=== PATIENT | female | born 1940 | race Caucasian/White ===

== ENCOUNTER 2017-07-15 09:33 | Inpatient (IN) | payer OTHER ==
[2017-07-15] MEDS ORDERED: CATAPRES TAB 0.2 MG PO ONE (09:49)
--- NOTE | 2017-07-15 09:53 | DR.SOBA ---
HPI - Time Seen Time seen: 09:40 - Primary Care Physician Primary Care Physician: NFD - Complaints Chief Complaint Doctors Comments: Patient states that she had shortness of breath this morning. She denies lung disease and is being treated for AFib. Patients states that she sleeps with a CPAP machine. Chief Complaint:: PT C/O SOB THAT STARTED THIS AM. EMS STATES PT WAS NOTED TO BE 83% SPO2 ON ARRIVAL. NOTED NC 2LPM. - Source History Provided: Patient - Mode of Arrival Mode of Arrival: EMS - Timing Onset of Chief Complaint: 07/15/17 PMH - PMH Past Medical History: Yes Past Medical History: Diabetes, Hypertension Past Medical History Comment: A-FIB Past Surgical History: Yes Surgical History: Cholecystectomy, Hysterectomy Past Surgical History Comment: PNEUMONIA - Family History History of Family Medical Conditions: No - Social History Does any household member use tobacco: No Alcohol Use: None Do you use any recreational Drugs:: No Lives With: Alone Lives Where: Home - infectious screening In the last 2 months have you had wt loss of >10#?: NO Have you had fever, night sweats or hemotysis?: No Have you traveled outside the country in the last 6 months?: No Isolation: Standard ROS - Review of Systems Eyes: No Symptoms Reported ENTM: No Symptoms Reported Respiratoy: No Symptoms Reported Cardiovascular: No Symptoms Reported Gastrointestinal/Abdominal: No Symptoms Reported, Abdominal Pain Genitourinary: Discharge Neurological: No Symptoms Reported Musculoskeletal: No Symptoms Reported Integumentary: No Symptoms Reported Hematologic/Lymphatic: No Symptoms Reported PE - Vital Signs Vitals: Temperature 97.7 F Pulse Rate 82 Respiratory Rate 20 Blood Pressure 199/81 O2 Sat by Pulse Oximetry 97 - General Limitations: No Limitations General Appearance: Alert, In No Apparent Distress - Head Head Exam: Normal Inspection, Atraumatic - Eyes Eye exam: Normal Appearance, PERRL, EOMI - ENT ENT Exam: Normal Exam - Neck Neck Exam: Normal Inspection, Full ROM - Chest Chest Inspection: Normal Inspection - Respiratory Respiratory Exam: Normal Lung Sounds Bilat. negative: Chest Wall Tenderness, Respiratory Distress Respiratory Exam: Bilateral Clear to Auscultation - Cardiovascular Cardiovascular Exam: Regular Rate, Normal Rhythm - Abdominal Exam Abdominal Exam: Normal Inspection Abdominal Tenderness: negative: RUQ, RLQ, LUQ, LLQ, Epigastrium, Suprapubic, Diffuse, Mild, Moderate, Severe, Other - Extremities Extremities Exam: Edema, Joint Swelling - Back Back Exam: Normal Inspection - Neurologic Neurological Exam: Alert, Oriented X3, CN II-XII Intact - Psychiatric Psychiatric Exam: Normal Affect - Skin Skin Exam: Warm, Dry, Intact Course - Consultation Called: 13:00 (Dr Garcia agreed to admit for further treatment and evaluation) ROR - Labs Reviewed Laboratory Results Reviewed?: Yes (D Dimer [id number]) Result Diagrams: 07/15/17 10:08 07/15/17 10:08 Laboratory: WBC 5.0 X10^3/uL (3.6-10.0) 07/15/17 10:08 RBC 4.08 X10^6/uL (3.5-5.4) 07/15/17 10:08 Hgb 11.2 g/dL (12.0-16.0) L 07/15/17 10:08 Hct 34.5 % (36.0-47.0) L 07/15/17 10:08 MCV 84.7 fL (80.0-100.0) 07/15/17 10:08 MCH 27.5 pg (27.0-34.0) 07/15/17 10:08 MCHC 32.5 g/dL (33.0-35.0) L 07/15/17 10:08 RDW 17.4 % (11.6-16.5) H 07/15/17 10:08 Plt Count 165 X10^3/uL (150.0-450.0) 07/15/17 10:08 MPV 9.2 fL (7.4-11.0) 07/15/17 10:08 Neut % 73.1 % (42.0-75.0) 07/15/17 10:08 Lymph % 17.1 % (21.0-51.0) L 07/15/17 10:08 [place] % 5.1 % (0.0-13.0) 07/15/17 10:08 Eos % 3.8 % (0.9-2.9) H 07/15/17 10:08 Baso % 0.9 % (0.2-1.0) 07/15/17 10:08 Neut # 3.7 x10^3/uL (2.2-4.8) 07/15/17 10:08 Lymph # 0.9 X10^3/uL (1.3-2.9) L 07/15/17 10:08 [place] # 0.3 x10^3/uL (0.3-0.8) 07/15/17 10:08 Eos # 0.2 x10^3/uL (0.0-0.2) 07/15/17 10:08 Baso # 0.0 X10^3/uL (0.0-0.1) 07/15/17 10:08 Absolute Nucleated RBC 0.0 /100WBC 07/15/17 10:08 D-Dimer 846 ng/mL (0-400) H* 07/15/17 10:08 Sodium 142 mmol/L (136-145) 07/15/17 10:08 Corrected Sodium 145 mmol/L (136-145) 07/15/17 10:08 Potassium 4.1 mmol/L (3.5-5.1) 07/15/17 10:08 Chloride 105 mmol/L (98-107) 07/15/17 10:08 Carbon Dioxide 28.8 mmol/L (21-32) 07/15/17 10:08 BUN 21 mg/dL (7-18) H 07/15/17 10:08 Creatinine 1.12 mg/dL (0.55-1.02) H 07/15/17 10:08 Est GFR (MDRD) Af Amer > 60 (>60) 07/15/17 10:08 Est GFR (MDRD) Non-Af 50 (>60) L 07/15/17 10:08 Glucose 230 mg/dL (65-99) H 07/15/17 10:08 Calcium 9.5 mg/dL (8.5-10.1) 07/15/17 10:08 Corrected Calcium 10.4 mg/dL (8.5-10.1) H 07/15/17 10:08 Total Bilirubin 0.60 mg/dL (0.2-1.0) 07/15/17 10:08 AST 23 Units/L (15-37) 07/15/17 10:08 ALT 17 Units/L (12-78) 07/15/17 10:08 Alkaline Phosphatase 84 Units/L (46-116) 07/15/17 10:08 Creatine Kinase 62 Units/L (26-192) 07/15/17 10:10 CK-MB (CK-2) < 1.0 ng/mL (0-4.0) 07/15/17 10:10 CK/CKMB % Calc 1.6 % (<4) 07/15/17 10:10 Troponin I 0.09 ng/mL (0-1.5) 07/15/17 10:10 C-Reactive Protein 1.70 mg/L (0-3.0) 07/15/17 10:08 B-Natriuretic Peptide 310 pg/mL (0-79) H 07/15/17 10:08 Total Protein 7.7 g/dL (6.4-8.2) 07/15/17 10:08 Albumin 2.9 g/dL (3.4-5.0) L 07/15/17 10:08 Globulin 4.8 g/dL (2.5-4.5) H 07/15/17 10:08 Albumin/Globulin Ratio 0.6 Ratio (1.1-2.1) L 07/15/17 10:08 - XRAY XRAY Interpreted by: Radiologist (Chest: Cardiomegaly with pulmonary venous congestion consistent with borderline /mild CHF CTA: No PE) - Diagnosis Discharge Problem: CHF (congestive heart failure) Qualifiers: Congestive heart failure type: unspecified congestive heart failure type Congestive heart failure chronicity: chronic Qualified Code(s): I50.9 - Heart failure, unspecified Dyspnea Qualifiers: Dyspnea type: shortness of breath Qualified Code(s): R06.02 - Shortness of breath - Discharge Plan Disposition: ADMITTED INPATIENT Condition: Stable - Follow ups/Referrals - Instructions
--- NOTE | 2017-07-15 10:11 | RAD ---
Examination: AP chest History: SOB Comparison reference: None Findings: The heart is moderately enlarged. The pulmonary vessels are congested and indistinct. There is no evidence for pneumothorax, localized consolidation or large pleural effusion. Impression: Cardiomegaly with pulmonary venous congestion consistent with borderline/mild CHF. The Reported By:
[2017-07-15 10:18] LABS: BASOPHILS % (AUTO) 0.9 % (0.2-1.0); EOSINOPHILS # (AUTO) 0.2 x10^3/uL (0.0-0.2); EOSINOPHILS % (AUTO) 3.8 % (0.9-2.9); HEMATOCRIT 34.5 % (36.0-47.0); HEMOGLOBIN 11.2 g/dL (12.0-16.0); LYMPHOCYTES # (AUTO) 0.9 X10^3/uL (1.3-2.9); LYMPHOCYTES % (AUTO) 17.1 % (21.0-51.0); MEAN CORPUSCULAR HEMOGLOBIN 27.5 pg (27.0-34.0); MEAN CORPUSCULAR HGB CONC 32.5 g/dL (33.0-35.0); MEAN CORPUSCULAR VOLUME 84.7 fL (80.0-100.0); MEAN PLATELET VOLUME 9.2 fL (7.4-11.0); MONOCYTES # (AUTO) 0.3 x10^3/uL (0.3-0.8); MONOCYTES % (AUTO) 5.1 % (0.0-13.0); NEUTROPHILS # (AUTO) 3.7 x10^3/uL (2.2-4.8); NEUTROPHILS % (AUTO) 73.1 % (42.0-75.0); PLATELET COUNT 165 X10^3/uL (150.0-450.0); RED BLOOD COUNT 4.08 X10^6/uL (3.5-5.4); RED CELL DISTRIBUTION WIDTH 17.4 % (11.6-16.5)
[2017-07-15 10:33] LABS: B-TYPE NATRIURETIC PEPTIDE 310 pg/mL (0-79)
[2017-07-15 10:34] LABS: ALANINE AMINOTRANSFERASE 17 Units/L (12-78); ALBUMIN 2.9 g/dL (3.4-5.0); ALKALINE PHOSPHATASE 84 Units/L (46-116); ASPARTATE AMINO TRANSFERASE 23 Units/L (15-37); BLOOD UREA NITROGEN 21 mg/dL (7-18); CALCIUM 9.5 mg/dL (8.5-10.1); CARBON DIOXIDE 28.8 mmol/L (21-32); CHLORIDE 105 mmol/L (98-107); COR CA(FOR HYPOALB) 10.4 mg/dL (8.5-10.1); COR NA(FOR HYPERGLY) 145 mmol/L (136-145); CREATININE 1.12 mg/dL (0.55-1.02); SODIUM 142 mmol/L (136-145); TOTAL PROTEIN 7.7 g/dL (6.4-8.2); eGFR BLACK RACES > 60 (>60); eGFR NON BLACK RACES 50 (>60)
[2017-07-15 10:37] LABS: CKMB % 1.6 % (<4); CREATINE KINASE 62 Units/L (26-192); CREATINE KINASE MB < 1.0 ng/mL (0-4.0); TROPONIN I 0.09 ng/mL (0-1.5)
[2017-07-15] MEDS ORDERED: NS 100 ML IV 100 ML IV ONE (11:25)
--- NOTE | 2017-07-15 12:27 | CT ---
HISTORY: Shortness of breath, elevated D-dimer Study: CTA chest with contrast for pulmonary embolus Comparison: Plain films same date Technique: Axial post-contrast images with coronal and sagittal reformats. Three-dimensional maximum intensity projection images were obtained and evaluated. Dose reduction procedures were used with mA/ kv adjusted for body size. Findings: There is no evidence for acute pulmonary thromboembolic disease. Examination of the mediastinum demon strated no evidence for mediastinal masses, enlarged mediastinal or enlarged hilar adenopathy. 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 Coronary artery calcifications are present. The hear t is enlarged. Mild pulmonary venous congestion is present. There is a minimal pericardial effusion m aximum width 13 mm along the right heart border. Bilateral small pleural effusions are present right greater than left. No chest wall or axillary abnormality is identified. Those portions of the upper a bdominal organs visualized were within normal limits with the exception of hepatomegaly. Examination of the lung [place] demonstrated no alveolar infiltrates, areas of consolidation, nodules, masses, per ibronchial thickening, or bronchiectasis. IMPRESSION: No evidence for acute pulmonary thromboembolic disease Cardiomegaly with mild pulmonary venous congestion and small bilateral pleural effusions likely indic ating mild congestive heart failure Lungs clear Minimal pericardial effusion Congenital right-sided aortic arch Reported By:
[2017-07-15] MEDS ORDERED: ZOFRAN INJ 4 MG VIAL IVP PRN (13:39)
[2017-07-15] MEDS ORDERED: NS 1000 ML 1,000 ML with POTASSIUM CHLORIDE INJ 20 MEQ VIAL 20 MEQ IV SCH ×2 (14:00)
[2017-07-15] MEDS ORDERED: CATAPRES TAB 0.1 MG PO ONE ×2 (14:37→19:36)
[2017-07-15] MEDS ORDERED: CATAPRES TAB 0.1 MG ONE (14:43)
[2017-07-15] MEDS ORDERED: FLUVIRIN IM ONE (16:02)
[2017-07-15] MEDS ORDERED: NS + KCL 20 MEQ/L 1,000 ML IV ONE (16:14)
[2017-07-15 16:32] LABS: CKMB % 1.9 % (<4); CREATINE KINASE 54 Units/L (26-192); CREATINE KINASE MB < 1.0 ng/mL (0-4.0); TROPONIN I 0.08 ng/mL (0-1.5)
[2017-07-15] MEDS: TYLENOL 325 MG TAB PO PRN (17:03)
[2017-07-15] MEDS: LASIX IVP SCH (20:36)
[2017-07-15] MEDS: ELIQUIS PO SCH ×2 (20:37→20:46)
[2017-07-15] MEDS: ZYLOPRIM PO SCH (20:37)
[2017-07-15] MEDS: HumuLIN R SUBCUT PRN (20:38)
[2017-07-15] MEDS: SNACK - Diabetic Appropriate PO SCH (20:39)
[2017-07-15 22:29] LABS: CKMB % 1.9 % (<4); CREATINE KINASE 53 Units/L (26-192); CREATINE KINASE MB < 1.0 ng/mL (0-4.0)
[2017-07-16] MEDS: HumuLIN R SUBCUT PRN ×4 (05:42→21:30)
[2017-07-16] MEDS: NS + KCL 20 MEQ/L 1,000 ML IV SCH (05:43)
[2017-07-16 06:39] LABS: ALANINE AMINOTRANSFERASE 15 Units/L (12-78); ALBUMIN 2.8 g/dL (3.4-5.0); ALKALINE PHOSPHATASE 77 Units/L (46-116); ASPARTATE AMINO TRANSFERASE 22 Units/L (15-37); BLOOD UREA NITROGEN 19 mg/dL (7-18); CALCIUM 8.9 mg/dL (8.5-10.1); CARBON DIOXIDE 25.5 mmol/L (21-32); CHLORIDE 107 mmol/L (98-107); COR CA(FOR HYPOALB) 9.9 mg/dL (8.5-10.1); COR NA(FOR HYPERGLY) 144 mmol/L (136-145); CREATININE 1.04 mg/dL (0.55-1.02); SODIUM 141 mmol/L (136-145); TOTAL PROTEIN 6.7 g/dL (6.4-8.2); eGFR BLACK RACES > 60 (>60); eGFR NON BLACK RACES 55 (>60)
[2017-07-16 07:15] LABS: BASOPHILS % (AUTO) 0.6 % (0.2-1.0); EOSINOPHILS # (AUTO) 0.2 x10^3/uL (0.0-0.2); EOSINOPHILS % (AUTO) 3.6 % (0.9-2.9); HEMATOCRIT 32.7 % (36.0-47.0); HEMOGLOBIN 10.4 g/dL (12.0-16.0); LYMPHOCYTES # (AUTO) 0.6 X10^3/uL (1.3-2.9); LYMPHOCYTES % (AUTO) 13.9 % (21.0-51.0); MEAN CORPUSCULAR HEMOGLOBIN 27.4 pg (27.0-34.0); MEAN CORPUSCULAR HGB CONC 31.8 g/dL (33.0-35.0); MEAN PLATELET VOLUME 9.4 fL (7.4-11.0); MONOCYTES # (AUTO) 0.2 x10^3/uL (0.3-0.8); MONOCYTES % (AUTO) 5.1 % (0.0-13.0); NEUTROPHILS # (AUTO) 3.6 x10^3/uL (2.2-4.8); NEUTROPHILS % (AUTO) 76.8 % (42.0-75.0); PLATELET COUNT 137 X10^3/uL (150.0-450.0); RED CELL DISTRIBUTION WIDTH 17.2 % (11.6-16.5); WHITE BLOOD COUNT 4.6 X10^3/uL (3.6-10.0)
[2017-07-16] MEDS: ELIQUIS PO SCH ×2 (08:45→20:35)
[2017-07-16] MEDS: LASIX IVP SCH ×2 (08:45→20:35)
[2017-07-16] MEDS: ZYLOPRIM PO SCH (08:45)
--- NOTE | 2017-07-16 09:17 | RAD ---
HISTORY: Follow-up CHF Study: Single-view chest Comparison: July 15, 2017 Findings: The heart is enlarged with central vascular congestion but no lobar mass or consolidation to suggest florid pulmonary edema or pneumonia. There are no effusions. There is no pneumothorax. IMPRESSION: Cardiomegaly and central vascular congestion without florid pulmonary edema or pneumonia. Reported By:
[2017-07-16] MEDS: ALBUMIN HUMAN 25%- 100ML 100 ML IV SCH (14:52)
--- NOTE | 2017-07-16 18:15 | VAS ---
VENOUS ULTRASOUND DOPPLER EXAMINATION OF THE BILATERAL LOWER EXTREMITIES HISTORY: Shortness of breath, elevated D-dimer, bilateral leg edema. Comparison: None TECHNIQUE: Multiple hudson scale and color flow Doppler images of the deep venous system were obtained of the right and left lower extremity. FINDINGS: The deep venous system of the right and left lower extremities were evaluated from the level of the c ommon femoral vein through the popliteal vein. Normal color flow and augmentation can be observed. In addition, normal compression is seen throughout the deep venous system. IMPRESSION: 1. Negative for DVT. Reported By:
[2017-07-16] MEDS: SNACK - Diabetic Appropriate PO SCH (20:35)
[2017-07-16] MEDS: TYLENOL 325 MG TAB PO PRN (21:30)
[2017-07-17 05:12] LABS: BASOPHILS % (AUTO) 0.5 % (0.2-1.0); EOSINOPHILS # (AUTO) 0.2 x10^3/uL (0.0-0.2); EOSINOPHILS % (AUTO) 3.9 % (0.9-2.9); HEMATOCRIT 31.6 % (36.0-47.0); HEMOGLOBIN 10.2 g/dL (12.0-16.0); LYMPHOCYTES # (AUTO) 0.8 X10^3/uL (1.3-2.9); LYMPHOCYTES % (AUTO) 17.4 % (21.0-51.0); MEAN CORPUSCULAR HEMOGLOBIN 27.8 pg (27.0-34.0); MEAN CORPUSCULAR HGB CONC 32.2 g/dL (33.0-35.0); MEAN CORPUSCULAR VOLUME 86.2 fL (80.0-100.0); MEAN PLATELET VOLUME 9.2 fL (7.4-11.0); MONOCYTES # (AUTO) 0.3 x10^3/uL (0.3-0.8); MONOCYTES % (AUTO) 7.1 % (0.0-13.0); NEUTROPHILS # (AUTO) 3.4 x10^3/uL (2.2-4.8); NEUTROPHILS % (AUTO) 71.1 % (42.0-75.0); PLATELET COUNT 130 X10^3/uL (150.0-450.0); RED BLOOD COUNT 3.66 X10^6/uL (3.5-5.4); RED CELL DISTRIBUTION WIDTH 17.2 % (11.6-16.5); WHITE BLOOD COUNT 4.7 X10^3/uL (3.6-10.0)
[2017-07-17 05:20] LABS: CALCIUM 8.9 mg/dL (8.5-10.1); COR CA(FOR HYPOALB) 9.7 mg/dL (8.5-10.1); CREATININE 1.21 mg/dL (0.55-1.02)
[2017-07-17] MEDS: NS + KCL 20 MEQ/L 1,000 ML IV SCH ×3 (05:41→21:32)
[2017-07-17] MEDS: HumuLIN R SUBCUT PRN ×3 (06:26→17:31)
[2017-07-17] MEDS: LASIX IVP SCH ×2 (08:38→21:26)
[2017-07-17] MEDS: ELIQUIS PO SCH ×2 (08:38→21:26)
[2017-07-17] MEDS: ALBUMIN HUMAN 25%- 100ML 100 ML IV SCH (08:38)
[2017-07-17] MEDS: ZYLOPRIM PO SCH (08:41)
[2017-07-17] MEDS ORDERED: GLIPIZIDE 10 MG PO SCH (10:30)
[2017-07-17 11:16] VITALS: BMI 31.1
--- NOTE | 2017-07-17 13:46 | DR.H&P ---
H&P - History & Physical for Day of: H&P Date: 07/15/17 - Chief Complaint Chief Complaint: short of breath - Allergies Allergies/Adverse Reactions: Allergies Allergy/AdvReac Type Severity Reaction Status Date / Time lisinopril [From Zestril] Allergy Verified 07/15/17 09:57 zinc AdvReac Verified 07/15/17 09:57 - History of Present Illness History of Present Illness: is a 76 year old white female who presented to the emergency room with complaints of shortness of breath that began suddenly this morning. Patient reports that shortness of breath had progressively gotten worse throughout the morning, so she called EMS to bring her to the ER. Patient states that she just moved back to [place] on Tuesday and does not have a local doctor yet. She reports that her medications were packed up in a box and now she can't find them, that she has not taken any medications in a couple of days and this includes her diuretic. On examination, lung sound are diminished bilaterally to auscultation. Abdomen is round, soft, and non- tender with normal bowel sounds noted in all quadrants. Bilateral lower extremities are noted with 2+ pitting edema. Patient reports that edema has increased since she has not take her diuretics. On arrival to the ER, her vital signs were 97.7-82-20-97%-199/81. Labs, chest xray, and ekg were obtained. Abnormal lab values include the following: hgb 11.2, hct 34.5, d-dimer 846, bun 21, creatinine 1.12, bnp 310, albumin 2.9. We obtained a chest xray, a chest CTA , and an EKG. Chest xray reported cardiomegaly with pulmonary venous congestion consistent with borderline/mild CHF. Chest CTA reported no evidence for acute pulmonary thromboembolic disease, cardiomegaly with mild pulmonary venous congestion and small bilateral pleural effusions likely indicating mild congestive heart failure, lungs clear, minimal pericardial effusion, congenital right sided aortic arch. EKG reported sinus rhythm with HR 73. She was given Lasix 20mg iv in the ER and started on normal saline with 20meq KCL at 80ml/hr. We admitted patient for further evaluation and treatment of CHF. We plan to administer Lasix 20mg IV BID. We will follow up with AM labs and chest xray and continue to monitor. - Past Medical History Past Medical History: Diabetes, Hypertension - Past Surgical History Surgical History: Cholecystectomy, Hysterectomy - Family History Family Medical History: Cancer, Hypertension - Social History Does any household member use tobacco: No Alcohol Use: None Drug Use: None - Medications Home Medications: Allopurinol [ZYLOPRIM tab 300 mg *] 300 mg PO DAILY 07/15/17 [History Confirmed 07/15/17] Apixaban [Eliquis] 2.5 mg PO BID 07/15/17 [History Confirmed 07/15/17] Glipizide [Glipizide Xl] 10 mg PO BID 07/15/17 [History Confirmed 07/15/17] Insulin Glargine (Lantus) [LANTUS INSULIN 10 ML VIAL *] 10 units SC HS 07/15/17 [History Confirmed 07/15/17] Potassium Chloride [Klor-Con 10] 10 meq PO DAILY 07/15/17 [History Confirmed 06/21] Saxagliptin HCl/Metformin HCl [Kombiglyze Xr 2.5-1000 mg] 1 tab PO BID 07/15/17 [History Confirmed 07/15/17] - Physical Exam Vital Signs: Temperature 98.1 F Pulse Rate [Right Radial] 96 Pulse Rate 55 Respiratory Rate 20 Blood Pressure [Right Arm] 142/63 Blood Pressure [Left Arm] 178/68 Blood Pressure 199/81 O2 Sat by Pulse Oximetry 96
[2017-07-17] MEDS ORDERED: MAG-OX TAB PO PRN (14:40)
[2017-07-17] MEDS: MAGNESIUM SULFATE 1 GM/100 mL PREMIX 1 GM/100 ML BAG IV PRN ×4 (14:55→18:15)
[2017-07-17] MEDS: LANTUS SC SCH (21:27)
[2017-07-17] MEDS: SNACK - Diabetic Appropriate PO SCH (21:31)
--- NOTE | 2017-07-17 23:47 | PCM.PROG ---
Progress Note - Progress Note for Day of Date: 07/16/17 - Subjective Subjective: WAS ADMITTED FOR CHF AND SHORTNESS OF BREATH. TODAY, SHE IS ALERT AND ORIENTED, SITTING UP IN RECLINER ON MORNING ROUNDS. SHE CONTINUES WITH COMPAINTS OF SHORTNESS OF BREATH THIS MORNING, HOWEVER, REPORTS SLIGHT IMPROVEMENT SINCE ADMISSION. ON EXAMINATION, LUNGS ARE NOTED WITH EXPIRATORY WHEEZING. ABDOMEN IS ROUND, SOFT, AND NON-TENDER WITH NORMAL BOWEL SOUNDS NOTED IN ALL QUADRANTS. BILATERAL LOWER EXTREMITIES ARE NOTED WITH 1+ PITTING EDEMA AND ERYTHEMA. SHE IS UTILIZING OXYGEN VIA NASAL CANNULA AT 2L/MIN. HER VITAL SIGNS THIS MORNING ARE 98.0-47-18-99%-115/80. ABNORMAL LAB VALUES INCLUDE THE FOLLOWING: HGB 10.4, HCT 32.7, BUN 19, CREATININE 1.04, GLUCOSE 215, ALBUMIN 2.8 , A/G RATIO 0.7. CARDIAC ENZYMES HAVE BEEN WITHIN NORMAL LIMITS. TODAYS CHEST XRAY REPORTS CARDIOMEGALY AND CENTRAL VASCULAR CONGESTION WITHOUT FLORID PULMONARY EDEMA OR PNEUMONIA. LATEST EKG REPORTS SINUS RHYTHM WITH HR 68. TODAY , WE PLAN TO CHECK A VENOUS DOPPLER TO RULE OUT DVT. WE WILL RESTRICT FLUIDS TO 1 LITER/DAY AND DECREASE IVF TO KVO. WE WILL START ALBUMIN 25% IV DAILY AND LASIX 40MG IV BID. WE PLAN TO FOLLOW UP WITH AM LABS AND CONTINUE TO MONITOR PATIENT. - Past Medical Family Social History Past Med/Fam/Surg Hx: No changes since H&P Allergies: Allergies lisinopril [From Zestril] Allergy (Verified 07/15/17 09:57) zinc Adverse Reaction (Verified 07/15/17 09:57) - Review of Systems ROS: No change since H&P - Vital Signs and I&O's Vital Signs: Temperature 98.3 F Pulse Rate [Right Radial] 72 Pulse Rate 72 Respiratory Rate 20 Blood Pressure [Right Arm] 145/80 Blood Pressure [Left Arm] 178/68 Blood Pressure 199/81 O2 Sat by Pulse Oximetry 98 Intake and Output: Intake & Output 07/15/17 07/16/17 07/17/17 07/18/17 11:59 11:59 11:59 11:59 Intake Total 1480 1000 760 Output Total 2100 Balance 1480 1000 -1340 - Physical Exam Oriented: Normal Eyes: Normal Ear: Normal Nose: Normal Throat: Normal Respiratory: Right, Left, Generalized, Wheezes Cardiovascular: Edema : Normal Auscultation: Bowel Sounds: Normal Palpation: Normal Tenderness: Normal Skin: Normal Musculoskeletal: Normal Psychiatric: Normal Mood Description: Calm Affect: Normal Speech Pattern: Clear, Appropriate - Laboratory and Diagnostics Result Diagrams: 07/17/17 04:40 07/17/17 04:40 Labs: Laboratory WBC 4.7 X10^3/uL (3.6-10.0) 07/17/17 04:40 RBC 3.66 X10^6/uL (3.5-5.4) 07/17/17 04:40 Hgb 10.2 g/dL (12.0-16.0) L 07/17/17 04:40 Hct 31.6 % (36.0-47.0) L 07/17/17 04:40 MCV 86.2 fL (80.0-100.0) 07/17/17 04:40 MCH 27.8 pg (27.0-34.0) 07/17/17 04:40 MCHC 32.2 g/dL (33.0-35.0) L 07/17/17 04:40 RDW 17.2 % (11.6-16.5) H 07/17/17 04:40 Plt Count 130 X10^3/uL (150.0-450.0) L 07/17/17 04:40 MPV 9.2 fL (7.4-11.0) 07/17/17 04:40 Neut % 71.1 % (42.0-75.0) 07/17/17 04:40 Lymph % 17.4 % (21.0-51.0) L 07/17/17 04:40 [place] % 7.1 % (0.0-13.0) 07/17/17 04:40 Eos % 3.9 % (0.9-2.9) H 07/17/17 04:40 Baso % 0.5 % (0.2-1.0) 07/17/17 04:40 Neut # 3.4 x10^3/uL (2.2-4.8) 07/17/17 04:40 Lymph # 0.8 X10^3/uL (1.3-2.9) L 07/17/17 04:40 [place] # 0.3 x10^3/uL (0.3-0.8) 07/17/17 04:40 Eos # 0.2 x10^3/uL (0.0-0.2) 07/17/17 04:40 Baso # 0.0 X10^3/uL (0.0-0.1) 07/17/17 04:40 Absolute Nucleated RBC 0.1 /100WBC 07/17/17 04:40 D-Dimer 846 ng/mL (0-400) H* 07/15/17 10:08 Sodium 141 mmol/L (136-145) 07/17/17 04:40 Corrected Sodium 144 mmol/L (136-145) 07/17/17 04:40 Potassium 4.0 mmol/L (3.5-5.1) 07/17/17 04:40 Chloride 105 mmol/L (98-107) 07/17/17 04:40 Carbon Dioxide 30.0 mmol/L (21-32) 07/17/17 04:40 BUN 19 mg/dL (7-18) H 07/17/17 04:40 Creatinine 1.21 mg/dL (0.55-1.02) H 07/17/17 04:40 Est GFR (MDRD) Af Amer 56 (>60) L 07/17/17 04:40 Est GFR (MDRD) Non-Af 46 (>60) L 07/17/17 04:40 Glucose 213 mg/dL (65-99) H 07/17/17 04:40 POC Glucose (mg/dL) 255 mg/dL (65-99) H 07/17/17 20:45 Calcium 8.9 mg/dL (8.5-10.1) 07/17/17 04:40 Corrected Calcium 9.7 mg/dL (8.5-10.1) 07/17/17 04:40 Magnesium 1.3 mg/dL (1.7-2.9) L 07/17/17 04:40 Total Bilirubin 0.90 mg/dL (0.2-1.0) 07/17/17 04:40 AST 18 Units/L (15-37) 07/17/17 04:40 ALT 17 Units/L (12-78) 07/17/17 04:40 Alkaline Phosphatase 96 Units/L (46-116) 07/17/17 04:40 Creatine Kinase 53 Units/L (26-192) 07/15/17 21:46 CK-MB (CK-2) < 1.0 ng/mL (0-4.0) 07/15/17 21:46 CK/CKMB % Calc 1.9 % (<4) 07/15/17 21:46 Troponin I 0.10 ng/mL (0-1.5) 07/15/17 21:46 C-Reactive Protein 1.70 mg/L (0-3.0) 07/15/17 10:08 B-Natriuretic Peptide 310 pg/mL (0-79) H 07/15/17 10:08 Total Protein 7.0 g/dL (6.4-8.2) 07/17/17 04:40 Albumin 3.0 g/dL (3.4-5.0) L 07/17/17 04:40 Globulin 4.0 g/dL (2.5-4.5) 07/17/17 04:40 Albumin/Globulin Ratio 0.8 Ratio (1.1-2.1) L 07/17/17 04:40 - Plan (1) CHF (congestive heart failure) Status: Acute Qualifiers: Congestive heart failure type: unspecified congestive heart failure type Congestive heart failure chronicity: chronic Qualified Code(s): I50.9 - Heart failure, unspecified Plan: LASIX 40MG IV BID, FLUID RESTRICTION, CONTINUE TO MONITOR LABS AND CHEST XRAY (2) Dyspnea Status: Acute Qualifiers: Dyspnea type: shortness of breath Qualified Code(s): R06.02 - Shortness of breath; R06.00 - Dyspnea, unspecified; R06.01 - Orthopnea Plan: SUPPLEMENTAL OXYGEN, FLUID RESTRICTION, CONTINUE TO MONITOR LABS AND CHEST XRAY
[2017-07-18 05:06] LABS: BASOPHILS % (AUTO) 0.6 % (0.2-1.0); EOSINOPHILS # (AUTO) 0.3 x10^3/uL (0.0-0.2); EOSINOPHILS % (AUTO) 5.5 % (0.9-2.9); HEMATOCRIT 32.2 % (36.0-47.0); HEMOGLOBIN 10.4 g/dL (12.0-16.0); LYMPHOCYTES # (AUTO) 0.7 X10^3/uL (1.3-2.9); LYMPHOCYTES % (AUTO) 13.8 % (21.0-51.0); MEAN CORPUSCULAR HEMOGLOBIN 27.4 pg (27.0-34.0); MEAN CORPUSCULAR HGB CONC 32.4 g/dL (33.0-35.0); MEAN CORPUSCULAR VOLUME 84.7 fL (80.0-100.0); MEAN PLATELET VOLUME 9.7 fL (7.4-11.0); MONOCYTES # (AUTO) 0.3 x10^3/uL (0.3-0.8); MONOCYTES % (AUTO) 4.9 % (0.0-13.0); NEUTROPHILS # (AUTO) 3.9 x10^3/uL (2.2-4.8); NEUTROPHILS % (AUTO) 75.2 % (42.0-75.0); PLATELET COUNT 155 X10^3/uL (150.0-450.0); RED CELL DISTRIBUTION WIDTH 16.8 % (11.6-16.5); WHITE BLOOD COUNT 5.2 X10^3/uL (3.6-10.0)
[2017-07-18 05:38] LABS: ALANINE AMINOTRANSFERASE 19 Units/L (12-78); ALKALINE PHOSPHATASE 77 Units/L (46-116); ASPARTATE AMINO TRANSFERASE 21 Units/L (15-37); BLOOD UREA NITROGEN 18 mg/dL (7-18); CALCIUM 8.7 mg/dL (8.5-10.1); CARBON DIOXIDE 31.8 mmol/L (21-32); CHLORIDE 102 mmol/L (98-107); COR CA(FOR HYPOALB) 9.5 mg/dL (8.5-10.1); COR NA(FOR HYPERGLY) 144 mmol/L (136-145); CREATININE 0.97 mg/dL (0.55-1.02); MAGNESIUM 1.6 mg/dL (1.7-2.9); SODIUM 141 mmol/L (136-145); TOTAL PROTEIN 7.1 g/dL (6.4-8.2); eGFR BLACK RACES > 60 (>60); eGFR NON BLACK RACES 60 (>60)
[2017-07-18] MEDS: GLUCOTROL XL PO SCH (05:59)
[2017-07-18] MEDS: HumuLIN R SUBCUT PRN (06:27)
--- NOTE | 2017-07-18 06:38 | RAD ---
HISTORY: Shortness of breath Study: Chest AP portable Comparison: 07/16/2017, CTA chest 07/15/2017 Findings: The heart remains enlarged. Mild pulmonary venous congestion is present. No interstitial edema, alveo lar edema, alveolar infiltrates, or pleural effusions are identified. The bony thorax is unremarkable . IMPRESSION: Cardiomegaly with mild pulmonary venous congestion, stable Lungs clear Reported By:
[2017-07-18] MEDS: ELIQUIS PO SCH ×2 (09:08→20:53)
[2017-07-18] MEDS: ALBUMIN HUMAN 25%- 100ML 100 ML IV SCH (09:08)
[2017-07-18] MEDS: ZYLOPRIM PO SCH (09:09)
[2017-07-18] MEDS: LASIX IVP SCH ×2 (09:09→20:54)
[2017-07-18] MEDS: GLUCOPHAGE XR PO SCH (20:53)
[2017-07-18] MEDS: LANTUS SC SCH (20:54)
[2017-07-18] MEDS: SNACK - Diabetic Appropriate PO SCH (21:54)
[2017-07-18] MEDS: NS + KCL 20 MEQ/L 1,000 ML IV SCH (21:54)
[2017-07-19] MEDS: NS + KCL 20 MEQ/L 1,000 ML IV SCH (00:32)
[2017-07-19 05:16] LABS: ALANINE AMINOTRANSFERASE 18 Units/L (12-78); ALKALINE PHOSPHATASE 76 Units/L (46-116); ASPARTATE AMINO TRANSFERASE 20 Units/L (15-37); BLOOD UREA NITROGEN 24 mg/dL (7-18); CALCIUM 9.1 mg/dL (8.5-10.1); CHLORIDE 101 mmol/L (98-107); COR CA(FOR HYPOALB) 9.9 mg/dL (8.5-10.1); COR NA(FOR HYPERGLY) 146 mmol/L (136-145); CREATININE 1.11 mg/dL (0.55-1.02); SODIUM 144 mmol/L (136-145); eGFR BLACK RACES > 60 (>60); eGFR NON BLACK RACES 51 (>60)
[2017-07-19 05:28] LABS: BASOPHILS % (AUTO) 0.7 % (0.2-1.0); EOSINOPHILS # (AUTO) 0.4 x10^3/uL (0.0-0.2); EOSINOPHILS % (AUTO) 6.7 % (0.9-2.9); HEMATOCRIT 33.9 % (36.0-47.0); LYMPHOCYTES # (AUTO) 1.1 X10^3/uL (1.3-2.9); LYMPHOCYTES % (AUTO) 19.9 % (21.0-51.0); MEAN CORPUSCULAR HEMOGLOBIN 27.5 pg (27.0-34.0); MEAN CORPUSCULAR HGB CONC 32.6 g/dL (33.0-35.0); MEAN CORPUSCULAR VOLUME 84.4 fL (80.0-100.0); MEAN PLATELET VOLUME 9.1 fL (7.4-11.0); MONOCYTES # (AUTO) 0.3 x10^3/uL (0.3-0.8); MONOCYTES % (AUTO) 5.7 % (0.0-13.0); NEUTROPHILS # (AUTO) 3.6 x10^3/uL (2.2-4.8); PLATELET COUNT 165 X10^3/uL (150.0-450.0); RED BLOOD COUNT 4.01 X10^6/uL (3.5-5.4); RED CELL DISTRIBUTION WIDTH 17.4 % (11.6-16.5); WHITE BLOOD COUNT 5.3 X10^3/uL (3.6-10.0)
[2017-07-19] MEDS ORDERED: K-LYTE EFFERVESCENT PO PRN (05:31)
[2017-07-19] MEDS ORDERED: POTASSIUM CHLORIDE LIQ 20 MEQ UDC PO PRN (05:31)
[2017-07-19] MEDS ORDERED: MAGNESIUM SULFATE 1 GM/100 mL PREMIX 1 GM/100 ML BAG IV PRN (05:31)
[2017-07-19] MEDS ORDERED: MAG-OX TAB PO PRN (05:31)
[2017-07-19] MEDS ORDERED: K-RIDER 10 MEQ/NS 100 ML 10 MEQ/100 ML BAG IV PRN (05:31)
[2017-07-19] MEDS: GLUCOTROL XL PO SCH (06:02)
--- NOTE | 2017-07-19 08:43 | RAD ---
Examination: Portable AP chest History: SOB Comparison reference: 07/18/2017 Findings: Continued cardiac enlargement. The lungs remain grossly clear although base these are partl y obscured by overlying soft tissues. There is no evidence for pneumothorax, large pleural effusion o r localized pulmonary consolidation. Impression: Persistent cardiomegaly and central vascular prominence. See above. Reported By:
[2017-07-19] MEDS: ALBUMIN HUMAN 25%- 100ML 100 ML IV SCH (09:34)
[2017-07-19] MEDS: GLUCOPHAGE XR PO SCH ×2 (09:35→21:44)
[2017-07-19] MEDS: ZYLOPRIM PO SCH (09:35)
[2017-07-19] MEDS: ELIQUIS PO SCH ×2 (09:35→21:44)
[2017-07-19] MEDS: LASIX IVP SCH ×2 (09:36→21:47)
[2017-07-19] MEDS: HumuLIN R SUBCUT PRN ×3 (11:46→21:49)
--- NOTE | 2017-07-19 12:22 | PCM.PROG ---
Progress Note - Progress Note for Day of Date: 07/17/17 - Subjective Subjective: WAS ADMITTED FOR CHF AND SHORTNESS OF BREATH. TODAY, SHE IS ALERT AND ORIENTED, SITTING UP IN RECLINER ON MORNING ROUNDS. SHE CONTINUES WITH COMPAINTS OF SHORTNESS OF BREATH THIS MORNING. ON EXAMINATION, LUNGS CONTINUE WITH EXPIRATORY WHEEZING. ABDOMEN IS ROUND, SOFT, AND NON-TENDER WITH NORMAL BOWEL SOUNDS NOTED IN ALL QUADRANTS. BILATERAL LOWER EXTREMITIES CONTINUE WITH 1+ PITTING EDEMA AND ERYTHEMA. SHE IS UTILIZING OXYGEN VIA NASAL CANNULA AT 2L/MIN. HER VITAL SIGNS THIS MORNING ARE 98.0-65-18-99%-178/68. ABNORMAL LAB VALUES INCLUDE THE FOLLOWING: HGB 10.2, HCT 31.6, BUN 19, CREATININE 1.21, GLUCOSE 213, ALBUMIN 3.0, A/G RATIO 0.8. BILATERAL VENOUS DOPPLER THAT WAS OBTAINED YESTERDAY REPORTED NEGATIVE FOR DVT. HER BLOOD GLUCOSE REMAINS ELEVATED DESPITE SLIDING SCALE COVERAGE. TODAY, WE WILL RESUME HOME MEDICATIONS AND INCREASE LANTUS TO 15 UNITS AT BEDTIME. OTHERWISE, WE WILL CONTINUE WITH CURRENT PLAN OF CARE AND CONTINUE WITH LASIX 40MG IV BID. WE PLAN TO FOLLOW UP WITH AM LABS AND CHEST XRAY AND CONTINUE TO MONITOR PATIENT. - Past Medical Family Social History Past Med/Fam/Surg Hx: No changes since H&P Allergies: Allergies lisinopril [From Zestril] Allergy (Verified 07/15/17 09:57) zinc Adverse Reaction (Verified 07/15/17 09:57) - Review of Systems ROS: No change since H&P - Vital Signs and I&O's Vital Signs: Temperature 98.2 F Pulse Rate [Right Radial] 82 Pulse Rate 76 Respiratory Rate 20 Blood Pressure [Right Arm] 168/74 Blood Pressure [Left Arm] 138/67 Blood Pressure 199/81 O2 Sat by Pulse Oximetry 96 Intake and Output: Intake & Output 07/17/17 07/18/17 07/19/17 07/20/17 11:59 11:59 11:59 11:59 Intake Total 1000 1340 1790 Output Total 3700 2200 Balance 1000 -2030 -410 - Physical Exam Oriented: Normal Eyes: Normal Ear: Normal Nose: Normal Throat: Normal Respiratory: Right, Left, Generalized, Wheezes Cardiovascular: Edema : Normal Auscultation: Bowel Sounds: Normal Palpation: Normal Tenderness: Normal Skin: Normal Musculoskeletal: Normal Psychiatric: Normal Mood Description: Calm Affect: Normal Speech Pattern: Clear, Appropriate - Laboratory and Diagnostics Result Diagrams: 07/19/17 03:45 07/19/17 03:45 Labs: Laboratory WBC 5.3 X10^3/uL (3.6-10.0) 07/19/17 03:45 RBC 4.01 X10^6/uL (3.5-5.4) 07/19/17 03:45 Hgb 11.0 g/dL (12.0-16.0) L 07/19/17 03:45 Hct 33.9 % (36.0-47.0) L 07/19/17 03:45 MCV 84.4 fL (80.0-100.0) 07/19/17 03:45 MCH 27.5 pg (27.0-34.0) 07/19/17 03:45 MCHC 32.6 g/dL (33.0-35.0) L 07/19/17 03:45 RDW 17.4 % (11.6-16.5) H 07/19/17 03:45 Plt Count 165 X10^3/uL (150.0-450.0) 07/19/17 03:45 MPV 9.1 fL (7.4-11.0) 07/19/17 03:45 Neut % 67.0 % (42.0-75.0) 07/19/17 03:45 Lymph % 19.9 % (21.0-51.0) L 07/19/17 03:45 [place] % 5.7 % (0.0-13.0) 07/19/17 03:45 Eos % 6.7 % (0.9-2.9) H 07/19/17 03:45 Baso % 0.7 % (0.2-1.0) 07/19/17 03:45 Neut # 3.6 x10^3/uL (2.2-4.8) 07/19/17 03:45 Lymph # 1.1 X10^3/uL (1.3-2.9) L 07/19/17 03:45 [place] # 0.3 x10^3/uL (0.3-0.8) 07/19/17 03:45 Eos # 0.4 x10^3/uL (0.0-0.2) H 07/19/17 03:45 Baso # 0.0 X10^3/uL (0.0-0.1) 07/19/17 03:45 Absolute Nucleated RBC 0.1 /100WBC 07/19/17 03:45 D-Dimer 846 ng/mL (0-400) H* 07/15/17 10:08 Sodium 144 mmol/L (136-145) 07/19/17 03:45 Corrected Sodium 146 mmol/L (136-145) H 07/19/17 03:45 Potassium 3.2 mmol/L (3.5-5.1) L 07/19/17 03:45 Chloride 101 mmol/L (98-107) 07/19/17 03:45 Carbon Dioxide 33.0 mmol/L (21-32) H 07/19/17 03:45 BUN 24 mg/dL (7-18) H 07/19/17 03:45 Creatinine 1.11 mg/dL (0.55-1.02) H 07/19/17 03:45 Est GFR (MDRD) Af Amer > 60 (>60) 07/19/17 03:45 Est GFR (MDRD) Non-Af 51 (>60) L 07/19/17 03:45 Glucose 178 mg/dL (65-99) H 07/19/17 03:45 POC Glucose (mg/dL) 223 mg/dL (65-99) H 07/19/17 11:37 Calcium 9.1 mg/dL (8.5-10.1) 07/19/17 03:45 Corrected Calcium 9.9 mg/dL (8.5-10.1) 07/19/17 03:45 Magnesium 1.2 mg/dL (1.7-2.9) L 07/19/17 03:45 Total Bilirubin 0.90 mg/dL (0.2-1.0) 07/19/17 03:45 AST 20 Units/L (15-37) 07/19/17 03:45 ALT 18 Units/L (12-78) 07/19/17 03:45 Alkaline Phosphatase 76 Units/L (46-116) 07/19/17 03:45 Creatine Kinase 53 Units/L (26-192) 07/15/17 21:46 CK-MB (CK-2) < 1.0 ng/mL (0-4.0) 07/15/17 21:46 CK/CKMB % Calc 1.9 % (<4) 07/15/17 21:46 Troponin I 0.10 ng/mL (0-1.5) 07/15/17 21:46 C-Reactive Protein 1.70 mg/L (0-3.0) 07/15/17 10:08 B-Natriuretic Peptide 310 pg/mL (0-79) H 07/15/17 10:08 Total Protein 7.0 g/dL (6.4-8.2) 07/19/17 03:45 Albumin 3.0 g/dL (3.4-5.0) L 07/19/17 03:45 Globulin 4.0 g/dL (2.5-4.5) 07/19/17 03:45 Albumin/Globulin Ratio 0.8 Ratio (1.1-2.1) L 07/19/17 03:45 - Plan (1) CHF (congestive heart failure) Status: Acute Qualifiers: Congestive heart failure type: unspecified congestive heart failure type Congestive heart failure chronicity: chronic Qualified Code(s): I50.9 - Heart failure, unspecified Plan: LASIX 40MG IV BID, FLUID RESTRICTION, CONTINUE TO MONITOR LABS AND CHEST XRAY (2) Dyspnea Status: Acute Qualifiers: Dyspnea type: shortness of breath Qualified Code(s): R06.02 - Shortness of breath; R06.00 - Dyspnea, unspecified; R06.01 - Orthopnea Plan: SUPPLEMENTAL OXYGEN, FLUID RESTRICTION, CONTINUE TO MONITOR LABS AND CHEST XRAY (3) Diabetes mellitus Status: Chronic Qualifiers: Diabetes mellitus type: type 2 Diabetes mellitus complication status: with unspecified complications Diabetes mellitus jail insulin use: with jail use Qualified Code(s): E11.8 - Type 2 diabetes mellitus with unspecified complications; Z79.4 - terminologist (current) use of insulin; Z79.4 - terminologist ( current) use of insulin; Z79.4 - terminologist (current) use of insulin; Z79.4 - terminologist (current) use of insulin Plan: HUMULIN R SLIDING SCALE, LANTUS 15 UNITS HS, GLUCOTROL XL 10MG PO DAILY, METFORMIN 1,000MG PO BID, CONTINUE TO MONITOR (4) Atrial fibrillation Status: Chronic Qualifiers: Atrial fibrillation type: chronic Qualified Code(s): I48.2 - Chronic atrial fibrillation Plan: CONTINUE ELIQUIS 2.5MG PO BID, CONTINUE TO MONITOR (5) Gout Status: Chronic Qualifiers: Gout site: unspecified site Encounter type: sequela Chronicity: chronic Presence of tophus: without tophus Plan: CONTINUE ALLOPURINOL, CONTINUE TO MONITOR (6) Hypomagnesemia Status: Acute Plan: MAGNESIUM REPLACEMENT PER PROTOCOL, CONTINUE TO MONITOR
[2017-07-19] MEDS: LANTUS SC SCH (21:45)
[2017-07-19] MEDS: SNACK - Diabetic Appropriate PO SCH (21:47)
[2017-07-20 05:26] LABS: BASOPHILS % (AUTO) 0.6 % (0.2-1.0); EOSINOPHILS # (AUTO) 0.3 x10^3/uL (0.0-0.2); EOSINOPHILS % (AUTO) 6.2 % (0.9-2.9); HEMATOCRIT 33.5 % (36.0-47.0); LYMPHOCYTES # (AUTO) 1.2 X10^3/uL (1.3-2.9); LYMPHOCYTES % (AUTO) 20.9 % (21.0-51.0); MEAN CORPUSCULAR HEMOGLOBIN 27.5 pg (27.0-34.0); MEAN CORPUSCULAR HGB CONC 32.9 g/dL (33.0-35.0); MEAN CORPUSCULAR VOLUME 83.6 fL (80.0-100.0); MEAN PLATELET VOLUME 8.9 fL (7.4-11.0); MONOCYTES # (AUTO) 0.3 x10^3/uL (0.3-0.8); MONOCYTES % (AUTO) 5.7 % (0.0-13.0); NEUTROPHILS # (AUTO) 3.7 x10^3/uL (2.2-4.8); NEUTROPHILS % (AUTO) 66.6 % (42.0-75.0); PLATELET COUNT 179 X10^3/uL (150.0-450.0); RED CELL DISTRIBUTION WIDTH 16.8 % (11.6-16.5); WHITE BLOOD COUNT 5.5 X10^3/uL (3.6-10.0)
[2017-07-20 05:33] LABS: ALANINE AMINOTRANSFERASE 18 Units/L (12-78); ALBUMIN 3.4 g/dL (3.4-5.0); ALKALINE PHOSPHATASE 76 Units/L (46-116); ASPARTATE AMINO TRANSFERASE 20 Units/L (15-37); BLOOD UREA NITROGEN 25 mg/dL (7-18); CALCIUM 9.1 mg/dL (8.5-10.1); CHLORIDE 101 mmol/L (98-107); COR NA(FOR HYPERGLY) 146 mmol/L (136-145); CREATININE 1.06 mg/dL (0.55-1.02); MAGNESIUM 1.1 mg/dL (1.7-2.9); SODIUM 144 mmol/L (136-145); TOTAL PROTEIN 7.4 g/dL (6.4-8.2); eGFR BLACK RACES > 60 (>60); eGFR NON BLACK RACES 54 (>60)
[2017-07-20] MEDS ORDERED: K-LYTE EFFERVESCENT PO ONE (06:07)
[2017-07-20] MEDS: MAGNESIUM SULFATE 1 GM/100 mL PREMIX 1 GM/100 ML BAG IV PRN ×6 (06:26→12:26)
[2017-07-20] MEDS: GLUCOTROL XL PO SCH (07:09)
[2017-07-20] MEDS: ELIQUIS PO SCH (08:37)
[2017-07-20] MEDS: GLUCOPHAGE XR PO SCH (08:37)
[2017-07-20] MEDS: ZYLOPRIM PO SCH (08:37)
[2017-07-20] MEDS: HumuLIN R SUBCUT PRN (08:39)
[2017-07-20] MEDS: ALBUMIN HUMAN 25%- 100ML 100 ML IV SCH (08:39)
[2017-07-20] MEDS: LASIX IVP SCH (08:41)
[2017-07-20 12:56] VITALS: BP 138/66
== END 2017-07-20 16:05 | disposition home or self-care (01) | DRG 292 ==
LOC: ER 09:52 → MED/SURG 13:58
PROVIDERS: ADMIT Internal Medicine; ATTEND Internal Medicine
PROC: 3E0234Z Introduction of Serum, Toxoid and Vaccine into Muscle, Percutaneous Approach (ICD-10-PCS; principal; 2017-07-15)
DX: I50.9 Heart failure, unspecified (principal); R06.02 Shortness of breath; R06.09 Other forms of dyspnea; I48.2 Chronic atrial fibrillation; E11.65 Type 2 diabetes mellitus with hyperglycemia; I10 Essential (primary) hypertension; R60.0 Localized edema; J90 Pleural effusion, not elsewhere classified; I51.7 Cardiomegaly; Z79.4 Long term (current) use of insulin; E83.42 Hypomagnesemia; M1A.9XX0 Chronic gout, unspecified, without tophus (tophi); Z23 Encounter for immunization
CPT/HCPCS: 36415; 71010; 71275; 80053; 82550; 82553; 83735; 83880; 84132; 84484; 85025; 85378; 86140; 90686; 93005; 93010; 93970; 94640; 94660; 94760; 96365; 99283; 99284; A4216; A4222; A4618; A7030; P9047; J1815; J1940; J3480

== ENCOUNTER 2017-07-26 11:56 | Emergency (ER) | payer OTHER ==
[2017-07-26 12:03] VITALS: BMI 47.5
--- NOTE | 2017-07-26 12:08 | DR.GENAD ---
HPI - PCP Primary Care Physician: HARI REY - Complaint/Symptoms Chief Complaint Doctors Comments: Patient was discharged from the hospital on 17January s/p treatment for CHF and preRenal failure. She presents today via EMS with comlaint of having chills at home Chief Complaint:: EMS TONED OUT TO FEVER, UPON ARRIVAL PT C/O WAKING UP THIS AM AND FREEZING AND BEING WEEK AND PT TOLD EMS THAT HER HEATER DOES NOT WORK.. Self Treatment fo Chief Complaint: PT HAD AN APPT WITH HARI REY AND SHE COULD NOT MAKE IT,. - Source History Provided: Patient, EMS - Mode of Arrival Mode of Arrival: EMS - Timing Onset of Chief Complaint: 07/26/17 PMH - PMH Past Medical History: Yes Past Medical History: CHF, Diabetes, Hypertension Past Medical History Comment: AFIB , Past Surgical History: Yes Surgical History: Cholecystectomy, Hysterectomy - Family History History of Family Medical Conditions: Yes Family Medical History: Cancer, Hypertension - Social History Does patient currently use any type of tobacco product: No Have you used tobacco products in the last 12 months: No Type of Tobacco Use: None Does any household member use tobacco: No Alcohol Use: None Do you use any recreational Drugs:: No Lives With: Alone Lives Where: Home - infectious screening In the last 2 months have you had wt loss of >10#?: NO Have you had fever, night sweats or hemotysis?: No Have you traveled outside the country in the last 6 months?: No Isolation: Standard ROS - Review of Systems Eyes: No Symptoms Reported ENTM: No Symptoms Reported Respiratoy: No Symptoms Reported Cardiovascular: No Symptoms Reported Gastrointestinal/Abdominal: No Symptoms Reported Genitourinary: No Symptoms Reported Neurological: No Symptoms Reported Musculoskeletal: No Symptoms Reported Integumentary: No Symptoms Reported Hematologic/Lymphatic: No Symptoms Reported Endocrine: No Symptoms Reported Psychiatric: No Symptoms Reported All Other Systems: Reviewed and Negative PE - Vital Signs Vitals: Temperature 99.5 F Pulse Rate [Right Brachial] 69 Pulse Rate 71 Respiratory Rate 20 Blood Pressure [Right Arm] 131/59 Blood Pressure [Left Arm] 138/67 Blood Pressure 184/76 O2 Sat by Pulse Oximetry 100 - General Limitations: No Limitations General Appearance: Alert, In No Apparent Distress - Head Head Exam: Normal Inspection, Atraumatic - Eyes Eye exam: Normal Appearance, PERRL, EOMI - ENT ENT Exam: Normal Exam External Ear Exam: Normal External Inspection TM/Canal Exam: Bilateral Normal Nose Exam: Normal Nose Exam, Sinus Tenderness Mouth Exam: Normal Inspection Throat Exam: Normal Inspection - Neck Neck Exam: Normal Inspection, Full ROM - Chest Chest Inspection: Normal Inspection, Symmetric Chest Wall Rise - Respiratory Respiratory Exam: Normal Lung Sounds Bilat Respiratory Exam: Bilateral Clear to Auscultation - Cardiovascular Cardiovascular Exam: Regular Rate, Normal Rhythm - Abdominal Exam Abdominal Exam: Normal Inspection, Normal Bowel Sounds Abdominal Tenderness: negative: RUQ, RLQ, LUQ, LLQ, Epigastrium, Suprapubic, Diffuse, Mild, Moderate, Severe, Other - Extremities Extremities Exam: Normal Inspection, Full ROM - Back Back Exam: Normal Inspection, Full ROM - Neurologic Neurological Exam: Alert, Oriented X3, CN II-XII Intact - Psychiatric Psychiatric Exam: Normal Affect, Normal Mood - Skin Skin Exam: Warm, Dry, Intact Course - Reevaluation 1st: Unchanged ROR - Labs Reviewed Laboratory Results Reviewed?: Yes (potassium elevated,bun/cr elevated,) Result Diagrams: 07/26/17 12:23 07/26/17 12:23 Laboratory: WBC 6.6 X10^3/uL (3.6-10.0) 07/26/17 12:23 RBC 4.00 X10^6/uL (3.5-5.4) 07/26/17 12:23 Hgb 10.9 g/dL (12.0-16.0) L 07/26/17 12:23 Hct 34.3 % (36.0-47.0) L 07/26/17 12:23 MCV 85.7 fL (80.0-100.0) 07/26/17 12:23 MCH 27.2 pg (27.0-34.0) 07/26/17 12:23 MCHC 31.8 g/dL (33.0-35.0) L 07/26/17 12:23 RDW 17.5 % (11.6-16.5) H 07/26/17 12:23 Plt Count 153 X10^3/uL (150.0-450.0) 07/26/17 12:23 MPV 9.1 fL (7.4-11.0) 07/26/17 12:23 Neut % 89.0 % (42.0-75.0) H 07/26/17 12: Lymph % 5.4 % (21.0-51.0) L 07/26/17 12:23 [place] % 3.3 % (0.0-13.0) 07/26/17 12:23 Eos % 1.8 % (0.9-2.9) 07/26/17 12:23 Baso % 0.5 % (0.2-1.0) 07/26/17 12:23 Neut # 5.9 x10^3/uL (2.2-4.8) H 07/26/17 12:23 Lymph # 0.4 X10^3/uL (1.3-2.9) L 07/26/17 12:23 [place] # 0.2 x10^3/uL (0.3-0.8) L 07/26/17 12:23 Eos # 0.1 x10^3/uL (0.0-0.2) 07/26/17 12:23 Baso # 0.0 X10^3/uL (0.0-0.1) 07/26/17 12:23 Absolute Nucleated RBC 0.0 /100WBC 07/26/17 12:23 Sodium 137 mmol/L (136-145) 07/26/17 12:23 Corrected Sodium 144 mmol/L (136-145) 07/26/17 12:23 Potassium 5.4 mmol/L (3.5-5.1) H 07/26/17 12:23 Chloride 98 mmol/L (98-107) 07/26/17 12:23 Carbon Dioxide 31.5 mmol/L (21-32) 07/26/17 12:23 BUN 26 mg/dL (7-18) H 07/26/17 12:23 Creatinine 1.33 mg/dL (0.55-1.02) H 07/26/17 12:23 Est GFR (MDRD) Af Amer 50 (>60) L 07/26/17 12:23 Est GFR (MDRD) Non-Af 41 (>60) L 07/26/17 12:23 Glucose 405 mg/dL (65-99) H 07/26/17 12:23 POC Glucose (mg/dL) 355 mg/dL (65-99) H 07/26/17 13:47 Calcium 9.6 mg/dL (8.5-10.1) 07/26/17 12:23 - Diagnosis Discharge Problem: Mild dehydration, Hyperkalemia Type I diabetes mellitus Qualifiers: Diabetes mellitus complication status: without complication Qualified Code(s): E10.9 - Type 1 diabetes mellitus without complications - Follow ups/Referrals Follow ups/Referrals: NFD,None [Primary Care Provider] - 3 days - Instructions
[2017-07-26] MEDS ORDERED: HumuLIN R SUBCUT STA (12:25)
[2017-07-26] MEDS ORDERED: HumuLIN R ONE ×2 (12:28→15:19)
[2017-07-26 12:35] LABS: BASOPHILS % (AUTO) 0.5 % (0.2-1.0); EOSINOPHILS # (AUTO) 0.1 x10^3/uL (0.0-0.2); EOSINOPHILS % (AUTO) 1.8 % (0.9-2.9); HEMATOCRIT 34.3 % (36.0-47.0); HEMOGLOBIN 10.9 g/dL (12.0-16.0); LYMPHOCYTES # (AUTO) 0.4 X10^3/uL (1.3-2.9); LYMPHOCYTES % (AUTO) 5.4 % (21.0-51.0); MEAN CORPUSCULAR HEMOGLOBIN 27.2 pg (27.0-34.0); MEAN CORPUSCULAR HGB CONC 31.8 g/dL (33.0-35.0); MEAN CORPUSCULAR VOLUME 85.7 fL (80.0-100.0); MEAN PLATELET VOLUME 9.1 fL (7.4-11.0); MONOCYTES # (AUTO) 0.2 x10^3/uL (0.3-0.8); MONOCYTES % (AUTO) 3.3 % (0.0-13.0); NEUTROPHILS # (AUTO) 5.9 x10^3/uL (2.2-4.8); PLATELET COUNT 153 X10^3/uL (150.0-450.0); RED CELL DISTRIBUTION WIDTH 17.5 % (11.6-16.5); WHITE BLOOD COUNT 6.6 X10^3/uL (3.6-10.0)
[2017-07-26 12:37] LABS: BLOOD UREA NITROGEN 26 mg/dL (7-18); CALCIUM 9.6 mg/dL (8.5-10.1); CARBON DIOXIDE 31.5 mmol/L (21-32); CHLORIDE 98 mmol/L (98-107); COR NA(FOR HYPERGLY) 144 mmol/L (136-145); CREATININE 1.33 mg/dL (0.55-1.02); SODIUM 137 mmol/L (136-145); eGFR BLACK RACES 50 (>60); eGFR NON BLACK RACES 41 (>60)
[2017-07-26] MEDS ORDERED: NS 1000 ML 1,000 ML IV SCH ×2 (13:00→16:00)
[2017-07-26] MEDS ORDERED: PROVENTIL NEB TX 0.083% 2.5MG/ 3ML ONE ×2 (13:43→15:32)
[2017-07-26 14:36] LABS: ALANINE AMINOTRANSFERASE 24 Units/L (12-78); ALBUMIN 3.7 g/dL (3.4-5.0); ALKALINE PHOSPHATASE 97 Units/L (46-116); ASPARTATE AMINO TRANSFERASE 31 Units/L (15-37); TOTAL PROTEIN 7.5 g/dL (6.4-8.2)
[2017-07-26 15:01] LABS: CALCIUM 9.8 mg/dL (8.5-10.1); CARBON DIOXIDE 33.3 mmol/L (21-32); CREATININE 1.31 mg/dL (0.55-1.02)
[2017-07-26] MEDS ORDERED: PROVENTIL NEB TX 0.083% 2.5MG/ 3ML NEB ONE (15:13)
[2017-07-26] MEDS ORDERED: HumuLIN R SUBCUT ONE (15:16)
[2017-07-26] MEDS ORDERED: NS 1000 ML 1,000 ML ONE (15:18)
[2017-07-26 16:46] LABS: CALCIUM 9.6 mg/dL (8.5-10.1); CARBON DIOXIDE 33.3 mmol/L (21-32); CREATININE 1.36 mg/dL (0.55-1.02)
[2017-07-26 17:43] VITALS: BP 163/69
== END 2017-07-26 17:23 | disposition home or self-care (01) ==
LOC: ER 12:03
DX: E86.0 Dehydration (principal); E87.5 Hyperkalemia; E10.9 Type 1 diabetes mellitus without complications
CPT/HCPCS: 36415; 80048; 80053; 85025; 94640; 96365; 96367; 96372; 99282; 99283; J1815; J7613

== ENCOUNTER 2017-07-29 12:12 | Inpatient (IN) | payer OTHER ==
[2017-07-29 12:39] LABS: BASOPHILS % (AUTO) 0.7 % (0.2-1.0); EOSINOPHILS # (AUTO) 0.3 x10^3/uL (0.0-0.2); HEMATOCRIT 35.9 % (36.0-47.0); HEMOGLOBIN 11.6 g/dL (12.0-16.0); LYMPHOCYTES # (AUTO) 1.1 X10^3/uL (1.3-2.9); MEAN CORPUSCULAR HEMOGLOBIN 27.1 pg (27.0-34.0); MEAN CORPUSCULAR HGB CONC 32.4 g/dL (33.0-35.0); MEAN CORPUSCULAR VOLUME 83.9 fL (80.0-100.0); MEAN PLATELET VOLUME 9.4 fL (7.4-11.0); MONOCYTES # (AUTO) 0.4 x10^3/uL (0.3-0.8); MONOCYTES % (AUTO) 6.6 % (0.0-13.0); NEUTROPHILS # (AUTO) 4.8 x10^3/uL (2.2-4.8); NEUTROPHILS % (AUTO) 71.7 % (42.0-75.0); PLATELET COUNT 177 X10^3/uL (150.0-450.0); RED BLOOD COUNT 4.27 X10^6/uL (3.5-5.4); WHITE BLOOD COUNT 6.7 X10^3/uL (3.6-10.0)
[2017-07-29 12:57] LABS: BLOOD UREA NITROGEN 17 mg/dL (7-18); CARBON DIOXIDE 28.5 mmol/L (21-32); CHLORIDE 99 mmol/L (98-107); COR NA(FOR HYPERGLY) 143 mmol/L (136-145); CREATININE 1.03 mg/dL (0.55-1.02); SODIUM 137 mmol/L (136-145); TROPONIN I 0.03 ng/mL (0-1.5); eGFR BLACK RACES > 60 (>60); eGFR NON BLACK RACES 56 (>60)
[2017-07-29 13:01] LABS: ALANINE AMINOTRANSFERASE 17 Units/L (12-78); ALBUMIN 2.9 g/dL (3.4-5.0); ALKALINE PHOSPHATASE 95 Units/L (46-116); ASPARTATE AMINO TRANSFERASE 23 Units/L (15-37); CKMB % 7.1 % (<4); COR CA(FOR HYPOALB) 9.9 mg/dL (8.5-10.1); CREATINE KINASE 14 Units/L (26-192); CREATINE KINASE MB < 1.0 ng/mL (0-4.0); MAGNESIUM 1.3 mg/dL (1.7-2.9); TOTAL PROTEIN 7.3 g/dL (6.4-8.2)
--- NOTE | 2017-07-29 13:21 | RAD ---
Examination: Portable AP chest History: Chest pain, diabetes and hypertension Comparison reference: 07/19/2017 Findings: Persistent cardiac enlargement and central vascular prominence. There is no evidence for co nsolidation, pneumothorax or large pleural effusion. The retrocardiac left base is significantly obsc ured by the heart. Impression: Stable cardiac enlargement and vascular congestion. Follow-up suggested when condition al lows to exclude developing abnormality in the left lower lung. Reported By:
--- NOTE | 2017-07-29 13:25 | DR.GENAD ---
HPI - PCP Primary Care Physician: to - HPI Comment HPI Comment: INCRESING SOB AND CHEST PAIN TIMES2 DAYS. WORSE TODAY. HISTORY A FIB ON [employer]. LOST MED AND HAVE NOT TAKEN MED FOR SEVERAL DAYS, NO FEVER. - Complaint/Symptoms Chief Complaint Doctors Comments: CHEST PAIN, SOB Chief Complaint:: patient stated she has been having chest wall pain and short of breath since yesterday morning. - Nurses notes reviewed Nurses Notes Review: Yes - Source History Provided: Patient - Mode of Arrival Mode of Arrival: EMS - Timing Onset of Chief Complaint: 07/28/17 Came on: Suddenly - Duration Duration: Constant Duration: Days - Severity Severity: Moderate PMH - PMH Past Medical History: Yes Past Medical History: CHF, Diabetes, Hypertension Past Surgical History: Yes Surgical History: Cholecystectomy, Hysterectomy - Family History History of Family Medical Conditions: Yes Family Medical History: Cancer, Hypertension - Social History Does patient currently use any type of tobacco product: No Have you used tobacco products in the last 12 months: No Type of Tobacco Use: None Does any household member use tobacco: No Alcohol Use: None Do you use any recreational Drugs:: No Lives With: Family Lives Where: Home - infectious screening In the last 2 months have you had wt loss of >10#?: NO Have you had fever, night sweats or hemotysis?: No Have you traveled outside the country in the last 6 months?: No Isolation: Standard ROS - Review of Systems Constitutional: Weakness, Fatigue. negative: Fever Eyes: negative: Eye Pain, Discharge ENTM: Nose Congestion. negative: Ear Pain Respiratoy: Non-Productive Cough, Short of Breath, Wheezing. negative: Hemoptysis Cardiovascular: Chest Pain, Skin Mottling. negative: Syncope Gastrointestinal/Abdominal: No Symptoms Reported Genitourinary: No Symptoms Reported Neurological: No Symptoms Reported, Headache, Weakness, Dizziness Musculoskeletal: Back Pain, Muscle Pain Integumentary: No Symptoms Reported Hematologic/Lymphatic: No Symptoms Reported Endocrine: No Symptoms Reported All Other Systems: Reviewed and Negative PE - Vital Signs Vitals: Temperature 98.7 F Pulse Rate 102 Respiratory Rate 18 Blood Pressure [Right Arm] 163/69 Blood Pressure [Left Arm] 138/67 Blood Pressure 139/93 O2 Sat by Pulse Oximetry 99 - General Limitations: No Limitations General Appearance: In No Apparent Distress - Head Head Exam: Atraumatic - Eyes Eye exam: Normal Appearance - ENT ENT Exam: Normal External Ear Exam External Ear Exam: Normal External Inspection TM/Canal Exam: Bilateral Normal Nose Exam: Normal Nose Exam Throat Exam: Normal Inspection - Neck Neck Exam: Trachea Midline - Chest Chest Inspection: Symmetric Chest Wall Rise - Respiratory Respiratory Exam: Normal Lung Sounds Bilat Respiratory Exam: Bilateral Wheezing, Bilateral Rhonchi, Lower Wheezing, Lower Rhonchi - Cardiovascular Cardiovascular Exam: Regular Rate, Normal Rhythm - Abdominal Exam Abdominal Exam: Normal Bowel Sounds, Soft. negative: Tenderness - Extremities Extremities Exam: Edema - Back Back Exam: Normal Inspection - Neurologic Neurological Exam: Alert, Oriented X3 - Psychiatric Psychiatric Exam: Anxious - Skin Skin Exam: Normal Color MDM - Differential Diagnosis Differential Diagnosis: CHEST PAIN, SOB, PNEUMONIA, CHF, PNEUMOTHORAX, PULMONARY EMBOLISM. Course - Treatment Treatment: SEE ORDERS. IV HEPARIN IN ED. - Reevaluation 1st: Improved - Consultation Consultation Comments: DISCUSS PATIENT WITH DR. DAS, HE WILL ADMIT PATIENT. - Education/Counseling Education/Counseling: Patient, Education Educated On: Treatment, Diagnosis, Needs for Follow Up ROR - Labs Reviewed Laboratory Results Reviewed?: Yes Result Diagrams: 07/30/17 04:15 07/30/17 04:15 Laboratory: WBC 6.7 X10^3/uL (3.6-10.0) 07/29/17 12:35 RBC 4.27 X10^6/uL (3.5-5.4) 07/29/17 12:35 Hgb 11.6 g/dL (12.0-16.0) L 07/29/17 12:35 Hct 35.9 % (36.0-47.0) L 07/29/17 12:35 MCV 83.9 fL (80.0-100.0) 07/29/17 12:35 MCH 27.1 pg (27.0-34.0) 07/29/17 12:35 MCHC 32.4 g/dL (33.0-35.0) L 07/29/17 12:35 RDW 17.0 % (11.6-16.5) H 07/29/17 12:35 Plt Count 177 X10^3/uL (150.0-450.0) 07/29/17 12:35 MPV 9.4 fL (7.4-11.0) 07/29/17 12:35 Neut % 71.7 % (42.0-75.0) 07/29/17 12:35 Lymph % 16.0 % (21.0-51.0) L 07/29/17 12:35 [place] % 6.6 % (0.0-13.0) 07/29/17 12:35 Eos % 5.0 % (0.9-2.9) H 07/29/17 12:35 Baso % 0.7 % (0.2-1.0) 07/29/17 12:35 Neut # 4.8 x10^3/uL (2.2-4.8) 07/29/17 12:35 Lymph # 1.1 X10^3/uL (1.3-2.9) L 07/29/17 12:35 [place] # 0.4 x10^3/uL (0.3-0.8) 07/29/17 12:35 Eos # 0.3 x10^3/uL (0.0-0.2) H 07/29/17 12:35 Baso # 0.0 X10^3/uL (0.0-0.1) 07/29/17 12:35 Absolute Nucleated RBC 0.0 /100WBC 07/29/17 12:35 INR Target Range - 07/29/17 12:35 INR 1.11 (0.8-1.3) 07/29/17 12:35 PTT 25.9 SECONDS (22.9-36.5) 07/29/17 12:35 PTT Comment - 07/29/17 12:35 D-Dimer 4150 ng/mL (0-400) H* 07/29/17 12:35 Sodium 137 mmol/L (136-145) 07/29/17 12:35 Corrected Sodium 143 mmol/L (136-145) 07/29/17 12:35 Potassium 4.5 mmol/L (3.5-5.1) 07/29/17 12:35 Chloride 99 mmol/L (98-107) 07/29/17 12:35 Carbon Dioxide 28.5 mmol/L (21-32) 07/29/17 12:35 BUN 17 mg/dL (7-18) 07/29/17 12:35 Creatinine 1.03 mg/dL (0.55-1.02) H 07/29/17 12:35 Est GFR (MDRD) Af Amer > 60 (>60) 07/29/17 12:35 Est GFR (MDRD) Non-Af 56 (>60) L 07/29/17 12:35 Glucose 356 mg/dL (65-99) H 07/29/17 12:35 Calcium 9.0 mg/dL (8.5-10.1) 07/29/17 12:35 Corrected Calcium 9.9 mg/dL (8.5-10.1) 07/29/17 12:35 Magnesium 1.3 mg/dL (1.7-2.9) L 07/29/17 12:35 Total Bilirubin 0.50 mg/dL (0.2-1.0) 07/29/17 12:35 AST 23 Units/L (15-37) 07/29/17 12:35 ALT 17 Units/L (12-78) 07/29/17 12:35 Alkaline Phosphatase 95 Units/L (46-116) 07/29/17 12:35 Creatine Kinase 14 Units/L (26-192) L 07/29/17 12:35 CK-MB (CK-2) < 1.0 ng/mL (0-4.0) 07/29/17 12:35 CK/CKMB % Calc 7.1 % (<4) 07/29/17 12:35 Troponin I 0.03 ng/mL (0-1.5) 07/29/17 12:35 B-Natriuretic Peptide 295 pg/mL (0-79) H 07/29/17 12:35 Total Protein 7.3 g/dL (6.4-8.2) 07/29/17 12:35 Albumin 2.9 g/dL (3.4-5.0) L 07/29/17 12:35 Globulin 4.4 g/dL (2.5-4.5) 07/29/17 12:35 Albumin/Globulin Ratio 0.7 Ratio (1.1-2.1) L 07/29/17 12:35 - XRAY XRAY Interpreted by: Radiologist - EKG Rhythm: Afib (EKG NOTED) - Diagnosis Discharge Problem: Atrial fibrillation Qualifiers: Atrial fibrillation type: unspecified Qualified Code(s): I48.91 - Unspecified atrial fibrillation Dyspnea Qualifiers: Dyspnea type: other forms of dyspnea Qualified Code(s): R06.09 - Other forms of dyspnea CHF (congestive heart failure) Qualifiers: Congestive heart failure type: combined Congestive heart failure chronicity: acute on chronic Qualified Code(s): I50.43 - Acute on chronic combined systolic (congestive) and diastolic (congestive) heart failure Pulmonary edema Qualifiers: Chronicity: acute Qualified Code(s): J81.0 - Acute pulmonary edema - Discharge Plan Disposition: ADMITTED INPATIENT Condition: Stable - Follow ups/Referrals - Instructions
--- NOTE | 2017-07-29 15:30 | CT ---
STUDY: CTA CHEST WITH CONTRAST History: Shortness breath and pain in left arm and left side of chest this morning. Diabetes, hypert ension, hysterectomy, gallbladder. Comparison: July 15, 2017. Technique: Multiple axial images of the chest were obtained from the thoracic inlet to the upper abdo men after the administration of IV contrast. Image acquisition was optimized for evaluation of pulmon angel arterial system. 3D, coronal and sagittal reformatted images were performed and reviewed. Automa marc exposure control (AEC) was utilized to adjust the MA and/or kV. Findings: Several abnormal filling defects are identified in the roof pulmonary arteries to the right with uppe r lobe, right lower lobe, left upper lobe, and left lower lobe. These findings are concerning for pul monary thromboembolic disease. There is no evidence of aortic aneurysm or dissection. There is a right-sided aortic arch. There is n o significant pericardial effusion. Shot[place] lymph nodes, likely reactive, are noted in the mediastinum . No pathologically enlarged lymph nodes are identified. There is atelectasis versus airspace opacity in the left lower lobe. There is no evidence of consolid ation or pneumothorax. There is a small pleural effusion at the right lung base. The visualized solid visceral organs in the upper abdomen are otherwise unremarkable. IMPRESSION: 1. Findings consistent with pulmonary thromboembolic disease to both upper lobes and both lower lobes . 2. Atelectasis versus airspace opacity in the left lower lobe. 3. Small right-sided pleural effusion. Critical values were discussed with Dr. Trent at 9:29 p.m., on June 28, 2017. Reported By:
[2017-07-29] MEDS ORDERED: HEPARIN SODIUM INJ 5000 UNITS ONE ×2 (15:48→16:00)
[2017-07-29] MEDS ORDERED: HEPARIN SODIUM INJ 5000 UNITS IVP ONE (15:59)
[2017-07-29] MEDS: HEPARIN SODIUM IN D5W 25,000 UNITS/500 ML BAG IV PRN (16:09)
[2017-07-29] MEDS: CATAPRES TAB 0.1 MG PO SCH ×2 (18:44→20:03)
[2017-07-29] MEDS: MAG-OX TAB PO SCH (18:45)
[2017-07-29 19:57] LABS: CREATINE KINASE 16 Units/L (26-192); TROPONIN I 0.01 ng/mL (0-1.5)
[2017-07-29 19:58] LABS: CKMB % 6.3 % (<4); CREATINE KINASE MB < 1.0 ng/mL (0-4.0)
[2017-07-29] MEDS: HumuLIN R SUBCUT PRN (20:43)
[2017-07-29] MEDS: SNACK - Diabetic Appropriate PO SCH (20:57)
[2017-07-29] MEDS: TYLENOL 325 MG TAB PO PRN (21:37)
[2017-07-30] MEDS: NORCO 5/325 MG TAB PO PRN ×2 (00:18→23:56)
[2017-07-30 01:39] LABS: CREATINE KINASE 10 Units/L (26-192); CREATINE KINASE MB < 1.0 ng/mL (0-4.0); TROPONIN I 0.03 ng/mL (0-1.5)
[2017-07-30 06:10] LABS: BASOPHILS % (AUTO) 0.8 % (0.2-1.0); EOSINOPHILS # (AUTO) 0.4 x10^3/uL (0.0-0.2); EOSINOPHILS % (AUTO) 6.5 % (0.9-2.9); HEMATOCRIT 33.5 % (36.0-47.0); HEMOGLOBIN 10.8 g/dL (12.0-16.0); LYMPHOCYTES # (AUTO) 1.7 X10^3/uL (1.3-2.9); LYMPHOCYTES % (AUTO) 26.9 % (21.0-51.0); MEAN CORPUSCULAR HEMOGLOBIN 27.1 pg (27.0-34.0); MEAN CORPUSCULAR HGB CONC 32.3 g/dL (33.0-35.0); MEAN CORPUSCULAR VOLUME 83.9 fL (80.0-100.0); MEAN PLATELET VOLUME 10.2 fL (7.4-11.0); MONOCYTES # (AUTO) 0.4 x10^3/uL (0.3-0.8); MONOCYTES % (AUTO) 6.1 % (0.0-13.0); NEUTROPHILS # (AUTO) 3.7 x10^3/uL (2.2-4.8); NEUTROPHILS % (AUTO) 59.7 % (42.0-75.0); PLATELET COUNT 170 X10^3/uL (150.0-450.0); RED CELL DISTRIBUTION WIDTH 17.3 % (11.6-16.5); WHITE BLOOD COUNT 6.3 X10^3/uL (3.6-10.0)
[2017-07-30] MEDS: HumuLIN R SUBCUT PRN ×4 (06:11→20:39)
[2017-07-30] MEDS: MAG-OX TAB PO SCH (06:11)
[2017-07-30 06:18] LABS: BLOOD UREA NITROGEN 17 mg/dL (7-18); CALCIUM 8.9 mg/dL (8.5-10.1); CARBON DIOXIDE 32.6 mmol/L (21-32); CHLORIDE 100 mmol/L (98-107); COR NA(FOR HYPERGLY) 145 mmol/L (136-145); CREATININE 1.08 mg/dL (0.55-1.02); SODIUM 140 mmol/L (136-145); eGFR BLACK RACES > 60 (>60); eGFR NON BLACK RACES 53 (>60)
[2017-07-30 06:38] LABS: ALANINE AMINOTRANSFERASE 14 Units/L (12-78); ALBUMIN 2.7 g/dL (3.4-5.0); ALKALINE PHOSPHATASE 88 Units/L (46-116); ASPARTATE AMINO TRANSFERASE 20 Units/L (15-37); MAGNESIUM 1.5 mg/dL (1.7-2.9); TOTAL PROTEIN 6.5 g/dL (6.4-8.2)
[2017-07-30] MEDS: ZYLOPRIM PO SCH (08:26)
[2017-07-30] MEDS: CATAPRES TAB 0.1 MG PO SCH ×2 (08:27→20:38)
[2017-07-30] MEDS: MICRO K EXTEN CAP 10 MEQ PO SCH (08:27)
[2017-07-30] MEDS: HEPARIN SODIUM IN D5W 25,000 UNITS/500 ML BAG IV PRN (09:34)
[2017-07-30 11:54] VITALS: BMI 42.0
[2017-07-30] MEDS: SNACK - Diabetic Appropriate PO SCH (20:04)
[2017-07-30] MEDS: LASIX PO SCH (20:38)
[2017-07-31] MEDS: HEPARIN SODIUM IN D5W 25,000 UNITS/500 ML BAG IV PRN (04:06)
[2017-07-31] MEDS: MAG-OX TAB PO SCH (06:02)
[2017-07-31 06:10] LABS: BASOPHILS % (AUTO) 0.6 % (0.2-1.0); EOSINOPHILS # (AUTO) 0.4 x10^3/uL (0.0-0.2); EOSINOPHILS % (AUTO) 5.9 % (0.9-2.9); HEMATOCRIT 32.4 % (36.0-47.0); HEMOGLOBIN 10.5 g/dL (12.0-16.0); LYMPHOCYTES # (AUTO) 1.7 X10^3/uL (1.3-2.9); LYMPHOCYTES % (AUTO) 26.7 % (21.0-51.0); MEAN CORPUSCULAR HEMOGLOBIN 27.1 pg (27.0-34.0); MEAN CORPUSCULAR HGB CONC 32.5 g/dL (33.0-35.0); MEAN CORPUSCULAR VOLUME 83.3 fL (80.0-100.0); MEAN PLATELET VOLUME 9.8 fL (7.4-11.0); MONOCYTES # (AUTO) 0.4 x10^3/uL (0.3-0.8); MONOCYTES % (AUTO) 5.4 % (0.0-13.0); NEUTROPHILS % (AUTO) 61.4 % (42.0-75.0); PLATELET COUNT 183 X10^3/uL (150.0-450.0); RED BLOOD COUNT 3.88 X10^6/uL (3.5-5.4); RED CELL DISTRIBUTION WIDTH 17.6 % (11.6-16.5); WHITE BLOOD COUNT 6.5 X10^3/uL (3.6-10.0)
[2017-07-31 06:27] LABS: ALANINE AMINOTRANSFERASE 13 Units/L (12-78); ALBUMIN 2.5 g/dL (3.4-5.0); ALKALINE PHOSPHATASE 90 Units/L (46-116); ASPARTATE AMINO TRANSFERASE 20 Units/L (15-37); BLOOD UREA NITROGEN 15 mg/dL (7-18); CALCIUM 8.3 mg/dL (8.5-10.1); CARBON DIOXIDE 31.1 mmol/L (21-32); CHLORIDE 100 mmol/L (98-107); COR CA(FOR HYPOALB) 9.5 mg/dL (8.5-10.1); COR NA(FOR HYPERGLY) 142 mmol/L (136-145); CREATININE 1.05 mg/dL (0.55-1.02); MAGNESIUM 1.4 mg/dL (1.7-2.9); SODIUM 139 mmol/L (136-145); TOTAL PROTEIN 6.5 g/dL (6.4-8.2); eGFR BLACK RACES > 60 (>60); eGFR NON BLACK RACES 54 (>60)
[2017-07-31] MEDS: MICRO K EXTEN CAP 10 MEQ PO SCH (08:18)
[2017-07-31] MEDS: LASIX PO SCH ×2 (08:18→20:17)
[2017-07-31] MEDS: ZYLOPRIM PO SCH (08:18)
[2017-07-31] MEDS: CATAPRES TAB 0.1 MG PO SCH ×2 (08:18→20:17)
[2017-07-31] MEDS ORDERED: PATIENT'S HOME MEDICATION (Potassium Chloride [Klor-Con 10] 10 MEQ) PO SCH (09:00)
[2017-07-31] MEDS ORDERED: MAG-OX TAB PO SCH (09:00)
[2017-07-31] MEDS ORDERED: ZYLOPRIM PO SCH (09:00)
[2017-07-31] MEDS ORDERED: MAXZIDE 37.5/25 MG PO SCH (09:00)
[2017-07-31] MEDS: HumuLIN R SUBCUT PRN ×3 (12:10→20:17)
[2017-07-31] MEDS ORDERED: LEVAQUIN PREMIX IV 500 MG 500 MG/100 ML BAG IV SCH (15:00)
[2017-07-31] MEDS ORDERED: LEVAQUIN PREMIX IV 500 MG 500 MG/100 ML BAG IV ONE (19:00)
[2017-07-31] MEDS: SNACK - Diabetic Appropriate PO SCH (20:16)
[2017-07-31] MEDS: ELIQUIS PO SCH (20:17)
[2017-07-31] MEDS: NORCO 5/325 MG TAB PO PRN (23:30)
[2017-08-01 05:41] LABS: BLOOD UREA NITROGEN 18 mg/dL (7-18); CALCIUM 8.9 mg/dL (8.5-10.1); CARBON DIOXIDE 33.3 mmol/L (21-32); CHLORIDE 100 mmol/L (98-107); COR NA(FOR HYPERGLY) 142 mmol/L (136-145); CREATININE 1.09 mg/dL (0.55-1.02); SODIUM 139 mmol/L (136-145); eGFR BLACK RACES > 60 (>60); eGFR NON BLACK RACES 52 (>60)
[2017-08-01 05:59] LABS: ALANINE AMINOTRANSFERASE 14 Units/L (12-78); ALBUMIN 2.4 g/dL (3.4-5.0); ALKALINE PHOSPHATASE 94 Units/L (46-116); ASPARTATE AMINO TRANSFERASE 18 Units/L (15-37); COR CA(FOR HYPOALB) 10.2 mg/dL (8.5-10.1); TOTAL PROTEIN 6.6 g/dL (6.4-8.2)
[2017-08-01] MEDS: MAG-OX TAB PO SCH (06:02)
[2017-08-01] MEDS: HumuLIN R SUBCUT PRN ×3 (06:02→20:49)
[2017-08-01] MEDS: TYLENOL 325 MG TAB PO PRN (06:03)
[2017-08-01 06:15] LABS: BASOPHILS % (AUTO) 0.8 % (0.2-1.0); EOSINOPHILS # (AUTO) 0.3 x10^3/uL (0.0-0.2); EOSINOPHILS % (AUTO) 5.1 % (0.9-2.9); HEMATOCRIT 31.6 % (36.0-47.0); HEMOGLOBIN 10.4 g/dL (12.0-16.0); LYMPHOCYTES # (AUTO) 1.3 X10^3/uL (1.3-2.9); LYMPHOCYTES % (AUTO) 21.5 % (21.0-51.0); MEAN CORPUSCULAR HEMOGLOBIN 27.4 pg (27.0-34.0); MEAN CORPUSCULAR HGB CONC 32.8 g/dL (33.0-35.0); MEAN CORPUSCULAR VOLUME 83.5 fL (80.0-100.0); MEAN PLATELET VOLUME 9.7 fL (7.4-11.0); MONOCYTES # (AUTO) 0.4 x10^3/uL (0.3-0.8); MONOCYTES % (AUTO) 6.1 % (0.0-13.0); NEUTROPHILS # (AUTO) 4.1 x10^3/uL (2.2-4.8); NEUTROPHILS % (AUTO) 66.5 % (42.0-75.0); PLATELET COUNT 187 X10^3/uL (150.0-450.0); RED BLOOD COUNT 3.79 X10^6/uL (3.5-5.4); RED CELL DISTRIBUTION WIDTH 16.9 % (11.6-16.5); WHITE BLOOD COUNT 6.2 X10^3/uL (3.6-10.0)
[2017-08-01] MEDS: LASIX PO SCH ×2 (08:32→20:47)
[2017-08-01] MEDS: CATAPRES TAB 0.1 MG PO SCH ×2 (08:32→20:47)
[2017-08-01] MEDS: ELIQUIS PO SCH ×2 (08:32→20:47)
[2017-08-01] MEDS: ZYLOPRIM PO SCH (08:33)
[2017-08-01] MEDS: MICRO K EXTEN CAP 10 MEQ PO SCH (08:33)
[2017-08-01] MEDS: LEVAQUIN PREMIX IV 500 MG 500 MG/100 ML BAG IV SCH (08:33)
[2017-08-01 10:03] LABS: ABG BASE EXCESS 8.2 mmol/L (-2.0-2.0)
[2017-08-01 10:04] LABS: ABG ALLEN TEST POS; ABG HCO3 33.9 mmol/L (22-26); FRACTIONATED INSPIRED OXYGEN 28
[2017-08-01] MEDS: SNACK - Diabetic Appropriate PO SCH (21:19)
[2017-08-02 06:05] LABS: ALBUMIN 2.9 g/dL (3.4-5.0); CALCIUM 9.1 mg/dL (8.5-10.1); CARBON DIOXIDE 31.5 mmol/L (21-32); CREATININE 1.17 mg/dL (0.55-1.02); TOTAL PROTEIN 7.7 g/dL (6.4-8.2)
[2017-08-02] MEDS: HumuLIN R SUBCUT PRN ×2 (06:11→11:47)
[2017-08-02] MEDS: MAG-OX TAB PO SCH (06:11)
[2017-08-02 06:25] LABS: BASOPHILS % (AUTO) 0.5 % (0.2-1.0); EOSINOPHILS # (AUTO) 0.3 x10^3/uL (0.0-0.2); EOSINOPHILS % (AUTO) 4.5 % (0.9-2.9); HEMOGLOBIN 11.7 g/dL (12.0-16.0); LYMPHOCYTES # (AUTO) 1.3 X10^3/uL (1.3-2.9); LYMPHOCYTES % (AUTO) 16.8 % (21.0-51.0); MEAN CORPUSCULAR HEMOGLOBIN 27.1 pg (27.0-34.0); MEAN CORPUSCULAR HGB CONC 32.6 g/dL (33.0-35.0); MEAN CORPUSCULAR VOLUME 83.1 fL (80.0-100.0); MEAN PLATELET VOLUME 9.5 fL (7.4-11.0); MONOCYTES # (AUTO) 0.4 x10^3/uL (0.3-0.8); MONOCYTES % (AUTO) 4.9 % (0.0-13.0); NEUTROPHILS # (AUTO) 5.6 x10^3/uL (2.2-4.8); NEUTROPHILS % (AUTO) 73.3 % (42.0-75.0); PLATELET COUNT 259 X10^3/uL (150.0-450.0); RED BLOOD COUNT 4.33 X10^6/uL (3.5-5.4); RED CELL DISTRIBUTION WIDTH 16.9 % (11.6-16.5); WHITE BLOOD COUNT 7.6 X10^3/uL (3.6-10.0)
--- NOTE | 2017-08-02 06:50 | RAD ---
HISTORY: Chest pain, shortness of breath Study: Chest AP portable Comparison: CTA chest 07/29/2017, chest x-ray 07/29/2017 Findings: The heart is enlarged. No congestive heart failure is noted. No acute alveolar infiltrates or pleural effusions are identified. The bony thorax is unremarkable. IMPRESSION: Cardiomegaly without congestive heart failure No infiltrates Reported By:
[2017-08-02] MEDS: NORCO 5/325 MG TAB PO PRN ×2 (07:48→13:31)
[2017-08-02] MEDS: CATAPRES TAB 0.1 MG PO SCH (09:02)
[2017-08-02] MEDS: ZYLOPRIM PO SCH (09:03)
[2017-08-02] MEDS: ELIQUIS PO SCH (09:03)
[2017-08-02] MEDS: MICRO K EXTEN CAP 10 MEQ PO SCH (09:03)
[2017-08-02] MEDS: LEVAQUIN PREMIX IV 500 MG 500 MG/100 ML BAG IV SCH (09:03)
[2017-08-02] MEDS: LASIX PO SCH (09:03)
[2017-08-02 13:52] VITALS: BP 137/87
== END 2017-08-02 14:05 | disposition home health service (06) | DRG 204 ==
LOC: ER 12:16 → ICU 16:29
PROVIDERS: ADMIT Internal Medicine; ATTEND Internal Medicine
DX: R06.03 Acute respiratory distress (principal); I26.99 Other pulmonary embolism without acute cor pulmonale; R07.89 Other chest pain; R06.02 Shortness of breath; R79.1 Abnormal coagulation profile; E11.65 Type 2 diabetes mellitus with hyperglycemia; I48.91 Unspecified atrial fibrillation; I50.43 Acute on chronic combined systolic (congestive) and diastolic (congestive) heart failure; J81.0 Acute pulmonary edema; K57.92 Diverticulitis of intestine, part unspecified, without perforation or abscess without bleeding; R10.32 Left lower quadrant pain; Z79.01 Long term (current) use of anticoagulants; Z86.73 Personal history of transient ischemic attack (TIA), and cerebral infarction without residual deficits; Z91.14 Patient's other noncompliance with medication regimen; E66.8 Other obesity
CPT/HCPCS: 36415; 36600; 71010; 71275; 80053; 82550; 82553; 82803; 83735; 83880; 84484; 85025; 85378; 85610; 85730; 93005; 93010; 94640; 96365; 96367; 96374; 96375; 99221; 99231; 99284; 99285; A4216; A4222; J1644; J1815; J1956

== ENCOUNTER 2017-08-31 10:56 | Emergency (ER) | payer OTHER ==
[2017-08-31 11:10] VITALS: BP 179/72; BMI 43.6
--- NOTE | 2017-08-31 11:17 | DR.GENAD ---
HPI - PCP Primary Care Physician: Jose - Complaint/Symptoms Chief Complaint Doctors Comments: Patient presents with complaint of pain in the right axilla and right scapula area. She states that she has had a cough for a few days. She states that she was hospitalized for treatment of blood clot prior to [facility]. She was diagnosed with a blood clot in August and treated with Eliquis and ASA and she continues medicine as prescribed. She denies fever, vomiting or diarrhea. PMH - PMH Past Medical History: CHF, Diabetes, Hypertension Past Surgical History: Yes Surgical History: Cholecystectomy, Hysterectomy - Family History Family Medical History: Cancer, Hypertension - Social History Do you use any recreational Drugs:: No ROS - Review of Systems Constitutional: No Symptoms Reported Eyes: No Symptoms Reported ENTM: No Symptoms Reported Respiratoy: Non-Productive Cough Cardiovascular: No Symptoms Reported Gastrointestinal/Abdominal: No Symptoms Reported Genitourinary: No Symptoms Reported Neurological: No Symptoms Reported Musculoskeletal: No Symptoms Reported Integumentary: No Symptoms Reported Hematologic/Lymphatic: No Symptoms Reported Endocrine: No Symptoms Reported Psychiatric: No Symptoms Reported All Other Systems: Reviewed and Negative PE - Vital Signs Vitals: Temperature 97.6 F Pulse Rate 56 Respiratory Rate 20 Blood Pressure [Left Radial 145/63 Artery] Blood Pressure [Right Radial 137/87 Artery] Blood Pressure [Right Arm] 189/93 Blood Pressure [Left Arm] 156/67 Blood Pressure 179/72 O2 Sat by Pulse Oximetry 98 - General Limitations: No Limitations General Appearance: Alert, In No Apparent Distress - Head Head Exam: Normal Inspection, Atraumatic - Eyes Eye exam: Normal Appearance, PERRL, EOMI - ENT ENT Exam: Normal Exam External Ear Exam: Normal External Inspection TM/Canal Exam: Bilateral Normal Nose Exam: Normal Nose Exam Mouth Exam: Normal Inspection Throat Exam: Normal Inspection - Neck Neck Exam: Normal Inspection, Full ROM - Chest Chest Inspection: Normal Inspection - Respiratory Respiratory Exam: Normal Lung Sounds Bilat Respiratory Exam: Bilateral Clear to Auscultation - Cardiovascular Cardiovascular Exam: Regular Rate, Normal Rhythm - Abdominal Exam Abdominal Exam: Normal Inspection Abdominal Tenderness: negative: RUQ, RLQ, LUQ, LLQ, Epigastrium, Suprapubic, Diffuse, Mild, Moderate, Severe, Other - Extremities Extremities Exam: Normal Inspection, Full ROM - Back Back Exam: Normal Inspection, Full ROM - Neurologic Neurological Exam: Alert, Oriented X3, CN II-XII Intact - Psychiatric Psychiatric Exam: Normal Affect, Normal Mood - Skin Skin Exam: Warm, Dry, Intact Course - Reevaluation 1st: Improved ROR - Labs Reviewed Laboratory Results Reviewed?: Yes (D Dimer elevated) Result Diagrams: 08/31/17 11:38 08/31/17 11:38 Laboratory: WBC 6.7 X10^3/uL (3.6-10.0) 08/31/17 11:38 RBC 4.17 X10^6/uL (3.5-5.4) 08/31/17 11:38 Hgb 11.5 g/dL (12.0-16.0) L 08/31/17 11:38 Hct 35.1 % (36.0-47.0) L 08/31/17 11:38 MCV 84.3 fL (80.0-100.0) 08/31/17 11:38 MCH 27.6 pg (27.0-34.0) 08/31/17 11:38 MCHC 32.7 g/dL (33.0-35.0) L 08/31/17 11:38 RDW 18.8 % (11.6-16.5) H 08/31/17 11:38 Plt Count 159 X10^3/uL (150.0-450.0) 08/31/17 11:38 MPV 8.8 fL (7.4-11.0) 08/31/17 11:38 Neut % 77.4 % (42.0-75.0) H 08/31/17 11:38 Lymph % 14.7 % (21.0-51.0) L 08/31/17 11:38 [place] % 3.4 % (0.0-13.0) 08/31/17 11:38 Eos % 3.8 % (0.9-2.9) H 08/31/17 11:38 Baso % 0.7 % (0.2-1.0) 08/31/17 11:38 Neut # 5.2 x10^3/uL (2.2-4.8) H 08/31/17 11:38 Lymph # 1.0 X10^3/uL (1.3-2.9) L 08/31/17 11:38 [place] # 0.2 x10^3/uL (0.3-0.8) L 08/31/17 11:38 Eos # 0.3 x10^3/uL (0.0-0.2) H 08/31/17 11:38 Baso # 0.0 X10^3/uL (0.0-0.1) 08/31/17 11:38 Absolute Nucleated RBC 0.1 /100WBC 08/31/17 11:38 D-Dimer 1050 ng/mL (0-400) H* 08/31/17 11:38 Sodium 141 mmol/L (136-145) 08/31/17 11:38 Corrected Sodium 143 mmol/L (136-145) 08/31/17 11:38 Potassium 4.8 mmol/L (3.5-5.1) 08/31/17 11:38 Chloride 103 mmol/L (98-107) 08/31/17 11:38 Carbon Dioxide 30.9 mmol/L (21-32) 08/31/17 11:38 BUN 17 mg/dL (7-18) 08/31/17 11:38 Creatinine 1.02 mg/dL (0.55-1.02) 08/31/17 11:38 Est GFR (MDRD) Af Amer > 60 (>60) 08/31/17 11:38 Est GFR (MDRD) Non-Af 56 (>60) L 08/31/17 11:38 Glucose 175 mg/dL (65-99) H 08/31/17 11:38 Calcium 9.0 mg/dL (8.5-10.1) 08/31/17 11:38 Corrected Calcium 9.8 mg/dL (8.5-10.1) 08/31/17 11:38 Total Bilirubin 0.50 mg/dL (0.2-1.0) 08/31/17 11:38 AST 20 Units/L (15-37) 08/31/17 11:38 ALT 17 Units/L (12-78) 08/31/17 11:38 Alkaline Phosphatase 85 Units/L (46-116) 08/31/17 11:38 C-Reactive Protein 0.90 mg/L (0-3.0) 08/31/17 11:38 Total Protein 7.3 g/dL (6.4-8.2) 08/31/17 11:38 Albumin 3.0 g/dL (3.4-5.0) L 08/31/17 11:38 Globulin 4.3 g/dL (2.5-4.5) 08/31/17 11:38 Albumin/Globulin Ratio 0.7 Ratio (1.1-2.1) L 08/31/17 11:38 Amylase 47 Units/L (25-115) 08/31/17 11:38 Lipase 180 Units/L (73-393) 08/31/17 11:38 - XRAY XRAY Interpreted by: Radiologist (CTA: There is no evidence for acute pulmonary thromboembolic disease. Examination of the mediastinum demonstrated no evidence for mediastinal masses, lymphadenopathy, or hilar lymphadenopathy. The thoracic aorta is of normal caliber. 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 Coronary artery calcifications are present. No pleural effusions are identified. No chest wall or axillary abnormality is identified. Those portions of the upper abdominal organs visualized were within normal limits. Examination of the lung [place] demonstrated no evidence for significant nodules , masses, alveolar infiltrates, areas of consolidation,peribronchial thickening or bronchietasis. Impresson: No evidence for acute pulmonary thromboembolic disease. Lungs clear. Conginital right sided aortic arch.) - Diagnosis Discharge Problem: Pain in right axilla - Discharge Plan Condition: Stable - Follow ups/Referrals Follow ups/Referrals: Joaquin Garcia [Primary Care Provider] - 3 days - Instructions
[2017-08-31 11:48] LABS: BASOPHILS % (AUTO) 0.7 % (0.2-1.0); EOSINOPHILS # (AUTO) 0.3 x10^3/uL (0.0-0.2); EOSINOPHILS % (AUTO) 3.8 % (0.9-2.9); HEMATOCRIT 35.1 % (36.0-47.0); HEMOGLOBIN 11.5 g/dL (12.0-16.0); LYMPHOCYTES % (AUTO) 14.7 % (21.0-51.0); MEAN CORPUSCULAR HEMOGLOBIN 27.6 pg (27.0-34.0); MEAN CORPUSCULAR HGB CONC 32.7 g/dL (33.0-35.0); MEAN CORPUSCULAR VOLUME 84.3 fL (80.0-100.0); MEAN PLATELET VOLUME 8.8 fL (7.4-11.0); MONOCYTES # (AUTO) 0.2 x10^3/uL (0.3-0.8); MONOCYTES % (AUTO) 3.4 % (0.0-13.0); NEUTROPHILS # (AUTO) 5.2 x10^3/uL (2.2-4.8); NEUTROPHILS % (AUTO) 77.4 % (42.0-75.0); PLATELET COUNT 159 X10^3/uL (150.0-450.0); RED BLOOD COUNT 4.17 X10^6/uL (3.5-5.4); RED CELL DISTRIBUTION WIDTH 18.8 % (11.6-16.5); WHITE BLOOD COUNT 6.7 X10^3/uL (3.6-10.0)
[2017-08-31 12:00] LABS: C-REACTIVE PROTEIN 0.9 mg/L (0-3.0)
[2017-08-31 12:01] LABS: ALANINE AMINOTRANSFERASE 17 Units/L (12-78); ALKALINE PHOSPHATASE 85 Units/L (46-116); ASPARTATE AMINO TRANSFERASE 20 Units/L (15-37); BLOOD UREA NITROGEN 17 mg/dL (7-18); CARBON DIOXIDE 30.9 mmol/L (21-32); CHLORIDE 103 mmol/L (98-107); COR CA(FOR HYPOALB) 9.8 mg/dL (8.5-10.1); COR NA(FOR HYPERGLY) 143 mmol/L (136-145); CREATININE 1.02 mg/dL (0.55-1.02); SODIUM 141 mmol/L (136-145); TOTAL PROTEIN 7.3 g/dL (6.4-8.2); eGFR BLACK RACES > 60 (>60); eGFR NON BLACK RACES 56 (>60)
--- NOTE | 2017-08-31 12:02 | RAD ---
Examination: Portable AP chest History: Cough, pain Comparison reference: 08/02/2017 Findings: Continued upper normal heart size with clear lungs and pleural spaces. Impression: No significant change or acute abnormality demonstrated on portable AP chest examination. Reported By:
[2017-08-31] MEDS ORDERED: NS 100 ML IV 100 ML IV ONE (13:05)
--- NOTE | 2017-08-31 13:46 | CT ---
HISTORY: Chest pain, shortness of breath Study: CTA chest with contrast for pulmonary embolus Comparison: 07/29/2017 Technique: Axial post-contrast images with coronal, sagittal, and three-dimensional maximum intensity projection images obtained and evaluated . Dose reduction procedures were used with mA/kv adjusted f or body size. Findings: There is no evidence for acute pulmonary thromboembolic disease. Examination of the mediastinum demon strated no evidence for mediastinal masses, lymphadenopathy, or hilar lymphadenopathy. The thoracic a mariyl is of normal caliber. There is a congenital right-sided aortic arch. Coronary artery calcificati ons are present. No pleural effusions are identified. No chest wall or axillary abnormality is identi fied. Those portions of the upper abdominal organs visualized were within normal limits. Examination of the lung [place] demonstrated no evidence for significant nodules, masses, alveolar infiltrates, ar eas of consolidation, peribronchial thickening, or bronchiectasis. IMPRESSION: No evidence for acute pulmonary thromboembolic disease Lungs clear Congenital right-sided aortic arch Reported By:
== END 2017-08-31 14:16 | disposition home or self-care (01) ==
LOC: ER 11:24
DX: M79.621 Pain in right upper arm (principal)
CPT/HCPCS: 36415; 71010; 71275; 80053; 82150; 83690; 85025; 85378; 86140; 96365; 99283; A4222

== ENCOUNTER 2017-11-11 15:14 | Observation (INO) | payer OTHER ==
[2017-11-11 15:23] VITALS: BMI 45.1
--- NOTE | 2017-11-11 15:44 | DR.GENAD ---
HPI - PCP Primary Care Physician: to - Complaint/Symptoms Chief Complaint Doctors Comments: Patient presented to the ED for evaluation of shortness of breath. This occured on last night, used her Bipap thought it would get better but did not. She has a history of heart attack in 1999.. Denies any chest pain or diaphorisis. Chief Complaint:: pt brought to the er cardiac room via ems with the c/o shortness of breath. her hr is also 48 at the time of arrival. - Source History Provided: Patient - Mode of Arrival Mode of Arrival: EMS - Timing Onset of Chief Complaint: 11/11/17 PMH - PMH Past Medical History: Yes Past Medical History: CHF, Diabetes, Hypertension, [place] Past Surgical History: Yes Surgical History: Cholecystectomy, Hysterectomy - Family History History of Family Medical Conditions: Yes Family Medical History: Cancer, Hypertension - Social History Does patient currently use any type of tobacco product: No Have you used tobacco products in the last 12 months: No Type of Tobacco Use: None Does any household member use tobacco: No Alcohol Use: None Do you use any recreational Drugs:: No Lives With: Alone Lives Where: Home - infectious screening In the last 2 months have you had wt loss of >10#?: NO Have you had fever, night sweats or hemotysis?: No Have you traveled outside the country in the last 6 months?: No Isolation: Standard ROS - Review of Systems Constitutional: No Symptoms Reported Eyes: No Symptoms Reported ENTM: No Symptoms Reported Respiratoy: No Symptoms Reported Cardiovascular: No Symptoms Reported Gastrointestinal/Abdominal: No Symptoms Reported Genitourinary: No Symptoms Reported Neurological: No Symptoms Reported Musculoskeletal: No Symptoms Reported Integumentary: No Symptoms Reported Hematologic/Lymphatic: No Symptoms Reported Endocrine: No Symptoms Reported Psychiatric: No Symptoms Reported All Other Systems: Reviewed and Negative PE - Vital Signs Vitals: Temperature 98.9 F Pulse Rate [Apical] 110 Pulse Rate 48 Respiratory Rate 22 Blood Pressure [Left Radial 145/63 Artery] Blood Pressure [Right Radial 204/80 Artery] Blood Pressure [Right Arm] 189/93 Blood Pressure [Left Arm] 173/100 Blood Pressure 173/100 O2 Sat by Pulse Oximetry 100 - General General Appearance: Alert, In No Apparent Distress - Head Head Exam: Normal Inspection, Atraumatic - Eyes Eye exam: Normal Appearance, PERRL, EOMI - ENT ENT Exam: Normal Exam External Ear Exam: Normal External Inspection TM/Canal Exam: Bilateral Normal Nose Exam: Normal Nose Exam Mouth Exam: Normal Inspection Throat Exam: Normal Inspection - Neck Neck Exam: Normal Inspection, Full ROM - Chest Chest Inspection: Normal Inspection - Respiratory Respiratory Exam: Normal Lung Sounds Bilat Respiratory Exam: Bilateral Clear to Auscultation - Cardiovascular Cardiovascular Exam: Regular Rate, Normal Rhythm - Abdominal Exam Abdominal Exam: Normal Inspection, Normal Bowel Sounds Abdominal Tenderness: negative: RUQ, RLQ, LUQ, LLQ, Epigastrium, Suprapubic, Diffuse, Mild, Moderate, Severe, Other - Extremities Extremities Exam: Normal Inspection, Full ROM - Back Back Exam: Normal Inspection, Full ROM - Neurologic Neurological Exam: Alert, Oriented X3, CN II-XII Intact - Psychiatric Psychiatric Exam: Normal Affect - Skin Skin Exam: Warm, Dry, Intact Course - Consultation Called: 19:28 (Dr Zuniga agreed to admit for further evaluation and treatment) ROR - Labs Reviewed Result Diagrams: 11/11/17 15:39 11/11/17 15:39 Laboratory: WBC 6.6 X10^3/uL (3.6-10.0) 11/11/17 15:39 RBC 3.99 X10^6/uL (3.5-5.4) 11/11/17 15:39 Hgb 11.2 g/dL (12.0-16.0) L 11/11/17 15:39 Hct 34.2 % (36.0-47.0) L 11/11/17 15:39 MCV 85.7 fL (80.0-100.0) 11/11/17 15:39 MCH 28.0 pg (27.0-34.0) 11/11/17 15:39 MCHC 32.7 g/dL (33.0-35.0) L 11/11/17 15:39 RDW 17.7 % (11.6-16.5) H 11/11/17 15:39 Plt Count 192 X10^3/uL (150.0-450.0) 11/11/17 15:39 MPV 9.5 fL (7.4-11.0) 11/11/17 15:39 Neut % 68.6 % (42.0-75.0) 11/11/17 15:39 Lymph % 19.5 % (21.0-51.0) L 11/11/17 15:39 [place] % 5.8 % (0.0-13.0) 11/11/17 15:39 Eos % 4.8 % (0.9-2.9) H 11/11/17 15:39 Baso % 1.3 % (0.2-1.0) H 11/11/17 15:39 Neut # 4.5 x10^3/uL (2.2-4.8) 11/11/17 15:39 Lymph # 1.3 X10^3/uL (1.3-2.9) 11/11/17 15:39 [place] # 0.4 x10^3/uL (0.3-0.8) 11/11/17 15:39 Eos # 0.3 x10^3/uL (0.0-0.2) H 11/11/17 15:39 Baso # 0.1 X10^3/uL (0.0-0.1) 11/11/17 15:39 Absolute Nucleated RBC 0.0 /100WBC 11/11/17 15:39 INR Target Range - 11/11/17 15:39 INR 1.11 (0.8-1.3) 11/11/17 15:39 PTT 32.6 SECONDS (22.9-36.5) 11/11/17 15:39 PTT Comment - 11/11/17 15:39 D-Dimer 687 ng/mL (0-400) H* 11/11/17 15:39 Sodium 140 mmol/L (136-145) 11/11/17 15:39 Corrected Sodium 142 mmol/L (136-145) 11/11/17 15:39 Potassium 4.9 mmol/L (3.5-5.1) 11/11/17 15:39 Chloride 104 mmol/L (98-107) 11/11/17 15:39 Carbon Dioxide 29.2 mmol/L (21-32) 11/11/17 15:39 BUN 13 mg/dL (7-18) 11/11/17 15:39 Creatinine 1.16 mg/dL (0.55-1.02) H 11/11/17 15:39 Est GFR (MDRD) Af Amer 58 (>60) L 11/11/17 15:39 Est GFR (MDRD) Non-Af 48 (>60) L 11/11/17 15:39 Glucose 183 mg/dL (65-99) H 11/11/17 15:39 Calcium 8.4 mg/dL (8.5-10.1) L 11/11/17 15:39 Corrected Calcium 9.0 mg/dL (8.5-10.1) 11/11/17 15:39 Magnesium 1.5 mg/dL (1.7-2.9) L 11/11/17 15:39 Total Bilirubin 0.40 mg/dL (0.2-1.0) 11/11/17 15:39 AST 16 Units/L (15-37) 11/11/17 15:39 ALT 18 Units/L (12-78) 11/11/17 15:39 Alkaline Phosphatase 125 Units/L (46-116) H 11/11/17 15:39 Creatine Kinase 36 Units/L (26-192) 11/11/17 15:39 CK-MB (CK-2) < 1.0 ng/mL (0-4.0) 11/11/17 15:39 CK/CKMB % Calc 2.8 % (<4) 11/11/17 15:39 Troponin I 0.02 ng/mL (0-1.5) 11/11/17 15:39 B-Natriuretic Peptide 417 pg/mL (0-79) H 11/11/17 15:39 Total Protein 7.8 g/dL (6.4-8.2) 11/11/17 15:39 Albumin 3.2 g/dL (3.4-5.0) L 11/11/17 15:39 Globulin 4.6 g/dL (2.5-4.5) H 11/11/17 15:39 Albumin/Globulin Ratio 0.7 Ratio (1.1-2.1) L 11/11/17 15:39 - XRAY XRAY Interpreted by: Radiologist (CTA: No evidence of a ulmonary embolus, mildly atherosclerotic aorta with a right sided aortic arch. There is no aneurysm or dissection seen. Mild dilated central pulmonary vessels and associated hazy ground glass opacities throughout along the upper lobes extending into the periohilar regions witch may represent mild pulmonary edema. Small bibasilar pelural effusions which is more prominent on the right and associated mild bibasilar atelectasis and possible infiltrates posteriorly extending into the right middle lobe laterally. Chronic liver disease.) - Diagnosis Discharge Problem: RML pneumonia Qualifiers: Pneumonia type: due to unspecified organism Qualified Code(s): J18.1 - Lobar pneumonia, unspecified organism - Discharge Plan Condition: Stable - Follow ups/Referrals Follow ups/Referrals: Joaquin Garcia [Primary Care Provider] - 3 days - Instructions
[2017-11-11 15:57] LABS: BASOPHILS # (AUTO) 0.1 X10^3/uL (0.0-0.1); BASOPHILS % (AUTO) 1.3 % (0.2-1.0); EOSINOPHILS # (AUTO) 0.3 x10^3/uL (0.0-0.2); EOSINOPHILS % (AUTO) 4.8 % (0.9-2.9); HEMATOCRIT 34.2 % (36.0-47.0); HEMOGLOBIN 11.2 g/dL (12.0-16.0); LYMPHOCYTES # (AUTO) 1.3 X10^3/uL (1.3-2.9); LYMPHOCYTES % (AUTO) 19.5 % (21.0-51.0); MEAN CORPUSCULAR HGB CONC 32.7 g/dL (33.0-35.0); MEAN CORPUSCULAR VOLUME 85.7 fL (80.0-100.0); MEAN PLATELET VOLUME 9.5 fL (7.4-11.0); MONOCYTES # (AUTO) 0.4 x10^3/uL (0.3-0.8); MONOCYTES % (AUTO) 5.8 % (0.0-13.0); NEUTROPHILS # (AUTO) 4.5 x10^3/uL (2.2-4.8); NEUTROPHILS % (AUTO) 68.6 % (42.0-75.0); PLATELET COUNT 192 X10^3/uL (150.0-450.0); RED BLOOD COUNT 3.99 X10^6/uL (3.5-5.4); RED CELL DISTRIBUTION WIDTH 17.7 % (11.6-16.5); WHITE BLOOD COUNT 6.6 X10^3/uL (3.6-10.0)
--- NOTE | 2017-11-11 15:58 | RAD ---
Examination: Portable AP chest History: SOB Comparison 08/31/2017 Findings: Borderline cardiomegaly. Interval development of central vascular congestion with suspect s mall right pleural effusion. No consolidation or pneumothorax. Impression: Stable cardiac prominence with increasing pulmonary congestion and suspect right pleural effusion. The findings are suggestive of CHF. Correlate clinically. Reported By:
[2017-11-11 16:10] LABS: BLOOD UREA NITROGEN 13 mg/dL (7-18); CALCIUM 8.4 mg/dL (8.5-10.1); CARBON DIOXIDE 29.2 mmol/L (21-32); CHLORIDE 104 mmol/L (98-107); COR NA(FOR HYPERGLY) 142 mmol/L (136-145); CREATININE 1.16 mg/dL (0.55-1.02); SODIUM 140 mmol/L (136-145); TROPONIN I 0.02 ng/mL (0-1.5); eGFR BLACK RACES 58 (>60); eGFR NON BLACK RACES 48 (>60)
[2017-11-11 16:14] LABS: ALANINE AMINOTRANSFERASE 18 Units/L (12-78); ALBUMIN 3.2 g/dL (3.4-5.0); ALKALINE PHOSPHATASE 125 Units/L (46-116); ASPARTATE AMINO TRANSFERASE 16 Units/L (15-37); CKMB % 2.8 % (<4); CREATINE KINASE 36 Units/L (26-192); CREATINE KINASE MB < 1.0 ng/mL (0-4.0); MAGNESIUM 1.5 mg/dL (1.7-2.9); TOTAL PROTEIN 7.8 g/dL (6.4-8.2)
[2017-11-11] MEDS ORDERED: NS 100 ML IV 100 ML IV ONE (17:11)
--- NOTE | 2017-11-11 17:59 | CT ---
Indication: Dyspnea Exam: CTA chest. Technique: Axial spiral images were obtained from the clavicles through the adrenals after bolus admi nistration 75 cc Omnipaque 300. Comparison: 08/31/2017. Findings: The thyroid gland is unremarkable. There is a right-sided aortic arch which is well opacifi ed with mild plaque throughout. There is no aneurysm or dissection. The pulmonary arteries are well o pacified and prominent centrally with no filling defect or vessel cut off seen. There are small pleur al effusions along the lung bases which is slightly larger on the right with associated mild atelecta sis and consolidations posteriorly. No mediastinal mass or adenopathy is seen. There is hypertrophy o f the caudate and left lobes of the liver which is unchanged. The gallbladder has been removed. The a drenals are normal. There is hazy right middle lobe opacity laterally. No endobronchial lesion is see n. There is no pulmonary nodule or mass. There are hazy ground-glass opacities along the upper lobes extending inferiorly into the perihilar regions. No pulmonary nodule or mass is seen. Moderate degene rative changes are seen in the spine with no aggressive osseous lesion. Impression: No evidence of a pulmonary embolus. Mildly atherosclerotic aorta with a right-sided aortic arch . There is no aneurysm or dissection seen . Mildly dilated central pulmonary vessels and associated hazy ground-glass opacities throughout along the upper lobes extending into the perihilar regions which may represent mild pulmonary Small bibasilar pleural effusions which is more prominent on the right and associated mild bibasilar atelectasis and possible infiltrates posteriorly extending into the right middle lobe laterally. Chronic liver disease. Reported By:
[2017-11-11] MEDS ORDERED: CATAPRES TAB 0.1 MG PO ONE (19:05)
[2017-11-11] MEDS ORDERED: CATAPRES TAB 0.1 MG ONE (19:06)
[2017-11-11] MEDS ORDERED: LASIX IVP ONE ×2 (19:19→19:35)
[2017-11-11] MEDS ORDERED: SALINE 3% 15 ML NEB TX ONE (19:22)
[2017-11-11] MEDS ORDERED: SALINE 3% 15 ML NEB TX NEB ONE (19:25)
[2017-11-11] MEDS ORDERED: TUSSIONEX PENNKINETIC SUSP PO PRN (19:35)
[2017-11-11] MEDS ORDERED: NS 100 ML IV + SPIKE MINIBAG* 100 ML IV ONE (19:57)
[2017-11-11] MEDS ORDERED: ROCEPHIN VIAL 1 GM ONE (19:57)
[2017-11-11] MEDS ORDERED: NS 1/2 1000 ML IV 1,000 ML IV ONE (19:59)
[2017-11-11] MEDS: ROCEPHIN 1 GM IV PREMIX 1 GM/50 ML IV.SOLN. IV SCH (20:10)
[2017-11-11] MEDS: NS 1/2 1000 ML IV 1,000 ML IV SCH (20:10)
[2017-11-11] MEDS: DUONEB 0.5 MG/3 MG NEB SCH (20:34)
[2017-11-11] MEDS ORDERED: VIBRAMYCIN 100 MG in NS 100 ML IV + SPIKE MINIBAG* 100 ML IV SCH (21:00)
[2017-11-11] MEDS: LANTUS SC SCH (21:23)
[2017-11-11] MEDS: GLUCOTROL XL PO SCH (21:31)
[2017-11-11] MEDS: ROBITUSSIN DM PO SCH (21:31)
[2017-11-11] MEDS: ELIQUIS PO SCH (21:31)
[2017-11-12] MEDS: DUONEB 0.5 MG/3 MG NEB SCH ×4 (00:53→12:06)
[2017-11-12] MEDS: TYLENOL 325 MG TAB PO PRN ×3 (03:23→23:30)
[2017-11-12 06:10] LABS: BASOPHILS % (AUTO) 0.7 % (0.2-1.0); EOSINOPHILS # (AUTO) 0.3 x10^3/uL (0.0-0.2); EOSINOPHILS % (AUTO) 4.1 % (0.9-2.9); HEMATOCRIT 32.6 % (36.0-47.0); HEMOGLOBIN 10.8 g/dL (12.0-16.0); LYMPHOCYTES # (AUTO) 1.1 X10^3/uL (1.3-2.9); LYMPHOCYTES % (AUTO) 17.4 % (21.0-51.0); MONOCYTES # (AUTO) 0.4 x10^3/uL (0.3-0.8); MONOCYTES % (AUTO) 5.9 % (0.0-13.0); NEUTROPHILS # (AUTO) 4.6 x10^3/uL (2.2-4.8); NEUTROPHILS % (AUTO) 71.9 % (42.0-75.0); PLATELET COUNT 181 X10^3/uL (150.0-450.0); RED BLOOD COUNT 3.84 X10^6/uL (3.5-5.4); RED CELL DISTRIBUTION WIDTH 17.7 % (11.6-16.5); WHITE BLOOD COUNT 6.4 X10^3/uL (3.6-10.0)
[2017-11-12 06:14] LABS: ALBUMIN 2.9 g/dL (3.4-5.0); CALCIUM 8.6 mg/dL (8.5-10.1); CARBON DIOXIDE 32.2 mmol/L (21-32); COR CA(FOR HYPOALB) 9.5 mg/dL (8.5-10.1); CREATININE 1.15 mg/dL (0.55-1.02)
--- NOTE | 2017-11-12 06:26 | RAD ---
Chest, PA and lateral Indication: Pneumonia Comparison: 11/11/2017 Findings: Cardiac silhouette enlargement is unchanged. There are basilar predominant interstitial opa cities and small bilateral pleural effusions, right greater than left, unchanged. The upper lungs are grossly clear. Impression: No significant change from prior. Reported By:
[2017-11-12] MEDS: ROCEPHIN 1 GM IV PREMIX 1 GM/50 ML IV.SOLN. IV SCH (08:40)
[2017-11-12] MEDS: MAG-OX TAB PO SCH (08:41)
[2017-11-12] MEDS: COLACE CAP 100 MG PO SCH (08:41)
[2017-11-12] MEDS: COZAAR PO SCH (08:42)
[2017-11-12] MEDS: GLUCOTROL XL PO SCH ×2 (08:42→20:24)
[2017-11-12] MEDS: ROBITUSSIN DM PO SCH ×4 (08:45→20:25)
[2017-11-12] MEDS: ELIQUIS PO SCH ×2 (08:45→20:25)
[2017-11-12] MEDS: LASIX IVP SCH ×2 (08:51→20:25)
[2017-11-12] MEDS: VITAMIN D3 PO SCH (08:52)
[2017-11-12] MEDS: LIPITOR TAB 40 MG PO SCH (08:52)
[2017-11-12] MEDS: ZYLOPRIM PO SCH (08:52)
[2017-11-12] MEDS: LOVAZA PO SCH (08:52)
[2017-11-12] MEDS: MICRO K EXTEN CAP 10 MEQ PO SCH (08:52)
--- NOTE | 2017-11-12 10:54 | DR.H&P ---
H&P - History & Physical for Day of: H&P Date: 11/11/17 - Chief Complaint Chief Complaint: SOB - Allergies Allergies/Adverse Reactions: Allergies Allergy/AdvReac Type Severity Reaction Status Date / Time lisinopril [From Zestril] Allergy Verified 11/11/17 15:15 meperidine [From Demerol] AdvReac Verified 11/11/17 15:15 zinc AdvReac Verified 11/11/17 15:15 - History of Present Illness History of Present Illness: 77 [facility] ER ADMISSION AFTER PRESENTING WITH CO SOB. PT HAS PMH OF AFIB AND COPD. PT HAD EKG, CE ON ADMISSION. PT HAD CXR FINDINGS FOR CHF. PT DEINES CP. PT ADMITTED FOR TREATMENT OF COPD EXACERBATION AND CHF. - Past Medical History Past Medical History: CHF, Diabetes, Hypertension, [place] - Past Surgical History Surgical History: Appendectomy, Cholecystectomy, Hysterectomy, Other - Family History Family Medical History: Cancer, Hypertension - Social History Does patient currently use any type of tobacco product: No Have you used tobacco products in the last 12 months: No Type of Tobacco Use: None Does any household member use tobacco: No Alcohol Use: None Drug Use: None - Medications Home Medications: Atorvastatin Calcium 80 mg PO DAILY 11/11/17 [History Confirmed 11/12/17] Cholecalciferol [Vitamin D3] 4,000 unit PO DAILY 11/11/17 [History Confirmed 06/22] Docusate Sodium [Stool Softener] 200 mg PO DAILY 11/11/17 [History Confirmed 06/22] Insulin Glargine (Lantus) [LANTUS INSULIN 10 ML VIAL *] 10 units SC HS 11/11/17 [History Confirmed 11/12/17] Losartan Potassium [LOSARTAN POTASSIUM 50 MG *] 50 mg PO DAILY 11/11/17 [ History Confirmed 11/12/17] [place]-3 Fatty Acids/Fish Oil [Fish Oil] 4,000 mg PO DAILY 11/11/17 [History Confirmed 11/12/17] - Review of Systems Constitutional: Weakness Eyes: No Symptoms Reported ENT: No Symptoms Reported Respiratory: Shortness of Breath, SOB with Excertion Cardiovascular: No Symptoms Reported, Edema Genitourinary: No Symptoms Reported Musculoskeletal: Back Pain, Leg Pain Skin: Other (MILD REDNESS TO BILATERAL LE) Neurological: No Symptoms Reported - Physical Exam Vital Signs: Temperature 98.1 F Pulse Rate [Left Brachial] 73 Pulse Rate [Right Brachial] 103 Pulse Rate [Apical] 102 Pulse Rate 91 Respiratory Rate 18 Blood Pressure [Left Radial 145/63 Artery] Blood Pressure [Right Radial 178/102 Artery] Blood Pressure [Right Arm] 144/69 Blood Pressure [Left Arm] 109/56 Blood Pressure 173/100 O2 Sat by Pulse Oximetry 99 Oriented: Normal Eyes: Normal Ear: Normal Nose: Normal Throat: Normal Respiratory: RLL Diminished, LLL Diminished, RLL Rales, LLL Rales Cardiovascular: Irregular, Murmur, Edema : Normal Auscultation: Bowel Sounds: Normal Palpation: Normal Tenderness: Normal Skin: Red (MILD BILATERAL LOWER EXTREMITY REDNESS) Musculoskeletal: Leg, Back:Thoracic Psychiatric: Anxiety Mood Description: Calm Speech Pattern: Clear, Appropriate - Assessment/Plan (1) CHF (congestive heart failure) Status: Acute Plan: RESUME HOME MEDS. SUPPLEMENTAL O2,. IV LASIX. ELIQUIS, STRICT I & OS. RESP THERAPY, IV ATBX, PULMONARY TOILETING. REPEAT AM LABS (2) Pulmonary edema Status: Acute (3) Atrial fibrillation Qualifiers: Status: Chronic (4) Type I diabetes mellitus Status: Chronic (5) COPD exacerbation Status: Acute
[2017-11-12] MEDS: HumuLIN R SC PRN ×2 (12:48→21:09)
[2017-11-12] MEDS: LOPRESSOR TAB 25 MG PO SCH ×2 (14:48→20:25)
[2017-11-12] MEDS: XOPENEX 1.25 MG/3 ML NEBULE NEB SCH ×2 (16:51→20:14)
[2017-11-12] MEDS: LANTUS SC SCH (21:10)
[2017-11-12] MEDS: ZITHROMAX INJ 500 MG VIAL 500 MG in NS 250 ML IV 250 ML IV SCH (22:36)
[2017-11-13] MEDS: NS 1/2 1000 ML IV 1,000 ML IV SCH ×2 (00:59→17:43)
[2017-11-13 06:08] LABS: BASOPHILS # (AUTO) 0.1 X10^3/uL (0.0-0.1); BASOPHILS % (AUTO) 0.8 % (0.2-1.0); EOSINOPHILS # (AUTO) 0.2 x10^3/uL (0.0-0.2); EOSINOPHILS % (AUTO) 3.8 % (0.9-2.9); HEMATOCRIT 31.9 % (36.0-47.0); HEMOGLOBIN 10.5 g/dL (12.0-16.0); LYMPHOCYTES # (AUTO) 1.2 X10^3/uL (1.3-2.9); LYMPHOCYTES % (AUTO) 18.5 % (21.0-51.0); MEAN CORPUSCULAR HGB CONC 32.8 g/dL (33.0-35.0); MEAN CORPUSCULAR VOLUME 85.2 fL (80.0-100.0); MEAN PLATELET VOLUME 9.3 fL (7.4-11.0); MONOCYTES # (AUTO) 0.3 x10^3/uL (0.3-0.8); MONOCYTES % (AUTO) 5.2 % (0.0-13.0); NEUTROPHILS # (AUTO) 4.6 x10^3/uL (2.2-4.8); NEUTROPHILS % (AUTO) 71.7 % (42.0-75.0); PLATELET COUNT 207 X10^3/uL (150.0-450.0); RED BLOOD COUNT 3.75 X10^6/uL (3.5-5.4); RED CELL DISTRIBUTION WIDTH 17.8 % (11.6-16.5); WHITE BLOOD COUNT 6.4 X10^3/uL (3.6-10.0)
[2017-11-13 06:23] LABS: ALBUMIN 2.9 g/dL (3.4-5.0); CALCIUM 8.7 mg/dL (8.5-10.1); CARBON DIOXIDE 32.4 mmol/L (21-32); COR CA(FOR HYPOALB) 9.6 mg/dL (8.5-10.1); CREATININE 1.26 mg/dL (0.55-1.02); TOTAL PROTEIN 7.2 g/dL (6.4-8.2)
--- NOTE | 2017-11-13 07:22 | RAD ---
Examination: Portable AP chest History: SOB, pneumonia Comparison 11/12/2017 Findings: Continued mild cardiomegaly. Left basal density is again suggested, partially obscuring the left diaphragm. The upper lungs are relatively clear. No pneumothorax seen. Impression: Persistent retrocardiac density consistent with infiltrate/atelectasis. Associated pleura l fluid not excluded. Reported By:
[2017-11-13] MEDS: TYLENOL 325 MG TAB PO PRN (07:24)
[2017-11-13] MEDS: XOPENEX 1.25 MG/3 ML NEBULE NEB SCH ×4 (08:10→20:18)
[2017-11-13] MEDS: ROBITUSSIN DM PO SCH ×4 (08:41→20:14)
[2017-11-13] MEDS: VITAMIN D3 PO SCH (08:41)
[2017-11-13] MEDS: LIPITOR TAB 40 MG PO SCH (08:41)
[2017-11-13] MEDS: COLACE CAP 100 MG PO SCH (08:41)
[2017-11-13] MEDS: LASIX IVP SCH ×2 (08:41→20:13)
[2017-11-13] MEDS: LOVAZA PO SCH (08:42)
[2017-11-13] MEDS: COZAAR PO SCH (08:42)
[2017-11-13] MEDS: MAG-OX TAB PO SCH (08:42)
[2017-11-13] MEDS: GLUCOTROL XL PO SCH ×2 (08:42→20:13)
[2017-11-13] MEDS: ELIQUIS PO SCH ×2 (08:42→20:13)
[2017-11-13] MEDS: MICRO K EXTEN CAP 10 MEQ PO SCH (08:45)
[2017-11-13] MEDS: ZYLOPRIM PO SCH (08:45)
[2017-11-13] MEDS: LOPRESSOR TAB 25 MG PO SCH ×2 (08:45→20:13)
[2017-11-13] MEDS: ROCEPHIN 1 GM IV PREMIX 1 GM/50 ML IV.SOLN. IV SCH (08:49)
[2017-11-13] MEDS: ZITHROMAX INJ 500 MG VIAL 500 MG in NS 250 ML IV 250 ML IV SCH (08:50)
[2017-11-13] MEDS: HumuLIN R SC PRN (11:37)
[2017-11-13] MEDS ORDERED: NS 1/2 1000 ML IV 1,000 ML IV ONE (13:23)
[2017-11-13] MEDS: LANTUS SC SCH (21:10)
[2017-11-14 04:55] LABS: BASOPHILS # (AUTO) 0.1 X10^3/uL (0.0-0.1); BASOPHILS % (AUTO) 0.8 % (0.2-1.0); EOSINOPHILS # (AUTO) 0.4 x10^3/uL (0.0-0.2); EOSINOPHILS % (AUTO) 5.6 % (0.9-2.9); HEMATOCRIT 35.4 % (36.0-47.0); HEMOGLOBIN 11.4 g/dL (12.0-16.0); LYMPHOCYTES # (AUTO) 1.5 X10^3/uL (1.3-2.9); LYMPHOCYTES % (AUTO) 21.7 % (21.0-51.0); MEAN CORPUSCULAR HEMOGLOBIN 27.9 pg (27.0-34.0); MEAN CORPUSCULAR HGB CONC 32.3 g/dL (33.0-35.0); MEAN CORPUSCULAR VOLUME 86.3 fL (80.0-100.0); MONOCYTES # (AUTO) 0.4 x10^3/uL (0.3-0.8); MONOCYTES % (AUTO) 6.3 % (0.0-13.0); NEUTROPHILS # (AUTO) 4.6 x10^3/uL (2.2-4.8); NEUTROPHILS % (AUTO) 65.6 % (42.0-75.0); PLATELET COUNT 191 X10^3/uL (150.0-450.0); RED CELL DISTRIBUTION WIDTH 17.3 % (11.6-16.5); WHITE BLOOD COUNT 7.1 X10^3/uL (3.6-10.0)
[2017-11-14 05:01] LABS: CARBON DIOXIDE 34.8 mmol/L (21-32); COR CA(FOR HYPOALB) 9.8 mg/dL (8.5-10.1); CREATININE 1.18 mg/dL (0.55-1.02); TOTAL PROTEIN 7.4 g/dL (6.4-8.2)
[2017-11-14] MEDS: NS 1/2 1000 ML IV 1,000 ML IV SCH ×2 (05:14→18:28)
[2017-11-14] MEDS: HumuLIN R SC PRN ×2 (05:46→12:02)
--- NOTE | 2017-11-14 06:36 | RAD ---
HISTORY: Shortness of breath Study: Chest AP portable Comparison: 11/12/2017, 11/13/2017 Findings: The heart is enlarged. No congestive heart failure is noted. The right lung and left upper lung field s are clear. There is improving aeration in the left lower lobe although a retrocardiac infiltrate ca nnot yet be excluded. No definite pleural effusions are identified. The bony thorax is unremarkable. IMPRESSION: Improving aeration in the left lower lobe although some infiltrate/volume loss may still be present. Reported By:
[2017-11-14] MEDS: ZITHROMAX INJ 500 MG VIAL 500 MG in NS 250 ML IV 250 ML IV SCH (08:21)
[2017-11-14] MEDS: GLUCOTROL XL PO SCH ×2 (08:22→20:03)
[2017-11-14] MEDS: VITAMIN D3 PO SCH (08:22)
[2017-11-14] MEDS: ROCEPHIN 1 GM IV PREMIX 1 GM/50 ML IV.SOLN. IV SCH (08:22)
[2017-11-14] MEDS: LIPITOR TAB 40 MG PO SCH (08:23)
[2017-11-14] MEDS: ROBITUSSIN DM PO SCH ×4 (08:23→20:01)
[2017-11-14] MEDS: ELIQUIS PO SCH ×2 (08:23→20:02)
[2017-11-14] MEDS: MAG-OX TAB PO SCH (08:23)
[2017-11-14] MEDS: MICRO K EXTEN CAP 10 MEQ PO SCH (08:23)
[2017-11-14] MEDS: COLACE CAP 100 MG PO SCH (08:23)
[2017-11-14] MEDS: LOVAZA PO SCH (08:24)
[2017-11-14] MEDS: COZAAR PO SCH (08:24)
[2017-11-14] MEDS: ZYLOPRIM PO SCH (08:24)
[2017-11-14] MEDS: LASIX IVP SCH ×2 (08:24→20:01)
[2017-11-14] MEDS: LOPRESSOR TAB 25 MG PO SCH ×2 (08:25→20:02)
[2017-11-14] MEDS: XOPENEX 1.25 MG/3 ML NEBULE NEB SCH ×4 (08:29→20:15)
[2017-11-14] MEDS ORDERED: FORTAZ or TAZICEF INJ 1 GM in NS 100 ML IV + SPIKE MINIBAG* 100 ML IV SCH (10:00)
[2017-11-14] MEDS: LEVAQUIN PREMIX IV 750 MG 750 MG/150 ML BAG IV SCH (10:19)
[2017-11-14] MEDS ORDERED: MORPHINE SULFATE INJ 2 MG INJ IVP PRN (14:14)
[2017-11-14 14:55] LABS: CKMB % 3.3 % (<4); CREATINE KINASE 30 Units/L (26-192); CREATINE KINASE MB < 1.0 ng/mL (0-4.0); TROPONIN I 0.03 ng/mL (0-1.5)
[2017-11-14] MEDS: MILK OF MAGNESIA PO SCH (20:01)
[2017-11-14] MEDS: LANTUS SC SCH (20:06)
--- NOTE | 2017-11-14 21:32 | PCM.PROG ---
Progress Note - Progress Note for Day of Date: 11/14/17 - Subjective Subjective: IS BEING TREATED FOR RIGHT MIDDLE LOBE PNEUMONIA AND CONGESTIVE HEART FAILURE. TODAY, SHE IS ALERT AND ORIENTED, LYING IN BED ON MORNING ROUNDS. SHE CONTINUES WITH COUGH AND SHORTNESS OF BREATH, BUT REPORTS IMPROVEMENT SINCE ADMISSION. ON EXAMINATION, SHE IS NOTED TO BE IN ATRIAL FIBRILLATION, HEART RATE CONTROLLED. BILATERAL LUNGS ARE NOTED WITH SCATTERED WHEEZING AND RHONCHI THROUGHOUT. ABDOMEN IS ROUND, SOFT, AND NON-TENDER WITH NORMAL BOWEL SOUNDS NOTED IN ALL QUADRANTS. THERE IS NORMAL RANGE OF MOTION NOTED TO ALL EXTREMITIES. HER VITALS THIS MORNING ARE 99.6-97-18-94%-131/66. LABS WERE OBTAINED. ABNORMAL LAB VALUES INCLUDE THE FOLLOWING: HGB 11.4, HCT 35.4, CARBON DIOXIDE 34.8, CREATININE 1.18, GLUCOSE 153, BNP 316, ALBUMIN 3.0. BLOOD CULTURES ARE PENDING RESULTS. WE OBTAINED A CHEST XRAY THIS MORNING. IT REPORTED IMPROVING AERATION IN THE LEFT LOWER LOBE ALTHOUGH SOME INFILTRATE/ VOLUME LOSS MAY STILL BE PRESENT. EKG REVEALED ATRIAL FIBRILLATION WITH HEART RATE 103. WE OBTAINED AN ECHOCARDIOGRAM. IT REPORTED AN EJECTION FRACTION OF 47% , PULOMARY ARTERIAL PRESSURE OF 41 MM/GH. TODAY, WE WILL CHANGE IV ANTIBIOTICS TO FORTAZ AND LEVAQUIN. OTHERWISE, WE WILL CONTINUE HER CURRENT TREATMENT OF ELIQUIS FOR ATRIAL FIBRILLATION AND LASIX FOR CONGESTIVE HEART FAILURE. WE PLAN TO FOLLOW UP WITH AM LABS AND CONTINUE TO MONITOR PATIENT. - Past Medical Family Social History Past Med/Fam/Surg Hx: No changes since H&P Allergies: Allergies lisinopril [From Zestril] Allergy (Verified 11/11/17 15:15) meperidine [From Demerol] Adverse Reaction (Verified 11/11/17 15:15) zinc Adverse Reaction (Verified 11/11/17 15:15) - Review of Systems ROS: No change since H&P - Vital Signs and I&O's Vital Signs: Temperature 98.3 F Pulse Rate [Left Brachial] 81 Pulse Rate [Right Brachial] 103 Pulse Rate [Apical] 102 Pulse Rate 94 Respiratory Rate 20 Blood Pressure [Left Radial 145/63 Artery] Blood Pressure [Right Radial 178/102 Artery] Blood Pressure [Right Arm] 144/69 Blood Pressure [Left Arm] 134/72 Blood Pressure 173/100 O2 Sat by Pulse Oximetry 100 Intake and Output: Intake & Output 11/12/17 11/13/17 11/14/17 11/15/17 10:59 11:59 11:59 11:59 Intake Total 1382 780 Output Total 4850 1000 Balance -9482 -220 - Physical Exam Oriented: Normal Eyes: Normal Ear: Normal Nose: Normal Throat: Normal Respiratory: Right, Left, Generalized, Wheezes, Rhonchi Cardiovascular: Irregular, Murmur, Edema : Normal Auscultation: Bowel Sounds: Normal Palpation: Normal Tenderness: Normal Skin: Red (MILD BILATERAL LOWER EXTREMITY REDNESS) Musculoskeletal: Leg Psychiatric: Anxiety Mood Description: Calm Speech Pattern: Clear, Appropriate - Laboratory and Diagnostics Result Diagrams: 11/14/17 04:16 11/14/17 04:16 Labs: 11/11/17 19:30 Blood Blood Culture - Preliminary 11/11/17 23:26 Urine,Clean Catch Urine Culture - Final 11/11/17 19:37 Blood Blood Culture - Preliminary Laboratory WBC 7.1 X10^3/uL (3.6-10.0) 11/14/17 04:16 RBC 4.10 X10^6/uL (3.5-5.4) 11/14/17 04:16 Hgb 11.4 g/dL (12.0-16.0) L 11/14/17 04:16 Hct 35.4 % (36.0-47.0) L 11/14/17 04:16 MCV 86.3 fL (80.0-100.0) 11/14/17 04:16 MCH 27.9 pg (27.0-34.0) 11/14/17 04:16 MCHC 32.3 g/dL (33.0-35.0) L 11/14/17 04:16 RDW 17.3 % (11.6-16.5) H 11/14/17 04:16 Plt Count 191 X10^3/uL (150.0-450.0) 11/14/17 04:16 MPV 9.0 fL (7.4-11.0) 11/14/17 04:16 Neut % 65.6 % (42.0-75.0) 11/14/17 04:16 Lymph % 21.7 % (21.0-51.0) 11/14/17 04:16 Gentry % 6.3 % (0.0-13.0) 11/14/17 04:16 Eos % 5.6 % (0.9-2.9) H 11/14/17 04:16 Baso % 0.8 % (0.2-1.0) 11/14/17 04:16 Neut # 4.6 x10^3/uL (2.2-4.8) 11/14/17 04:16 Lymph # 1.5 X10^3/uL (1.3-2.9) 11/14/17 04:16 Gentry # 0.4 x10^3/uL (0.3-0.8) 11/14/17 04:16 Eos # 0.4 x10^3/uL (0.0-0.2) H 11/14/17 04:16 Baso # 0.1 X10^3/uL (0.0-0.1) 11/14/17 04:16 Absolute Nucleated RBC 0.1 /100WBC 11/14/17 04:16 INR Target Range - 11/11/17 15:39 INR 1.11 (0.8-1.3) 11/11/17 15:39 PTT 32.6 SECONDS (22.9-36.5) 11/11/17 15:39 PTT Comment - 11/11/17 15:39 D-Dimer 687 ng/mL (0-400) H* 11/11/17 15:39 Sodium 140 mmol/L (136-145) 11/14/17 04:16 Corrected Sodium 141 mmol/L (136-145) 11/14/17 04:16 Potassium 3.9 mmol/L (3.5-5.1) 11/14/17 04:16 Chloride 99 mmol/L (98-107) 11/14/17 04:16 Carbon Dioxide 34.8 mmol/L (21-32) H 11/14/17 04:16 BUN 17 mg/dL (7-18) 11/14/17 04:16 Creatinine 1.18 mg/dL (0.55-1.02) H 11/14/17 04:16 Est GFR (MDRD) Af Amer 57 (>60) L 11/14/17 04:16 Est GFR (MDRD) Non-Af 47 (>60) L 11/14/17 04:16 Glucose 153 mg/dL (65-99) H 11/14/17 04:16 POC Glucose (mg/dL) 163 mg/dL (65-99) H 11/14/17 19:58 Calcium 9.0 mg/dL (8.5-10.1) 11/14/17 04:16 Corrected Calcium 9.8 mg/dL (8.5-10.1) 11/14/17 04:16 Magnesium 1.5 mg/dL (1.7-2.9) L 11/11/17 15:39 Total Bilirubin 0.50 mg/dL (0.2-1.0) 11/14/17 04:16 AST 15 Units/L (15-37) 11/14/17 04:16 ALT 13 Units/L (12-78) 11/14/17 04:16 Alkaline Phosphatase 101 Units/L (46-116) 11/14/17 04:16 Creatine Kinase 30 Units/L (26-192) 11/14/17 14:23 CK-MB (CK-2) < 1.0 ng/mL (0-4.0) 11/14/17 14:23 CK/CKMB % Calc 3.3 % (<4) 11/14/17 14:23 Troponin I 0.03 ng/mL (0-1.5) 11/14/17 14:23 B-Natriuretic Peptide 316 pg/mL (0-79) H 11/14/17 04:16 Total Protein 7.4 g/dL (6.4-8.2) 11/14/17 04:16 Albumin 3.0 g/dL (3.4-5.0) L 11/14/17 04:16 Globulin 4.4 g/dL (2.5-4.5) 11/14/17 04:16 Albumin/Globulin Ratio 0.7 Ratio (1.1-2.1) L 11/14/17 04:16 Influenza Type A (PCR) Negative (NEGATIVE) 11/12/17 23:49 Influenza Type B (PCR) Negative (NEGATIVE) 11/12/17 23:49 - Plan (1) RML pneumonia Status: Acute Qualifiers: Pneumonia type: due to unspecified organism Qualified Code(s): J18.1 - Lobar pneumonia, unspecified organism Plan: FORTAZ IV, LEVAQUIN IV, CONTINUE SUPPLEMENTAL OXYGEN, CONTINUE TO MONITOR (2) CHF (congestive heart failure) Status: Acute Qualifiers: Heart failure type: unspecified Heart failure chronicity: acute on chronic Qualified Code(s): I50.9 - Heart failure, unspecified Plan: RESUME HOME MEDS. SUPPLEMENTAL O2,. IV LASIX. ELIQUIS, STRICT I & OS. RESP THERAPY, IV ATBX, PULMONARY TOILETING. REPEAT AM LABS (3) Atrial fibrillation Status: Chronic Qualifiers: Atrial fibrillation type: chronic Plan: CONTINUE ELIQUIS, CONTINUE TO MONITOR
[2017-11-15] MEDS ORDERED: NS 1/2 1000 ML IV 1,000 ML IV ONE (05:04)
[2017-11-15 05:38] LABS: BASOPHILS % (AUTO) 0.6 % (0.2-1.0); EOSINOPHILS # (AUTO) 0.4 x10^3/uL (0.0-0.2); EOSINOPHILS % (AUTO) 6.3 % (0.9-2.9); HEMATOCRIT 33.7 % (36.0-47.0); LYMPHOCYTES # (AUTO) 1.3 X10^3/uL (1.3-2.9); LYMPHOCYTES % (AUTO) 19.9 % (21.0-51.0); MEAN CORPUSCULAR HEMOGLOBIN 27.8 pg (27.0-34.0); MEAN CORPUSCULAR HGB CONC 32.7 g/dL (33.0-35.0); MEAN PLATELET VOLUME 8.7 fL (7.4-11.0); MONOCYTES # (AUTO) 0.4 x10^3/uL (0.3-0.8); MONOCYTES % (AUTO) 6.9 % (0.0-13.0); NEUTROPHILS # (AUTO) 4.2 x10^3/uL (2.2-4.8); NEUTROPHILS % (AUTO) 66.3 % (42.0-75.0); PLATELET COUNT 186 X10^3/uL (150.0-450.0); RED BLOOD COUNT 3.97 X10^6/uL (3.5-5.4); RED CELL DISTRIBUTION WIDTH 17.3 % (11.6-16.5); WHITE BLOOD COUNT 6.4 X10^3/uL (3.6-10.0)
[2017-11-15 05:53] LABS: ALBUMIN 2.8 g/dL (3.4-5.0); CALCIUM 8.8 mg/dL (8.5-10.1); CARBON DIOXIDE 37.4 mmol/L (21-32); COR CA(FOR HYPOALB) 9.8 mg/dL (8.5-10.1); CREATININE 1.35 mg/dL (0.55-1.02)
--- NOTE | 2017-11-15 07:47 | RAD ---
HISTORY: Shortness of breath. Prior history of CHF, [place], atrial fibrillation. Study: Single-view chest Comparison: 11/14/2017. Findings: Cardiac monitoring electrodes are noted on the chest. Trachea is midline. There is cardiomegaly. Lung s and pleural spaces are clear. Osseous structures are intact. IMPRESSION: Cardiomegaly. Clear lungs and pleural spaces. Reported By:
[2017-11-15] MEDS: LASIX IVP SCH ×2 (08:38→21:14)
[2017-11-15] MEDS: GLUCOTROL XL PO SCH ×2 (08:38→21:16)
[2017-11-15] MEDS: NS 1/2 1000 ML IV 1,000 ML IV SCH (08:38)
[2017-11-15] MEDS: COZAAR PO SCH (08:38)
[2017-11-15] MEDS: COLACE CAP 100 MG PO SCH (08:38)
[2017-11-15] MEDS: ELIQUIS PO SCH ×2 (08:38→21:15)
[2017-11-15] MEDS: LOPRESSOR TAB 25 MG PO SCH ×2 (08:39→21:15)
[2017-11-15] MEDS: LIPITOR TAB 40 MG PO SCH (08:39)
[2017-11-15] MEDS: LOVAZA PO SCH (08:39)
[2017-11-15] MEDS: LEVAQUIN PREMIX IV 750 MG 750 MG/150 ML BAG IV SCH (08:39)
[2017-11-15] MEDS: ROBITUSSIN DM PO SCH ×4 (08:40→21:16)
[2017-11-15] MEDS: MILK OF MAGNESIA PO SCH ×2 (08:40→21:18)
[2017-11-15] MEDS: MICRO K EXTEN CAP 10 MEQ PO SCH (08:40)
[2017-11-15] MEDS: MAG-OX TAB PO SCH (08:40)
[2017-11-15] MEDS: ZYLOPRIM PO SCH (08:40)
[2017-11-15] MEDS: VITAMIN D3 PO SCH (08:40)
[2017-11-15] MEDS: XOPENEX 1.25 MG/3 ML NEBULE NEB SCH ×4 (09:12→20:52)
[2017-11-15] MEDS ORDERED: AQUAPHOR TOP PRN (09:24)
[2017-11-15 09:58] LABS: CKMB % 1.7 % (<4); CREATINE KINASE 58 Units/L (26-192); CREATINE KINASE MB < 1.0 ng/mL (0-4.0); TROPONIN I 0.03 ng/mL (0-1.5)
[2017-11-15] MEDS: FORTAZ or TAZICEF INJ 1 GM in NS 100 ML IV + SPIKE MINIBAG* 100 ML IV SCH ×3 (10:43→21:14)
[2017-11-15 11:05] LABS: BILIRUBIN,URINE NEGATIVE (NEGATIVE); BLOOD/HEMOGLOBIN,URINE 5+ (NEGATIVE); GLUCOSE, URINE NEGATIVE (NEGATIVE); KETONES,URINE NEGATIVE (NEGATIVE); LEUKOCYTE ESTERASE ,URINE 2+ (NEGATIVE); NITRITES,URINE NEGATIVE (NEGATIVE); PROTEIN,URINE 3+ (NEGATIVE); UROBILINOGEN,URINE NORMAL (NORMAL)
--- NOTE | 2017-11-15 11:09 | PCM.PROG ---
Progress Note - Progress Note for Day of Date: 11/15/17 - Subjective Subjective: IS BEING TREATED FOR RIGHT MIDDLE LOBE PNEUMONIA AND CONGESTIVE HEART FAILURE. TODAY, SHE IS ALERT AND ORIENTED, LYING IN BED ON MORNING ROUNDS. SHE CONTINUES WITH COUGH AND SHORTNESS OF BREATH TODAY. SHE IS ALSO NOTED WITH NEW COMPLAINTS OF BURNING ON URINATION AND CHEST PAIN. ON EXAMINATION, SHE CONTINUES TO BE IN ATRIAL FIBRILLATION, HEART RATE CONTROLLED. BILATERAL LUNGS CONTINUE WITH SCATTERED WHEEZING AND RHONCHI THROUGHOUT. ABDOMEN IS ROUND, SOFT, AND NON-TENDER WITH NORMAL BOWEL SOUNDS NOTED IN ALL QUADRANTS. LOWER EXTREMITIES CONTINUE WITH 1+ PITTING EDEMA. REDNESS AND FLAKING OF THE SKIN IS ALSO NOTED. THERE IS NORMAL RANGE OF MOTION NOTED TO ALL EXTREMITIES. HER VITALS THIS MORNING ARE 98.1-100-20-95%-137/87. LABS WERE OBTAINED. ABNORMAL LAB VALUES INCLUDE THE FOLLOWING: HGB 11.0, HCT 33.7, CARBON DIOXIDE 37.4, BUN 21, CREATININE 1.35, GLUCOSE 178, ALBUMIN 2.8. BLOOD CULTURES ARE PENDING RESULTS. WE OBTAINED A CHEST XRAY THIS MORNING. IT REPORTED CARDIOMEGALY. LUNGS AND PLEURAL SPACES ARE CLEAR. AN EKG WAS OBTAINED AT 09:39 AND REVEALED ATRIAL FIBRILLATION WITH HEART RATE 75. TODAY, WE WILL OBTAIN SERIAL CARDIAC ENZYMES, EKGS, AND OBTAIN A URINALYSIS. WE WILL ORDER FOR AQUAPHOR TO BE APPLIED TO LEGS THREE TIMES A DAY. OTHERWISE, WE PLAN TO FOLLOW UP WITH AM LABS AND CONTINUE TO MONITOR PATIENT. - Past Medical Family Social History Past Med/Fam/Surg Hx: No changes since H&P Allergies: Allergies lisinopril [From Zestril] Allergy (Verified 11/11/17 15:15) meperidine [From Demerol] Adverse Reaction (Verified 11/11/17 15:15) zinc Adverse Reaction (Verified 11/11/17 15:15) - Review of Systems ROS: No change since H&P - Vital Signs and I&O's Vital Signs: Temperature 98.1 F Pulse Rate [Left Brachial] 100 Pulse Rate [Right Brachial] 103 Pulse Rate [Apical] 102 Pulse Rate 71 Respiratory Rate 20 Blood Pressure [Left Radial 145/63 Artery] Blood Pressure [Right Radial 178/102 Artery] Blood Pressure [Right Arm] 137/87 Blood Pressure [Left Arm] 134/72 Blood Pressure 173/100 O2 Sat by Pulse Oximetry 95 Intake and Output: Intake & Output 11/12/17 11/13/17 11/14/17 11/15/17 10:59 11:59 11:59 11:59 Intake Total 1382 1150 Output Total 4853 8095 Balance -1853 -4351 - Physical Exam Oriented: Normal Eyes: Normal Ear: Normal Nose: Normal Throat: Normal Respiratory: Right, Left, Generalized, Wheezes, Rhonchi Cardiovascular: Irregular, Murmur, Edema : Normal Auscultation: Bowel Sounds: Normal Palpation: Normal Tenderness: Normal Skin: Red (MILD BILATERAL LOWER EXTREMITY REDNESS) Musculoskeletal: Leg, Swelling, Tender Psychiatric: Anxiety Mood Description: Calm Affect: Normal Speech Pattern: Clear, Appropriate - Laboratory and Diagnostics Result Diagrams: 11/15/17 05:00 11/15/17 05:00 Labs: 11/11/17 19:30 Blood Blood Culture - Final 11/11/17 23:26 Urine,Clean Catch Urine Culture - Final 11/11/17 19:37 Blood Blood Culture - Preliminary Laboratory WBC 6.4 X10^3/uL (3.6-10.0) 11/15/17 05:00 RBC 3.97 X10^6/uL (3.5-5.4) 11/15/17 05:00 Hgb 11.0 g/dL (12.0-16.0) L 11/15/17 05:00 Hct 33.7 % (36.0-47.0) L 11/15/17 05:00 MCV 85.0 fL (80.0-100.0) 11/15/17 05:00 MCH 27.8 pg (27.0-34.0) 11/15/17 05:00 MCHC 32.7 g/dL (33.0-35.0) L 11/15/17 05:00 RDW 17.3 % (11.6-16.5) H 11/15/17 05:00 Plt Count 186 X10^3/uL (150.0-450.0) 11/15/17 05:00 MPV 8.7 fL (7.4-11.0) 11/15/17 05:00 Neut % (Auto) 66.3 % (42.0-75.0) 11/15/17 05:00 Lymph % (Auto) 19.9 % (21.0-51.0) L 11/15/17 05:00 Garrett % (Auto) 6.9 % (0.0-13.0) 11/15/17 05:00 Eos % (Auto) 6.3 % (0.9-2.9) H 11/15/17 05:00 Baso % (Auto) 0.6 % (0.2-1.0) 11/15/17 05:00 Neut # (Auto) 4.2 x10^3/uL (2.2-4.8) 11/15/17 05:00 Lymph # (Auto) 1.3 X10^3/uL (1.3-2.9) 11/15/17 05:00 Garrett # (Auto) 0.4 x10^3/uL (0.3-0.8) 11/15/17 05:00 Eos # (Auto) 0.4 x10^3/uL (0.0-0.2) H 11/15/17 05:00 Baso # (Auto) 0.0 X10^3/uL (0.0-0.1) 11/15/17 05:00 Absolute Nucleated RBC 0.1 /100WBC 11/15/17 05:00 INR Target Range - 11/11/17 15:39 INR 1.11 (0.8-1.3) 11/11/17 15:39 PTT 32.6 SECONDS (22.9-36.5) 11/11/17 15:39 PTT Comment - 11/11/17 15:39 D-Dimer 687 ng/mL (0-400) H* 11/11/17 15:39 Sodium 141 mmol/L (136-145) 11/15/17 05:00 Corrected Sodium 143 mmol/L (136-145) 11/15/17 05:00 Potassium 4.0 mmol/L (3.5-5.1) 11/15/17 05:00 Chloride 99 mmol/L (98-107) 11/15/17 05:00 Carbon Dioxide 37.4 mmol/L (21-32) H 11/15/17 05:00 BUN 21 mg/dL (7-18) H 11/15/17 05:00 Creatinine 1.35 mg/dL (0.55-1.02) H 11/15/17 05:00 Est GFR (MDRD) Af Amer 49 (>60) L 11/15/17 05:00 Est GFR (MDRD) Non-Af 41 (>60) L 11/15/17 05:00 Glucose 178 mg/dL (65-99) H 11/15/17 05:00 POC Glucose (mg/dL) 175 mg/dL (65-99) H 11/15/17 05:22 Magnesium 1.5 mg/dL (1.7-2.9) L 11/11/17 15:39 Calcium 8.8 mg/dL (8.5-10.1) 11/15/17 05:00 Corrected Calcium 9.8 mg/dL (8.5-10.1) 11/15/17 05:00 Total Bilirubin 0.40 mg/dL (0.2-1.0) 11/15/17 05:00 AST 19 Units/L (15-37) 11/15/17 05:00 ALT 14 Units/L (12-78) 11/15/17 05:00 Alkaline Phosphatase 90 Units/L (46-116) 11/15/17 05:00 B-Natriuretic Peptide 316 pg/mL (0-79) H 11/14/17 04:16 Creatine Kinase 58 Units/L (26-192) 11/15/17 05:00 CK-MB (CK-2) < 1.0 ng/mL (0-4.0) 11/15/17 05:00 CK/CKMB % Calc 1.7 % (<4) 11/15/17 05:00 Troponin I 0.03 ng/mL (0-1.5) 11/15/17 05:00 Total Protein 7.0 g/dL (6.4-8.2) 11/15/17 05:00 Albumin 2.8 g/dL (3.4-5.0) L 11/15/17 05:00 Globulin 4.2 g/dL (2.5-4.5) 11/15/17 05:00 Albumin/Globulin Ratio 0.7 Ratio (1.1-2.1) L 11/15/17 05:00 Influenza Type A (PCR) Negative (NEGATIVE) 11/12/17 23:49 Influenza Type B (PCR) Negative (NEGATIVE) 11/12/17 23:49 - Plan (1) RML pneumonia Status: Acute Qualifiers: Pneumonia type: due to unspecified organism Qualified Code(s): J18.1 - Lobar pneumonia, unspecified organism Plan: FORTAZ IV, LEVAQUIN IV, CONTINUE SUPPLEMENTAL OXYGEN, CONTINUE TO MONITOR (2) CHF (congestive heart failure) Status: Acute Qualifiers: Heart failure type: unspecified Heart failure chronicity: acute on chronic Qualified Code(s): I50.9 - Heart failure, unspecified Plan: RESUME HOME MEDS. SUPPLEMENTAL O2,. IV LASIX. ELIQUIS, STRICT I & OS. RESP THERAPY, IV ATBX, PULMONARY TOILETING. REPEAT AM LABS (3) Atrial fibrillation Status: Chronic Qualifiers: Atrial fibrillation type: chronic Plan: CONTINUE ELIQUIS, CONTINUE TO MONITOR (4) Chest pain Status: Acute Qualifiers: Chest pain type: unspecified Qualified Code(s): R07.9 - Chest pain, unspecified Plan: SERIAL CARDIAC ENZYMES AND EKG, CONTINUE TO MONITOR
[2017-11-15 11:22] LABS: APPEARANCE,URINE SLIGHTLY HAZY (CLEAR); BACTERIA,URINE TRACE /HPF (NEGATIVE); COLOR,URINE YELLOW (YELLOW); SQUAMOUS EPITHELIAL CELL,UR FEW /HPF (NEGATIVE)
[2017-11-15] MEDS: HumuLIN R SC PRN ×2 (11:43→17:57)
[2017-11-15 13:45] LABS: CKMB % 2.1 % (<4); CREATINE KINASE 48 Units/L (26-192); CREATINE KINASE MB < 1.0 ng/mL (0-4.0); TROPONIN I 0.03 ng/mL (0-1.5)
[2017-11-15] MEDS: AQUAPHOR TOP SCH ×2 (15:09→21:18)
[2017-11-15 18:07] LABS: CKMB % 2.6 % (<4); CREATINE KINASE 39 Units/L (26-192); CREATINE KINASE MB < 1.0 ng/mL (0-4.0); TROPONIN I 0.03 ng/mL (0-1.5)
[2017-11-15] MEDS: LANTUS SC SCH (21:17)
--- NOTE | 2017-11-16 05:26 | RAD ---
Chest, AP portable Indication: Shortness of breath Comparison: 11/15/2017 Findings: Cardiac silhouette enlargement is unchanged. The lungs are essentially clear without overt edema, dense infiltrate, or pleural effusion. Impression: No significant interval change. Reported By:
[2017-11-16] MEDS: FORTAZ or TAZICEF INJ 1 GM in NS 100 ML IV + SPIKE MINIBAG* 100 ML IV SCH ×3 (05:58→21:07)
[2017-11-16] MEDS: NS 1/2 1000 ML IV 1,000 ML IV SCH ×2 (05:58→11:53)
[2017-11-16] MEDS: AQUAPHOR TOP SCH ×3 (05:58→21:09)
[2017-11-16 06:10] LABS: BASOPHILS % (AUTO) 0.6 % (0.2-1.0); EOSINOPHILS # (AUTO) 0.4 x10^3/uL (0.0-0.2); EOSINOPHILS % (AUTO) 6.7 % (0.9-2.9); HEMATOCRIT 31.9 % (36.0-47.0); HEMOGLOBIN 10.4 g/dL (12.0-16.0); LYMPHOCYTES # (AUTO) 1.2 X10^3/uL (1.3-2.9); MEAN CORPUSCULAR HEMOGLOBIN 27.8 pg (27.0-34.0); MEAN CORPUSCULAR HGB CONC 32.7 g/dL (33.0-35.0); MEAN CORPUSCULAR VOLUME 85.2 fL (80.0-100.0); MEAN PLATELET VOLUME 8.9 fL (7.4-11.0); MONOCYTES # (AUTO) 0.4 x10^3/uL (0.3-0.8); MONOCYTES % (AUTO) 7.1 % (0.0-13.0); NEUTROPHILS # (AUTO) 4.2 x10^3/uL (2.2-4.8); NEUTROPHILS % (AUTO) 66.6 % (42.0-75.0); PLATELET COUNT 201 X10^3/uL (150.0-450.0); RED BLOOD COUNT 3.75 X10^6/uL (3.5-5.4); RED CELL DISTRIBUTION WIDTH 17.3 % (11.6-16.5); WHITE BLOOD COUNT 6.3 X10^3/uL (3.6-10.0)
[2017-11-16 06:41] LABS: CALCIUM 8.4 mg/dL (8.5-10.1); CARBON DIOXIDE 37.8 mmol/L (21-32); CREATININE 1.32 mg/dL (0.55-1.02)
[2017-11-16 07:05] LABS: ALBUMIN 2.8 g/dL (3.4-5.0); COR CA(FOR HYPOALB) 9.4 mg/dL (8.5-10.1); TOTAL PROTEIN 6.9 g/dL (6.4-8.2)
[2017-11-16] MEDS: COLACE CAP 100 MG PO SCH (09:13)
[2017-11-16] MEDS: COZAAR PO SCH (09:13)
[2017-11-16] MEDS: ELIQUIS PO SCH ×2 (09:13→21:07)
[2017-11-16] MEDS: LASIX IVP SCH ×2 (09:14→21:07)
[2017-11-16] MEDS: LIPITOR TAB 40 MG PO SCH (09:14)
[2017-11-16] MEDS: LOPRESSOR TAB 25 MG PO SCH ×2 (09:14→21:07)
[2017-11-16] MEDS: GLUCOTROL XL PO SCH ×2 (09:14→21:07)
[2017-11-16] MEDS: LEVAQUIN PREMIX IV 750 MG 750 MG/150 ML BAG IV SCH (09:14)
[2017-11-16] MEDS: LOVAZA PO SCH (09:14)
[2017-11-16] MEDS: MICRO K EXTEN CAP 10 MEQ PO SCH (09:15)
[2017-11-16] MEDS: MAG-OX TAB PO SCH (09:15)
[2017-11-16] MEDS: MILK OF MAGNESIA PO SCH ×2 (09:15→21:09)
[2017-11-16] MEDS: VITAMIN D3 PO SCH (09:16)
[2017-11-16] MEDS: ZYLOPRIM PO SCH (09:16)
[2017-11-16] MEDS: ROBITUSSIN DM PO SCH ×4 (09:16→21:09)
[2017-11-16] MEDS: XOPENEX 1.25 MG/3 ML NEBULE NEB SCH ×3 (09:29→20:17)
[2017-11-16] MEDS ORDERED: NS 1/2 1000 ML IV 1,000 ML IV ONE (11:43)
[2017-11-16] MEDS: HumuLIN R SC PRN (11:54)
--- NOTE | 2017-11-16 19:55 | PCM.PROG ---
Progress Note - Progress Note for Day of Date: 11/16/17 - Subjective Subjective: IS BEING TREATED FOR RIGHT MIDDLE LOBE PNEUMONIA AND CONGESTIVE HEART FAILURE. TODAY, SHE IS ALERT AND ORIENTED, LYING IN BED ON MORNING ROUNDS. SHE CONTINUES WITH SHORNTESS OF BREATH AND SUPRAPUBIC PAIN. ON EXAMINATION, HEART IS REGULAR IN RATE AND RHYTHM. BILATERAL LUNGS CONTINUE WITH EXPIRATORY WHEEZING. SHE IS CURRENTLY UTILIZING OXYGEN VIA NASAL CANNULA AT 2L/ MIN. ABDOMEN IS ROUND, SOFT, AND NON-TENDER WITH NORMAL BOWEL SOUNDS NOTED IN ALL QUADRANTS. LOWER EXTREMITIES CONTINUE WITH 1+ PITTING EDEMA. REDNESS AND FLAKING OF THE SKIN IS ALSO NOTED. THERE IS NORMAL RANGE OF MOTION NOTED TO ALL EXTREMITIES. HER VITALS THIS MORNING ARE 97.9-73-24-98%-132/63. LABS WERE OBTAINED THIS MORNING. HGB 10.4, HCT 31.9, CARBON DIOXIDE 37.8, BUN 23, CREATININE 1.32, GLUCOSE 157, CALCIUM 8.4, ALBUMIN 2.8. CARDIAC ENZYMES HAVE BEEN WITHIN NORMAL LIMITS. A URINALYSIS WAS OBTAINED YESTERDAY AND REVEALS WBC 10-15, RBC 10-15, LEUKOCYTES 2+, BACTERIA TRACE, PROTEIN 3+. BLOOD CULTURES REPORT NO GROWTH. WE OBTAINED A CHEST XRAY THIS MORNING. IT IS STABLE AT THIS TIME. TODAY, WE WILL CONTINUE IV ANTIBIOTICS FOR PNEUMONIA AND URINARY TRACT INFECTION. OTHERWISE, WE PLAN TO FOLLOW UP WITH AM LABS AND CONTINUE TO MONITOR PATIENT - Past Medical Family Social History Past Med/Fam/Surg Hx: No changes since H&P Allergies: Allergies lisinopril [From Zestril] Allergy (Verified 11/11/17 15:15) meperidine [From Demerol] Adverse Reaction (Verified 11/11/17 15:15) zinc Adverse Reaction (Verified 11/11/17 15:15) - Review of Systems ROS: No change since H&P - Vital Signs and I&O's Vital Signs: Temperature 98.0 F Pulse Rate [Left Brachial] 57 Pulse Rate [Right Brachial] 103 Pulse Rate [Apical] 102 Pulse Rate 73 Respiratory Rate 20 Blood Pressure [Left Radial 145/63 Artery] Blood Pressure [Right Radial 178/102 Artery] Blood Pressure [Right Arm] 107/51 Blood Pressure [Left Arm] 132/63 Blood Pressure 173/100 O2 Sat by Pulse Oximetry 99 Intake and Output: Intake & Output 03/08/2211/15/17 11/16/17 11/17/17 11:59 11:59 11:59 11:59 Intake Total 1382 1150 1880 1000 Output Total 0489 4118 9961 [facility] -[phone] -[phone] - Physical Exam Oriented: Normal Eyes: Normal Ear: Normal Nose: Normal Throat: Normal Respiratory: Right, Left, Generalized, Wheezes Cardiovascular: Irregular, Murmur, Edema : Normal Auscultation: Bowel Sounds: Normal Palpation: Normal Tenderness: Normal Skin: Red (MILD BILATERAL LOWER EXTREMITY REDNESS) Musculoskeletal: Leg, Swelling, Tender Psychiatric: Anxiety Mood Description: Calm Affect: Normal Speech Pattern: Clear, Appropriate - Laboratory and Diagnostics Result Diagrams: 11/16/17 05:00 11/16/17 05:00 Labs: 11/15/17 10:49 Urine,Catheterized Urine Culture - Preliminary 11/11/17 19:30 Blood Blood Culture - Final 11/11/17 23:26 Urine,Clean Catch Urine Culture - Final 11/11/17 19:37 Blood Blood Culture - Preliminary Laboratory WBC 6.3 X10^3/uL (3.6-10.0) 11/16/17 05:00 RBC 3.75 X10^6/uL (3.5-5.4) 11/16/17 05:00 Hgb 10.4 g/dL (12.0-16.0) L 11/16/17 05:00 Hct 31.9 % (36.0-47.0) L 11/16/17 05:00 MCV 85.2 fL (80.0-100.0) 11/16/17 05:00 MCH 27.8 pg (27.0-34.0) 11/16/17 05:00 MCHC 32.7 g/dL (33.0-35.0) L 11/16/17 05:00 RDW 17.3 % (11.6-16.5) H 11/16/17 05:00 Plt Count 201 X10^3/uL (150.0-450.0) 11/16/17 05:00 MPV 8.9 fL (7.4-11.0) 11/16/17 05:00 Neut % (Auto) 66.6 % (42.0-75.0) 11/16/17 05:00 Lymph % (Auto) 19.0 % (21.0-51.0) L 11/16/17 05:00 Braxton % (Auto) 7.1 % (0.0-13.0) 11/16/17 05:00 Eos % (Auto) 6.7 % (0.9-2.9) H 11/16/17 05:00 Baso % (Auto) 0.6 % (0.2-1.0) 11/16/17 05:00 Neut # (Auto) 4.2 x10^3/uL (2.2-4.8) 11/16/17 05:00 Lymph # (Auto) 1.2 X10^3/uL (1.3-2.9) L 11/16/17 05:00 Braxton # (Auto) 0.4 x10^3/uL (0.3-0.8) 11/16/17 05:00 Eos # (Auto) 0.4 x10^3/uL (0.0-0.2) H 11/16/17 05:00 Baso # (Auto) 0.0 X10^3/uL (0.0-0.1) 11/16/17 05:00 Absolute Nucleated RBC 0.0 /100WBC 11/16/17 05:00 INR Target Range - 11/11/17 15:39 INR 1.11 (0.8-1.3) 11/11/17 15:39 PTT 32.6 SECONDS (22.9-36.5) 11/11/17 15:39 PTT Comment - 11/11/17 15:39 D-Dimer 687 ng/mL (0-400) H* 11/11/17 15:39 Sodium 140 mmol/L (136-145) 11/16/17 05:00 Corrected Sodium 141 mmol/L (136-145) 11/16/17 05:00 Potassium 4.0 mmol/L (3.5-5.1) 11/16/17 05:00 Chloride 99 mmol/L (98-107) 11/16/17 05:00 Carbon Dioxide 37.8 mmol/L (21-32) H 11/16/17 05:00 BUN 23 mg/dL (7-18) H 11/16/17 05:00 Creatinine 1.32 mg/dL (0.55-1.02) H 11/16/17 05:00 Est GFR (MDRD) Af Amer 50 (>60) L 11/16/17 05:00 Est GFR (MDRD) Non-Af 42 (>60) L 11/16/17 05:00 Glucose 157 mg/dL (65-99) H 11/16/17 05:00 POC Glucose (mg/dL) 179 mg/dL (65-99) H 11/16/17 15:52 Magnesium 1.5 mg/dL (1.7-2.9) L 11/11/17 15:39 Calcium 8.4 mg/dL (8.5-10.1) L 11/16/17 05:00 Corrected Calcium 9.4 mg/dL (8.5-10.1) 11/16/17 05:00 Total Bilirubin 0.40 mg/dL (0.2-1.0) 11/16/17 05:00 AST 18 Units/L (15-37) 11/16/17 05:00 ALT 14 Units/L (12-78) 11/16/17 05:00 Alkaline Phosphatase 85 Units/L (46-116) 11/16/17 05:00 B-Natriuretic Peptide 316 pg/mL (0-79) H 11/14/17 04:16 Creatine Kinase 39 Units/L (26-192) 11/15/17 17:31 CK-MB (CK-2) < 1.0 ng/mL (0-4.0) 11/15/17 17:31 CK/CKMB % Calc 2.6 % (<4) 11/15/17 17:31 Troponin I 0.03 ng/mL (0-1.5) 11/15/17 17:31 Total Protein 6.9 g/dL (6.4-8.2) 11/16/17 05:00 Albumin 2.8 g/dL (3.4-5.0) L 11/16/17 05:00 Globulin 4.1 g/dL (2.5-4.5) 11/16/17 05:00 Albumin/Globulin Ratio 0.7 Ratio (1.1-2.1) L 11/16/17 05:00 Specimen Type Catherized urine 11/15/17 10:49 Urine Color Yellow (YELLOW) 11/15/17 10:49 Urine Appearance Slightly hazy (CLEAR) 11/15/17 10:49 Urine pH 7.0 (5.0 - 8.0) 11/15/17 10:49 Ur Specific Dresher 1.005 (1.000-1.030) 11/15/17 10:49 Urine Protein 3+ (NEGATIVE) 11/15/17 10:49 Urine Glucose (UA) Negative (NEGATIVE) 11/15/17 10:49 Urine Ketones Negative (NEGATIVE) 11/15/17 10:49 Urine Occult Blood 5+ (NEGATIVE) 11/15/17 10:49 Urine Nitrite Negative (NEGATIVE) 11/15/17 10:49 Urine Bilirubin Negative (NEGATIVE) 11/15/17 10:49 Urine Urobilinogen Normal (NORMAL) 11/15/17 10:49 Ur Leukocyte Esterase 2+ (NEGATIVE) 11/15/17 10:49 Urine RBC 10-15 /HPF (NONE SEEN) 11/15/17 10:49 Urine WBC 10-15 /HPF (NONE SEEN) 11/15/17 10:49 Ur Squamous Epith Cells Few /HPF (NEGATIVE) 11/15/17 10:49 Urine Bacteria Trace /HPF (NEGATIVE) 11/15/17 10:49 Ur Culture Indicated? Yes/culture set up 11/15/17 10:49 Influenza Type A (PCR) Negative (NEGATIVE) 11/12/17 23:49 Influenza Type B (PCR) Negative (NEGATIVE) 11/12/17 23:49 - Plan (1) RML pneumonia Status: Acute Qualifiers: Pneumonia type: due to unspecified organism Qualified Code(s): J18.1 - Lobar pneumonia, unspecified organism Plan: FORTAZ IV, LEVAQUIN IV, CONTINUE SUPPLEMENTAL OXYGEN, CONTINUE TO MONITOR (2) CHF (congestive heart failure) Status: Acute Qualifiers: Heart failure type: unspecified Heart failure chronicity: acute on chronic Qualified Code(s): I50.9 - Heart failure, unspecified Plan: RESUME HOME MEDS. SUPPLEMENTAL O2,. IV LASIX. ELIQUIS, STRICT I & OS. RESP THERAPY, IV ATBX, PULMONARY TOILETING. REPEAT AM LABS (3) Atrial fibrillation Status: Chronic Qualifiers: Atrial fibrillation type: chronic Plan: CONTINUE ELIQUIS, CONTINUE TO MONITOR (4) Chest pain Status: Acute Qualifiers: Chest pain type: unspecified Qualified Code(s): R07.9 - Chest pain, unspecified Plan: SERIAL CARDIAC ENZYMES AND EKG, CONTINUE TO MONITOR (5) Urinary tract infection Status: Acute Qualifiers: Urinary tract infection type: acute cystitis Hematuria presence: with hematuria Qualified Code(s): N30.01 - Acute cystitis with hematuria Plan: CONTINUE FORTAZ IV, CONTINUE LEVAQUIN IV, CONTINUE TO MONITOR
[2017-11-16] MEDS: LANTUS SC SCH (21:08)
[2017-11-17] MEDS: AQUAPHOR TOP SCH ×2 (05:28→13:19)
[2017-11-17] MEDS: NS 1/2 1000 ML IV 1,000 ML IV SCH (05:29)
[2017-11-17] MEDS: FORTAZ or TAZICEF INJ 1 GM in NS 100 ML IV + SPIKE MINIBAG* 100 ML IV SCH ×2 (05:29→13:20)
[2017-11-17 06:17] LABS: BASOPHILS % (AUTO) 0.8 % (0.2-1.0); EOSINOPHILS # (AUTO) 0.4 x10^3/uL (0.0-0.2); EOSINOPHILS % (AUTO) 7.8 % (0.9-2.9); HEMATOCRIT 32.1 % (36.0-47.0); HEMOGLOBIN 10.7 g/dL (12.0-16.0); LYMPHOCYTES # (AUTO) 1.2 X10^3/uL (1.3-2.9); LYMPHOCYTES % (AUTO) 21.9 % (21.0-51.0); MEAN CORPUSCULAR HEMOGLOBIN 28.3 pg (27.0-34.0); MEAN CORPUSCULAR HGB CONC 33.3 g/dL (33.0-35.0); MEAN CORPUSCULAR VOLUME 84.8 fL (80.0-100.0); MEAN PLATELET VOLUME 8.8 fL (7.4-11.0); MONOCYTES # (AUTO) 0.3 x10^3/uL (0.3-0.8); MONOCYTES % (AUTO) 5.6 % (0.0-13.0); NEUTROPHILS # (AUTO) 3.6 x10^3/uL (2.2-4.8); NEUTROPHILS % (AUTO) 63.9 % (42.0-75.0); PLATELET COUNT 188 X10^3/uL (150.0-450.0); RED BLOOD COUNT 3.78 X10^6/uL (3.5-5.4); RED CELL DISTRIBUTION WIDTH 17.1 % (11.6-16.5); WHITE BLOOD COUNT 5.7 X10^3/uL (3.6-10.0)
[2017-11-17 06:34] LABS: ALBUMIN 2.8 g/dL (3.4-5.0); CALCIUM 8.6 mg/dL (8.5-10.1); CARBON DIOXIDE 36.2 mmol/L (21-32); COR CA(FOR HYPOALB) 9.6 mg/dL (8.5-10.1); CREATININE 1.36 mg/dL (0.55-1.02); TOTAL PROTEIN 7.3 g/dL (6.4-8.2)
--- NOTE | 2017-11-17 07:01 | RAD ---
Findings: Examination: AP chest History: SOB Comparison reference 11/16/2017 Findings: Continued normal heart size with essentially clear lungs and pleural spaces. Impression: No significant interval change or developing abnormality demonstrated. Reported By:
[2017-11-17] MEDS: COZAAR PO SCH (08:45)
[2017-11-17] MEDS: ELIQUIS PO SCH (08:45)
[2017-11-17] MEDS: COLACE CAP 100 MG PO SCH (08:45)
[2017-11-17] MEDS: LOPRESSOR TAB 25 MG PO SCH (08:46)
[2017-11-17] MEDS: LIPITOR TAB 40 MG PO SCH (08:46)
[2017-11-17] MEDS: GLUCOTROL XL PO SCH (08:46)
[2017-11-17] MEDS: LASIX IVP SCH (08:46)
[2017-11-17] MEDS: LOVAZA PO SCH (08:46)
[2017-11-17] MEDS: LEVAQUIN PREMIX IV 750 MG 750 MG/150 ML BAG IV SCH (08:46)
[2017-11-17] MEDS: ROBITUSSIN DM PO SCH ×2 (08:47→12:34)
[2017-11-17] MEDS: VITAMIN D3 PO SCH (08:47)
[2017-11-17] MEDS: MICRO K EXTEN CAP 10 MEQ PO SCH (08:47)
[2017-11-17] MEDS: MILK OF MAGNESIA PO SCH (08:47)
[2017-11-17] MEDS: MAG-OX TAB PO SCH (08:47)
[2017-11-17] MEDS: ZYLOPRIM PO SCH (08:48)
[2017-11-17] MEDS: XOPENEX 1.25 MG/3 ML NEBULE NEB SCH ×2 (09:22→12:17)
[2017-11-17 12:35] VITALS: BP 124/55
== END 2017-11-17 13:28 | disposition home or self-care (01) ==
LOC: ER 15:15 → MED/SURG 19:33 → INTOOBSV 11-14 09:00 → OBSVTOIN 11-14 09:00
PROVIDERS: ADMIT Internal Medicine; ATTEND Internal Medicine
DX: J18.1 Lobar pneumonia, unspecified organism (principal); I50.9 Heart failure, unspecified; R06.02 Shortness of breath; N30.01 Acute cystitis with hematuria; R94.31 Abnormal electrocardiogram [ECG] [EKG]; I10 Essential (primary) hypertension; I48.91 Unspecified atrial fibrillation; J81.0 Acute pulmonary edema; J44.1 Chronic obstructive pulmonary disease with (acute) exacerbation
CPT/HCPCS: 36415; 71045; 71046; 71275; 80053; 81001; 82550; 82553; 83735; 83880; 84484; 85025; 85378; 85610; 85730; 87040; 87086; 87502; 93005; 93306; 94640; 94760; 96365; 96374; 96375; 97535; 99284; A4222; G0378; J0456; J0696; J0713; J1815; J1940; J1956; J7620

== ENCOUNTER 2017-11-22 12:11 | Emergency (ER) | payer OTHER ==
--- NOTE | 2017-11-22 12:28 | DR.SOBA ---
HPI - Time Seen Time seen: 12:21 - Complaints Chief Complaint Doctors Comments: Patient presents to the ED for evaluation of chest heaviness. She was admitted on last week for chest pain protocol and discharged with a negative w orkup. She states that she has not gained her strenth back and admits to SOB, weakness since going home. PMH - PMH Past Medical History: CHF, Diabetes, Hypertension, [place] Past Surgical History: Yes Surgical History: Appendectomy, Cholecystectomy, Hysterectomy, Other - Family History Family Medical History: Cancer, Hypertension - Social History Do you use any recreational Drugs:: No PE - Vital Signs Vitals: Temperature 98.2 F Pulse Rate [Apical] 53 Pulse Rate 52 Respiratory Rate 22 Blood Pressure [Left Radial 145/63 Artery] Blood Pressure [Right Radial 178/102 Artery] Blood Pressure [Right Arm] 157/70 Blood Pressure [Left Arm] 151/67 Blood Pressure 129/61 O2 Sat by Pulse Oximetry 96 ROR - Labs Reviewed Result Diagrams: 11/22/17 12:45 11/22/17 12:45 Laboratory: WBC 6.2 X10^3/uL (3.6-10.0) 11/22/17 12:45 RBC 3.87 X10^6/uL (3.5-5.4) 11/22/17 12:45 Hgb 10.8 g/dL (12.0-16.0) L 11/22/17 12:45 Hct 32.8 % (36.0-47.0) L 11/22/17 12:45 MCV 84.7 fL (80.0-100.0) 11/22/17 12:45 MCH 27.8 pg (27.0-34.0) 11/22/17 12:45 MCHC 32.8 g/dL (33.0-35.0) L 11/22/17 12:45 RDW 17.4 % (11.6-16.5) H 11/22/17 12:45 Plt Count 180 X10^3/uL (150.0-450.0) 11/22/17 12:45 MPV 8.9 fL (7.4-11.0) 11/22/17 12:45 Neut % (Auto) 75.9 % (42.0-75.0) H 11/22/17 12:45 Lymph % (Auto) 14.9 % (21.0-51.0) L 11/22/17 12:45 [place] % (Auto) 4.9 % (0.0-13.0) 11/22/17 12:45 Eos % (Auto) 3.3 % (0.9-2.9) H 11/22/17 12:45 Baso % (Auto) 1.0 % (0.2-1.0) 11/22/17 12:45 Neut # (Auto) 4.7 x10^3/uL (2.2-4.8) 11/22/17 12:45 Lymph # (Auto) 0.9 X10^3/uL (1.3-2.9) L 11/22/17 12:45 [place] # (Auto) 0.3 x10^3/uL (0.3-0.8) 11/22/17 12:45 Eos # (Auto) 0.2 x10^3/uL (0.0-0.2) 11/22/17 12:45 Baso # (Auto) 0.1 X10^3/uL (0.0-0.1) 11/22/17 12:45 Absolute Nucleated RBC 0.0 /100WBC 11/22/17 12:45 INR Target Range - 11/22/17 12:45 INR 1.39 (0.8-1.3) H 11/22/17 12:45 APTT 33.6 SECONDS (22.9-36.5) 11/22/17 12:45 PTT Comment - 11/22/17 12:45 D-Dimer 111 ng/mL (0-400) 11/22/17 12:45 Sodium 139 mmol/L (136-145) 11/22/17 12:45 Corrected Sodium 140 mmol/L (136-145) 11/22/17 12:45 Potassium 4.5 mmol/L (3.5-5.1) 11/22/17 12:45 Chloride 102 mmol/L (98-107) 11/22/17 12:45 Carbon Dioxide 28.3 mmol/L (21-32) 11/22/17 12:45 BUN 26 mg/dL (7-18) H 11/22/17 12:45 Creatinine 1.39 mg/dL (0.55-1.02) H 11/22/17 12:45 Est GFR (MDRD) Af Amer 47 (>60) L 11/22/17 12:45 Est GFR (MDRD) Non-Af 39 (>60) L 11/22/17 12:45 Glucose 148 mg/dL (65-99) H 11/22/17 12:45 Calcium 9.2 mg/dL (8.5-10.1) 11/22/17 12:45 Corrected Calcium 10.0 mg/dL (8.5-10.1) 11/22/17 12:45 Total Bilirubin 0.50 mg/dL (0.2-1.0) 11/22/17 12:45 AST 24 Units/L (15-37) 11/22/17 12:45 ALT 17 Units/L (12-78) 11/22/17 12:45 Alkaline Phosphatase 70 Units/L (46-116) 11/22/17 12:45 Creatine Kinase 55 Units/L (26-192) 11/22/17 12:45 CK-MB (CK-2) < 1.0 ng/mL (0-4.0) 11/22/17 12:45 CK/CKMB % Calc 1.8 % (<4) 11/22/17 12:45 Troponin I 0.02 ng/mL (0-1.5) 11/22/17 12:45 Total Protein 7.3 g/dL (6.4-8.2) 11/22/17 12:45 Albumin 3.0 g/dL (3.4-5.0) L 11/22/17 12:45 Globulin 4.3 g/dL (2.5-4.5) 11/22/17 12:45 Albumin/Globulin Ratio 0.7 Ratio (1.1-2.1) L 11/22/17 12:45 - Diagnosis Discharge Problem: Dehydration, mild - Discharge Plan Condition: Stable - Follow ups/Referrals Follow ups/Referrals: NFD,None [Primary Care Provider] - 3 days - Instructions Instructions: Dehydration, Adult, [id number]
[2017-11-22 12:32] VITALS: BMI 44.6
[2017-11-22 13:06] LABS: BASOPHILS # (AUTO) 0.1 X10^3/uL (0.0-0.1); EOSINOPHILS # (AUTO) 0.2 x10^3/uL (0.0-0.2); EOSINOPHILS % (AUTO) 3.3 % (0.9-2.9); HEMATOCRIT 32.8 % (36.0-47.0); HEMOGLOBIN 10.8 g/dL (12.0-16.0); LYMPHOCYTES # (AUTO) 0.9 X10^3/uL (1.3-2.9); LYMPHOCYTES % (AUTO) 14.9 % (21.0-51.0); MEAN CORPUSCULAR HEMOGLOBIN 27.8 pg (27.0-34.0); MEAN CORPUSCULAR HGB CONC 32.8 g/dL (33.0-35.0); MEAN CORPUSCULAR VOLUME 84.7 fL (80.0-100.0); MEAN PLATELET VOLUME 8.9 fL (7.4-11.0); MONOCYTES # (AUTO) 0.3 x10^3/uL (0.3-0.8); MONOCYTES % (AUTO) 4.9 % (0.0-13.0); NEUTROPHILS # (AUTO) 4.7 x10^3/uL (2.2-4.8); NEUTROPHILS % (AUTO) 75.9 % (42.0-75.0); PLATELET COUNT 180 X10^3/uL (150.0-450.0); RED BLOOD COUNT 3.87 X10^6/uL (3.5-5.4); RED CELL DISTRIBUTION WIDTH 17.4 % (11.6-16.5); WHITE BLOOD COUNT 6.2 X10^3/uL (3.6-10.0)
[2017-11-22 13:23] LABS: ALANINE AMINOTRANSFERASE 17 Units/L (12-78); ALKALINE PHOSPHATASE 70 Units/L (46-116); ASPARTATE AMINO TRANSFERASE 24 Units/L (15-37); BLOOD UREA NITROGEN 26 mg/dL (7-18); CALCIUM 9.2 mg/dL (8.5-10.1); CARBON DIOXIDE 28.3 mmol/L (21-32); CHLORIDE 102 mmol/L (98-107); CKMB % 1.8 % (<4); COR NA(FOR HYPERGLY) 140 mmol/L (136-145); CREATINE KINASE 55 Units/L (26-192); CREATINE KINASE MB < 1.0 ng/mL (0-4.0); CREATININE 1.39 mg/dL (0.55-1.02); SODIUM 139 mmol/L (136-145); TOTAL PROTEIN 7.3 g/dL (6.4-8.2); TROPONIN I 0.02 ng/mL (0-1.5); eGFR BLACK RACES 47 (>60); eGFR NON BLACK RACES 39 (>60)
--- NOTE | 2017-11-22 13:45 | RAD ---
HISTORY: Chest pain, shortness of breath Study: Chest AP portable Comparison: 11/17/2017 Findings: The heart is mildly enlarged. No definite congestive heart failure is noted. No acute alveolar infilt rates or pleural effusions are identified. The bony thorax is unremarkable. IMPRESSION: Mild cardiomegaly without congestive heart failure No infiltrates Reported By:
[2017-11-22 14:51] VITALS: BP 157/70
[2017-11-22] MEDS ORDERED: NS 1000 ML 1,000 ML IV ONE (14:54)
[2017-11-22] MEDS ORDERED: NS 1000 ML 1,000 ML ONE (14:56)
== END 2017-11-22 18:06 | disposition home or self-care (01) ==
LOC: ER 12:19
DX: E86.0 Dehydration (principal); I51.7 Cardiomegaly; R94.31 Abnormal electrocardiogram [ECG] [EKG]; R07.89 Other chest pain; Z86.79 Personal history of other diseases of the circulatory system
CPT/HCPCS: 36415; 71045; 80053; 82550; 82553; 84484; 85025; 85378; 85610; 85730; 93005; 93010; 96365; 99283; A4222

== ENCOUNTER → 2018-01-09 | Outpatient (CLI) | payer OTHER | LOC: RAD 10:57 | PROVIDERS: ATTEND Internal Medicine | DX: Z12.31 Encounter for screening mammogram for malignant neoplasm of breast (principal) | CPT/HCPCS: 77067 ==

== ENCOUNTER 2018-03-06 17:00 | Inpatient (IN) ==
[2018-03-06 17:10] VITALS: BMI 47.6
--- NOTE | 2018-03-06 17:21 | DR.SOBA ---
HPI - Time Seen Time seen: 17:15 - Primary Care Physician Primary Care Physician: HARI REY - Complaints Chief Complaint Doctors Comments: Patient presented with complaint of dyspnes of acute onset. Walking short distances caused shortness of breath. She has a history of COPD and uses home oxygen. Chief Complaint:: PT C/O > SOB, AND FEELING LIKE SHE WAS GOING TO PASS OUT AND PT STATES " I WENT AND GOT MY TAG, AND RAN SOME ERRANDS" PT STATES SHE WEARS O2 AT NIGHT AND THAT SHE WEARS A CPAP,,BR Self Treatment fo Chief Complaint: NONE , - Source History Provided: Patient - Mode of Arrival Mode of Arrival: Wheelchair - Timing Onset of Chief Complaint: 02/22/18 PMH - PMH Past Medical History: Yes Past Medical History: COPD, Diabetes Past Medical History Comment: [place], Past Surgical History: Yes Surgical History: Cholecystectomy, Hysterectomy Past Surgical History Comment: ARTERY IN NECK CLEANED OUT , ,BR - Family History History of Family Medical Conditions: No Family Medical History: Cancer, Hypertension - Social History Does patient currently use any type of tobacco product: No Have you used tobacco products in the last 12 months: No Type of Tobacco Use: None Does any household member use tobacco: No Alcohol Use: None Do you use any recreational Drugs:: No Lives With: Family Lives Where: Home - infectious screening In the last 2 months have you had wt loss of >10#?: NO Have you had fever, night sweats or hemotysis?: No Have you traveled outside the country in the last 6 months?: No Isolation: Standard ROS - Review of Systems Eyes: No Symptoms Reported Respiratoy: No Symptoms Reported Cardiovascular: No Symptoms Reported Gastrointestinal/Abdominal: No Symptoms Reported Genitourinary: No Symptoms Reported Neurological: No Symptoms Reported Musculoskeletal: No Symptoms Reported Integumentary: No Symptoms Reported Hematologic/Lymphatic: No Symptoms Reported Endocrine: No Symptoms Reported Psychiatric: No Symptoms Reported All Other Systems: Reviewed and Negative PE - General Limitations: No Limitations General Appearance: Alert, In No Apparent Distress - Head Head Exam: Normal Inspection, Atraumatic - Eyes Eye exam: Normal Appearance, PERRL, EOMI - ENT ENT Exam: Normal Exam - Neck Neck Exam: Normal Inspection, Full ROM - Chest Chest Inspection: Normal Inspection - Respiratory Respiratory Exam: Normal Lung Sounds Bilat Respiratory Exam: Bilateral Clear to Auscultation - Cardiovascular Cardiovascular Exam: Regular Rate, Normal Rhythm - Abdominal Exam Abdominal Exam: Normal Inspection Abdominal Tenderness: negative: RUQ, RLQ, LUQ, LLQ, Epigastrium, Suprapubic, Diffuse, Mild, Moderate, Severe, Other - Extremities Extremities Exam: Normal Inspection, Full ROM - Back Back Exam: Normal Inspection, Full ROM - Neurologic Neurological Exam: Alert, Oriented X3, CN II-XII Intact - Psychiatric Psychiatric Exam: Normal Affect - Skin Skin Exam: Warm, Dry, Intact - Vital Signs Vitals: Temperature 98 F Pulse Rate [Left Brachial] 88 Pulse Rate 100 Respiratory Rate 20 Blood Pressure [Left Radial 145/63 Artery] Blood Pressure [Right Radial 178/102 Artery] Blood Pressure [Right Arm] 157/70 Blood Pressure [Left Arm] 169/92 Blood Pressure 137/95 O2 Sat by Pulse Oximetry 99 Course - Reevaluation 1st: Unchanged - Consultation Called: 21:55 (Dr Zuniga agreed to admit) ROR - Labs Reviewed Laboratory Results Reviewed?: Yes (D Dimer [id number]) Result Diagrams: 03/06/18 17:28 03/06/18 17:28 - XRAY XRAY Interpreted by: Radiologist (CTA: The thyroid gland is unremarkable. There is minimal plaque in the aorta which is well opacified and mildly dilated throughout with no aneursym or dissection. The aorta is on the right side of the mediastinum which is unchanged. The pulmonary arteries are well opacified with no filling defect or vessel cut off. There is a small to mediaum sized right pleural effusion extending from the lung base into the apex which is more prominent. There is tiny left pleural effusion posteriorly which is less prominent. There is moderate volume loss and consolidation allong the right lung base which has increased. The heart is mildly enlarged and there is no mediastinal mass or adenopathy. The adrenals are normal. There is minimal left basilar opacity posteriorly which is unchanged. There is 3 mm nodule along the left upper lobe laterally which may be partially calcified and is unchange. There are degenerative changes seen in the spine with no aggressive osseous lesion. Impression: No evidence of a pulmonary embolus. Right sided aortic arch and atherosclerotic palque throughout with no aneursym or dissection which is unchanged. Mild to moderate right pleural effusion which has slightly increased in size with increasing right basilar atelectasis and / or infiltrate extending into the right middle lobe and is more prominent. Tiny left pleural effusion which is less prominent with minimal left basilar atelectasis which is unchanged. 3 mm nodule left upper lobe which is unchanged and may be partially calcified, suggest follow-up.) - Labs Reviewed Laboratory: WBC 6.5 X10^3/uL (3.6-10.0) 03/06/18 17:28 RBC 4.19 X10^6/uL (3.5-5.4) 03/06/18 17:28 Hgb 11.0 g/dL (12.0-16.0) L 03/06/18 17:28 Hct 34.9 % (36.0-47.0) L 03/06/18 17:28 MCV 83.3 fL (80.0-100.0) 03/06/18 17: MCH 26.3 pg (27.0-34.0) L 03/06/18 17: MCHC 31.6 g/dL (33.0-35.0) L 03/06/18 17: RDW 17.5 % (11.6-16.5) H 03/06/18 17:28 Plt Count 218 X10^3/uL (150.0-450.0) 03/06/18 17:28 MPV 8.7 fL (7.4-11.0) 03/06/18 17:28 Neut % (Auto) 76.6 % (42.0-75.0) H 03/06/18 17:28 Lymph % (Auto) 16.1 % (21.0-51.0) L 03/06/18 17:28 [place] % (Auto) 5.4 % (0.0-13.0) 03/06/18 17:28 Eos % (Auto) 1.2 % (0.9-2.9) 03/06/18 17:28 Baso % (Auto) 0.7 % (0.2-1.0) 03/06/18 17:28 Neut # (Auto) 5.0 x10^3/uL (2.2-4.8) H 03/06/18 17:28 Lymph # (Auto) 1.0 X10^3/uL (1.3-2.9) L 03/06/18 17:28 [place] # (Auto) 0.4 x10^3/uL (0.3-0.8) 03/06/18 17:28 Eos # (Auto) 0.1 x10^3/uL (0.0-0.2) 03/06/18 17:28 Baso # (Auto) 0.0 X10^3/uL (0.0-0.1) 03/06/18 17:28 Absolute Nucleated RBC 0.0 /100WBC 03/06/18 17:28 D-Dimer 1190 ng/mL (0-400) H* 03/06/18 17:28 Sample Site Right radial 03/06/18 19:40 ABG pH 7.440 (7.35-7.45) 03/06/18 19:40 ABG pCO2 54.0 mmHg (35.0-45.0) H* 03/06/18 19:40 ABG pO2 81.0 mmHg (80.0-100.0) 03/06/18 19:40 ABG HCO3 36.7 mmol/L (22-26) H* 03/06/18 19:40 ABG O2 Saturation 96.0 % (90-100) 03/06/18 19:40 ABG Base Excess 10.7 mmol/L (-2.0-2.0) H 03/06/18 19:40 Twan Test Pos 03/06/18 19:40 A-a Gradient 23.0 mmHg 03/06/18 19:40 FiO2 24.000 03/06/18 19:40 Blood Gas Comments Praneeth well jts 03/06/18 19:40 Sodium 142 mmol/L (136-145) 03/06/18 17:28 Corrected Sodium TNP 03/06/18 17:28 Potassium 4.4 mmol/L (3.5-5.1) 03/06/18 17:28 Chloride 103 mmol/L (98-107) 03/06/18 17:28 Carbon Dioxide 33.5 mmol/L (21-32) H 03/06/18 17:28 BUN 17 mg/dL (7-18) 03/06/18 17:28 Creatinine 1.23 mg/dL (0.55-1.02) H 03/06/18 17:28 Est GFR (MDRD) Af Amer 55 (>60) L 03/06/18 17:28 Est GFR (MDRD) Non-Af 45 (>60) L 03/06/18 17:28 Glucose 102 mg/dL (65-99) H 03/06/18 17:28 Calcium 9.3 mg/dL (8.5-10.1) 03/06/18 17:28 Corrected Calcium 10.2 mg/dL (8.5-10.1) H 03/06/18 17:28 Total Bilirubin 0.60 mg/dL (0.2-1.0) 03/06/18 17:28 AST 17 Units/L (15-37) 03/06/18 17:28 ALT 15 Units/L (12-78) 03/06/18 17:28 Alkaline Phosphatase 79 Units/L (46-116) 03/06/18 17:28 Total Protein 7.1 g/dL (6.4-8.2) 03/06/18 17:28 Albumin 2.9 g/dL (3.4-5.0) L 03/06/18 17:28 Globulin 4.2 g/dL (2.5-4.5) 03/06/18 17:28 Albumin/Globulin Ratio 0.7 Ratio (1.1-2.1) L 03/06/18 17:28 - Diagnosis Discharge Problem: Right middle lobe pneumonia Qualifiers: Pneumonia type: due to unspecified organism Qualified Code(s): J18.1 - Lobar pneumonia, unspecified organism - Discharge Plan Disposition: ADMITTED INPATIENT Condition: Stable - Follow ups/Referrals Follow ups/Referrals: Joaquin Garcia [Primary Care Provider] - 3 days - Instructions
[2018-03-06 17:35] LABS: BASOPHILS % (AUTO) 0.7 % (0.2-1.0); EOSINOPHILS # (AUTO) 0.1 x10^3/uL (0.0-0.2); EOSINOPHILS % (AUTO) 1.2 % (0.9-2.9); HEMATOCRIT 34.9 % (36.0-47.0); LYMPHOCYTES % (AUTO) 16.1 % (21.0-51.0); MEAN CORPUSCULAR HEMOGLOBIN 26.3 pg (27.0-34.0); MEAN CORPUSCULAR HGB CONC 31.6 g/dL (33.0-35.0); MEAN CORPUSCULAR VOLUME 83.3 fL (80.0-100.0); MEAN PLATELET VOLUME 8.7 fL (7.4-11.0); MONOCYTES # (AUTO) 0.4 x10^3/uL (0.3-0.8); MONOCYTES % (AUTO) 5.4 % (0.0-13.0); NEUTROPHILS % (AUTO) 76.6 % (42.0-75.0); PLATELET COUNT 218 X10^3/uL (150.0-450.0); RED BLOOD COUNT 4.19 X10^6/uL (3.5-5.4); RED CELL DISTRIBUTION WIDTH 17.5 % (11.6-16.5); WHITE BLOOD COUNT 6.5 X10^3/uL (3.6-10.0)
[2018-03-06 17:51] LABS: ALANINE AMINOTRANSFERASE 15 Units/L (12-78); ALBUMIN 2.9 g/dL (3.4-5.0); ALKALINE PHOSPHATASE 79 Units/L (46-116); ASPARTATE AMINO TRANSFERASE 17 Units/L (15-37); BLOOD UREA NITROGEN 17 mg/dL (7-18); CALCIUM 9.3 mg/dL (8.5-10.1); CARBON DIOXIDE 33.5 mmol/L (21-32); CHLORIDE 103 mmol/L (98-107); COR CA(FOR HYPOALB) 10.2 mg/dL (8.5-10.1); CREATININE 1.23 mg/dL (0.55-1.02); SODIUM 142 mmol/L (136-145); TOTAL PROTEIN 7.1 g/dL (6.4-8.2); eGFR NON BLACK RACES 45 (>60)
[2018-03-06] MEDS ORDERED: LASIX IVP ONE ×2 (18:04→18:13)
[2018-03-06] MEDS ORDERED: NS 100 ML IV 100 ML IV ONE (18:12)
--- NOTE | 2018-03-06 18:49 | RAD ---
AP chest Indication: Dyspnea Comparison: 11/22/2017 Findings: The trachea is midline. Heart size is enlarged. There is pulmonary vascular congestion with mild interstitial edema and right greater than left pleural effusions. No pneumothorax. No acute oss eous abnormality. Impression: Cardiomegaly with mild pulmonary interstitial edema and right greater than left pleural e ffusions. Findings are compatible with CHF/volume overload. Reported By:
--- NOTE | 2018-03-06 18:55 | CT ---
Indication: Dyspnea Exam: CTA chest. Technique: Axial spiral images were obtained from the level above the clavicle through the adrenals a fter bolus administration of IV contrast. Coronal and sagittal 3D MIP reconstructions were performed. Automated does control was utilized. Findings: The thyroid gland is unremarkable. There is minimal plaque in the aorta which is well opaci fied and mildly dilated throughout with no aneurysm or dissection. The aorta is on the right side of the mediastinum which is unchanged. The pulmonary arteries are well opacified with no filling defect or vessel cut off. There is a small to medium-sized right pleural effusion extending from the lung ba se into the apex which is more prominent . There is a tiny left pleural effusion posteriorly which is less prominent . There is moderate volume loss and consolidation along the right lung base which has increased. The heart is mildly enlarged and there is no mediastinal mass or adenopathy. The adrenals are normal. There is minimal left basilar opacity posteriorly which is unchanged. There is a 3 mm no dule along the left upper lobe laterally which may be partially calcified and is unchanged. There are degenerative changes seen in the spine with no aggressive osseous lesion. Impression: No evidence of a pulmonary embolus. Right sided aortic arch and atherosclerotic plaque throughout with no aneurysm or dissection which is unchanged. Mild to moderate right pleural effusion which has slightly increased in size with increasing right ba silar atelectasis and/or infiltrate extending into the right middle lobe and is more prominent . Tiny left pleural effusion which is less prominent with minimal left basilar atelectasis which is unc hanged . 3 mm nodule left upper lobe which is unchanged and may be partially calcified, suggest follow-up Reported By:
[2018-03-06 19:49] LABS: ABG BASE EXCESS 10.7 mmol/L (-2.0-2.0)
[2018-03-06 19:50] LABS: ABG ALLEN TEST POS; ABG HCO3 36.7 mmol/L (22-26)
[2018-03-06] MEDS ORDERED: ROCEPHIN 1 GRAM IV PREMIX 1 G/50 ML IV.SOLN. IV ONE ×2 (19:59→20:00)
[2018-03-06] MEDS ORDERED: NS 1/2 1000 ML IV 1,000 ML IV ONE (20:02)
[2018-03-06] MEDS ORDERED: NS 1/2 1000 ML IV 1,000 ML IV SCH ×2 (21:00→23:00)
[2018-03-06] MEDS ORDERED: TESSALON PERLES PO PRN (22:15)
[2018-03-06] MEDS ORDERED: ZOFRAN TAB 4 MG PO PRN (22:15)
[2018-03-06] MEDS ORDERED: SALINE 3% 15 ML NEB TX NEB ONE (22:50)
[2018-03-06] MEDS ORDERED: SALINE 3% 15 ML NEB TX ONE (22:51)
[2018-03-06] MEDS: ROCEPHIN 1 GRAM IV PREMIX 1 G/50 ML IV.SOLN. IV SCH (23:37)
[2018-03-07] MEDS ORDERED: DUONEB 0.5 MG/3 MG ONE (05:17)
[2018-03-07] MEDS: DUONEB 0.5 MG/3 MG NEB SCH ×5 (05:29→20:18)
[2018-03-07 05:53] LABS: BASOPHILS % (AUTO) 0.6 % (0.2-1.0); EOSINOPHILS # (AUTO) 0.2 x10^3/uL (0.0-0.2); EOSINOPHILS % (AUTO) 2.3 % (0.9-2.9); HEMATOCRIT 33.1 % (36.0-47.0); HEMOGLOBIN 10.8 g/dL (12.0-16.0); LYMPHOCYTES # (AUTO) 1.4 X10^3/uL (1.3-2.9); LYMPHOCYTES % (AUTO) 21.3 % (21.0-51.0); MEAN CORPUSCULAR HEMOGLOBIN 26.9 pg (27.0-34.0); MEAN CORPUSCULAR HGB CONC 32.5 g/dL (33.0-35.0); MEAN CORPUSCULAR VOLUME 82.7 fL (80.0-100.0); MEAN PLATELET VOLUME 8.6 fL (7.4-11.0); MONOCYTES # (AUTO) 0.4 x10^3/uL (0.3-0.8); MONOCYTES % (AUTO) 5.6 % (0.0-13.0); NEUTROPHILS # (AUTO) 4.7 x10^3/uL (2.2-4.8); NEUTROPHILS % (AUTO) 70.2 % (42.0-75.0); PLATELET COUNT 206 X10^3/uL (150.0-450.0); RED CELL DISTRIBUTION WIDTH 16.6 % (11.6-16.5); WHITE BLOOD COUNT 6.7 X10^3/uL (3.6-10.0)
[2018-03-07 06:03] LABS: ALBUMIN 2.9 g/dL (3.4-5.0); CALCIUM 8.8 mg/dL (8.5-10.1); CARBON DIOXIDE 34.4 mmol/L (21-32); COR CA(FOR HYPOALB) 9.7 mg/dL (8.5-10.1); CREATININE 1.26 mg/dL (0.55-1.02); TOTAL PROTEIN 6.9 g/dL (6.4-8.2)
--- NOTE | 2018-03-07 06:52 | RAD ---
HISTORY: Dyspnea Study: Chest AP portable Comparison: 03/06/2018 chest x-ray and CTA chest Findings: The heart remains enlarged. Pulmonary venous congestion is present. No definite acute alveolar infilt rates are identified. There is a right pleural effusion partially obscuring the right lower lobe. Und erlying infiltrate or atelectasis cannot be excluded. The remainder of the lung [place] are clear. IMPRESSION: Persistent cardiomegaly with pulmonary venous congestion Right pleural effusion unchanged but partially obscuring the right lower lobe Reported By:
[2018-03-07] MEDS: ROBITUSSIN DM PO SCH ×4 (08:25→21:22)
[2018-03-07] MEDS: LASIX IVP SCH ×2 (08:25→21:23)
[2018-03-07] MEDS: OXYBUTYNIN CHLORIDE ER PO SCH (08:26)
[2018-03-07] MEDS: COZAAR PO SCH (08:26)
[2018-03-07] MEDS: MICRO K EXTEN CAP 10 MEQ PO SCH (08:26)
[2018-03-07] MEDS: ASPIRIN EC 81 MG PO SCH (08:26)
[2018-03-07] MEDS: MAG-OX TAB PO SCH (08:27)
[2018-03-07] MEDS: ELIQUIS PO SCH ×2 (08:27→21:21)
[2018-03-07] MEDS: VIBRAMYCIN 100 MG in NS 100 ML IV + SPIKE MINIBAG* 100 ML IV SCH ×2 (08:28→21:22)
[2018-03-07] MEDS: ROCEPHIN 1 GRAM IV PREMIX 1 G/50 ML IV.SOLN. IV SCH (08:28)
[2018-03-07] MEDS: ZYLOPRIM PO SCH (08:30)
[2018-03-07] MEDS ORDERED: PATIENT'S HOME MEDICATION (Potassium Chloride [Potassium Chloride] 10 MEQ) PO SCH (09:00)
[2018-03-07] MEDS ORDERED: GLIPIZIDE 10 MG PO SCH (09:00)
[2018-03-07] MEDS ORDERED: PATIENT'S HOME MEDICATION (Oxybutynin Chloride [Oxybutynin Chloride] 10 MG) PO SCH (09:00)
[2018-03-07] MEDS ORDERED: PATIENT'S HOME MEDICATION (Apixaban [Eliquis] 2.5 MG) PO SCH (09:00)
--- NOTE | 2018-03-07 10:09 | DR.H&P ---
H&P - History & Physical for Day of: H&P Date: 03/06/18 - Chief Complaint Chief Complaint: short of breath - History of Present Illness History of Present Illness: is a 77 year old patient of ours who presented to the emergency room with complaints of increased shortness of breath and being light headed. She reports that symptoms began about a week ago , but have progressively gotten worse. She reports that symptoms are worse on exertion. Patient has a history significant for: Cataracts, CAD, CHF, [place], Hyperlipidemia, Hypertension, Pneumonia, COPD, Sleep Apnea, Gerd, Gastric Ulcer , Partial Hysterectomy, Muscle Weakness, Arthritis, DM type II, Anemia, Skin CA. On arrival, vitals were 98.0, 100, 18, 93% RA, 137/95. Labs were obtained. Abnormal lab values include the following: Hgb 11.0, Hct 34.9, MCH 26.3, MCHC 31.6, RDW 17.5, D-Dimer 1190, Carbon Dioxide 33.5, Creatinine 1.23, GFR af 55, GFR non 45, Glucose 102, Corrected Calcium 10.2, Albumin 2.9, A/G Ratio 0.7. Blood Cultures x2 Pending. ABG: pCO2 54.0, HCO3 36.7, Base Excess 10.7. Chest X- Ray revealed: Cardiomegaly with mild pulmonary interstitial edema and right greater than left pleural effusions. Findings are compatible with CHF/volume overload. Chest CTA obtained and revealed: No evidence of a pulmonary embolus. Right sided aortic arch and atherosclerotic plaque throughout with no aneurysm or dissection which is unchanged. Mild to moderate right pleural effusion which has slightly increased in size with increasing right basilar atelectasis and/or infiltrate extending into the right middle lobe and is more prominent. Tiny left pleural effusion which is less prominent with minimal left basilar atelectasis which is unchanged. 3 mm nodule left upper lobe which is unchanged and may be partially calcified, suggest follow-up. She was given Lasix 40mg IV x 1, Rocephin 1gm IV x 1, and started on IV fluids. She was admitted for further evaluation and treatment. We plan to follow up with AM labs and chest x- ray and continue to monitor patient. - Past Medical History Past Medical History: COPD, Diabetes - Past Surgical History Surgical History: Carotid Endarterectomy, Cholecystectomy, Hysterectomy - Family History Family Medical History: Cancer, Hypertension - Social History Does patient currently use any type of tobacco product: No Have you used tobacco products in the last 12 months: No Type of Tobacco Use: None Does any household member use tobacco: No Alcohol Use: None Drug Use: None - Medications Home Medications: lisinopril [From Zestril] Allergy (Verified 03/06/18 17:05) meperidine [From Demerol] Adverse Reaction (Verified 03/06/18 17:05) zinc Adverse Reaction (Verified 03/06/18 17:05) CONTINUE taking the following medications allopurinol 300 mg PO DAILY 03/06/18 [History] apixaban [Eliquis] 2.5 mg PO BID 03/06/18 [History] aspirin [Aspir-Low] 81 mg PO DAILY 03/06/18 [History] atorvastatin [Lipitor] 80 mg PO HS 03/06/18 [History] benzonatate 200 mg PO TID PRN 03/06/18 [History] cholecalciferol (vitamin D3) [Vitamin D3] 1,000 unit PO DAILY 03/06/18 [History] docusate sodium [Colace] 1 cap PO HS 03/06/18 [History] furosemide [Lasix] 20 mg PO BID 03/06/18 [History] glipizide 10 mg PO BID 03/06/18 [History] insulin glargine [Lantus U-100 Insulin] 20 unit SUB-Q HS 03/06/18 [History] losartan 50 mg PO DAILY 03/06/18 [History] magnesium oxide [MagOx] 400 mg PO DAILY 03/06/18 [History] ondansetron HCl [Zofran] 8 mg PO TID PRN 03/06/18 [History] oxybutynin chloride 10 mg PO DAILY 03/06/18 [History] potassium chloride 10 meq PO DAILY 03/06/18 [History] saxagliptin-metformin [Kombiglyze XR] 1 tab PO BID 03/06/18 [History] tramadol 50 mg PO QID PRN 03/06/18 [History] - Review of Systems Constitutional: No Symptoms Reported Eyes: No Symptoms Reported ENT: No Symptoms Reported Respiratory: Shortness of Breath, SOB with Excertion Cardiovascular: Light Headedness Gastrointestinal: No Symptoms Reported Genitourinary: No Symptoms Reported Musculoskeletal: No Symptoms Reported Skin: No Symptoms Reported Neurological: Weakness - Physical Exam Vital Signs: Temperature 97.8 F Pulse Rate [Left Brachial] 95 Pulse Rate 100 Respiratory Rate 21 Blood Pressure [Left Radial 145/63 Artery] Blood Pressure [Right Radial 178/102 Artery] Blood Pressure [Right Arm] 166/86 Blood Pressure [Left Arm] 169/92 Blood Pressure 137/95 O2 Sat by Pulse Oximetry 95 Oriented: Normal Eyes: Normal Ear: Normal Nose: Normal Throat: Normal Respiratory: Diminished Throughout Cardiovascular: Normal. negative: S3, S4, Murmur : Normal Auscultation: Bowel Sounds: Normal Palpation: Normal Tenderness: Normal Skin: Normal Musculoskeletal: Normal Psychiatric: Normal Mood Description: Calm Affect: Normal Speech Pattern: Clear - Assessment/Plan (1) RML pneumonia Qualifiers: Pneumonia type: due to unspecified organism Qualified Code(s): J18.1 - Lobar pneumonia, unspecified organism Status: Acute Plan: admit, iv antibiotics, respiratory treatments, supplemental oxygen, lasix 20mg iv bid, continue to monitor - Allergies Allergies/Adverse Reactions: Allergies Allergy/AdvReac Type Severity Reaction Status Date / Time lisinopril [From Zestril] Allergy Verified 03/06/18 17:05 meperidine [From Demerol] AdvReac Verified 03/06/18 17:05 zinc AdvReac Verified 03/06/18 17:05
[2018-03-07] MEDS: NS 1/2 1000 ML IV 1,000 ML IV SCH ×2 (10:51→21:26)
[2018-03-07] MEDS: ALBUMIN HUMAN 25%- 100 ML 100 ML IV SCH (10:53)
[2018-03-07] MEDS ORDERED: ATORVASTATIN 80 MG PO SCH (21:00)
[2018-03-07] MEDS: SNACK - Diabetic Appropriate PO SCH (21:20)
[2018-03-07] MEDS: COLACE CAP 100 MG PO SCH (21:21)
[2018-03-07] MEDS: LIPITOR TAB 40 MG PO SCH (21:22)
[2018-03-07] MEDS: LANTUS SC SCH (21:24)
[2018-03-07] MEDS ORDERED: NS 1/2 1000 ML IV 1,000 ML IV ONE (21:30)
[2018-03-08] MEDS: DUONEB 0.5 MG/3 MG NEB SCH ×6 (01:02→20:59)
[2018-03-08] MEDS: TUSSIONEX PENNKINETIC SUSP PO PRN (01:46)
[2018-03-08 05:59] LABS: BASOPHILS % (AUTO) 0.8 % (0.2-1.0); EOSINOPHILS # (AUTO) 0.1 x10^3/uL (0.0-0.2); EOSINOPHILS % (AUTO) 2.5 % (0.9-2.9); HEMATOCRIT 31.8 % (36.0-47.0); LYMPHOCYTES # (AUTO) 0.9 X10^3/uL (1.3-2.9); LYMPHOCYTES % (AUTO) 19.2 % (21.0-51.0); MEAN CORPUSCULAR HEMOGLOBIN 26.5 pg (27.0-34.0); MEAN CORPUSCULAR HGB CONC 31.6 g/dL (33.0-35.0); MEAN CORPUSCULAR VOLUME 83.9 fL (80.0-100.0); MEAN PLATELET VOLUME 9.1 fL (7.4-11.0); MONOCYTES # (AUTO) 0.3 x10^3/uL (0.3-0.8); MONOCYTES % (AUTO) 6.6 % (0.0-13.0); NEUTROPHILS # (AUTO) 3.5 x10^3/uL (2.2-4.8); NEUTROPHILS % (AUTO) 70.9 % (42.0-75.0); PLATELET COUNT 177 X10^3/uL (150.0-450.0); RED BLOOD COUNT 3.79 X10^6/uL (3.5-5.4); RED CELL DISTRIBUTION WIDTH 16.7 % (11.6-16.5); WHITE BLOOD COUNT 4.9 X10^3/uL (3.6-10.0)
[2018-03-08 06:05] LABS: ALBUMIN 3.2 g/dL (3.4-5.0); CALCIUM 8.8 mg/dL (8.5-10.1); CARBON DIOXIDE 36.3 mmol/L (21-32); COR CA(FOR HYPOALB) 9.4 mg/dL (8.5-10.1); CREATININE 1.25 mg/dL (0.55-1.02); TOTAL PROTEIN 7.2 g/dL (6.4-8.2)
[2018-03-08] MEDS: LASIX IVP SCH ×2 (08:35→21:39)
[2018-03-08] MEDS: OXYBUTYNIN CHLORIDE ER PO SCH (08:35)
[2018-03-08] MEDS: VIBRAMYCIN 100 MG in NS 100 ML IV + SPIKE MINIBAG* 100 ML IV SCH ×2 (08:36→21:40)
[2018-03-08] MEDS: ROCEPHIN 1 GRAM IV PREMIX 1 G/50 ML IV.SOLN. IV SCH (08:36)
[2018-03-08] MEDS: ROBITUSSIN DM PO SCH ×4 (08:36→21:37)
--- NOTE | 2018-03-08 08:36 | RAD ---
HISTORY: Shortness of breath Study: Chest AP portable Comparison: None Findings: The heart remains enlarged. Mild pulmonary venous congestion is present. Right pleural effusion is un changed. Increased density is present in the right lower lobe which may indicate developing infiltrat e. The remainder of the lung [place] are clear. The bony thorax is unremarkable. IMPRESSION: New increased density in the right lower lobe which may indicate developing infiltrate No change right pleural effusion No change cardiomegaly with pulmonary venous congestion Reported By:
[2018-03-08] MEDS: COZAAR PO SCH (08:37)
[2018-03-08] MEDS: MICRO K EXTEN CAP 10 MEQ PO SCH (08:37)
[2018-03-08] MEDS: ASPIRIN EC 81 MG PO SCH (08:37)
[2018-03-08] MEDS: MAG-OX TAB PO SCH (08:37)
[2018-03-08] MEDS: ALBUMIN HUMAN 25%- 100 ML 100 ML IV SCH (08:37)
[2018-03-08] MEDS: ELIQUIS PO SCH ×2 (08:39→21:37)
[2018-03-08] MEDS: ZYLOPRIM PO SCH (08:40)
[2018-03-08] MEDS: NS 1/2 1000 ML IV 1,000 ML IV SCH (10:32)
[2018-03-08] MEDS ORDERED: SAXAGLIPTIN METFORMIN PO SCH (21:00)
[2018-03-08] MEDS: SNACK - Diabetic Appropriate PO SCH (21:36)
[2018-03-08] MEDS: LIPITOR TAB 40 MG PO SCH (21:38)
[2018-03-08] MEDS: GLUCOTROL PO SCH (21:38)
[2018-03-08] MEDS: COLACE CAP 100 MG PO SCH (21:39)
[2018-03-08] MEDS: LANTUS SC SCH (22:00)
[2018-03-09] MEDS: DUONEB 0.5 MG/3 MG NEB SCH ×2 (01:01→05:43)
[2018-03-09 05:15] LABS: BASOPHILS % (AUTO) 0.6 % (0.2-1.0); EOSINOPHILS # (AUTO) 0.2 x10^3/uL (0.0-0.2); HEMATOCRIT 29.5 % (36.0-47.0); HEMOGLOBIN 9.4 g/dL (12.0-16.0); LYMPHOCYTES # (AUTO) 0.8 X10^3/uL (1.3-2.9); LYMPHOCYTES % (AUTO) 15.4 % (21.0-51.0); MEAN CORPUSCULAR HEMOGLOBIN 26.7 pg (27.0-34.0); MEAN CORPUSCULAR HGB CONC 31.7 g/dL (33.0-35.0); MEAN CORPUSCULAR VOLUME 84.2 fL (80.0-100.0); MEAN PLATELET VOLUME 8.9 fL (7.4-11.0); MONOCYTES # (AUTO) 0.4 x10^3/uL (0.3-0.8); MONOCYTES % (AUTO) 7.2 % (0.0-13.0); NEUTROPHILS # (AUTO) 3.9 x10^3/uL (2.2-4.8); NEUTROPHILS % (AUTO) 73.8 % (42.0-75.0); PLATELET COUNT 168 X10^3/uL (150.0-450.0); RED BLOOD COUNT 3.51 X10^6/uL (3.5-5.4); WHITE BLOOD COUNT 5.3 X10^3/uL (3.6-10.0)
[2018-03-09 05:29] LABS: ALANINE AMINOTRANSFERASE 13 Units/L (12-78); ALBUMIN 3.4 g/dL (3.4-5.0); ALKALINE PHOSPHATASE 66 Units/L (46-116); ASPARTATE AMINO TRANSFERASE 14 Units/L (15-37); BLOOD UREA NITROGEN 17 mg/dL (7-18); CALCIUM 8.8 mg/dL (8.5-10.1); CARBON DIOXIDE 38.2 mmol/L (21-32); CHLORIDE 103 mmol/L (98-107); COR NA(FOR HYPERGLY) 144 mmol/L (136-145); CREATININE 1.19 mg/dL (0.55-1.02); SODIUM 143 mmol/L (136-145); TOTAL PROTEIN 7.1 g/dL (6.4-8.2); eGFR NON BLACK RACES 47 (>60)
[2018-03-09] MEDS: GLUCOTROL PO SCH ×2 (06:01→17:47)
[2018-03-09] MEDS: XOPENEX 1.25 MG/3 ML NEBULE NEB SCH ×4 (09:06→20:44)
[2018-03-09] MEDS: ASPIRIN EC 81 MG PO SCH (09:13)
[2018-03-09] MEDS: ROBITUSSIN DM PO SCH ×4 (09:14→21:03)
[2018-03-09] MEDS: ELIQUIS PO SCH ×2 (09:14→21:02)
[2018-03-09] MEDS: ZYLOPRIM PO SCH (09:14)
[2018-03-09] MEDS: OXYBUTYNIN CHLORIDE ER PO SCH (09:14)
[2018-03-09] MEDS: MAG-OX TAB PO SCH (09:15)
[2018-03-09] MEDS: ALBUMIN HUMAN 25%- 100 ML 100 ML IV SCH (09:15)
[2018-03-09] MEDS: MICRO K EXTEN CAP 10 MEQ PO SCH (09:15)
[2018-03-09] MEDS: COZAAR PO SCH (09:15)
[2018-03-09] MEDS: VIBRAMYCIN 100 MG in NS 100 ML IV + SPIKE MINIBAG* 100 ML IV SCH (09:16)
[2018-03-09] MEDS: ROCEPHIN 1 GRAM IV PREMIX 1 G/50 ML IV.SOLN. IV SCH (09:16)
[2018-03-09] MEDS: LASIX IVP SCH ×3 (09:16→21:03)
[2018-03-09] MEDS: NS 1/2 1000 ML IV 1,000 ML IV SCH (10:01)
--- NOTE | 2018-03-09 11:14 | PCM.PROG ---
Progress Note - Progress Note for Day of Date of Exam: 03/07/18 - Subjective Subjective: WAS ADMITTED FOR RIGHT MIDDLE LOBE PNEUMONIA AND CHF EXACERBATION. TODAY, SHE IS ALERT AND ORIENTED, LYING IN BED ON MORNING ROUNDS. SHE IS NOTED WITH COMPLAINTS OF A NON-PRODUCTIVE COUGH AND SHORTNESS OF BREATH. ON EXAMINATION, HEART IS REGULAR IN RATE AND RHYTHM. BILATERAL LUNGS ARE NOTED WITH SCATTERED WHEEZING AND RHONCHI THROUGHOUT. ABDOMEN IS ROUND, SOFT, AND NON- TENDER WITH NORMAL BOWEL SOUNDS NOTED IN ALL QUADRANTS. HER VITALS TODAY ARE 97.8-102-21-95%-166/86. LABS WERE OBTAINED. ABNORMAL LAB VALUES INCLUDE THE FOLLOWING: HGB 10.8, HCT 33.1, CARBON DIOXIDE 34.4, CREATININE 1.26, GLUCOSE 134 , ALBUMIN 2.9. BLOOD CULTURES ARE PENDING. TODAYS CHEST XRAY REVEALS: Persistent cardiomegaly with pulmonary venous congestion. Right pleural effusion unchanged but partially obscuring the right lower lobe. TODAY, WE WILL START LASIX 20MG IV BID AND ALBUMIN 25% IV DAILY. OTHERWISE, WE WILL CONTINUE WITH IV ANTIBIOTICS AND RESPIRATORY TREATMENTS. WE PLAN TO FOLLOW UP WITH AM LABS AND CHEST XRAY AND WILL CONTINUE TO MONITOR PATIENT. - Past Medical Family Social History Past Med/Fam/Surg Hx: No changes since H&P Allergies: Allergies lisinopril [From Zestril] Allergy (Verified 03/06/18 17:05) meperidine [From Demerol] Adverse Reaction (Verified 03/06/18 17:05) zinc Adverse Reaction (Verified 03/06/18 17:05) - Review of Systems ROS: No change since H&P - Vital Signs and I&O's Vital Signs: Temperature 97.6 F Pulse Rate [Right Brachial] 96 Pulse Rate [Left Brachial] 100 Pulse Rate 86 Respiratory Rate 20 Blood Pressure [Left Radial 145/63 Artery] Blood Pressure [Right Radial 178/102 Artery] Blood Pressure [Right Arm] 127/67 Blood Pressure [Left Arm] 169/92 Blood Pressure 137/95 O2 Sat by Pulse Oximetry 96 Intake and Output: Intake & Output 03/06/18 03/07/18 03/08/18 03/09/18 11:59 11:59 11:59 11:59 Intake Total 250 / 250 2510 / 2510 2180 / 2180 Output Total 500 / 500 1300 / 1300 Balance -250 / -250 1210 / 1210 2180 / 2180 - Physical Exam Oriented: Normal Eyes: Normal Ear: Normal Nose: Normal Throat: Normal Respiratory: Generalized, Wheezes, Rhonchi Cardiovascular: Normal. negative: S3, S4, Murmur : Normal Auscultation: Bowel Sounds: Normal Palpation: Normal Tenderness: Normal Skin: Normal Musculoskeletal: Normal Psychiatric: Normal Mood Description: Calm Affect: Normal Speech Pattern: Clear, Appropriate - Laboratory and Diagnostics Result Diagrams: 03/09/18 04:32 03/09/18 04:32 Labs: 03/06/18 19:48 Blood Blood Culture - Preliminary 03/06/18 19:44 Blood Blood Culture - Preliminary Laboratory WBC 5.3 X10^3/uL (3.6-10.0) 03/09/18 04:32 RBC 3.51 X10^6/uL (3.5-5.4) 03/09/18 04:32 Hgb 9.4 g/dL (12.0-16.0) L 03/09/18 04:32 Hct 29.5 % (36.0-47.0) L 03/09/18 04:32 MCV 84.2 fL (80.0-100.0) 03/09/18 04:32 MCH 26.7 pg (27.0-34.0) L 03/09/18 04:32 MCHC 31.7 g/dL (33.0-35.0) L 03/09/18 04:32 RDW 17.0 % (11.6-16.5) H 03/09/18 04:32 Plt Count 168 X10^3/uL (150.0-450.0) 03/09/18 04:32 MPV 8.9 fL (7.4-11.0) 03/09/18 04:32 Neut % (Auto) 73.8 % (42.0-75.0) 03/09/18 04:32 Lymph % (Auto) 15.4 % (21.0-51.0) L 03/09/18 04:32 Weber % (Auto) 7.2 % (0.0-13.0) 03/09/18 04:32 Eos % (Auto) 3.0 % (0.9-2.9) H 03/09/18 04:32 Baso % (Auto) 0.6 % (0.2-1.0) 03/09/18 04:32 Neut # (Auto) 3.9 x10^3/uL (2.2-4.8) 03/09/18 04:32 Lymph # (Auto) 0.8 X10^3/uL (1.3-2.9) L 03/09/18 04:32 Weber # (Auto) 0.4 x10^3/uL (0.3-0.8) 03/09/18 04:32 Eos # (Auto) 0.2 x10^3/uL (0.0-0.2) 03/09/18 04:32 Baso # (Auto) 0.0 X10^3/uL (0.0-0.1) 03/09/18 04:32 Absolute Nucleated RBC 0.1 /100WBC 03/09/18 04:32 D-Dimer 1190 ng/mL (0-400) H* 03/06/18 17:28 Sample Site Right radial 03/06/18 19:40 ABG pH 7.440 (7.35-7.45) 03/06/18 19:40 ABG pCO2 54.0 mmHg (35.0-45.0) H* 03/06/18 19:40 ABG pO2 81.0 mmHg (80.0-100.0) 03/06/18 19:40 ABG HCO3 36.7 mmol/L (22-26) H* 03/06/18 19:40 ABG O2 Saturation 96.0 % (90-100) 03/06/18 19:40 ABG Base Excess 10.7 mmol/L (-2.0-2.0) H 03/06/18 19:40 Twan Test Pos 03/06/18 19:40 A-a Gradient 23.0 mmHg 03/06/18 19:40 FiO2 24.000 03/06/18 19:40 Blood Gas Comments Praneeth well jts 03/06/18 19:40 Sodium 143 mmol/L (136-145) 03/09/18 04:32 Corrected Sodium 144 mmol/L (136-145) 03/09/18 04:32 Potassium 4.2 mmol/L (3.5-5.1) 03/09/18 04:32 Chloride 103 mmol/L (98-107) 03/09/18 04:32 Carbon Dioxide 38.2 mmol/L (21-32) H 03/09/18 04:32 BUN 17 mg/dL (7-18) 03/09/18 04:32 Creatinine 1.19 mg/dL (0.55-1.02) H 03/09/18 04:32 Est GFR (MDRD) Af Amer 57 (>60) L 03/09/18 04:32 Est GFR (MDRD) Non-Af 47 (>60) L 03/09/18 04:32 Glucose 132 mg/dL (65-99) H 03/09/18 04:32 Calcium 8.8 mg/dL (8.5-10.1) 03/09/18 04:32 Corrected Calcium TNP 03/09/18 04:32 Total Bilirubin 0.50 mg/dL (0.2-1.0) 03/09/18 04:32 AST 14 Units/L (15-37) L 03/09/18 04:32 ALT 13 Units/L (12-78) 03/09/18 04:32 Alkaline Phosphatase 66 Units/L (46-116) 03/09/18 04:32 Total Protein 7.1 g/dL (6.4-8.2) 03/09/18 04:32 Albumin 3.4 g/dL (3.4-5.0) 03/09/18 04:32 Globulin 3.7 g/dL (2.5-4.5) 03/09/18 04:32 Albumin/Globulin Ratio 0.9 Ratio (1.1-2.1) L 03/09/18 04:32 - Plan (1) RML pneumonia Status: Acute Qualifiers: Pneumonia type: due to unspecified organism Qualified Code(s): J18.1 - Lobar pneumonia, unspecified organism Plan: admit, iv antibiotics, respiratory treatments, supplemental oxygen, lasix 20mg iv bid, continue to monitor (2) CHF (congestive heart failure) Status: Acute Qualifiers: Heart failure type: unspecified Heart failure chronicity: acute on chronic Qualified Code(s): I50.9 - Heart failure, unspecified Plan: LASIX 20MG IV BID, ALBUMIN 25% IV DAILY, CONTINUE HOME MEDICATIONS
--- NOTE | 2018-03-09 11:19 | PCM.PROG ---
Progress Note - Progress Note for Day of Date of Exam: 03/08/18 - Subjective Subjective: WAS ADMITTED FOR RIGHT MIDDLE LOBE PNEUMONIA AND CHF EXACERBATION. TODAY, SHE IS ALERT AND ORIENTED, LYING IN BED ON MORNING ROUNDS. SHE IS NOTED WITH COMPLAINTS OF A NON-PRODUCTIVE COUGH AND SHORTNESS OF BREATH. ON EXAMINATION, HEART IS REGULAR IN RATE AND RHYTHM. BILATERAL LUNGS ARE NOTED WITH SCATTERED WHEEZING AND RHONCHI THROUGHOUT. ABDOMEN IS ROUND, SOFT, AND NON- TENDER WITH NORMAL BOWEL SOUNDS NOTED IN ALL QUADRANTS. HER VITALS TODAY ARE 97.8-110-22-97%-118/51. LABS WERE OBTAINED. ABNORMAL LAB VALUES INCLUDE THE FOLLOWING: HGB 10.0, HCT 31.8, CARBON DIOXIDE 38.2, CREATININE 1.19, GLUCOSE 132 , AST 14. BLOOD CULTURES ARE PENDING. TODAYS CHEST XRAY REVEALS: New increased density in the right lower lobe which may indicate developing infiltrate. No change right pleural effusion. No change cardiomegaly with pulmonary venous congestion. TODAY, WE WILL CONTINUE WITH IV ANTIBIOTICS, RESPIRATORY TREATMENTS , IV LASIX, AND CURRENT PLAN OF CARE. OTHERWISE, WE PLAN TO FOLLOW UP WITH AM LABS AND CHEST XRAY AND WILL CONTINUE TO MONITOR PATIENT. - Past Medical Family Social History Past Med/Fam/Surg Hx: No changes since H&P Allergies: Allergies lisinopril [From Zestril] Allergy (Verified 03/06/18 17:05) meperidine [From Demerol] Adverse Reaction (Verified 03/06/18 17:05) zinc Adverse Reaction (Verified 03/06/18 17:05) - Review of Systems ROS: No change since H&P - Vital Signs and I&O's Vital Signs: Temperature 97.6 F Pulse Rate [Right Brachial] 96 Pulse Rate [Left Brachial] 100 Pulse Rate 86 Respiratory Rate 20 Blood Pressure [Left Radial 145/63 Artery] Blood Pressure [Right Radial 178/102 Artery] Blood Pressure [Right Arm] 127/67 Blood Pressure [Left Arm] 169/92 Blood Pressure 137/95 O2 Sat by Pulse Oximetry 96 Intake and Output: Intake & Output 03/06/18 03/07/18 03/08/18 03/09/18 11:59 11:59 11:59 11:59 Intake Total 250 / 250 2510 / 2510 2180 / 2180 Output Total 500 / 500 1300 / 1300 Balance -250 / -250 1210 / 1210 2180 / 2180 - Physical Exam Oriented: Normal Eyes: Normal Ear: Normal Nose: Normal Throat: Normal Respiratory: Generalized, Wheezes, Rhonchi Cardiovascular: Normal. negative: S3, S4, Murmur : Normal Auscultation: Bowel Sounds: Normal Palpation: Normal Tenderness: Normal Skin: Normal Musculoskeletal: Normal Psychiatric: Normal Mood Description: Calm Affect: Normal Speech Pattern: Clear, Appropriate - Laboratory and Diagnostics Result Diagrams: 03/09/18 04:32 03/09/18 04:32 Labs: 03/06/18 19:48 Blood Blood Culture - Preliminary 03/06/18 19:44 Blood Blood Culture - Preliminary Laboratory WBC 5.3 X10^3/uL (3.6-10.0) 03/09/18 04:32 RBC 3.51 X10^6/uL (3.5-5.4) 03/09/18 04:32 Hgb 9.4 g/dL (12.0-16.0) L 03/09/18 04:32 Hct 29.5 % (36.0-47.0) L 03/09/18 04:32 MCV 84.2 fL (80.0-100.0) 03/09/18 04:32 MCH 26.7 pg (27.0-34.0) L 03/09/18 04:32 MCHC 31.7 g/dL (33.0-35.0) L 03/09/18 04:32 RDW 17.0 % (11.6-16.5) H 03/09/18 04:32 Plt Count 168 X10^3/uL (150.0-450.0) 03/09/18 04:32 MPV 8.9 fL (7.4-11.0) 03/09/18 04:32 Neut % (Auto) 73.8 % (42.0-75.0) 03/09/18 04:32 Lymph % (Auto) 15.4 % (21.0-51.0) L 03/09/18 04:32 Lander % (Auto) 7.2 % (0.0-13.0) 03/09/18 04:32 Eos % (Auto) 3.0 % (0.9-2.9) H 03/09/18 04:32 Baso % (Auto) 0.6 % (0.2-1.0) 03/09/18 04:32 Neut # (Auto) 3.9 x10^3/uL (2.2-4.8) 03/09/18 04:32 Lymph # (Auto) 0.8 X10^3/uL (1.3-2.9) L 03/09/18 04:32 Lander # (Auto) 0.4 x10^3/uL (0.3-0.8) 03/09/18 04:32 Eos # (Auto) 0.2 x10^3/uL (0.0-0.2) 03/09/18 04:32 Baso # (Auto) 0.0 X10^3/uL (0.0-0.1) 03/09/18 04:32 Absolute Nucleated RBC 0.1 /100WBC 03/09/18 04:32 D-Dimer 1190 ng/mL (0-400) H* 03/06/18 17:28 Sample Site Right radial 03/06/18 19:40 ABG pH 7.440 (7.35-7.45) 03/06/18 19:40 ABG pCO2 54.0 mmHg (35.0-45.0) H* 03/06/18 19:40 ABG pO2 81.0 mmHg (80.0-100.0) 03/06/18 19:40 ABG HCO3 36.7 mmol/L (22-26) H* 03/06/18 19:40 ABG O2 Saturation 96.0 % (90-100) 03/06/18 19:40 ABG Base Excess 10.7 mmol/L (-2.0-2.0) H 03/06/18 19:40 Twan Test Pos 03/06/18 19:40 A-a Gradient 23.0 mmHg 03/06/18 19:40 FiO2 24.000 03/06/18 19:40 Blood Gas Comments Praneeth well jts 03/06/18 19:40 Sodium 143 mmol/L (136-145) 03/09/18 04:32 Corrected Sodium 144 mmol/L (136-145) 03/09/18 04:32 Potassium 4.2 mmol/L (3.5-5.1) 03/09/18 04:32 Chloride 103 mmol/L (98-107) 03/09/18 04:32 Carbon Dioxide 38.2 mmol/L (21-32) H 03/09/18 04:32 BUN 17 mg/dL (7-18) 03/09/18 04:32 Creatinine 1.19 mg/dL (0.55-1.02) H 03/09/18 04:32 Est GFR (MDRD) Af Amer 57 (>60) L 03/09/18 04:32 Est GFR (MDRD) Non-Af 47 (>60) L 03/09/18 04:32 Glucose 132 mg/dL (65-99) H 03/09/18 04:32 Calcium 8.8 mg/dL (8.5-10.1) 03/09/18 04:32 Corrected Calcium TNP 03/09/18 04:32 Total Bilirubin 0.50 mg/dL (0.2-1.0) 03/09/18 04:32 AST 14 Units/L (15-37) L 03/09/18 04:32 ALT 13 Units/L (12-78) 03/09/18 04:32 Alkaline Phosphatase 66 Units/L (46-116) 03/09/18 04:32 Total Protein 7.1 g/dL (6.4-8.2) 03/09/18 04:32 Albumin 3.4 g/dL (3.4-5.0) 03/09/18 04:32 Globulin 3.7 g/dL (2.5-4.5) 03/09/18 04:32 Albumin/Globulin Ratio 0.9 Ratio (1.1-2.1) L 03/09/18 04:32 - Plan (1) RML pneumonia Status: Acute Qualifiers: Pneumonia type: due to unspecified organism Qualified Code(s): J18.1 - Lobar pneumonia, unspecified organism Plan: admit, iv antibiotics, respiratory treatments, supplemental oxygen, lasix 20mg iv bid, continue to monitor (2) CHF (congestive heart failure) Status: Acute Qualifiers: Heart failure type: unspecified Heart failure chronicity: acute on chronic Qualified Code(s): I50.9 - Heart failure, unspecified Plan: LASIX 20MG IV BID, ALBUMIN 25% IV DAILY, CONTINUE HOME MEDICATIONS
[2018-03-09] MEDS: HumuLIN R SUBCUT PRN (11:36)
[2018-03-09] MEDS: ZOSYN VIAL 4.5 GRAMS 4.5 G in NS 100 ML IV + SPIKE MINIBAG* 100 ML IV SCH ×2 (15:19→21:01)
[2018-03-09] MEDS: SNACK - Diabetic Appropriate PO SCH (21:00)
[2018-03-09] MEDS: COLACE CAP 100 MG PO SCH (21:04)
[2018-03-09] MEDS: LIPITOR TAB 40 MG PO SCH (21:04)
[2018-03-09] MEDS: LANTUS SC SCH (21:05)
[2018-03-10] MEDS: NS 1/2 1000 ML IV 1,000 ML IV SCH ×2 (02:36→08:39)
[2018-03-10] MEDS ORDERED: NS 1/2 1000 ML IV 1,000 ML IV ONE (02:57)
[2018-03-10] MEDS: ULTRAM PO PRN (03:10)
[2018-03-10] MEDS: TUSSIONEX PENNKINETIC SUSP PO PRN (03:10)
[2018-03-10] MEDS: ZOSYN VIAL 4.5 GRAMS 4.5 G in NS 100 ML IV + SPIKE MINIBAG* 100 ML IV SCH ×3 (05:20→21:35)
[2018-03-10 06:15] LABS: BASOPHILS % (AUTO) 0.5 % (0.2-1.0); EOSINOPHILS # (AUTO) 0.2 x10^3/uL (0.0-0.2); EOSINOPHILS % (AUTO) 2.4 % (0.9-2.9); HEMATOCRIT 30.9 % (36.0-47.0); HEMOGLOBIN 9.9 g/dL (12.0-16.0); LYMPHOCYTES # (AUTO) 0.6 X10^3/uL (1.3-2.9); LYMPHOCYTES % (AUTO) 9.1 % (21.0-51.0); MEAN CORPUSCULAR HGB CONC 31.8 g/dL (33.0-35.0); MEAN CORPUSCULAR VOLUME 84.7 fL (80.0-100.0); MEAN PLATELET VOLUME 9.1 fL (7.4-11.0); MONOCYTES # (AUTO) 0.4 x10^3/uL (0.3-0.8); MONOCYTES % (AUTO) 6.1 % (0.0-13.0); NEUTROPHILS # (AUTO) 5.6 x10^3/uL (2.2-4.8); NEUTROPHILS % (AUTO) 81.9 % (42.0-75.0); PLATELET COUNT 187 X10^3/uL (150.0-450.0); RED BLOOD COUNT 3.65 X10^6/uL (3.5-5.4); RED CELL DISTRIBUTION WIDTH 17.1 % (11.6-16.5); WHITE BLOOD COUNT 6.9 X10^3/uL (3.6-10.0)
[2018-03-10] MEDS: GLUCOTROL PO SCH ×2 (06:19→17:12)
[2018-03-10] MEDS: LASIX IVP SCH ×2 (06:20→17:13)
--- NOTE | 2018-03-10 06:22 | RAD ---
HISTORY: Shortness of breath Study: Chest AP portable Comparison: 03/08/2018 Findings: The heart remains enlarged. No congestive heart failure is noted. Increased density is again identifi ed in the right lower lobe likely infiltrate. Blunting of the right costophrenic angle suggests right pleural effusion. No left pleural effusion is identified. The left lung is clear. The bony thorax is unremarkable. IMPRESSION: Marked cardiomegaly without congestive heart failure Abnormal parenchymal density right lower lobe suggestive of infiltrate, unchanged Small right pleural effusion, unchanged Reported By:
[2018-03-10 06:28] LABS: ALANINE AMINOTRANSFERASE 15 Units/L (12-78); ALBUMIN 3.7 g/dL (3.4-5.0); ALKALINE PHOSPHATASE 72 Units/L (46-116); ASPARTATE AMINO TRANSFERASE 16 Units/L (15-37); BLOOD UREA NITROGEN 21 mg/dL (7-18); CALCIUM 8.9 mg/dL (8.5-10.1); CARBON DIOXIDE 37.5 mmol/L (21-32); CHLORIDE 103 mmol/L (98-107); COR NA(FOR HYPERGLY) 144 mmol/L (136-145); CREATININE 1.32 mg/dL (0.55-1.02); SODIUM 141 mmol/L (136-145); TOTAL PROTEIN 7.7 g/dL (6.4-8.2); eGFR NON BLACK RACES 42 (>60)
[2018-03-10] MEDS: ELIQUIS PO SCH ×2 (08:36→21:34)
[2018-03-10] MEDS: COZAAR PO SCH (08:36)
[2018-03-10] MEDS: MAG-OX TAB PO SCH (08:36)
[2018-03-10] MEDS: ROBITUSSIN DM PO SCH ×4 (08:37→21:35)
[2018-03-10] MEDS: ASPIRIN EC 81 MG PO SCH (08:37)
[2018-03-10] MEDS: MICRO K EXTEN CAP 10 MEQ PO SCH (08:37)
[2018-03-10] MEDS: OXYBUTYNIN CHLORIDE ER PO SCH (08:37)
[2018-03-10] MEDS: ALBUMIN HUMAN 25%- 100 ML 100 ML IV SCH (08:38)
[2018-03-10] MEDS: ZYLOPRIM PO SCH (08:39)
[2018-03-10] MEDS: XOPENEX 1.25 MG/3 ML NEBULE NEB SCH ×4 (09:32→21:31)
[2018-03-10] MEDS: COLACE CAP 100 MG PO SCH (21:33)
[2018-03-10] MEDS: LANTUS SC SCH (21:34)
[2018-03-10] MEDS: LIPITOR TAB 40 MG PO SCH (21:34)
[2018-03-10] MEDS: MILK OF MAGNESIA PO SCH (21:35)
[2018-03-10] MEDS: SNACK - Diabetic Appropriate PO SCH (21:35)
[2018-03-11] MEDS: TUSSIONEX PENNKINETIC SUSP PO PRN (04:58)
[2018-03-11] MEDS: ZOSYN VIAL 4.5 GRAMS 4.5 G in NS 100 ML IV + SPIKE MINIBAG* 100 ML IV SCH ×3 (05:00→22:18)
[2018-03-11 06:01] LABS: BASOPHILS % (AUTO) 0.5 % (0.2-1.0); EOSINOPHILS # (AUTO) 0.1 x10^3/uL (0.0-0.2); EOSINOPHILS % (AUTO) 1.4 % (0.9-2.9); HEMATOCRIT 29.5 % (36.0-47.0); HEMOGLOBIN 9.2 g/dL (12.0-16.0); LYMPHOCYTES # (AUTO) 0.6 X10^3/uL (1.3-2.9); LYMPHOCYTES % (AUTO) 7.7 % (21.0-51.0); MEAN CORPUSCULAR HEMOGLOBIN 26.8 pg (27.0-34.0); MEAN CORPUSCULAR HGB CONC 31.4 g/dL (33.0-35.0); MEAN CORPUSCULAR VOLUME 85.6 fL (80.0-100.0); MEAN PLATELET VOLUME 9.1 fL (7.4-11.0); MONOCYTES # (AUTO) 0.4 x10^3/uL (0.3-0.8); MONOCYTES % (AUTO) 5.2 % (0.0-13.0); NEUTROPHILS # (AUTO) 6.1 x10^3/uL (2.2-4.8); NEUTROPHILS % (AUTO) 85.2 % (42.0-75.0); PLATELET COUNT 158 X10^3/uL (150.0-450.0); RED BLOOD COUNT 3.44 X10^6/uL (3.5-5.4); RED CELL DISTRIBUTION WIDTH 17.2 % (11.6-16.5); WHITE BLOOD COUNT 7.2 X10^3/uL (3.6-10.0)
[2018-03-11] MEDS: LASIX IVP SCH ×2 (06:06→17:28)
[2018-03-11] MEDS: GLUCOTROL PO SCH ×2 (06:06→17:27)
[2018-03-11 06:36] LABS: ALANINE AMINOTRANSFERASE 16 Units/L (12-78); ALBUMIN 3.6 g/dL (3.4-5.0); ALKALINE PHOSPHATASE 59 Units/L (46-116); ASPARTATE AMINO TRANSFERASE 19 Units/L (15-37); BLOOD UREA NITROGEN 26 mg/dL (7-18); CALCIUM 8.8 mg/dL (8.5-10.1); CHLORIDE 101 mmol/L (98-107); COR NA(FOR HYPERGLY) 142 mmol/L (136-145); CREATININE 1.72 mg/dL (0.55-1.02); SODIUM 141 mmol/L (136-145); TOTAL PROTEIN 7.5 g/dL (6.4-8.2); eGFR NON BLACK RACES 31 (>60)
--- NOTE | 2018-03-11 06:44 | RAD ---
Examination: Portable AP chest History: SOB Comparison reference 03/10/2018 Findings: Continued moderate cardiac enlargement. Diffuse opacity right lung base again noted consist ent with airspace disease. No large pleural effusion or complicating pneumothorax. Impression: Stable cardiac enlargement and right lower lung infiltrate. Reported By:
[2018-03-11] MEDS: ELIQUIS PO SCH ×2 (08:45→22:12)
[2018-03-11] MEDS: ZYLOPRIM PO SCH (08:45)
[2018-03-11] MEDS: MAG-OX TAB PO SCH (08:45)
[2018-03-11] MEDS: MICRO K EXTEN CAP 10 MEQ PO SCH (08:45)
[2018-03-11] MEDS: ROBITUSSIN DM PO SCH ×4 (08:45→22:17)
[2018-03-11] MEDS: OXYBUTYNIN CHLORIDE ER PO SCH (08:45)
[2018-03-11] MEDS: COZAAR PO SCH (08:45)
[2018-03-11] MEDS: MILK OF MAGNESIA PO SCH ×2 (08:45→22:17)
[2018-03-11] MEDS: ALBUMIN HUMAN 25%- 100 ML 100 ML IV SCH (08:45)
[2018-03-11] MEDS: ASPIRIN EC 81 MG PO SCH (08:45)
[2018-03-11] MEDS: XOPENEX 1.25 MG/3 ML NEBULE NEB SCH ×4 (09:31→20:45)
[2018-03-11] MEDS: NS 1/2 1000 ML IV 1,000 ML IV SCH (09:39)
[2018-03-11] MEDS ORDERED: DULCOLAX SUPPOSITORY 10 MG RECTAL SCH (10:00)
[2018-03-11] MEDS: SNACK - Diabetic Appropriate PO SCH (20:30)
[2018-03-11] MEDS: COLACE CAP 100 MG PO SCH (22:14)
[2018-03-11] MEDS: LANTUS SC SCH (22:15)
[2018-03-11] MEDS: LIPITOR TAB 40 MG PO SCH (22:16)
--- NOTE | 2018-03-11 22:41 | PCM.PROG ---
Progress Note - Progress Note for Day of Date of Exam: 03/11/18 - Subjective Subjective: WAS ADMITTED FOR RIGHT LOWER LOBE PNEUMONIA AND CHF EXACERBATION. TODAY, SHE IS ALERT AND ORIENTED, LYING IN BED ON MORNING ROUNDS. STATES SHE IS STILL HAVING A NON-PRODUCTIVE COUGH AND SHORTNESS OF BREATH. ON EXAMINATION, IS NOTED TO HAVE DYSPNEA WITH TALKING. DENIES ANY OTHER COMPLAINTS. - Past Medical Family Social History Past Med/Fam/Surg Hx: No changes since H&P Allergies: Allergies lisinopril [From Zestril] Allergy (Verified 03/06/18 17:05) meperidine [From Demerol] Adverse Reaction (Verified 03/06/18 17:05) zinc Adverse Reaction (Verified 03/06/18 17:05) - Review of Systems ROS: No change since H&P - Vital Signs and I&O's Vital Signs: Temperature 98.9 F Pulse Rate [Right Brachial] 73 Pulse Rate [Left Brachial] 100 Pulse Rate 76 Respiratory Rate 22 Blood Pressure [Left Radial 145/63 Artery] Blood Pressure [Right Radial 178/102 Artery] Blood Pressure [Right Arm] 128/58 Blood Pressure [Left Arm] 169/92 Blood Pressure 137/95 O2 Sat by Pulse Oximetry 97 Intake and Output: Intake & Output 03/09/18 03/10/18 03/11/18 03/12/18 11:59 11:59 11:59 11:59 Intake Total 2180 / 2180 1700 / 1700 1265 / 1265 1744 / 1744 Balance 2180 / 2180 1700 / 1700 1265 / 1265 1744 / 1744 - Physical Exam Oriented: Normal Eyes: Normal Ear: Normal Nose: Normal Throat: Normal Respiratory: Generalized, Wheezes, Rhonchi Cardiovascular: Normal. negative: S3, S4, Murmur : Normal Auscultation: Bowel Sounds: Normal Palpation: Normal Tenderness: Normal Skin: Normal Musculoskeletal: Normal Psychiatric: Normal Mood Description: Calm Affect: Normal Speech Pattern: Clear, Appropriate - Laboratory and Diagnostics Result Diagrams: 03/11/18 05:17 03/11/18 05:17 Labs: 03/06/18 19:48 Blood Blood Culture - Preliminary 03/06/18 19:44 Blood Blood Culture - Preliminary Laboratory WBC 7.2 X10^3/uL (3.6-10.0) 03/11/18 05:17 RBC 3.44 X10^6/uL (3.5-5.4) L 03/11/18 05:17 Hgb 9.2 g/dL (12.0-16.0) L 03/11/18 05:17 Hct 29.5 % (36.0-47.0) L 03/11/18 05:17 MCV 85.6 fL (80.0-100.0) 03/11/18 05:17 MCH 26.8 pg (27.0-34.0) L 03/11/18 05:17 MCHC 31.4 g/dL (33.0-35.0) L 03/11/18 05:17 RDW 17.2 % (11.6-16.5) H 03/11/18 05:17 Plt Count 158 X10^3/uL (150.0-450.0) 03/11/18 05:17 MPV 9.1 fL (7.4-11.0) 03/11/18 05:17 Neut % (Auto) 85.2 % (42.0-75.0) H 03/11/18 05:17 Lymph % (Auto) 7.7 % (21.0-51.0) L 03/11/18 05:17 Runnels % (Auto) 5.2 % (0.0-13.0) 03/11/18 05:17 Eos % (Auto) 1.4 % (0.9-2.9) 03/11/18 05:17 Baso % (Auto) 0.5 % (0.2-1.0) 03/11/18 05:17 Neut # (Auto) 6.1 x10^3/uL (2.2-4.8) H 03/11/18 05:17 Lymph # (Auto) 0.6 X10^3/uL (1.3-2.9) L 03/11/18 05:17 Runnels # (Auto) 0.4 x10^3/uL (0.3-0.8) 03/11/18 05:17 Eos # (Auto) 0.1 x10^3/uL (0.0-0.2) 03/11/18 05:17 Baso # (Auto) 0.0 X10^3/uL (0.0-0.1) 03/11/18 05:17 Absolute Nucleated RBC 0.0 /100WBC 03/11/18 05:17 D-Dimer 1190 ng/mL (0-400) H* 03/06/18 17:28 Sample Site Right radial 03/06/18 19:40 ABG pH 7.440 (7.35-7.45) 03/06/18 19:40 ABG pCO2 54.0 mmHg (35.0-45.0) H* 03/06/18 19:40 ABG pO2 81.0 mmHg (80.0-100.0) 03/06/18 19:40 ABG HCO3 36.7 mmol/L (22-26) H* 03/06/18 19:40 ABG O2 Saturation 96.0 % (90-100) 03/06/18 19:40 ABG Base Excess 10.7 mmol/L (-2.0-2.0) H 03/06/18 19:40 Twan Test Pos 03/06/18 19:40 A-a Gradient 23.0 mmHg 03/06/18 19:40 FiO2 24.000 03/06/18 19:40 Blood Gas Comments Praneeth well jts 03/06/18 19:40 Sodium 141 mmol/L (136-145) 03/11/18 05:17 Corrected Sodium 142 mmol/L (136-145) 03/11/18 05:17 Potassium 4.5 mmol/L (3.5-5.1) 03/11/18 05:17 Chloride 101 mmol/L (98-107) 03/11/18 05:17 Carbon Dioxide 36.0 mmol/L (21-32) H 03/11/18 05:17 BUN 26 mg/dL (7-18) H 03/11/18 05:17 Creatinine 1.72 mg/dL (0.55-1.02) H 03/11/18 05:17 Est GFR (MDRD) Af Amer 37 (>60) L 03/11/18 05:17 Est GFR (MDRD) Non-Af 31 (>60) L 03/11/18 05:17 Glucose 158 mg/dL (65-99) H 03/11/18 05:17 POC Glucose (mg/dL) 164 mg/dL (65-99) H 03/11/18 20:56 Calcium 8.8 mg/dL (8.5-10.1) 03/11/18 05:17 Corrected Calcium TNP 03/11/18 05:17 Total Bilirubin 0.70 mg/dL (0.2-1.0) 03/11/18 05:17 AST 19 Units/L (15-37) 03/11/18 05:17 ALT 16 Units/L (12-78) 03/11/18 05:17 Alkaline Phosphatase 59 Units/L (46-116) 03/11/18 05:17 Total Protein 7.5 g/dL (6.4-8.2) 03/11/18 05:17 Albumin 3.6 g/dL (3.4-5.0) 03/11/18 05:17 Globulin 3.9 g/dL (2.5-4.5) 03/11/18 05:17 Albumin/Globulin Ratio 0.9 Ratio (1.1-2.1) L 03/11/18 05:17 - Plan (1) Right lower lobe pneumonia Status: Acute Plan: CONTINUE NEBS, IV ANTIBIOTICS. (2) Anemia Status: Acute Plan: MONITOR CBC (3) CHF (congestive heart failure) Status: Chronic Qualifiers: Heart failure type: unspecified Heart failure chronicity: acute on chronic Qualified Code(s): I50.9 - Heart failure, unspecified Plan: CONTINUE HOME MEDICATIONS (4) Dyspnea Status: Acute Qualifiers: Dyspnea type: other forms of dyspnea Qualified Code(s): R06.09 - Other forms of dyspnea (5) Type I diabetes mellitus Status: Chronic Plan: MONITOR BS. (6) Dehydration, mild Status: Acute Plan: DC IV LASIX.
[2018-03-12 06:08] LABS: BASOPHILS # (AUTO) 0.1 X10^3/uL (0.0-0.1); BASOPHILS % (AUTO) 0.9 % (0.2-1.0); EOSINOPHILS # (AUTO) 0.2 x10^3/uL (0.0-0.2); EOSINOPHILS % (AUTO) 3.1 % (0.9-2.9); HEMATOCRIT 31.4 % (36.0-47.0); HEMOGLOBIN 9.9 g/dL (12.0-16.0); LYMPHOCYTES # (AUTO) 0.7 X10^3/uL (1.3-2.9); LYMPHOCYTES % (AUTO) 9.8 % (21.0-51.0); MEAN CORPUSCULAR HEMOGLOBIN 26.9 pg (27.0-34.0); MEAN CORPUSCULAR HGB CONC 31.6 g/dL (33.0-35.0); MEAN CORPUSCULAR VOLUME 85.2 fL (80.0-100.0); MEAN PLATELET VOLUME 9.6 fL (7.4-11.0); MONOCYTES # (AUTO) 0.4 x10^3/uL (0.3-0.8); MONOCYTES % (AUTO) 5.4 % (0.0-13.0); NEUTROPHILS # (AUTO) 5.9 x10^3/uL (2.2-4.8); NEUTROPHILS % (AUTO) 80.8 % (42.0-75.0); PLATELET COUNT 157 X10^3/uL (150.0-450.0); RED BLOOD COUNT 3.69 X10^6/uL (3.5-5.4); WHITE BLOOD COUNT 7.2 X10^3/uL (3.6-10.0)
[2018-03-12] MEDS: ZOSYN VIAL 4.5 GRAMS 4.5 G in NS 100 ML IV + SPIKE MINIBAG* 100 ML IV SCH ×3 (06:14→21:56)
[2018-03-12] MEDS: GLUCOTROL PO SCH ×2 (06:14→17:19)
[2018-03-12] MEDS: LASIX IVP SCH ×2 (06:15→17:19)
[2018-03-12 06:37] LABS: BLOOD UREA NITROGEN 30 mg/dL (7-18); CALCIUM 9.3 mg/dL (8.5-10.1); CHLORIDE 98 mmol/L (98-107); COR NA(FOR HYPERGLY) 140 mmol/L (136-145); CREATININE 1.97 mg/dL (0.55-1.02); SODIUM 139 mmol/L (136-145); eGFR NON BLACK RACES 26 (>60)
--- NOTE | 2018-03-12 06:51 | RAD ---
Chest portable Indication: Cough Comparison 03/11/2018 Findings: The heart remains enlarged. Mild pulmonary venous congestion persists with basilar atelecta sis and/or infiltrate. The skeleton is unchanged. Impression: 1. Stable exam of the chest Reported By:
[2018-03-12] MEDS: COZAAR PO SCH (09:00)
[2018-03-12] MEDS ORDERED: NS 1/2 1000 ML IV 1,000 ML IV ONE (09:20)
[2018-03-12] MEDS: ZYLOPRIM PO SCH (09:50)
[2018-03-12] MEDS: MICRO K EXTEN CAP 10 MEQ PO SCH (09:50)
[2018-03-12] MEDS: OXYBUTYNIN CHLORIDE ER PO SCH (09:50)
[2018-03-12] MEDS: ELIQUIS PO SCH ×2 (09:50→21:57)
[2018-03-12] MEDS: ASPIRIN EC 81 MG PO SCH (09:50)
[2018-03-12] MEDS: MAG-OX TAB PO SCH (09:50)
[2018-03-12] MEDS: MILK OF MAGNESIA PO SCH ×2 (11:00→21:56)
[2018-03-12] MEDS: ROBITUSSIN DM PO SCH ×4 (11:02→21:56)
[2018-03-12] MEDS: XOPENEX 1.25 MG/3 ML NEBULE NEB SCH ×4 (12:00→20:18)
[2018-03-12] MEDS: ALBUMIN HUMAN 25%- 100 ML 100 ML IV SCH (12:01)
[2018-03-12 12:06] LABS: ALANINE AMINOTRANSFERASE 14 Units/L (12-78); ALBUMIN 3.7 g/dL (3.4-5.0); ALKALINE PHOSPHATASE 59 Units/L (46-116); ASPARTATE AMINO TRANSFERASE 19 Units/L (15-37); TOTAL PROTEIN 7.7 g/dL (6.4-8.2)
[2018-03-12 12:14] LABS: CREATINE KINASE 25 Units/L (26-192); CREATINE KINASE MB < 1.0 ng/mL (0-4.0); TROPONIN I 0.04 ng/mL (0-1.5)
[2018-03-12 12:41] LABS: BILIRUBIN,URINE NEGATIVE (NEGATIVE); BLOOD/HEMOGLOBIN,URINE NEGATIVE (NEGATIVE); GLUCOSE, URINE NEGATIVE (NEGATIVE); KETONES,URINE NEGATIVE (NEGATIVE); LEUKOCYTE ESTERASE ,URINE NEGATIVE (NEGATIVE); NITRITES,URINE NEGATIVE (NEGATIVE); PROTEIN,URINE 2+ (NEGATIVE); UROBILINOGEN,URINE NORMAL (NORMAL)
[2018-03-12 12:42] LABS: APPEARANCE,URINE HAZY (CLEAR); COLOR,URINE YELLOW (YELLOW)
[2018-03-12 12:47] LABS: AMORPHOUS SEDIMENT,UR 2+ /HPF (NEGATIVE); BACTERIA,URINE TRACE /HPF (NEGATIVE); MUCUS,URINE FEW /HPF (NEGATIVE); RBC,URINE 0-2 /HPF (NONE SEEN); SQUAMOUS EPITHELIAL CELL,UR MODERATE /HPF (NEGATIVE)
[2018-03-12] MEDS: NS 1/2 1000 ML IV 1,000 ML IV SCH (14:46)
[2018-03-12 15:43] LABS: ABG BASE EXCESS 11.5 mmol/L (-2.0-2.0)
[2018-03-12 15:44] LABS: ABG HCO3 41.8 mmol/L (22-26)
--- NOTE | 2018-03-12 16:22 | PCM.PROG ---
Progress Note - Progress Note for Day of Date of Exam: 03/09/18 - Subjective Subjective: WAS ADMITTED FOR RIGHT MIDDLE LOBE PNEUMONIA AND CHF EXACERBATION. TODAY, SHE IS ALERT AND ORIENTED, LYING IN BED ON MORNING ROUNDS. SHE CONTINUES WITH COMPLAINTS OF A NON-PRODUCTIVE COUGH AND SHORTNESS OF BREATH. SHE REPORTS THAT SHORTNESS OF BREATH HAS INCREASED SINCE YESTERDAY. ON EXAMINATION, HEART IS REGULAR IN RATE AND RHYTHM. BILATERAL LUNGS CONTINUE WITH SCATTERED WHEEZING AND RHONCHI THROUGHOUT. ABDOMEN IS ROUND, SOFT, AND NON- TENDER WITH NORMAL BOWEL SOUNDS NOTED IN ALL QUADRANTS. HER VITALS TODAY ARE 97.8-110-22-97%-118/51. LABS WERE OBTAINED. SHE IS HEMODYNAMICALLY STABLE TODAY. BLOOD CULTURES ARE PENDING. TODAY, WE WILL INCREASE LASIX TO 40MG IV BID , CONTINUE WITH IV ANTIBIOTICS, RESPIRATORY TREATMENTS, AND CURRENT PLAN OF CARE. WE WILL RESTRICT FLUIDS TO 1000 ML/DAY. OTHERWISE, WE PLAN TO FOLLOW UP WITH AM LABS AND CHEST XRAY AND WILL CONTINUE TO MONITOR PATIENT. - Past Medical Family Social History Past Med/Fam/Surg Hx: No changes since H&P Allergies: Allergies lisinopril [From Zestril] Allergy (Verified 03/06/18 17:05) meperidine [From Demerol] Adverse Reaction (Verified 03/06/18 17:05) zinc Adverse Reaction (Verified 03/06/18 17:05) - Review of Systems ROS: No change since H&P - Vital Signs and I&O's Vital Signs: Temperature 98.4 F Pulse Rate [Right Brachial] 100 Pulse Rate [Left Brachial] 96 Pulse Rate 76 Respiratory Rate 24 Blood Pressure [Left Radial 145/63 Artery] Blood Pressure [Right Radial 178/102 Artery] Blood Pressure [Right Arm] 135/72 Blood Pressure [Left Arm] 144/63 Blood Pressure 137/95 O2 Sat by Pulse Oximetry 95 Intake and Output: Intake & Output 03/10/18 03/11/18 03/12/18 03/13/18 11:59 11:59 11:59 11:59 Intake Total 1700 / 1700 1265 / 1265 2164 / 2164 Balance 1700 / 1700 1265 / 1265 2164 / 2164 - Physical Exam Oriented: Normal Eyes: Normal Ear: Normal Nose: Normal Throat: Normal Respiratory: Generalized, Wheezes, Rhonchi Cardiovascular: Normal. negative: S3, S4, Murmur : Normal Auscultation: Bowel Sounds: Normal Palpation: Normal Tenderness: Normal Skin: Normal Musculoskeletal: Normal Psychiatric: Normal Mood Description: Calm Affect: Normal Speech Pattern: Clear, Appropriate - Laboratory and Diagnostics Result Diagrams: 03/12/18 05:24 03/12/18 05:24 Labs: 03/06/18 19:48 Blood Blood Culture - Final 03/06/18 19:44 Blood Blood Culture - Final Laboratory WBC 7.2 X10^3/uL (3.6-10.0) 03/12/18 05:24 RBC 3.69 X10^6/uL (3.5-5.4) 03/12/18 05:24 Hgb 9.9 g/dL (12.0-16.0) L 03/12/18 05:24 Hct 31.4 % (36.0-47.0) L 03/12/18 05:24 MCV 85.2 fL (80.0-100.0) 03/12/18 05:24 MCH 26.9 pg (27.0-34.0) L 03/12/18 05:24 MCHC 31.6 g/dL (33.0-35.0) L 03/12/18 05:24 RDW 17.0 % (11.6-16.5) H 03/12/18 05:24 Plt Count 157 X10^3/uL (150.0-450.0) 03/12/18 05:24 MPV 9.6 fL (7.4-11.0) 03/12/18 05:24 Neut % (Auto) 80.8 % (42.0-75.0) H 03/12/18 05:24 Lymph % (Auto) 9.8 % (21.0-51.0) L 03/12/18 05:24 [place] % (Auto) 5.4 % (0.0-13.0) 03/12/18 05:24 Eos % (Auto) 3.1 % (0.9-2.9) H 03/12/18 05:24 Baso % (Auto) 0.9 % (0.2-1.0) 03/12/18 05:24 Neut # (Auto) 5.9 x10^3/uL (2.2-4.8) H 03/12/18 05:24 Lymph # (Auto) 0.7 X10^3/uL (1.3-2.9) L 03/12/18 05:24 [place] # (Auto) 0.4 x10^3/uL (0.3-0.8) 03/12/18 05:24 Eos # (Auto) 0.2 x10^3/uL (0.0-0.2) 03/12/18 05:24 Baso # (Auto) 0.1 X10^3/uL (0.0-0.1) 03/12/18 05:24 Absolute Nucleated RBC 0.0 /100WBC 03/12/18 05:24 D-Dimer 1190 ng/mL (0-400) H* 03/06/18 17:28 Sample Site Lba 03/12/18 15:38 ABG pH 7.280 (7.35-7.45) L 03/12/18 15:38 ABG pCO2 89.0 mmHg (35.0-45.0) H* 03/12/18 15:38 ABG pO2 56.0 mmHg (80.0-100.0) L 03/12/18 15:38 ABG HCO3 41.8 mmol/L (22-26) H* 03/12/18 15:38 ABG O2 Saturation 85.0 % (90-100) L 03/12/18 15:38 ABG Base Excess 11.5 mmol/L (-2.0-2.0) H 03/12/18 15:38 Twan Test Na 03/12/18 15:38 A-a Gradient 32.0 mmHg 03/12/18 15:38 FiO2 28.000 03/12/18 15:38 Blood Gas Comments Praneeth well cs 03/12/18 15:38 Sodium 139 mmol/L (136-145) 03/12/18 05:24 Corrected Sodium 140 mmol/L (136-145) 03/12/18 05:24 Potassium 4.4 mmol/L (3.5-5.1) 03/12/18 05:24 Chloride 98 mmol/L (98-107) 03/12/18 05:24 Carbon Dioxide 33.0 mmol/L (21-32) H 03/12/18 05:24 BUN 30 mg/dL (7-18) H 03/12/18 05:24 Creatinine 1.97 mg/dL (0.55-1.02) H 03/12/18 05:24 Est GFR (MDRD) Af Amer 32 (>60) L 03/12/18 05:24 Est GFR (MDRD) Non-Af 26 (>60) L 03/12/18 05:24 Glucose 149 mg/dL (65-99) H 03/12/18 05:24 POC Glucose (mg/dL) 148 mg/dL (65-99) H 03/12/18 12:10 Calcium 9.3 mg/dL (8.5-10.1) 03/12/18 05:24 Corrected Calcium TNP 03/12/18 05:24 Total Bilirubin 0.80 mg/dL (0.2-1.0) 03/12/18 05:24 AST 19 Units/L (15-37) 03/12/18 05:24 ALT 14 Units/L (12-78) 03/12/18 05:24 Alkaline Phosphatase 59 Units/L (46-116) 03/12/18 05:24 Creatine Kinase 25 Units/L (26-192) L 03/12/18 11:34 CK-MB (CK-2) < 1.0 ng/mL (0-4.0) 03/12/18 11:34 CK/CKMB % Calc 4.0 % (<4) 03/12/18 11:34 Troponin I 0.04 ng/mL (0-1.5) 03/12/18 11:34 Total Protein 7.7 g/dL (6.4-8.2) 03/12/18 05:24 Albumin 3.7 g/dL (3.4-5.0) 03/12/18 05:24 Globulin 4.0 g/dL (2.5-4.5) 03/12/18 05:24 Albumin/Globulin Ratio 0.9 Ratio (1.1-2.1) L 03/12/18 05:24 Specimen Type Catherized urine 03/12/18 11:55 Urine Color Yellow (YELLOW) 03/12/18 11:55 Urine Appearance Hazy (CLEAR) 03/12/18 11:55 Urine pH 5.0 (5.0 - 8.0) 03/12/18 11:55 Ur Specific [place] 1.020 (1.000-1.030) 03/12/18 11:55 Urine Protein 2+ (NEGATIVE) 03/12/18 11:55 Urine Glucose (UA) Negative (NEGATIVE) 03/12/18 11:55 Urine Ketones Negative (NEGATIVE) 03/12/18 11:55 Urine Occult Blood Negative (NEGATIVE) 03/12/18 11:55 Urine Nitrite Negative (NEGATIVE) 03/12/18 11:55 Urine Bilirubin Negative (NEGATIVE) 03/12/18 11:55 Urine Urobilinogen Normal (NORMAL) 03/12/18 11:55 Ur Leukocyte Esterase Negative (NEGATIVE) 03/12/18 11:55 Urine RBC 0-2 /HPF (NONE SEEN) 03/12/18 11:55 Urine WBC 0-2 /HPF (NONE SEEN) 03/12/18 11:55 Ur Squamous Epith Cells Moderate /HPF (NEGATIVE) 03/12/18 11:55 Amorphous Sediment 2+ /HPF (NEGATIVE) 03/12/18 11:55 Urine Bacteria Trace /HPF (NEGATIVE) 03/12/18 11:55 Urine Mucus Few /HPF (NEGATIVE) 03/12/18 11:55 Ur Culture Indicated? No/not indicated 03/12/18 11:55 - Plan (1) RML pneumonia Status: Acute Qualifiers: Pneumonia type: due to unspecified organism Qualified Code(s): J18.1 - Lobar pneumonia, unspecified organism Plan: admit, iv antibiotics, respiratory treatments, supplemental oxygen, lasix 20mg iv bid, continue to monitor (2) CHF (congestive heart failure) Status: Chronic Qualifiers: Heart failure type: unspecified Heart failure chronicity: acute on chronic Qualified Code(s): I50.9 - Heart failure, unspecified Plan: FLUID RESTRICTION, LASIX 40MG IV BID, CONTINUE HOME MEDICATIONS
[2018-03-12 18:05] LABS: CREATINE KINASE 19 Units/L (26-192); CREATINE KINASE MB < 1.0 ng/mL (0-4.0); TROPONIN I 0.05 ng/mL (0-1.5)
[2018-03-12 18:10] LABS: CKMB % 5.3 % (<4)
--- NOTE | 2018-03-12 21:07 | PCM.PROG ---
Progress Note - Progress Note for Day of Date of Exam: 03/10/18 - Subjective Subjective: WAS ADMITTED FOR RIGHT MIDDLE LOBE PNEUMONIA AND CHF EXACERBATION. TODAY, SHE IS LYING IN BED WITH EYES CLOSED. SHE AWAKENS TO VERBAL STIMULI, BUT CONTINUES WITH DROWSINESS. STAFF REPORTS THAT SHE WAS RECENTLY GIVEN PAIN MEDICATION. SHE CONTINUES WITH COMPLAINTS OF A NON- PRODUCTIVE COUGH AND SHORTNESS OF BREATH. ON EXAMINATION, HEART IS REGULAR IN RATE AND RHYTHM. BILATERAL LUNGS CONTINUE WITH SCATTERED WHEEZING AND RHONCHI THROUGHOUT. ABDOMEN IS ROUND, SOFT, AND NON-TENDER WITH NORMAL BOWEL SOUNDS NOTED IN ALL QUADRANTS. HER VITALS TODAY ARE 97.0-97-20-90%-134/63. LABS WERE OBTAINED. ABNORMAL LAB VALUES INCLUDE THE FOLLOWING: RBC 3.44, HGB 9.2, HCT 29.5 , BUN 37.5, CREATININE 1.32, GLUCOSE 205. BLOOD CULTURES ARE PENDING. TODAYS CHEST XRAY REVEALS: Marked cardiomegaly without congestive heart failure. Abnormal parenchymal density right lower lobe suggestive of infiltrate, unchanged. Small right pleural effusion, unchanged. TODAY, WE WILL CONTINUE WITH IV ANTIBIOTICS, IV LASIX, AND CURRENT PLAN OF CARE. OTHERWISE, WE PLAN TO FOLLOW UP WITH AM LABS AND CHEST XRAY AND WILL CONTINUE TO MONITOR PATIENT. - Past Medical Family Social History Past Med/Fam/Surg Hx: No changes since H&P Allergies: Allergies lisinopril [From Zestril] Allergy (Verified 03/06/18 17:05) meperidine [From Demerol] Adverse Reaction (Verified 03/06/18 17:05) zinc Adverse Reaction (Verified 03/06/18 17:05) - Review of Systems ROS: No change since H&P - Vital Signs and I&O's Vital Signs: Temperature 98.5 F Pulse Rate [Apical] 90 Pulse Rate [Right Brachial] 68 Pulse Rate [Left Brachial] 87 Pulse Rate 94 Respiratory Rate 23 Blood Pressure [Left Radial 145/63 Artery] Blood Pressure [Right Radial 178/102 Artery] Blood Pressure [Right Arm] 124/64 Blood Pressure [Left Arm] 127/75 Blood Pressure 137/95 O2 Sat by Pulse Oximetry 100 Intake and Output: Intake & Output 03/10/18 03/11/18 03/12/18 03/13/18 11:59 11:59 11:59 11:59 Intake Total 1700 / 1700 1265 / 1265 2164 / 2164 360 / 360 Output Total 200 / 200 Balance 1700 / 1700 1265 / 1265 216 / 2164 160 / 160 - Physical Exam Oriented: Normal Eyes: Normal Ear: Normal Nose: Normal Throat: Normal Respiratory: Generalized, Wheezes, Rhonchi Cardiovascular: Normal. negative: S3, S4, Murmur : Normal Auscultation: Bowel Sounds: Normal Palpation: Normal Tenderness: Normal Skin: Normal Musculoskeletal: Normal Psychiatric: Normal Mood Description: Calm Affect: Normal Speech Pattern: Clear, Appropriate - Laboratory and Diagnostics Result Diagrams: 03/12/18 05:24 03/12/18 05:24 Labs: 03/06/18 19:48 Blood Blood Culture - Final 03/06/18 19:44 Blood Blood Culture - Final Laboratory WBC 7.2 X10^3/uL (3.6-10.0) 03/12/18 05:24 RBC 3.69 X10^6/uL (3.5-5.4) 03/12/18 05:24 Hgb 9.9 g/dL (12.0-16.0) L 03/12/18 05:24 Hct 31.4 % (36.0-47.0) L 03/12/18 05:24 MCV 85.2 fL (80.0-100.0) 03/12/18 05:24 MCH 26.9 pg (27.0-34.0) L 03/12/18 05:24 MCHC 31.6 g/dL (33.0-35.0) L 03/12/18 05:24 RDW 17.0 % (11.6-16.5) H 03/12/18 05:24 Plt Count 157 X10^3/uL (150.0-450.0) 03/12/18 05:24 MPV 9.6 fL (7.4-11.0) 03/12/18 05:24 Neut % (Auto) 80.8 % (42.0-75.0) H 03/12/18 05:24 Lymph % (Auto) 9.8 % (21.0-51.0) L 03/12/18 05:24 [place] % (Auto) 5.4 % (0.0-13.0) 03/12/18 05:24 Eos % (Auto) 3.1 % (0.9-2.9) H 03/12/18 05:24 Baso % (Auto) 0.9 % (0.2-1.0) 03/12/18 05:24 Neut # (Auto) 5.9 x10^3/uL (2.2-4.8) H 03/12/18 05:24 Lymph # (Auto) 0.7 X10^3/uL (1.3-2.9) L 03/12/18 05:24 [place] # (Auto) 0.4 x10^3/uL (0.3-0.8) 03/12/18 05:24 Eos # (Auto) 0.2 x10^3/uL (0.0-0.2) 03/12/18 05:24 Baso # (Auto) 0.1 X10^3/uL (0.0-0.1) 03/12/18 05:24 Absolute Nucleated RBC 0.0 /100WBC 03/12/18 05:24 D-Dimer 1190 ng/mL (0-400) H* 03/06/18 17:28 Sample Site Lba 03/12/18 15:38 ABG pH 7.280 (7.35-7.45) L 03/12/18 15:38 ABG pCO2 89.0 mmHg (35.0-45.0) H* 03/12/18 15:38 ABG pO2 56.0 mmHg (80.0-100.0) L 03/12/18 15:38 ABG HCO3 41.8 mmol/L (22-26) H* 03/12/18 15:38 ABG O2 Saturation 85.0 % (90-100) L 03/12/18 15:38 ABG Base Excess 11.5 mmol/L (-2.0-2.0) H 03/12/18 15:38 Twan Test Na 03/12/18 15:38 A-a Gradient 32.0 mmHg 03/12/18 15:38 FiO2 28.000 03/12/18 15:38 Blood Gas Comments Praneeth well cs 03/12/18 15:38 Sodium 139 mmol/L (136-145) 03/12/18 05:24 Corrected Sodium 140 mmol/L (136-145) 03/12/18 05:24 Potassium 4.4 mmol/L (3.5-5.1) 03/12/18 05:24 Chloride 98 mmol/L (98-107) 03/12/18 05:24 Carbon Dioxide 33.0 mmol/L (21-32) H 03/12/18 05:24 BUN 30 mg/dL (7-18) H 03/12/18 05:24 Creatinine 1.97 mg/dL (0.55-1.02) H 03/12/18 05:24 Est GFR (MDRD) Af Amer 32 (>60) L 03/12/18 05:24 Est GFR (MDRD) Non-Af 26 (>60) L 03/12/18 05:24 Glucose 149 mg/dL (65-99) H 03/12/18 05:24 POC Glucose (mg/dL) 167 mg/dL (65-99) H 03/12/18 16:32 Calcium 9.3 mg/dL (8.5-10.1) 03/12/18 05:24 Corrected Calcium TNP 03/12/18 05:24 Total Bilirubin 0.80 mg/dL (0.2-1.0) 03/12/18 05:24 AST 19 Units/L (15-37) 03/12/18 05:24 ALT 14 Units/L (12-78) 03/12/18 05:24 Alkaline Phosphatase 59 Units/L (46-116) 03/12/18 05:24 Creatine Kinase 19 Units/L (26-192) L 03/12/18 17:33 CK-MB (CK-2) < 1.0 ng/mL (0-4.0) 03/12/18 17:33 CK/CKMB % Calc 5.3 % (<4) 03/12/18 17:33 Troponin I 0.05 ng/mL (0-1.5) 03/12/18 17:33 Total Protein 7.7 g/dL (6.4-8.2) 03/12/18 05:24 Albumin 3.7 g/dL (3.4-5.0) 03/12/18 05:24 Globulin 4.0 g/dL (2.5-4.5) 03/12/18 05:24 Albumin/Globulin Ratio 0.9 Ratio (1.1-2.1) L 03/12/18 05:24 Specimen Type Catherized urine 03/12/18 11:55 Urine Color Yellow (YELLOW) 03/12/18 11:55 Urine Appearance Hazy (CLEAR) 03/12/18 11:55 Urine pH 5.0 (5.0 - 8.0) 03/12/18 11:55 Ur Specific [place] 1.020 (1.000-1.030) 03/12/18 11:55 Urine Protein 2+ (NEGATIVE) 03/12/18 11:55 Urine Glucose (UA) Negative (NEGATIVE) 03/12/18 11:55 Urine Ketones Negative (NEGATIVE) 03/12/18 11:55 Urine Occult Blood Negative (NEGATIVE) 03/12/18 11:55 Urine Nitrite Negative (NEGATIVE) 03/12/18 11:55 Urine Bilirubin Negative (NEGATIVE) 03/12/18 11:55 Urine Urobilinogen Normal (NORMAL) 03/12/18 11:55 Ur Leukocyte Esterase Negative (NEGATIVE) 03/12/18 11:55 Urine RBC 0-2 /HPF (NONE SEEN) 03/12/18 11:55 Urine WBC 0-2 /HPF (NONE SEEN) 03/12/18 11:55 Ur Squamous Epith Cells Moderate /HPF (NEGATIVE) 03/12/18 11:55 Amorphous Sediment 2+ /HPF (NEGATIVE) 03/12/18 11:55 Urine Bacteria Trace /HPF (NEGATIVE) 03/12/18 11:55 Urine Mucus Few /HPF (NEGATIVE) 03/12/18 11:55 Ur Culture Indicated? No/not indicated 03/12/18 11:55 - Plan (1) RML pneumonia Status: Acute Qualifiers: Pneumonia type: due to unspecified organism Qualified Code(s): J18.1 - Lobar pneumonia, unspecified organism Plan: admit, iv antibiotics, respiratory treatments, supplemental oxygen, lasix 20mg iv bid, continue to monitor (2) CHF (congestive heart failure) Status: Chronic Qualifiers: Heart failure type: unspecified Heart failure chronicity: acute on chronic Qualified Code(s): I50.9 - Heart failure, unspecified Plan: FLUID RESTRICTION, LASIX 40MG IV BID, CONTINUE HOME MEDICATIONS
[2018-03-12] MEDS: SNACK - Diabetic Appropriate PO SCH (21:55)
[2018-03-12] MEDS: LANTUS SC SCH (21:56)
[2018-03-12] MEDS: COLACE CAP 100 MG PO SCH (21:57)
[2018-03-12] MEDS: LIPITOR TAB 40 MG PO SCH (21:57)
[2018-03-12 22:01] LABS: ABG BASE EXCESS 12.2 mmol/L (-2.0-2.0)
[2018-03-12 22:02] LABS: ABG ALLEN TEST POS; ABG HCO3 41.8 mmol/L (22-26)
--- NOTE | 2018-03-12 22:39 | PCM.PROG ---
Progress Note - Progress Note for Day of Date of Exam: 03/12/18 - Subjective Subjective: WAS ADMITTED FOR RIGHT MIDDLE LOBE PNEUMONIA AND CHF EXACERBATION. TODAY, SHE IS LYING IN BED WITH EYES CLOSED. SHE AWAKENS TO VERBAL STIMULI BUT IS SOMULENT. PATIENT HAD EARLIER BEEN FOUND WITH HER O2 OFF. ABG REVEALS PCO2 86. PATIENT IS AFIB RATES 100. PATIENT MOVED TO STEPDOWN AND PLACED ON BIPAP. PATIENT MENTAL STATUS DID IMPROVE. CHEST XRAY REVEALS PULMONARY EDEMA WITH WORSENING CREATININE. LASIX WILL BE DECREASED TO ONCE DAILY. - Past Medical Family Social History Past Med/Fam/Surg Hx: No changes since H&P Allergies: Allergies lisinopril [From Zestril] Allergy (Verified 03/06/18 17:05) meperidine [From Demerol] Adverse Reaction (Verified 03/06/18 17:05) zinc Adverse Reaction (Verified 03/06/18 17:05) - Review of Systems ROS: No change since H&P - Vital Signs and I&O's Vital Signs: Temperature 98.5 F Pulse Rate [Apical] 90 Pulse Rate [Right Brachial] 68 Pulse Rate [Left Brachial] 87 Pulse Rate 94 Respiratory Rate 23 Blood Pressure [Left Radial 145/63 Artery] Blood Pressure [Right Radial 178/102 Artery] Blood Pressure [Right Arm] 124/64 Blood Pressure [Left Arm] 127/75 Blood Pressure 137/95 O2 Sat by Pulse Oximetry 100 Intake and Output: Intake & Output 03/10/18 03/11/18 03/12/18 03/13/18 11:59 11:59 11:59 11:59 Intake Total 1700 / 1700 1265 / 1265 2164 / 2164 360 / 360 Output Total 200 / 200 Balance 1700 / 1700 1265 / 1265 2164 / 2164 160 / 160 - Physical Exam Oriented: Other (SOMUNLENT IMPROVED WITH BIPAP) Eyes: Normal Ear: Normal Nose: Normal Throat: Normal Respiratory: Generalized, Diminished Cardiovascular: Irregular (AFIB). negative: S3, S4, Murmur : Normal Auscultation: Bowel Sounds: Normal Palpation: Normal Tenderness: Normal Skin: Normal Musculoskeletal: Normal Psychiatric: Normal Mood Description: Calm, Labile Affect: Normal Speech Pattern: Appropriate - Laboratory and Diagnostics Result Diagrams: 03/12/18 05:24 03/12/18 05:24 Labs: 03/06/18 19:48 Blood Blood Culture - Final 03/06/18 19:44 Blood Blood Culture - Final Laboratory WBC 7.2 X10^3/uL (3.6-10.0) 03/12/18 05:24 RBC 3.69 X10^6/uL (3.5-5.4) 03/12/18 05:24 Hgb 9.9 g/dL (12.0-16.0) L 03/12/18 05:24 Hct 31.4 % (36.0-47.0) L 03/12/18 05:24 MCV 85.2 fL (80.0-100.0) 03/12/18 05:24 MCH 26.9 pg (27.0-34.0) L 03/12/18 05:24 MCHC 31.6 g/dL (33.0-35.0) L 03/12/18 05:24 RDW 17.0 % (11.6-16.5) H 03/12/18 05:24 Plt Count 157 X10^3/uL (150.0-450.0) 03/12/18 05:24 MPV 9.6 fL (7.4-11.0) 03/12/18 05:24 Neut % (Auto) 80.8 % (42.0-75.0) H 03/12/18 05:24 Lymph % (Auto) 9.8 % (21.0-51.0) L 03/12/18 05:24 [place] % (Auto) 5.4 % (0.0-13.0) 03/12/18 05:24 Eos % (Auto) 3.1 % (0.9-2.9) H 03/12/18 05:24 Baso % (Auto) 0.9 % (0.2-1.0) 03/12/18 05:24 Neut # (Auto) 5.9 x10^3/uL (2.2-4.8) H 03/12/18 05:24 Lymph # (Auto) 0.7 X10^3/uL (1.3-2.9) L 03/12/18 05:24 [place] # (Auto) 0.4 x10^3/uL (0.3-0.8) 07/08/18 05:24 Eos # (Auto) 0.2 x10^3/uL (0.0-0.2) 03/12/18 05:24 Baso # (Auto) 0.1 X10^3/uL (0.0-0.1) 03/12/18 05:24 Absolute Nucleated RBC 0.0 /100WBC 03/12/18 05:24 D-Dimer 1190 ng/mL (0-400) H* 03/06/18 17:28 Sample Site Rr 03/12/18 21:49 ABG pH 7.310 (7.35-7.45) L 03/12/18 21:49 ABG pCO2 83.0 mmHg (35.0-45.0) H* 03/12/18 21:49 ABG pO2 62.0 mmHg (80.0-100.0) L 03/12/18 21:49 ABG HCO3 41.8 mmol/L (22-26) H* 03/12/18 21:49 ABG O2 Saturation 89.0 % (90-100) L 03/12/18 21:49 ABG Base Excess 12.2 mmol/L (-2.0-2.0) H 03/12/18 21:49 Twan Test Pos 03/12/18 21:49 A-a Gradient 48.0 mmHg 03/12/18 21:49 FiO2 30.000 03/12/18 21:49 Blood Gas Comments Praneeth well ae 03/12/18 21:49 Sodium 139 mmol/L (136-145) 03/12/18 05:24 Corrected Sodium 140 mmol/L (136-145) 03/12/18 05:24 Potassium 4.4 mmol/L (3.5-5.1) 03/12/18 05:24 Chloride 98 mmol/L (98-107) 03/12/18 05:24 Carbon Dioxide 33.0 mmol/L (21-32) H 03/12/18 05:24 BUN 30 mg/dL (7-18) H 03/12/18 05:24 Creatinine 1.97 mg/dL (0.55-1.02) H 03/12/18 05:24 Est GFR (MDRD) Af Amer 32 (>60) L 03/12/18 05:24 Est GFR (MDRD) Non-Af 26 (>60) L 03/12/18 05:24 Glucose 149 mg/dL (65-99) H 03/12/18 05:24 POC Glucose (mg/dL) 114 mg/dL (65-99) H 03/12/18 21:54 Calcium 9.3 mg/dL (8.5-10.1) 03/12/18 05:24 Corrected Calcium TNP 03/12/18 05:24 Total Bilirubin 0.80 mg/dL (0.2-1.0) 03/12/18 05:24 AST 19 Units/L (15-37) 03/12/18 05:24 ALT 14 Units/L (12-78) 03/12/18 05:24 Alkaline Phosphatase 59 Units/L (46-116) 03/12/18 05:24 Creatine Kinase 19 Units/L (26-192) L 03/12/18 17:33 CK-MB (CK-2) < 1.0 ng/mL (0-4.0) 03/12/18 17:33 CK/CKMB % Calc 5.3 % (<4) 03/12/18 17:33 Troponin I 0.05 ng/mL (0-1.5) 03/12/18 17:33 Total Protein 7.7 g/dL (6.4-8.2) 03/12/18 05:24 Albumin 3.7 g/dL (3.4-5.0) 03/12/18 05:24 Globulin 4.0 g/dL (2.5-4.5) 03/12/18 05:24 Albumin/Globulin Ratio 0.9 Ratio (1.1-2.1) L 03/12/18 05:24 Specimen Type Catherized urine 03/12/18 11:55 Urine Color Yellow (YELLOW) 03/12/18 11:55 Urine Appearance Hazy (CLEAR) 03/12/18 11:55 Urine pH 5.0 (5.0 - 8.0) 03/12/18 11:55 Ur Specific [place] 1.020 (1.000-1.030) 03/12/18 11:55 Urine Protein 2+ (NEGATIVE) 03/12/18 11:55 Urine Glucose (UA) Negative (NEGATIVE) 03/12/18 11:55 Urine Ketones Negative (NEGATIVE) 03/12/18 11:55 Urine Occult Blood Negative (NEGATIVE) 03/12/18 11:55 Urine Nitrite Negative (NEGATIVE) 03/12/18 11:55 Urine Bilirubin Negative (NEGATIVE) 03/12/18 11:55 Urine Urobilinogen Normal (NORMAL) 03/12/18 11:55 Ur Leukocyte Esterase Negative (NEGATIVE) 03/12/18 11:55 Urine RBC 0-2 /HPF (NONE SEEN) 03/12/18 11:55 Urine WBC 0-2 /HPF (NONE SEEN) 03/12/18 11:55 Ur Squamous Epith Cells Moderate /HPF (NEGATIVE) 03/12/18 11:55 Amorphous Sediment 2+ /HPF (NEGATIVE) 03/12/18 11:55 Urine Bacteria Trace /HPF (NEGATIVE) 03/12/18 11:55 Urine Mucus Few /HPF (NEGATIVE) 03/12/18 11:55 Ur Culture Indicated? No/not indicated 03/12/18 11:55 - Plan (1) Right lower lobe pneumonia Status: Acute Plan: CONTINUE NEBS, IV ANTIBIOTICS. (2) Anemia Status: Acute Plan: MONITOR CBC (3) CHF (congestive heart failure) Status: Chronic Qualifiers: Heart failure type: unspecified Heart failure chronicity: acute on chronic Qualified Code(s): I50.9 - Heart failure, unspecified Plan: FLUID RESTRICTION, LASIX 40MG IV Q DAY, CONTINUE HOME MEDICATIONS (4) Dyspnea Status: Acute Qualifiers: Dyspnea type: other forms of dyspnea Qualified Code(s): R06.09 - Other forms of dyspnea (5) Type I diabetes mellitus Status: Chronic Plan: MONITOR BS. (6) Dehydration, mild Status: Acute Plan: DC IV LASIX. (7) Acute respiratory failure with hypercapnia Status: Acute Plan: TRANSFER TO ICU. BIPAP, SUPPLEMENTAL O2 (8) Atrial fibrillation Status: Acute Qualifiers: Atrial fibrillation type: chronic Plan: MONITOR RATE (9) Acute on chronic kidney failure Status: Acute Plan: DECREASE LASIX TO DAILY. MONITOR BUN/CR/GFR
[2018-03-13 00:38] LABS: CKMB % 6.3 % (<4); CREATINE KINASE 16 Units/L (26-192); CREATINE KINASE MB < 1.0 ng/mL (0-4.0); TROPONIN I 0.06 ng/mL (0-1.5)
[2018-03-13 00:42] LABS: ABG BASE EXCESS 12.3 mmol/L (-2.0-2.0)
[2018-03-13 00:45] LABS: ABG HCO3 40.9 mmol/L (22-26)
[2018-03-13 05:17] LABS: BASOPHILS % (AUTO) 0.7 % (0.2-1.0); EOSINOPHILS # (AUTO) 0.3 x10^3/uL (0.0-0.2); EOSINOPHILS % (AUTO) 5.5 % (0.9-2.9); HEMATOCRIT 28.3 % (36.0-47.0); HEMOGLOBIN 9.1 g/dL (12.0-16.0); LYMPHOCYTES # (AUTO) 0.8 X10^3/uL (1.3-2.9); LYMPHOCYTES % (AUTO) 13.4 % (21.0-51.0); MEAN CORPUSCULAR HGB CONC 32.2 g/dL (33.0-35.0); MEAN CORPUSCULAR VOLUME 83.9 fL (80.0-100.0); MEAN PLATELET VOLUME 9.1 fL (7.4-11.0); MONOCYTES # (AUTO) 0.3 x10^3/uL (0.3-0.8); NEUTROPHILS # (AUTO) 4.3 x10^3/uL (2.2-4.8); NEUTROPHILS % (AUTO) 74.4 % (42.0-75.0); PLATELET COUNT 148 X10^3/uL (150.0-450.0); RED BLOOD COUNT 3.37 X10^6/uL (3.5-5.4); RED CELL DISTRIBUTION WIDTH 17.2 % (11.6-16.5); WHITE BLOOD COUNT 5.7 X10^3/uL (3.6-10.0)
[2018-03-13 05:39] LABS: ALANINE AMINOTRANSFERASE 14 Units/L (12-78); ALBUMIN 3.3 g/dL (3.4-5.0); ALKALINE PHOSPHATASE 47 Units/L (46-116); ASPARTATE AMINO TRANSFERASE 15 Units/L (15-37); BLOOD UREA NITROGEN 31 mg/dL (7-18); CALCIUM 8.6 mg/dL (8.5-10.1); CARBON DIOXIDE 35.2 mmol/L (21-32); CHLORIDE 102 mmol/L (98-107); COR CA(FOR HYPOALB) 9.2 mg/dL (8.5-10.1); CREATININE 1.68 mg/dL (0.55-1.02); SODIUM 143 mmol/L (136-145); TOTAL PROTEIN 6.7 g/dL (6.4-8.2); eGFR NON BLACK RACES 31 (>60)
[2018-03-13] MEDS: ZOSYN VIAL 4.5 GRAMS 4.5 G in NS 100 ML IV + SPIKE MINIBAG* 100 ML IV SCH ×3 (06:44→21:00)
--- NOTE | 2018-03-13 07:15 | RAD ---
Examination: AP chest History: SOB Comparison reference 03/12/2018 Findings: Continued cardiac enlargement with pulmonary vascular congestion. Suspect mild bibasal infi ltrates or atelectasis. Detail is limited by patient habitus. Impression: No interval change identified since 03/12/2018; see above. Reported By:
[2018-03-13] MEDS: GLUCOTROL PO SCH ×2 (07:23→16:17)
[2018-03-13] MEDS: ASPIRIN EC 81 MG PO SCH (08:42)
[2018-03-13] MEDS: OXYBUTYNIN CHLORIDE ER PO SCH (08:42)
[2018-03-13] MEDS: ZYLOPRIM PO SCH (08:43)
[2018-03-13] MEDS: ELIQUIS PO SCH ×2 (08:43→20:46)
[2018-03-13] MEDS: MAG-OX TAB PO SCH (08:43)
[2018-03-13] MEDS: ROBITUSSIN DM PO SCH ×4 (08:43→20:45)
[2018-03-13] MEDS: COZAAR PO SCH (08:43)
[2018-03-13] MEDS: MICRO K EXTEN CAP 10 MEQ PO SCH (08:43)
[2018-03-13] MEDS: MILK OF MAGNESIA PO SCH ×2 (08:45→20:50)
[2018-03-13] MEDS: NS 1/2 1000 ML IV 1,000 ML IV SCH (08:48)
[2018-03-13] MEDS ORDERED: LASIX PO SCH (09:00)
[2018-03-13] MEDS ORDERED: LASIX IVP SCH (09:00)
[2018-03-13] MEDS: XOPENEX 1.25 MG/3 ML NEBULE NEB SCH ×4 (09:29→20:45)
[2018-03-13] MEDS: MORPHINE SULFATE INJ 2 MG INJ IVP SCH ×2 (11:19→17:09)
[2018-03-13] MEDS: ALBUMIN HUMAN 25%- 100 ML 100 ML IV SCH (11:30)
--- NOTE | 2018-03-13 17:06 | PCM.PROG ---
Progress Note - Progress Note for Day of Date of Exam: 03/13/18 - Subjective Subjective: WAS ADMITTED FOR RIGHT MIDDLE LOBE PNEUMONIA AND CHF EXACERBATION. SHE WAS MOVED TO THE INTENSIVE CARE UNIT YESTERDAY DUE TO DECREASED OXYGEN SATURATIONS AND INCREASED HEART RATE. TODAY, SHE IS ALERT AND ORIENTED, LYING IN BED ON MORNING ROUNDS. SHE REPORTS SLIGHT IMPROVEMENT IN SHORTNESS OF BREATH SINCE YESTERDAY. SHE DENIES CHEST PAIN AT THE PRESENT TIME. SHE CONTINUES WITH COMPLAINTS OF A NON-PRODUCTIVE COUGH. ON EXAMINATION, HEART IS REGULAR IN RATE AND RHYTHM. BILATERAL LUNGS CONTINUE WITH SCATTERED WHEEZING AND RHONCHI THROUGHOUT. ABDOMEN IS ROUND, SOFT, AND NON-TENDER WITH NORMAL BOWEL SOUNDS NOTED IN ALL QUADRANTS. HER VITALS TODAY ARE 98.0-88-20-98%BIPAP- 125/76. LABS WERE OBTAINED. ABNORMAL LAB VALUES INCLUDE THE FOLLOWING: RBC 3.37 , HGB 9.1, HCT 28.3, PLT COUNT 148, CARBON DIOXIDE 35.2, BUN 31, CREATININE 1.68 , ALBUMIN 3.3. BLOOD CULTURES REPORT NO GROWTH. TODAYS CHEST XRAY REVEALS: Continued cardiac enlargement with pulmonary vascular congestion. Suspect mild bibasal infiltrates or atelectasis. TODAY, WE WILL SALINE LOCK IV FLUIDS AND INCREASE HER LASIX TO Q12H. WE WILL ALSO START MORPHINE 1MG IV Q8H AND CURRENT PLAN OF CARE. OTHERWISE, WE PLAN TO FOLLOW UP WITH AM LABS AND CHEST XRAY AND WILL CONTINUE TO MONITOR PATIENT. - Past Medical Family Social History Past Med/Fam/Surg Hx: No changes since H&P Allergies: Allergies lisinopril [From Zestril] Allergy (Verified 03/06/18 17:05) meperidine [From Demerol] Adverse Reaction (Verified 03/06/18 17:05) zinc Adverse Reaction (Verified 03/06/18 17:05) - Review of Systems ROS: No change since H&P - Vital Signs and I&O's Vital Signs: Temperature 97.4 F Pulse Rate [Apical] 84 Pulse Rate [Right Brachial] 68 Pulse Rate [Left Brachial] 87 Pulse Rate 94 Respiratory Rate 15 Blood Pressure [Left Radial 145/63 Artery] Blood Pressure [Right Radial 178/102 Artery] Blood Pressure [Right Arm] 124/64 Blood Pressure [Left Arm] 173/72 Blood Pressure 137/95 O2 Sat by Pulse Oximetry 100 Intake and Output: Intake & Output 03/11/18 03/12/18 03/13/18 03/14/18 11:59 11:59 11:59 11:59 Intake Total 1265 / 1265 2164 / 2164 1157 / 1157 810 / 810 Output Total 875 / 875 775 / 775 Balance 1265 / 1265 2164 / 2164 282 / 282 35 / 35 - Physical Exam Oriented: Normal Eyes: Normal Ear: Normal Nose: Normal Throat: Normal Respiratory: Generalized, Wheezes, Rhonchi Cardiovascular: Irregular (AFIB). negative: S3, S4, Murmur : Normal Auscultation: Bowel Sounds: Normal Palpation: Normal Tenderness: Normal Skin: Normal Musculoskeletal: Normal Psychiatric: Normal Mood Description: Calm, Labile Affect: Normal Speech Pattern: Clear, Appropriate - Laboratory and Diagnostics Result Diagrams: 03/13/18 04:42 03/13/18 04:42 Labs: 03/06/18 19:48 Blood Blood Culture - Final 03/06/18 19:44 Blood Blood Culture - Final Laboratory WBC 5.7 X10^3/uL (3.6-10.0) 03/13/18 04:42 RBC 3.37 X10^6/uL (3.5-5.4) L 03/13/18 04:42 Hgb 9.1 g/dL (12.0-16.0) L 03/13/18 04:42 Hct 28.3 % (36.0-47.0) L 03/13/18 04:42 MCV 83.9 fL (80.0-100.0) 03/13/18 04:42 MCH 27.0 pg (27.0-34.0) 03/13/18 04:42 MCHC 32.2 g/dL (33.0-35.0) L 03/13/18 04:42 RDW 17.2 % (11.6-16.5) H 03/13/18 04:42 Plt Count 148 X10^3/uL (150.0-450.0) L 03/13/18 04:42 MPV 9.1 fL (7.4-11.0) 03/13/18 04:42 Neut % (Auto) 74.4 % (42.0-75.0) 03/13/18 04:42 Lymph % (Auto) 13.4 % (21.0-51.0) L 03/13/18 04:42 [place] % (Auto) 6.0 % (0.0-13.0) 03/13/18 04:42 Eos % (Auto) 5.5 % (0.9-2.9) H 03/13/18 04:42 Baso % (Auto) 0.7 % (0.2-1.0) 03/13/18 04:42 Neut # (Auto) 4.3 x10^3/uL (2.2-4.8) 03/13/18 04:42 Lymph # (Auto) 0.8 X10^3/uL (1.3-2.9) L 03/13/18 04:42 [place] # (Auto) 0.3 x10^3/uL (0.3-0.8) 03/13/18 04:42 Eos # (Auto) 0.3 x10^3/uL (0.0-0.2) H 03/13/18 04:42 Baso # (Auto) 0.0 X10^3/uL (0.0-0.1) 03/13/18 04:42 Absolute Nucleated RBC 0.1 /100WBC 03/13/18 04:42 D-Dimer 1190 ng/mL (0-400) H* 03/06/18 17:28 Sample Site Rbra 03/13/18 00:31 ABG pH 7.350 (7.35-7.45) 03/13/18 00:31 ABG pCO2 74.0 mmHg (35.0-45.0) H* 03/13/18 00:31 ABG pO2 52.0 mmHg (80.0-100.0) L 03/13/18 00:31 ABG HCO3 40.9 mmol/L (22-26) H* 03/13/18 00:31 ABG O2 Saturation 85.0 % (90-100) L 03/13/18 00:31 ABG Base Excess 12.3 mmol/L (-2.0-2.0) H 03/13/18 00:31 Twan Test Na 03/13/18 00:31 A-a Gradient 69.0 mmHg 03/13/18 00:31 FiO2 30.000 03/13/18 00:31 Blood Gas Comments Praneeth abg well 03/13/18 00:31 Sodium 143 mmol/L (136-145) 03/13/18 04:42 Corrected Sodium TNP 03/13/18 04:42 Potassium 3.9 mmol/L (3.5-5.1) 03/13/18 04:42 Chloride 102 mmol/L (98-107) 03/13/18 04:42 Carbon Dioxide 35.2 mmol/L (21-32) H 03/13/18 04:42 BUN 31 mg/dL (7-18) H 03/13/18 04:42 Creatinine 1.68 mg/dL (0.55-1.02) H 03/13/18 04:42 Est GFR (MDRD) Af Amer 38 (>60) L 03/13/18 04:42 Est GFR (MDRD) Non-Af 31 (>60) L 03/13/18 04:42 Glucose 76 mg/dL (65-99) 03/13/18 04:42 POC Glucose (mg/dL) 164 mg/dL (65-99) H 03/13/18 15:51 Calcium 8.6 mg/dL (8.5-10.1) 03/13/18 04:42 Corrected Calcium 9.2 mg/dL (8.5-10.1) 03/13/18 04:42 Total Bilirubin 0.70 mg/dL (0.2-1.0) 03/13/18 04:42 AST 15 Units/L (15-37) 03/13/18 04:42 ALT 14 Units/L (12-78) 03/13/18 04:42 Alkaline Phosphatase 47 Units/L (46-116) 03/13/18 04:42 Creatine Kinase 16 Units/L (26-192) L 03/13/18 00:06 CK-MB (CK-2) < 1.0 ng/mL (0-4.0) 03/13/18 00:06 CK/CKMB % Calc 6.3 % (<4) 03/13/18 00:06 Troponin I 0.06 ng/mL (0-1.5) 03/13/18 00:06 Total Protein 6.7 g/dL (6.4-8.2) 03/13/18 04:42 Albumin 3.3 g/dL (3.4-5.0) L 03/13/18 04:42 Globulin 3.4 g/dL (2.5-4.5) 03/13/18 04:42 Albumin/Globulin Ratio 1.0 Ratio (1.1-2.1) L 03/13/18 04:42 Specimen Type Catherized urine 03/12/18 11:55 Urine Color Yellow (YELLOW) 03/12/18 11:55 Urine Appearance Hazy (CLEAR) 03/12/18 11:55 Urine pH 5.0 (5.0 - 8.0) 03/12/18 11:55 Ur Specific [place] 1.020 (1.000-1.030) 03/12/18 11:55 Urine Protein 2+ (NEGATIVE) 03/12/18 11:55 Urine Glucose (UA) Negative (NEGATIVE) 03/12/18 11:55 Urine Ketones Negative (NEGATIVE) 03/12/18 11:55 Urine Occult Blood Negative (NEGATIVE) 03/12/18 11:55 Urine Nitrite Negative (NEGATIVE) 03/12/18 11:55 Urine Bilirubin Negative (NEGATIVE) 03/12/18 11:55 Urine Urobilinogen Normal (NORMAL) 03/12/18 11:55 Ur Leukocyte Esterase Negative (NEGATIVE) 03/12/18 11:55 Urine RBC 0-2 /HPF (NONE SEEN) 03/12/18 11:55 Urine WBC 0-2 /HPF (NONE SEEN) 03/12/18 11:55 Ur Squamous Epith Cells Moderate /HPF (NEGATIVE) 03/12/18 11:55 Amorphous Sediment 2+ /HPF (NEGATIVE) 03/12/18 11:55 Urine Bacteria Trace /HPF (NEGATIVE) 03/12/18 11:55 Urine Mucus Few /HPF (NEGATIVE) 03/12/18 11:55 Ur Culture Indicated? No/not indicated 03/12/18 11:55 - Plan (1) RML pneumonia Status: Acute Qualifiers: Pneumonia type: due to unspecified organism Qualified Code(s): J18.1 - Lobar pneumonia, unspecified organism Plan: admit, iv antibiotics, respiratory treatments, supplemental oxygen, lasix 20mg iv bid, continue to monitor (2) CHF (congestive heart failure) Status: Chronic Qualifiers: Heart failure type: unspecified Heart failure chronicity: acute on chronic Qualified Code(s): I50.9 - Heart failure, unspecified Plan: FLUID RESTRICTION, LASIX 40MG IV Q12H, SALINE LOCK IV FLUIDS, CONTINUE HOME MEDICATIONS (3) Atrial fibrillation Status: Chronic Qualifiers: Atrial fibrillation type: chronic Qualified Code(s): I48.2 - Chronic atrial fibrillation Plan: CONTINUE ELIQUIS, CONTINUE TO MONITOR (4) Hyperlipidemia Status: Acute Qualifiers: Hyperlipidemia type: pure hypercholesterolemia Qualified Code(s): E78.00 - Pure hypercholesterolemia, unspecified; E78.0 - Pure hypercholesterolemia Plan: CONTINUE LIPITOR, CONTINUE TO MONITOR (5) Type I diabetes mellitus Status: Chronic Qualifiers: Diabetes mellitus complication status: with unspecified complications Qualified Code(s): E10.8 - Type 1 diabetes mellitus with unspecified complications Plan: MONITOR BS, CONTINUE GLUCOTROL, CONTINUE LANTUS, CONTINUE HUMULIN R
[2018-03-13] MEDS: SNACK - Diabetic Appropriate PO SCH (20:45)
[2018-03-13] MEDS: LASIX IVP SCH (20:45)
[2018-03-13] MEDS: LIPITOR TAB 40 MG PO SCH (20:46)
[2018-03-13] MEDS: LANTUS SC SCH (20:48)
[2018-03-13] MEDS: HumuLIN R SUBCUT PRN (20:50)
[2018-03-13] MEDS: COLACE CAP 100 MG PO SCH (20:50)
[2018-03-14] MEDS: XOPENEX 1.25 MG/3 ML NEBULE NEB SCH ×5 (00:03→21:27)
[2018-03-14] MEDS: MORPHINE SULFATE INJ 2 MG INJ IVP SCH ×3 (01:22→17:16)
[2018-03-14] MEDS: ZOSYN VIAL 4.5 GRAMS 4.5 G in NS 100 ML IV + SPIKE MINIBAG* 100 ML IV SCH ×3 (05:46→21:00)
[2018-03-14] MEDS: GLUCOTROL PO SCH ×2 (06:07→17:14)
[2018-03-14 06:15] LABS: BASOPHILS % (AUTO) 0.6 % (0.2-1.0); EOSINOPHILS # (AUTO) 0.3 x10^3/uL (0.0-0.2); EOSINOPHILS % (AUTO) 4.5 % (0.9-2.9); HEMATOCRIT 28.1 % (36.0-47.0); HEMOGLOBIN 8.9 g/dL (12.0-16.0); LYMPHOCYTES # (AUTO) 0.6 X10^3/uL (1.3-2.9); LYMPHOCYTES % (AUTO) 11.2 % (21.0-51.0); MEAN CORPUSCULAR HEMOGLOBIN 26.9 pg (27.0-34.0); MEAN CORPUSCULAR HGB CONC 31.8 g/dL (33.0-35.0); MEAN CORPUSCULAR VOLUME 84.6 fL (80.0-100.0); MEAN PLATELET VOLUME 9.3 fL (7.4-11.0); MONOCYTES # (AUTO) 0.4 x10^3/uL (0.3-0.8); MONOCYTES % (AUTO) 7.2 % (0.0-13.0); NEUTROPHILS # (AUTO) 4.2 x10^3/uL (2.2-4.8); NEUTROPHILS % (AUTO) 76.5 % (42.0-75.0); PLATELET COUNT 153 X10^3/uL (150.0-450.0); RED BLOOD COUNT 3.32 X10^6/uL (3.5-5.4); WHITE BLOOD COUNT 5.5 X10^3/uL (3.6-10.0)
--- NOTE | 2018-03-14 06:45 | RAD ---
Examination: AP chest History: SOB Comparison reference March 13, 2018 Findings: Continued cardiac enlargement with pulmonary vascular congestion. Suspect mild bibasal infi ltrates or atelectasis. Detail is limited by patient habitus. Impression: No interval change identified since March 13, 2018; see above. Reported By: Reported By:
[2018-03-14 06:46] LABS: ALBUMIN 3.2 g/dL (3.4-5.0); CALCIUM 8.8 mg/dL (8.5-10.1); CARBON DIOXIDE 37.1 mmol/L (21-32); COR CA(FOR HYPOALB) 9.4 mg/dL (8.5-10.1); CREATININE 1.54 mg/dL (0.55-1.02); TOTAL PROTEIN 6.7 g/dL (6.4-8.2)
[2018-03-14] MEDS: ROBITUSSIN DM PO SCH ×4 (08:48→20:57)
[2018-03-14] MEDS: ASPIRIN EC 81 MG PO SCH (08:49)
[2018-03-14] MEDS: ELIQUIS PO SCH ×2 (08:49→20:56)
[2018-03-14] MEDS: MAG-OX TAB PO SCH (08:49)
[2018-03-14] MEDS: COZAAR PO SCH (08:49)
[2018-03-14] MEDS: OXYBUTYNIN CHLORIDE ER PO SCH (08:49)
[2018-03-14] MEDS: MICRO K EXTEN CAP 10 MEQ PO SCH (08:49)
[2018-03-14] MEDS: LASIX IVP SCH ×2 (08:50→20:59)
[2018-03-14] MEDS: MILK OF MAGNESIA PO SCH ×2 (08:50→21:00)
[2018-03-14] MEDS: ZYLOPRIM PO SCH (08:51)
[2018-03-14] MEDS: ALBUMIN HUMAN 25%- 100 ML 100 ML IV SCH (08:52)
[2018-03-14] MEDS: SOLU-Medrol 40 MG VIAL IVP SCH ×3 (09:39→21:11)
[2018-03-14] MEDS: HumuLIN R SUBCUT PRN ×2 (11:08→17:14)
[2018-03-14] MEDS: ULTRAM PO PRN (20:56)
[2018-03-14] MEDS: LIPITOR TAB 40 MG PO SCH (20:56)
[2018-03-14] MEDS: LANTUS SC SCH (20:58)
[2018-03-14] MEDS: SNACK - Diabetic Appropriate PO SCH (20:58)
[2018-03-14] MEDS: COLACE CAP 100 MG PO SCH (20:59)
[2018-03-15] MEDS: MORPHINE SULFATE INJ 2 MG INJ IVP SCH ×3 (01:49→16:59)
[2018-03-15 04:09] LABS: ABG BASE EXCESS 15.9 mmol/L (-2.0-2.0)
[2018-03-15 04:10] LABS: ABG ALLEN TEST POS; ABG HCO3 45.3 mmol/L (22-26)
--- NOTE | 2018-03-15 05:47 | RAD ---
Examination: AP chest History: SOB Comparison reference March 14, 2018 Findings: Continued cardiac enlargement with pulmonary vascular congestion. Suspect mild bibasal infi ltrates or atelectasis. Detail is limited by patient habitus. Impression: No interval change identified since March 13, 2018; see above. Reported By: Reported By:Electronically Signed by OSVALDO MORA MD Reported By:
[2018-03-15 05:58] LABS: BASOPHILS % (AUTO) 0.4 % (0.2-1.0); HEMOGLOBIN 9.5 g/dL (12.0-16.0); LYMPHOCYTES # (AUTO) 0.3 X10^3/uL (1.3-2.9); LYMPHOCYTES % (AUTO) 5.2 % (21.0-51.0); MEAN CORPUSCULAR HEMOGLOBIN 26.9 pg (27.0-34.0); MEAN CORPUSCULAR HGB CONC 31.8 g/dL (33.0-35.0); MEAN CORPUSCULAR VOLUME 84.6 fL (80.0-100.0); MEAN PLATELET VOLUME 9.3 fL (7.4-11.0); MONOCYTES # (AUTO) 0.1 x10^3/uL (0.3-0.8); MONOCYTES % (AUTO) 1.6 % (0.0-13.0); NEUTROPHILS # (AUTO) 5.2 x10^3/uL (2.2-4.8); NEUTROPHILS % (AUTO) 92.8 % (42.0-75.0); PLATELET COUNT 166 X10^3/uL (150.0-450.0); RED BLOOD COUNT 3.54 X10^6/uL (3.5-5.4); RED CELL DISTRIBUTION WIDTH 16.7 % (11.6-16.5); WHITE BLOOD COUNT 5.6 X10^3/uL (3.6-10.0)
[2018-03-15] MEDS: GLUCOTROL PO SCH ×2 (06:17→16:08)
[2018-03-15] MEDS: ZOSYN VIAL 4.5 GRAMS 4.5 G in NS 100 ML IV + SPIKE MINIBAG* 100 ML IV SCH ×3 (06:17→21:56)
[2018-03-15] MEDS: SOLU-Medrol 40 MG VIAL IVP SCH ×3 (06:17→21:55)
[2018-03-15] MEDS: HumuLIN R SUBCUT PRN ×3 (06:19→16:08)
[2018-03-15 06:33] LABS: PLATELET MORPHOLOGY COMMENT NORMAL (NORMAL)
[2018-03-15 06:36] LABS: ALANINE AMINOTRANSFERASE 14 Units/L (12-78); ALBUMIN 3.6 g/dL (3.4-5.0); ALKALINE PHOSPHATASE 52 Units/L (46-116); ASPARTATE AMINO TRANSFERASE 13 Units/L (15-37); BLOOD UREA NITROGEN 30 mg/dL (7-18); CALCIUM 9.2 mg/dL (8.5-10.1); CARBON DIOXIDE 37.7 mmol/L (21-32); CHLORIDE 102 mmol/L (98-107); COR NA(FOR HYPERGLY) 146 mmol/L (136-145); SODIUM 143 mmol/L (136-145); TOTAL PROTEIN 6.9 g/dL (6.4-8.2); eGFR NON BLACK RACES 36 (>60)
[2018-03-15] MEDS: MILK OF MAGNESIA PO SCH ×2 (08:19→20:45)
[2018-03-15] MEDS: OXYBUTYNIN CHLORIDE ER PO SCH (08:21)
[2018-03-15] MEDS: ZYLOPRIM PO SCH (08:22)
[2018-03-15] MEDS: MAG-OX TAB PO SCH (08:22)
[2018-03-15] MEDS: ASPIRIN EC 81 MG PO SCH (08:22)
[2018-03-15] MEDS: ALBUMIN HUMAN 25%- 100 ML 100 ML IV SCH (08:22)
[2018-03-15] MEDS: ROBITUSSIN DM PO SCH ×4 (08:22→20:45)
[2018-03-15] MEDS: MICRO K EXTEN CAP 10 MEQ PO SCH (08:22)
[2018-03-15] MEDS: COZAAR PO SCH (08:22)
[2018-03-15] MEDS: ELIQUIS PO SCH ×2 (08:24→20:43)
[2018-03-15] MEDS: LASIX IVP SCH ×2 (08:24→20:44)
[2018-03-15] MEDS: XOPENEX 1.25 MG/3 ML NEBULE NEB SCH ×4 (08:50→20:47)
--- NOTE | 2018-03-15 11:42 | PCM.PROG ---
Progress Note - Progress Note for Day of Date of Exam: 03/14/18 - Subjective Subjective: WAS ADMITTED FOR RIGHT MIDDLE LOBE PNEUMONIA AND CHF EXACERBATION. SHE WAS MOVED TO THE INTENSIVE CARE UNIT YESTERDAY DUE TO DECREASED OXYGEN SATURATIONS AND INCREASED HEART RATE. TODAY, SHE IS ALERT AND ORIENTED, LYING IN BED ON MORNING ROUNDS. SHE REPORTS INCREASED SHORTNESS OF BREATH TODAY, BUT SHE DENIES CHEST PAIN AT THE PRESENT TIME. SHE CONTINUES WITH COMPLAINTS OF A NON-PRODUCTIVE COUGH. ON EXAMINATION, SHE IS NOTED TO BE IN ATRIAL FIBRILLATION. HEARTRATE IS IN THE 90S. BILATERAL LUNGS CONTINUE WITH SCATTERED WHEEZING AND RHONCHI THROUGHOUT. ABDOMEN IS ROUND, SOFT, AND NON- TENDER WITH NORMAL BOWEL SOUNDS NOTED IN ALL QUADRANTS. HER VITALS TODAY ARE 98.4-93-24-99%-154/88. LABS WERE OBTAINED. ABNORMAL LAB VALUES INCLUDE THE FOLLOWING: RBC 3.32, HGB 8.9, HCT 28.1, CARBON DIOXIDE 37.1, BUN 28, CREATININE 1.54, GLUCOSE 134, AST 13, ALBUMIN 3.2. BLOOD CULTURES REPORT NO GROWTH. TODAY S CHEST XRAY REVEALS: Continued cardiac enlargement with pulmonary vascular congestion. Suspect mild bibasal infiltrates or atelectasis. TODAY, WE WILL START SOLU-MEDROL 20MG IV Q8H AND ORDER FOR PATIENT TO WEAR THE BIPAP THROUGHOUT THE DAY AND NIGHT. OTHERWISE, WE PLAN TO FOLLOW UP WITH AM LABS AND CHEST XRAY AND WILL CONTINUE TO MONITOR PATIENT. - Past Medical Family Social History Past Med/Fam/Surg Hx: No changes since H&P Allergies: Allergies lisinopril [From Zestril] Allergy (Verified 03/06/18 17:05) meperidine [From Demerol] Adverse Reaction (Verified 03/06/18 17:05) zinc Adverse Reaction (Verified 03/06/18 17:05) - Review of Systems ROS: No change since H&P - Vital Signs and I&O's Vital Signs: Temperature 98.6 F Pulse Rate [Apical] 87 Pulse Rate [Right Brachial] 68 Pulse Rate [Left Brachial] 84 Pulse Rate 92 Respiratory Rate 20 Blood Pressure [Left Radial 145/63 Artery] Blood Pressure [Right Radial 178/102 Artery] Blood Pressure [Right Arm] 124/64 Blood Pressure [Left Arm] 124/56 Blood Pressure 137/95 O2 Sat by Pulse Oximetry 94 Intake and Output: Intake & Output 03/12/18 03/13/18 03/14/18 03/15/18 11:59 11:59 11:59 11:59 Intake Total 2164 / 2164 1157 / 1157 1529 / 1529 1232 / 1232 Output Total 875 / 875 1950 / 1950 1600 / 1600 Balance 2164 / 2164 282 / 282 -421 / -421 -368 / -368 - Physical Exam Oriented: Normal Eyes: Normal Ear: Normal Nose: Normal Throat: Normal Respiratory: Generalized, Wheezes, Rhonchi Cardiovascular: Irregular (AFIB). negative: S3, S4, Murmur : Normal Auscultation: Bowel Sounds: Normal Palpation: Normal Tenderness: Normal Skin: Normal Musculoskeletal: Normal Psychiatric: Normal Mood Description: Calm, Labile Affect: Normal Speech Pattern: Clear, Appropriate - Laboratory and Diagnostics Result Diagrams: 03/15/18 05:08 03/15/18 05:08 Labs: 03/06/18 19:48 Blood Blood Culture - Final 03/06/18 19:44 Blood Blood Culture - Final Laboratory WBC 5.6 X10^3/uL (3.6-10.0) 03/15/18 05:08 RBC 3.54 X10^6/uL (3.5-5.4) 03/15/18 05:08 Hgb 9.5 g/dL (12.0-16.0) L 03/15/18 05:08 Hct 30.0 % (36.0-47.0) L 03/15/18 05:08 MCV 84.6 fL (80.0-100.0) 03/15/18 05:08 MCH 26.9 pg (27.0-34.0) L 03/15/18 05:08 MCHC 31.8 g/dL (33.0-35.0) L 03/15/18 05:08 RDW 16.7 % (11.6-16.5) H 03/15/18 05:08 Plt Count 166 X10^3/uL (150.0-450.0) 03/15/18 05:08 Plt Count Comment Adequate (ADEQUATE) 03/15/18 05:08 MPV 9.3 fL (7.4-11.0) 03/15/18 05:08 Neut % (Auto) 92.8 % (42.0-75.0) H 03/15/18 05:08 Lymph % (Auto) 5.2 % (21.0-51.0) L 03/15/18 05:08 [place] % (Auto) 1.6 % (0.0-13.0) 03/15/18 05:08 Eos % (Auto) 0.0 % (0.9-2.9) L 03/15/18 05:08 Baso % (Auto) 0.4 % (0.2-1.0) 03/15/18 05:08 Neut # (Auto) 5.2 x10^3/uL (2.2-4.8) H 03/15/18 05:08 Lymph # (Auto) 0.3 X10^3/uL (1.3-2.9) L 03/15/18 05:08 [place] # (Auto) 0.1 x10^3/uL (0.3-0.8) L 03/15/18 05:08 Eos # (Auto) 0.0 x10^3/uL (0.0-0.2) 03/15/18 05:08 Baso # (Auto) 0.0 X10^3/uL (0.0-0.1) 03/15/18 05:08 Absolute Nucleated RBC 0.0 /100WBC 03/15/18 05:08 Total Counted 100 03/15/18 05:08 Neutrophils % (Manual) 90 % (39-76) H 03/15/18 05:08 Lymphocytes % (Manual) 8 % (13-43) L 03/15/18 05:08 Monocytes % (Manual) 2 % (4-9) L 03/15/18 05:08 Plt Morphology Comment Normal (NORMAL) 03/15/18 05:08 RBC Morphology Normal (NORMAL) 03/15/18 05:08 D-Dimer 1190 ng/mL (0-400) H* 03/06/18 17:28 Sample Site Rr 03/15/18 04:00 ABG pH 7.350 (7.35-7.45) 03/15/18 04:00 ABG pCO2 82.0 mmHg (35.0-45.0) H* 03/15/18 04:00 ABG pO2 52.0 mmHg (80.0-100.0) L 03/15/18 04:00 ABG HCO3 45.3 mmol/L (22-26) H* 03/15/18 04:00 ABG O2 Saturation 85.0 % (90-100) L 03/15/18 04:00 ABG Base Excess 15.9 mmol/L (-2.0-2.0) H 03/15/18 04:00 Twan Test Pos 03/15/18 04:00 A-a Gradient 95.0 mmHg 03/15/18 04:00 FiO2 35.000 03/15/18 04:00 Blood Gas Comments Praneeth well ae 03/15/18 04:00 Sodium 143 mmol/L (136-145) 03/15/18 05:08 Corrected Sodium 146 mmol/L (136-145) H 03/15/18 05:08 Potassium 4.7 mmol/L (3.5-5.1) 03/15/18 05:08 Chloride 102 mmol/L (98-107) 03/15/18 05:08 Carbon Dioxide 37.7 mmol/L (21-32) H 03/15/18 05:08 BUN 30 mg/dL (7-18) H 03/15/18 05:08 Creatinine 1.50 mg/dL (0.55-1.02) H 03/15/18 05:08 Est GFR (MDRD) Af Amer 43 (>60) L 03/15/18 05:08 Est GFR (MDRD) Non-Af 36 (>60) L 03/15/18 05:08 Glucose 214 mg/dL (65-99) H 03/15/18 05:08 POC Glucose (mg/dL) 273 mg/dL (65-99) H 03/15/18 10:54 Calcium 9.2 mg/dL (8.5-10.1) 03/15/18 05:08 Corrected Calcium TNP 03/15/18 05:08 Total Bilirubin 0.60 mg/dL (0.2-1.0) 03/15/18 05:08 AST 13 Units/L (15-37) L 03/15/18 05:08 ALT 14 Units/L (12-78) 03/15/18 05:08 Alkaline Phosphatase 52 Units/L (46-116) 03/15/18 05:08 Creatine Kinase 16 Units/L (26-192) L 03/13/18 00:06 CK-MB (CK-2) < 1.0 ng/mL (0-4.0) 03/13/18 00:06 CK/CKMB % Calc 6.3 % (<4) 03/13/18 00:06 Troponin I 0.06 ng/mL (0-1.5) 03/13/18 00:06 Total Protein 6.9 g/dL (6.4-8.2) 03/15/18 05:08 Albumin 3.6 g/dL (3.4-5.0) 03/15/18 05:08 Globulin 3.3 g/dL (2.5-4.5) 03/15/18 05:08 Albumin/Globulin Ratio 1.1 Ratio (1.1-2.1) 03/15/18 05:08 Specimen Type Catherized urine 03/12/18 11:55 Urine Color Yellow (YELLOW) 03/12/18 11:55 Urine Appearance Hazy (CLEAR) 03/12/18 11:55 Urine pH 5.0 (5.0 - 8.0) 03/12/18 11:55 Ur Specific [place] 1.020 (1.000-1.030) 03/12/18 11:55 Urine Protein 2+ (NEGATIVE) 03/12/18 11:55 Urine Glucose (UA) Negative (NEGATIVE) 03/12/18 11:55 Urine Ketones Negative (NEGATIVE) 03/12/18 11:55 Urine Occult Blood Negative (NEGATIVE) 03/12/18 11:55 Urine Nitrite Negative (NEGATIVE) 03/12/18 11:55 Urine Bilirubin Negative (NEGATIVE) 03/12/18 11:55 Urine Urobilinogen Normal (NORMAL) 03/12/18 11:55 Ur Leukocyte Esterase Negative (NEGATIVE) 03/12/18 11:55 Urine RBC 0-2 /HPF (NONE SEEN) 03/12/18 11:55 Urine WBC 0-2 /HPF (NONE SEEN) 03/12/18 11:55 Ur Squamous Epith Cells Moderate /HPF (NEGATIVE) 03/12/18 11:55 Amorphous Sediment 2+ /HPF (NEGATIVE) 03/12/18 11:55 Urine Bacteria Trace /HPF (NEGATIVE) 03/12/18 11:55 Urine Mucus Few /HPF (NEGATIVE) 03/12/18 11:55 Ur Culture Indicated? No/not indicated 03/12/18 11:55 - Plan (1) RML pneumonia Status: Acute Qualifiers: Pneumonia type: due to unspecified organism Qualified Code(s): J18.1 - Lobar pneumonia, unspecified organism Plan: admit, iv antibiotics, respiratory treatments, supplemental oxygen, lasix 20mg iv bid, continue to monitor (2) CHF (congestive heart failure) Status: Chronic Qualifiers: Heart failure type: unspecified Heart failure chronicity: acute on chronic Qualified Code(s): I50.9 - Heart failure, unspecified Plan: FLUID RESTRICTION, LASIX 40MG IV Q12H, SOLU-MEDROL 20MG IV Q8H, SALINE LOCK IV FLUIDS, CONTINUE HOME MEDICATIONS (3) Atrial fibrillation Status: Chronic Qualifiers: Atrial fibrillation type: chronic Qualified Code(s): I48.2 - Chronic atrial fibrillation Plan: CONTINUE ELIQUIS, CONTINUE TO MONITOR (4) Hyperlipidemia Status: Acute Qualifiers: Hyperlipidemia type: pure hypercholesterolemia Qualified Code(s): E78.00 - Pure hypercholesterolemia, unspecified; E78.0 - Pure hypercholesterolemia Plan: CONTINUE LIPITOR, CONTINUE TO MONITOR (5) Type I diabetes mellitus Status: Chronic Qualifiers: Diabetes mellitus complication status: with unspecified complications Qualified Code(s): E10.8 - Type 1 diabetes mellitus with unspecified complications Plan: MONITOR BS, CONTINUE GLUCOTROL, CONTINUE LANTUS, CONTINUE HUMULIN R
[2018-03-15] MEDS: ULTRAM PO PRN (20:41)
[2018-03-15] MEDS: SNACK - Diabetic Appropriate PO SCH (20:42)
[2018-03-15] MEDS: LANTUS SC SCH (20:43)
[2018-03-15] MEDS: COLACE CAP 100 MG PO SCH (20:43)
[2018-03-15] MEDS: LIPITOR TAB 40 MG PO SCH (20:44)
--- NOTE | 2018-03-15 21:02 | PCM.PROG ---
Progress Note - Progress Note for Day of Date of Exam: 03/15/18 - Subjective Subjective: WAS ADMITTED FOR RIGHT MIDDLE LOBE PNEUMONIA AND CHF EXACERBATION. SHE WAS TODAY, SHE IS ALERT AND ORIENTED, LYING IN BED ON MORNING ROUNDS. SHE CONTINUES WITH COMPLAINTS OF A NON-PRODUCTIVE COUGH AND INCREASED SHORTNESS OF BREATH. STAFF REPORTS THAT PATIENT HAS BEEN NOTED WITH INTERMITTENT CONFUSION. THEY REPORT THAT SATURATIONS DID DROP INTO THE 50S ON ROOM AIR LAST NIGHT. ON EXAMINATION, SHE CONTINUES TO BE IN ATRIAL FIBRILLATION WITH HR IN THE 80S. BILATERAL LUNGS CONTINUE WITH SCATTERED WHEEZING AND RHONCHI THROUGHOUT. ABDOMEN IS ROUND, SOFT, AND NON-TENDER WITH NORMAL BOWEL SOUNDS NOTED IN ALL QUADRANTS. HER VITALS TODAY ARE 98.6-83-20-94%bipap, 162/ 68. LABS WERE OBTAINED. ABNORMAL LAB VALUES INCLUDE THE FOLLOWING: HGB 9.5, HCT 30.0, CARBON DIOXIDE 37.7, BUN 30, CREATININE 1.50, GLUOCSE 214, AST 13. TODAY S CHEST XRAY CONTINUES TO REVEAL: Continued cardiac enlargement with pulmonary vascular congestion. Suspect mild bibasal infiltrates or atelectasis. TODAY, WE WILL CONTINUE WITH RESPIRATORY TREATMENTS, BIPAP, IV STEROIDS, IV LASIX, AND CURRENT PLAN OF CARE. OTHERWISE, WE PLAN TO FOLLOW UP WITH AM LABS AND CHEST XRAY AND WILL CONTINUE TO MONITOR PATIENT. - Past Medical Family Social History Past Med/Fam/Surg Hx: No changes since H&P Allergies: Allergies lisinopril [From Zestril] Allergy (Verified 03/06/18 17:05) meperidine [From Demerol] Adverse Reaction (Verified 03/06/18 17:05) zinc Adverse Reaction (Verified 03/06/18 17:05) - Review of Systems ROS: No change since H&P - Vital Signs and I&O's Vital Signs: Temperature 97.6 F Pulse Rate [Apical] 87 Pulse Rate [Right Brachial] 68 Pulse Rate [Left Brachial] 100 Pulse Rate 95 Respiratory Rate 21 Blood Pressure [Left Radial 145/63 Artery] Blood Pressure [Right Radial 178/102 Artery] Blood Pressure [Right Arm] 124/64 Blood Pressure [Left Arm] 166/88 Blood Pressure 137/95 O2 Sat by Pulse Oximetry 96 Intake and Output: Intake & Output 03/13/18 03/14/18 03/15/18 03/16/18 11:59 11:59 11:59 11:59 Intake Total 1157 / 1157 1529 / 1529 1232 / 1232 1073 / 1073 Output Total 875 / 875 1950 / 1950 1600 / 1600 300 / 300 Balance 282 / 282 -421 / -421 -368 / -368 773 / 773 - Physical Exam Oriented: Normal Eyes: Normal Ear: Normal Nose: Normal Throat: Normal Respiratory: Generalized, Wheezes, Rhonchi Cardiovascular: Irregular (AFIB). negative: S3, S4, Murmur : Normal Auscultation: Bowel Sounds: Normal Palpation: Normal Tenderness: Normal Skin: Normal Musculoskeletal: Normal Psychiatric: Normal Mood Description: Calm, Labile Affect: Normal Speech Pattern: Clear, Appropriate - Laboratory and Diagnostics Result Diagrams: 03/15/18 05:08 03/15/18 05:08 Labs: 03/06/18 19:48 Blood Blood Culture - Final 03/06/18 19:44 Blood Blood Culture - Final Laboratory WBC 5.6 X10^3/uL (3.6-10.0) 03/15/18 05:08 RBC 3.54 X10^6/uL (3.5-5.4) 03/15/18 05:08 Hgb 9.5 g/dL (12.0-16.0) L 03/15/18 05:08 Hct 30.0 % (36.0-47.0) L 03/15/18 05:08 MCV 84.6 fL (80.0-100.0) 03/15/18 05:08 MCH 26.9 pg (27.0-34.0) L 03/15/18 05:08 MCHC 31.8 g/dL (33.0-35.0) L 03/15/18 05:08 RDW 16.7 % (11.6-16.5) H 03/15/18 05:08 Plt Count 166 X10^3/uL (150.0-450.0) 03/15/18 05:08 Plt Count Comment Adequate (ADEQUATE) 03/15/18 05:08 MPV 9.3 fL (7.4-11.0) 03/15/18 05:08 Neut % (Auto) 92.8 % (42.0-75.0) H 03/15/18 05:08 Lymph % (Auto) 5.2 % (21.0-51.0) L 03/15/18 05:08 [place] % (Auto) 1.6 % (0.0-13.0) 03/15/18 05:08 Eos % (Auto) 0.0 % (0.9-2.9) L 03/15/18 05:08 Baso % (Auto) 0.4 % (0.2-1.0) 03/15/18 05:08 Neut # (Auto) 5.2 x10^3/uL (2.2-4.8) H 03/15/18 05:08 Lymph # (Auto) 0.3 X10^3/uL (1.3-2.9) L 03/15/18 05:08 [place] # (Auto) 0.1 x10^3/uL (0.3-0.8) L 03/15/18 05:08 Eos # (Auto) 0.0 x10^3/uL (0.0-0.2) 03/15/18 05:08 Baso # (Auto) 0.0 X10^3/uL (0.0-0.1) 03/15/18 05:08 Absolute Nucleated RBC 0.0 /100WBC 03/15/18 05:08 Total Counted 100 03/15/18 05:08 Neutrophils % (Manual) 90 % (39-76) H 03/15/18 05:08 Lymphocytes % (Manual) 8 % (13-43) L 03/15/18 05:08 Monocytes % (Manual) 2 % (4-9) L 03/15/18 05:08 Plt Morphology Comment Normal (NORMAL) 03/15/18 05:08 RBC Morphology Normal (NORMAL) 03/15/18 05:08 D-Dimer 1190 ng/mL (0-400) H* 03/06/18 17:28 Sample Site Rr 03/15/18 04:00 ABG pH 7.350 (7.35-7.45) 03/15/18 04:00 ABG pCO2 82.0 mmHg (35.0-45.0) H* 03/15/18 04:00 ABG pO2 52.0 mmHg (80.0-100.0) L 03/15/18 04:00 ABG HCO3 45.3 mmol/L (22-26) H* 03/15/18 04:00 ABG O2 Saturation 85.0 % (90-100) L 03/15/18 04:00 ABG Base Excess 15.9 mmol/L (-2.0-2.0) H 03/15/18 04:00 Twan Test Pos 03/15/18 04:00 A-a Gradient 95.0 mmHg 03/15/18 04:00 FiO2 35.000 03/15/18 04:00 Blood Gas Comments Praneeth well ae 03/15/18 04:00 Sodium 143 mmol/L (136-145) 03/15/18 05:08 Corrected Sodium 146 mmol/L (136-145) H 03/15/18 05:08 Potassium 4.7 mmol/L (3.5-5.1) 03/15/18 05:08 Chloride 102 mmol/L (98-107) 03/15/18 05:08 Carbon Dioxide 37.7 mmol/L (21-32) H 03/15/18 05:08 BUN 30 mg/dL (7-18) H 03/15/18 05:08 Creatinine 1.50 mg/dL (0.55-1.02) H 03/15/18 05:08 Est GFR (MDRD) Af Amer 43 (>60) L 03/15/18 05:08 Est GFR (MDRD) Non-Af 36 (>60) L 03/15/18 05:08 Glucose 214 mg/dL (65-99) H 03/15/18 05:08 POC Glucose (mg/dL) 289 mg/dL (65-99) H 03/15/18 20:12 Calcium 9.2 mg/dL (8.5-10.1) 03/15/18 05:08 Corrected Calcium TNP 03/15/18 05:08 Total Bilirubin 0.60 mg/dL (0.2-1.0) 03/15/18 05:08 AST 13 Units/L (15-37) L 03/15/18 05:08 ALT 14 Units/L (12-78) 03/15/18 05:08 Alkaline Phosphatase 52 Units/L (46-116) 03/15/18 05:08 Creatine Kinase 16 Units/L (26-192) L 03/13/18 00:06 CK-MB (CK-2) < 1.0 ng/mL (0-4.0) 03/13/18 00:06 CK/CKMB % Calc 6.3 % (<4) 03/13/18 00:06 Troponin I 0.06 ng/mL (0-1.5) 03/13/18 00:06 Total Protein 6.9 g/dL (6.4-8.2) 03/15/18 05:08 Albumin 3.6 g/dL (3.4-5.0) 03/15/18 05:08 Globulin 3.3 g/dL (2.5-4.5) 03/15/18 05:08 Albumin/Globulin Ratio 1.1 Ratio (1.1-2.1) 03/15/18 05:08 Specimen Type Catherized urine 03/12/18 11:55 Urine Color Yellow (YELLOW) 03/12/18 11:55 Urine Appearance Hazy (CLEAR) 03/12/18 11:55 Urine pH 5.0 (5.0 - 8.0) 03/12/18 11:55 Ur Specific [place] 1.020 (1.000-1.030) 03/12/18 11:55 Urine Protein 2+ (NEGATIVE) 03/12/18 11:55 Urine Glucose (UA) Negative (NEGATIVE) 03/12/18 11:55 Urine Ketones Negative (NEGATIVE) 03/12/18 11:55 Urine Occult Blood Negative (NEGATIVE) 03/12/18 11:55 Urine Nitrite Negative (NEGATIVE) 03/12/18 11:55 Urine Bilirubin Negative (NEGATIVE) 03/12/18 11:55 Urine Urobilinogen Normal (NORMAL) 03/12/18 11:55 Ur Leukocyte Esterase Negative (NEGATIVE) 03/12/18 11:55 Urine RBC 0-2 /HPF (NONE SEEN) 03/12/18 11:55 Urine WBC 0-2 /HPF (NONE SEEN) 03/12/18 11:55 Ur Squamous Epith Cells Moderate /HPF (NEGATIVE) 03/12/18 11:55 Amorphous Sediment 2+ /HPF (NEGATIVE) 03/12/18 11:55 Urine Bacteria Trace /HPF (NEGATIVE) 03/12/18 11:55 Urine Mucus Few /HPF (NEGATIVE) 03/12/18 11:55 Ur Culture Indicated? No/not indicated 03/12/18 11:55 - Plan (1) RML pneumonia Status: Acute Qualifiers: Pneumonia type: due to unspecified organism Qualified Code(s): J18.1 - Lobar pneumonia, unspecified organism Plan: admit, iv antibiotics, respiratory treatments, supplemental oxygen, lasix 20mg iv bid, continue to monitor (2) CHF (congestive heart failure) Status: Chronic Qualifiers: Heart failure type: unspecified Heart failure chronicity: acute on chronic Qualified Code(s): I50.9 - Heart failure, unspecified Plan: FLUID RESTRICTION, LASIX 40MG IV Q12H, SOLU-MEDROL 20MG IV Q8H, SALINE LOCK IV FLUIDS, CONTINUE HOME MEDICATIONS (3) Respiratory failure with hypercapnia Status: Acute Qualifiers: Chronicity: acute on chronic Qualified Code(s): J96.22 - Acute and chronic respiratory failure with hypercapnia Plan: bipap, respiratory treatments, supplemental oxygen, iv lasix, iv solu- medrol, continue to monitor (4) Atrial fibrillation Status: Chronic Qualifiers: Atrial fibrillation type: chronic Qualified Code(s): I48.2 - Chronic atrial fibrillation Plan: CONTINUE ELIQUIS, CONTINUE TO MONITOR (5) Hyperlipidemia Status: Acute Qualifiers: Hyperlipidemia type: pure hypercholesterolemia Qualified Code(s): E78.00 - Pure hypercholesterolemia, unspecified; E78.0 - Pure hypercholesterolemia Plan: CONTINUE LIPITOR, CONTINUE TO MONITOR (6) Type I diabetes mellitus Status: Chronic Qualifiers: Diabetes mellitus complication status: with unspecified complications Qualified Code(s): E10.8 - Type 1 diabetes mellitus with unspecified complications Plan: MONITOR BS, CONTINUE GLUCOTROL, CONTINUE LANTUS, CONTINUE HUMULIN R
[2018-03-15] MEDS ORDERED: STERILE WATER IRRIGATION IR ONE (21:05)
[2018-03-16] MEDS: MORPHINE SULFATE INJ 2 MG INJ IVP SCH ×2 (02:18→11:19)
[2018-03-16 06:12] LABS: BASOPHILS % (AUTO) 0.4 % (0.2-1.0); HEMATOCRIT 30.1 % (36.0-47.0); HEMOGLOBIN 9.5 g/dL (12.0-16.0); LYMPHOCYTES # (AUTO) 0.5 X10^3/uL (1.3-2.9); LYMPHOCYTES % (AUTO) 5.8 % (21.0-51.0); MEAN CORPUSCULAR HEMOGLOBIN 26.7 pg (27.0-34.0); MEAN CORPUSCULAR HGB CONC 31.7 g/dL (33.0-35.0); MEAN CORPUSCULAR VOLUME 84.3 fL (80.0-100.0); MEAN PLATELET VOLUME 9.5 fL (7.4-11.0); MONOCYTES # (AUTO) 0.2 x10^3/uL (0.3-0.8); MONOCYTES % (AUTO) 2.8 % (0.0-13.0); NEUTROPHILS # (AUTO) 7.4 x10^3/uL (2.2-4.8); PLATELET COUNT 183 X10^3/uL (150.0-450.0); RED BLOOD COUNT 3.57 X10^6/uL (3.5-5.4); RED CELL DISTRIBUTION WIDTH 16.9 % (11.6-16.5); WHITE BLOOD COUNT 8.1 X10^3/uL (3.6-10.0)
[2018-03-16] MEDS: ZOSYN VIAL 4.5 GRAMS 4.5 G in NS 100 ML IV + SPIKE MINIBAG* 100 ML IV SCH ×3 (06:15→21:49)
[2018-03-16] MEDS: SOLU-Medrol 40 MG VIAL IVP SCH ×3 (06:15→21:50)
[2018-03-16] MEDS: GLUCOTROL PO SCH ×2 (06:16→16:32)
[2018-03-16] MEDS: HumuLIN R SUBCUT PRN ×4 (06:16→21:55)
[2018-03-16 06:29] LABS: ALANINE AMINOTRANSFERASE 14 Units/L (12-78); ALBUMIN 3.8 g/dL (3.4-5.0); ALKALINE PHOSPHATASE 49 Units/L (46-116); ASPARTATE AMINO TRANSFERASE 13 Units/L (15-37); BLOOD UREA NITROGEN 40 mg/dL (7-18); CALCIUM 9.6 mg/dL (8.5-10.1); CARBON DIOXIDE 35.5 mmol/L (21-32); CHLORIDE 103 mmol/L (98-107); COR NA(FOR HYPERGLY) 146 mmol/L (136-145); CREATININE 1.54 mg/dL (0.55-1.02); SODIUM 143 mmol/L (136-145); TOTAL PROTEIN 7.5 g/dL (6.4-8.2); eGFR NON BLACK RACES 35 (>60)
[2018-03-16 06:33] LABS: BAND NEUTROPHILS % 2 % (0-10)
[2018-03-16 06:34] LABS: PLATELET MORPHOLOGY COMMENT NORMAL (NORMAL)
--- NOTE | 2018-03-16 06:39 | RAD ---
HISTORY: Shortness of breath Study: Chest AP portable Comparison: 03/15/2018 Findings: The heart remains enlarged. Pulmonary venous congestion is unchanged. No definite interstitial or albert eolar edema is identified. Increased density is present in both lung bases unchanged from prior exami nation likely due to infiltrates although atelectasis or pleural effusion cannot be excluded on the l eft. The bony thorax is unremarkable. IMPRESSION: No significant change from the prior examination Reported By:
[2018-03-16] MEDS: ASPIRIN EC 81 MG PO SCH (08:27)
[2018-03-16] MEDS: COZAAR PO SCH (08:27)
[2018-03-16] MEDS: LASIX IVP SCH ×2 (08:27→21:50)
[2018-03-16] MEDS: ELIQUIS PO SCH ×2 (08:27→21:51)
[2018-03-16] MEDS: ALBUMIN HUMAN 25%- 100 ML 100 ML IV SCH (08:27)
[2018-03-16] MEDS: MILK OF MAGNESIA PO SCH ×2 (08:28→21:47)
[2018-03-16] MEDS: ROBITUSSIN DM PO SCH ×3 (08:28→21:46)
[2018-03-16] MEDS: ZYLOPRIM PO SCH (08:28)
[2018-03-16] MEDS: MICRO K EXTEN CAP 10 MEQ PO SCH (08:28)
[2018-03-16] MEDS: MAG-OX TAB PO SCH (08:28)
[2018-03-16 08:38] LABS: ABG BASE EXCESS 12.8 mmol/L (-2.0-2.0)
[2018-03-16 08:39] LABS: ABG ALLEN TEST POS
[2018-03-16] MEDS: XOPENEX 1.25 MG/3 ML NEBULE NEB SCH ×4 (08:40→20:20)
[2018-03-16] MEDS: OXYBUTYNIN CHLORIDE ER PO SCH (11:30)
[2018-03-16] MEDS: LIPITOR TAB 40 MG PO SCH (21:51)
[2018-03-16] MEDS: COLACE CAP 100 MG PO SCH (21:51)
[2018-03-16] MEDS: SNACK - Diabetic Appropriate PO SCH (21:51)
[2018-03-16] MEDS: LANTUS SC SCH (21:52)
[2018-03-17] MEDS: MORPHINE SULFATE INJ 2 MG INJ IVP SCH ×4 (01:30→18:31)
[2018-03-17 05:30] LABS: ABG BASE EXCESS 14.1 mmol/L (-2.0-2.0)
[2018-03-17 05:32] LABS: ABG HCO3 42.9 mmol/L (22-26)
[2018-03-17] MEDS: ZOSYN VIAL 4.5 GRAMS 4.5 G in NS 100 ML IV + SPIKE MINIBAG* 100 ML IV SCH ×3 (06:12→22:23)
[2018-03-17] MEDS: SOLU-Medrol 40 MG VIAL IVP SCH (06:12)
[2018-03-17] MEDS: GLUCOTROL PO SCH ×2 (06:13→16:29)
[2018-03-17 06:24] LABS: BASOPHILS % (AUTO) 0.1 % (0.2-1.0); HEMATOCRIT 28.5 % (36.0-47.0); HEMOGLOBIN 9.1 g/dL (12.0-16.0); LYMPHOCYTES # (AUTO) 0.4 X10^3/uL (1.3-2.9); LYMPHOCYTES % (AUTO) 5.9 % (21.0-51.0); MEAN CORPUSCULAR VOLUME 84.3 fL (80.0-100.0); MEAN PLATELET VOLUME 9.5 fL (7.4-11.0); MONOCYTES # (AUTO) 0.2 x10^3/uL (0.3-0.8); MONOCYTES % (AUTO) 2.2 % (0.0-13.0); NEUTROPHILS # (AUTO) 6.7 x10^3/uL (2.2-4.8); NEUTROPHILS % (AUTO) 91.8 % (42.0-75.0); PLATELET COUNT 172 X10^3/uL (150.0-450.0); RED BLOOD COUNT 3.38 X10^6/uL (3.5-5.4); RED CELL DISTRIBUTION WIDTH 17.2 % (11.6-16.5); WHITE BLOOD COUNT 7.3 X10^3/uL (3.6-10.0)
[2018-03-17 06:39] LABS: ALANINE AMINOTRANSFERASE 13 Units/L (12-78); ALBUMIN 3.6 g/dL (3.4-5.0); ALKALINE PHOSPHATASE 41 Units/L (46-116); ASPARTATE AMINO TRANSFERASE 14 Units/L (15-37); BLOOD UREA NITROGEN 48 mg/dL (7-18); CALCIUM 9.3 mg/dL (8.5-10.1); CARBON DIOXIDE 37.3 mmol/L (21-32); CHLORIDE 102 mmol/L (98-107); COR NA(FOR HYPERGLY) 147 mmol/L (136-145); CREATININE 1.86 mg/dL (0.55-1.02); SODIUM 144 mmol/L (136-145); eGFR NON BLACK RACES 28 (>60)
--- NOTE | 2018-03-17 06:39 | RAD ---
HISTORY: Shortness of breath Study: Chest AP portable Comparison: 03/16/2018 Findings: The heart remains enlarged. Mild pulmonary venous congestion is unchanged. No definite interstitial o r alveolar pulmonary edema is identified. Increased density is present in both lung bases likely due did pulmonary infiltrates although atelectasis or pleural effusion cannot be excluded particularly on the left. The bony thorax is unremarkable. IMPRESSION: No significant change from the prior examination Reported By:
[2018-03-17 06:49] LABS: PLATELET MORPHOLOGY COMMENT NORMAL (NORMAL)
[2018-03-17] MEDS: ROBITUSSIN DM PO SCH ×5 (07:43→22:23)
[2018-03-17] MEDS ORDERED: LASIX IVP ONE (08:16)
[2018-03-17] MEDS: XOPENEX 1.25 MG/3 ML NEBULE NEB SCH ×4 (08:30→21:14)
[2018-03-17] MEDS: ALBUMIN HUMAN 25%- 100 ML 100 ML IV SCH (09:31)
[2018-03-17] MEDS: ASPIRIN EC 81 MG PO SCH (09:31)
[2018-03-17] MEDS: ELIQUIS PO SCH ×2 (09:32→22:29)
[2018-03-17] MEDS: OXYBUTYNIN CHLORIDE ER PO SCH (09:32)
[2018-03-17] MEDS: MILK OF MAGNESIA PO SCH ×2 (09:32→22:29)
[2018-03-17] MEDS: COZAAR PO SCH (09:32)
[2018-03-17] MEDS: MICRO K EXTEN CAP 10 MEQ PO SCH (09:32)
[2018-03-17] MEDS: MAG-OX TAB PO SCH (09:32)
[2018-03-17] MEDS: ZYLOPRIM PO SCH (09:33)
[2018-03-17] MEDS: HumuLIN R SUBCUT PRN ×3 (11:19→22:41)
[2018-03-17] MEDS: SNACK - Diabetic Appropriate PO SCH (22:22)
[2018-03-17] MEDS: LIPITOR TAB 40 MG PO SCH (22:28)
[2018-03-17] MEDS: COLACE CAP 100 MG PO SCH (22:30)
[2018-03-17] MEDS: ULTRAM PO PRN (22:30)
[2018-03-17] MEDS: LANTUS SC SCH (22:39)
[2018-03-18] MEDS: MORPHINE SULFATE INJ 2 MG INJ IVP SCH ×3 (02:25→17:00)
[2018-03-18 04:42] LABS: ABG BASE EXCESS 14.8 mmol/L (-2.0-2.0)
[2018-03-18 04:43] LABS: ABG HCO3 43.2 mmol/L (22-26)
[2018-03-18 05:21] LABS: BASOPHILS % (AUTO) 0.4 % (0.2-1.0); EOSINOPHILS % (AUTO) 0.2 % (0.9-2.9); HEMATOCRIT 28.4 % (36.0-47.0); LYMPHOCYTES # (AUTO) 0.8 X10^3/uL (1.3-2.9); LYMPHOCYTES % (AUTO) 10.2 % (21.0-51.0); MEAN CORPUSCULAR HEMOGLOBIN 26.5 pg (27.0-34.0); MEAN CORPUSCULAR HGB CONC 31.8 g/dL (33.0-35.0); MEAN CORPUSCULAR VOLUME 83.4 fL (80.0-100.0); MEAN PLATELET VOLUME 9.2 fL (7.4-11.0); MONOCYTES # (AUTO) 0.5 x10^3/uL (0.3-0.8); MONOCYTES % (AUTO) 7.2 % (0.0-13.0); NEUTROPHILS # (AUTO) 6.2 x10^3/uL (2.2-4.8); PLATELET COUNT 183 X10^3/uL (150.0-450.0); RED CELL DISTRIBUTION WIDTH 17.4 % (11.6-16.5); WHITE BLOOD COUNT 7.6 X10^3/uL (3.6-10.0)
[2018-03-18 05:35] LABS: ALANINE AMINOTRANSFERASE 13 Units/L (12-78); ALBUMIN 3.7 g/dL (3.4-5.0); ALKALINE PHOSPHATASE 38 Units/L (46-116); ASPARTATE AMINO TRANSFERASE 14 Units/L (15-37); BLOOD UREA NITROGEN 58 mg/dL (7-18); CALCIUM 9.2 mg/dL (8.5-10.1); CARBON DIOXIDE 36.3 mmol/L (21-32); CHLORIDE 103 mmol/L (98-107); COR NA(FOR HYPERGLY) 147 mmol/L (136-145); CREATININE 1.91 mg/dL (0.55-1.02); SODIUM 146 mmol/L (136-145); TOTAL PROTEIN 6.9 g/dL (6.4-8.2); eGFR NON BLACK RACES 27 (>60)
[2018-03-18] MEDS: ZOSYN VIAL 4.5 GRAMS 4.5 G in NS 100 ML IV + SPIKE MINIBAG* 100 ML IV SCH ×3 (05:37→21:33)
--- NOTE | 2018-03-18 06:16 | RAD ---
Examination: Portable AP chest History: CHF SOB Comparison reference 03/17/2018 Findings: Continued cardiac enlargement with pulmonary vascular distention and diffuse density in bot h bases consistent with atelectasis or perivascular edema. Pleural fluid may be present. No complicat ing pneumothorax is seen. Impression: Radiographic findings suggest congestive heart failure. There is little change identified , however, Reported By:
[2018-03-18] MEDS: XOPENEX 1.25 MG/3 ML NEBULE NEB SCH ×4 (08:36→20:08)
[2018-03-18] MEDS: GLUCOTROL PO SCH ×2 (09:29→16:23)
[2018-03-18] MEDS: COZAAR PO SCH (09:30)
[2018-03-18] MEDS: ASPIRIN EC 81 MG PO SCH (09:30)
[2018-03-18] MEDS: ALBUMIN HUMAN 25%- 100 ML 100 ML IV SCH (09:30)
[2018-03-18] MEDS: MICRO K EXTEN CAP 10 MEQ PO SCH (09:31)
[2018-03-18] MEDS: OXYBUTYNIN CHLORIDE ER PO SCH (09:31)
[2018-03-18] MEDS: MILK OF MAGNESIA PO SCH ×2 (09:31→21:34)
[2018-03-18] MEDS: ELIQUIS PO SCH ×2 (09:31→21:35)
[2018-03-18] MEDS: MAG-OX TAB PO SCH (09:31)
[2018-03-18] MEDS: ROBITUSSIN DM PO SCH ×4 (09:32→21:33)
[2018-03-18] MEDS: ZYLOPRIM PO SCH (09:32)
[2018-03-18] MEDS: HumuLIN R SUBCUT PRN (12:14)
--- NOTE | 2018-03-18 17:52 | PCM.PROG ---
Progress Note - Progress Note for Day of Date of Exam: 03/16/18 - Subjective Subjective: IS BEING TREATED FOR RIGHT MIDDLE LOBE PNEUMONIA AND CHF EXACERBATION. TODAY, SHE IS ALERT AND ORIENTED, SITTING UP IN CHAIR ON MORNING ROUNDS. SHE CONTINUES WITH COMPLAINTS OF A NON-PRODUCTIVE COUGH AND INCREASED SHORTNESS OF BREATH. ON EXAMINATION, SHE CONTINUES TO BE IN ATRIAL FIBRILLATION WITH HR IN THE 70S. BILATERAL LUNGS CONTINUE WITH SCATTERED WHEEZING AND RHONCHI THROUGHOUT. SHE IS CURRENTLY UTILIZING THE BIPAP. ABDOMEN IS ROUND, SOFT , AND NON-TENDER WITH NORMAL BOWEL SOUNDS NOTED IN ALL QUADRANTS. HER VITALS TODAY ARE 97.8-75-25-100%BIPAP-135/68. LABS WERE OBTAINED. ABNORMAL LAB VALUES INCLUDE THE FOLLOWING: HGB 9.5, HCT 30.1, CARBON DIOXIDE 35.5, BUN 40, CREATININE 1.54, GLUCOSE 219, AST 13. ABG REVEALED: PH 7.370, PC02 71.0, P02 68 , HC03 41.0, O2 SATURATION 93.0, BASE EXCESS 12.8., TODAYS CHEST XRAY CONTINUES TO REVEAL: The heart remains enlarged. Pulmonary venous congestion is unchanged. No definite interstitial or alveolar edema is identified. Increased density is present in both lung bases unchanged from prior examination likely due to infiltrates although atelectasis or pleural effusion cannot be excluded on the left. TODAY, WE WILL START JESSE-DUR 200MG PO BID. OTHERWISE, WE WILL CONTINUE WITH RESPIRATORY TREATMENTS, BIPAP, IV STEROIDS, IV LASIX, AND CURRENT PLAN OF CARE. WE PLAN TO FOLLOW UP WITH AM LABS AND CHEST XRAY AND WILL CONTINUE TO MONITOR PATIENT. - Past Medical Family Social History Past Med/Fam/Surg Hx: No changes since H&P Allergies: Allergies lisinopril [From Zestril] Allergy (Verified 03/06/18 17:05) meperidine [From Demerol] Adverse Reaction (Verified 03/06/18 17:05) zinc Adverse Reaction (Verified 03/06/18 17:05) - Review of Systems ROS: No change since H&P - Vital Signs and I&O's Vital Signs: Temperature 97.5 F Pulse Rate [Apical] 87 Pulse Rate [Right Brachial] 68 Pulse Rate [Left Brachial] 87 Pulse Rate 77 Respiratory Rate 24 Blood Pressure [Left Radial 145/63 Artery] Blood Pressure [Right Radial 178/102 Artery] Blood Pressure [Right Arm] 124/64 Blood Pressure [Left Arm] 133/77 Blood Pressure 137/95 O2 Sat by Pulse Oximetry 100 Intake and Output: Intake & Output 03/16/18 03/17/18 03/18/18 03/19/18 11:59 11:59 11:59 11:59 Intake Total 1382 / 1382 1194 / 1194 638 / 638 240 / 240 Output Total 950 / 950 1050 / 1050 1300 / 1300 600 / 600 Balance 432 / 432 144 / 144 -662 / -662 -360 / -360 - Physical Exam Oriented: Normal Eyes: Normal Ear: Normal Nose: Normal Throat: Normal Respiratory: Generalized, Wheezes, Rhonchi Cardiovascular: Irregular (AFIB). negative: S3, S4, Murmur : Normal Auscultation: Bowel Sounds: Normal Palpation: Normal Tenderness: Normal Skin: Normal Musculoskeletal: Normal Psychiatric: Normal Mood Description: Calm, Labile Affect: Normal Speech Pattern: Clear, Appropriate - Laboratory and Diagnostics Result Diagrams: 03/18/18 04:35 03/18/18 04:35 Labs: 03/06/18 19:48 Blood Blood Culture - Final 03/06/18 19:44 Blood Blood Culture - Final Laboratory WBC 7.6 X10^3/uL (3.6-10.0) 03/18/18 04:35 RBC 3.40 X10^6/uL (3.5-5.4) L 03/18/18 04:35 Hgb 9.0 g/dL (12.0-16.0) L 03/18/18 04:35 Hct 28.4 % (36.0-47.0) L 03/18/18 04:35 MCV 83.4 fL (80.0-100.0) 03/18/18 04:35 MCH 26.5 pg (27.0-34.0) L 03/18/18 04:35 MCHC 31.8 g/dL (33.0-35.0) L 03/18/18 04:35 RDW 17.4 % (11.6-16.5) H 03/18/18 04:35 Plt Count 183 X10^3/uL (150.0-450.0) 03/18/18 04:35 Plt Count Comment Adequate (ADEQUATE) 03/17/18 05:31 MPV 9.2 fL (7.4-11.0) 03/18/18 04:35 Neut % (Auto) 82.0 % (42.0-75.0) H 03/18/18 04:35 Lymph % (Auto) 10.2 % (21.0-51.0) L 03/18/18 04:35 [place] % (Auto) 7.2 % (0.0-13.0) 03/18/18 04:35 Eos % (Auto) 0.2 % (0.9-2.9) L 03/18/18 04:35 Baso % (Auto) 0.4 % (0.2-1.0) 03/18/18 04:35 Neut # (Auto) 6.2 x10^3/uL (2.2-4.8) H 03/18/18 04:35 Lymph # (Auto) 0.8 X10^3/uL (1.3-2.9) L 03/18/18 04:35 [place] # (Auto) 0.5 x10^3/uL (0.3-0.8) 03/18/18 04:35 Eos # (Auto) 0.0 x10^3/uL (0.0-0.2) 03/18/18 04:35 Baso # (Auto) 0.0 X10^3/uL (0.0-0.1) 03/18/18 04:35 Absolute Nucleated RBC 0.1 /100WBC 03/18/18 04:35 Total Counted 100 03/17/18 05:31 Neutrophils % (Manual) 95 % (39-76) H 03/17/18 05:31 Band Neutrophils % 2 % (0-10) 03/16/18 05:08 Lymphocytes % (Manual) 3 % (13-43) L 03/17/18 05:31 Monocytes % (Manual) 2 % (4-9) L 03/17/18 05:31 Plt Morphology Comment Normal (NORMAL) 03/17/18 05:31 RBC Morphology Normal (NORMAL) 03/17/18 05:31 D-Dimer 1190 ng/mL (0-400) H* 03/06/18 17:28 Sample Site Rbra 03/18/18 04:33 ABG pH 7.380 (7.35-7.45) 03/18/18 04:33 ABG pCO2 73.0 mmHg (35.0-45.0) H* 03/18/18 04:33 ABG pO2 67.0 mmHg (80.0-100.0) L 03/18/18 04:33 ABG HCO3 43.2 mmol/L (22-26) H* 03/18/18 04:33 ABG O2 Saturation 93.0 % (90-100) 03/18/18 04:33 ABG Base Excess 14.8 mmol/L (-2.0-2.0) H 03/18/18 04:33 Twan Test Na 03/18/18 04:33 A-a Gradient 91.0 mmHg 03/18/18 04:33 FiO2 35.000 03/18/18 04:33 Blood Gas Comments Praneeth abg well-mtf 03/18/18 04:33 Sodium 146 mmol/L (136-145) H 03/18/18 04:35 Corrected Sodium 147 mmol/L (136-145) H 03/18/18 04:35 Potassium 4.6 mmol/L (3.5-5.1) 03/18/18 04:35 Chloride 103 mmol/L (98-107) 03/18/18 04:35 Carbon Dioxide 36.3 mmol/L (21-32) H 03/18/18 04:35 BUN 58 mg/dL (7-18) H 03/18/18 04:35 Creatinine 1.91 mg/dL (0.55-1.02) H 03/18/18 04:35 Est GFR (MDRD) Af Amer 33 (>60) L 03/18/18 04:35 Est GFR (MDRD) Non-Af 27 (>60) L 03/18/18 04:35 Glucose 146 mg/dL (65-99) H 03/18/18 04:35 POC Glucose (mg/dL) 149 mg/dL (65-99) H 03/18/18 16:11 Calcium 9.2 mg/dL (8.5-10.1) 03/18/18 04:35 Corrected Calcium TNP 03/18/18 04:35 Total Bilirubin 0.70 mg/dL (0.2-1.0) 03/18/18 04:35 AST 14 Units/L (15-37) L 03/18/18 04:35 ALT 13 Units/L (12-78) 03/18/18 04:35 Alkaline Phosphatase 38 Units/L (46-116) L 03/18/18 04:35 Creatine Kinase 16 Units/L (26-192) L 03/13/18 00:06 CK-MB (CK-2) < 1.0 ng/mL (0-4.0) 03/13/18 00:06 CK/CKMB % Calc 6.3 % (<4) 03/13/18 00:06 Troponin I 0.06 ng/mL (0-1.5) 03/13/18 00:06 Total Protein 6.9 g/dL (6.4-8.2) 03/18/18 04:35 Albumin 3.7 g/dL (3.4-5.0) 03/18/18 04:35 Globulin 3.2 g/dL (2.5-4.5) 03/18/18 04:35 Albumin/Globulin Ratio 1.2 Ratio (1.1-2.1) 03/18/18 04:35 Specimen Type Catherized urine 03/12/18 11:55 Urine Color Yellow (YELLOW) 03/12/18 11:55 Urine Appearance Hazy (CLEAR) 03/12/18 11:55 Urine pH 5.0 (5.0 - 8.0) 03/12/18 11:55 Ur Specific [place] 1.020 (1.000-1.030) 03/12/18 11:55 Urine Protein 2+ (NEGATIVE) 03/12/18 11:55 Urine Glucose (UA) Negative (NEGATIVE) 03/12/18 11:55 Urine Ketones Negative (NEGATIVE) 03/12/18 11:55 Urine Occult Blood Negative (NEGATIVE) 03/12/18 11:55 Urine Nitrite Negative (NEGATIVE) 03/12/18 11:55 Urine Bilirubin Negative (NEGATIVE) 03/12/18 11:55 Urine Urobilinogen Normal (NORMAL) 03/12/18 11:55 Ur Leukocyte Esterase Negative (NEGATIVE) 03/12/18 11:55 Urine RBC 0-2 /HPF (NONE SEEN) 03/12/18 11:55 Urine WBC 0-2 /HPF (NONE SEEN) 03/12/18 11:55 Ur Squamous Epith Cells Moderate /HPF (NEGATIVE) 03/12/18 11:55 Amorphous Sediment 2+ /HPF (NEGATIVE) 03/12/18 11:55 Urine Bacteria Trace /HPF (NEGATIVE) 03/12/18 11:55 Urine Mucus Few /HPF (NEGATIVE) 03/12/18 11:55 Ur Culture Indicated? No/not indicated 03/12/18 11:55 - Plan (1) RML pneumonia Status: Acute Qualifiers: Pneumonia type: due to unspecified organism Qualified Code(s): J18.1 - Lobar pneumonia, unspecified organism Plan: admit, iv antibiotics, respiratory treatments, supplemental oxygen, lasix 20mg iv bid, continue to monitor (2) CHF (congestive heart failure) Status: Chronic Qualifiers: Heart failure type: unspecified Heart failure chronicity: acute on chronic Qualified Code(s): I50.9 - Heart failure, unspecified Plan: FLUID RESTRICTION, LASIX 40MG IV Q12H, SOLU-MEDROL 20MG IV Q8H, SALINE LOCK IV FLUIDS, CONTINUE HOME MEDICATIONS, JESSE-DUR 200MG PO BID (3) Respiratory failure with hypercapnia Status: Acute Qualifiers: Chronicity: acute on chronic Qualified Code(s): J96.22 - Acute and chronic respiratory failure with hypercapnia Plan: JESSE-DUR 200MG PO BID, bipap, respiratory treatments, supplemental oxygen , iv lasix, iv solu-medrol, continue to monitor (4) Atrial fibrillation Status: Chronic Qualifiers: Atrial fibrillation type: chronic Qualified Code(s): I48.2 - Chronic atrial fibrillation Plan: CONTINUE ELIQUIS, CONTINUE TO MONITOR (5) Hyperlipidemia Status: Acute Qualifiers: Hyperlipidemia type: pure hypercholesterolemia Qualified Code(s): E78.00 - Pure hypercholesterolemia, unspecified; E78.0 - Pure hypercholesterolemia Plan: CONTINUE LIPITOR, CONTINUE TO MONITOR (6) Type I diabetes mellitus Status: Chronic Qualifiers: Diabetes mellitus complication status: with unspecified complications Qualified Code(s): E10.8 - Type 1 diabetes mellitus with unspecified complications Plan: MONITOR BS, CONTINUE GLUCOTROL, CONTINUE LANTUS, CONTINUE HUMULIN R
--- NOTE | 2018-03-18 18:50 | PCM.PROG ---
Progress Note - Progress Note for Day of Date of Exam: 03/17/18 - Subjective Subjective: IS BEING TREATED FOR RIGHT MIDDLE LOBE PNEUMONIA AND CHF EXACERBATION. TODAY, SHE IS ALERT AND ORIENTED, SITTING UP IN CHAIR ON MORNING ROUNDS. SHE CONTINUES WITH COMPLAINTS OF A NON-PRODUCTIVE COUGH AND INCREASED SHORTNESS OF BREATH, BUT REPORTS SLIGHT IMPROVEMENT TODAY. SHE IS NOT WEARING HER BIPAP AT THIS TIME. ON EXAMINATION, SHE CONTINUES TO BE IN ATRIAL FIBRILLATION WITH HR IN THE 90S. BILATERAL LUNGS CONTINUE WITH SCATTERED WHEEZING AND RHONCHI THROUGHOUT. ABDOMEN IS ROUND, SOFT, AND NON-TENDER WITH NORMAL BOWEL SOUNDS NOTED IN ALL QUADRANTS. HER VITALS TODAY ARE 97.6-93-23-93% NC-140/66. LABS WERE OBTAINED. ABNORMAL LAB VALUES INCLUDE THE FOLLOWING: RBC 3.38, HGB 9.1, HCT 28.5, POTASSIUM 5.3, CARBON DIOXIDE 37.3, BUN 48, CREATININE 1.86, GLUCOSE 236, AST 14, ALK PHOS 41. ABG REVEALED: PH 7.360, PC02 76.0, P02 81, HC03 42.9, O2 SATURATION 95.0, BASE EXCESS 14.1. TODAYS CHEST XRAY CONTINUES TO REVEAL: The heart remains enlarged. Mild pulmonary venous congestion is unchanged. No definite interstitial or alveolar pulmonary edema is identified. Increased density is present in both lung bases likely due did pulmonary infiltrates although atelectasis or pleural effusion cannot be excluded particularly on the left. TODAY, WE WILL CONTINUE WITH RESPIRATORY TREATMENTS, BIPAP, IV STEROIDS, AND CURRENT PLAN OF CARE. WE WILL HOLD LASIX DUE TO ELEVATED CREATININE. OTHERWISE, WE PLAN TO FOLLOW UP WITH AM LABS AND CHEST XRAY AND WILL CONTINUE TO MONITOR PATIENT. - Past Medical Family Social History Past Med/Fam/Surg Hx: No changes since H&P Allergies: Allergies lisinopril [From Zestril] Allergy (Verified 03/06/18 17:05) meperidine [From Demerol] Adverse Reaction (Verified 03/06/18 17:05) zinc Adverse Reaction (Verified 03/06/18 17:05) - Review of Systems ROS: No change since H&P - Vital Signs and I&O's Vital Signs: Temperature 97.5 F Pulse Rate [Apical] 87 Pulse Rate [Right Brachial] 68 Pulse Rate [Left Brachial] 110 Pulse Rate 77 Respiratory Rate 34 Blood Pressure [Left Radial 145/63 Artery] Blood Pressure [Right Radial 178/102 Artery] Blood Pressure [Right Arm] 124/64 Blood Pressure [Left Arm] 143/87 Blood Pressure 137/95 O2 Sat by Pulse Oximetry 98 Intake and Output: Intake & Output 03/16/18 03/17/18 03/18/18 03/19/18 11:59 11:59 11:59 11:59 Intake Total 1382 / 1382 1194 / 1194 638 / 638 240 / 240 Output Total 950 / 950 1050 / 1050 1300 / 1300 600 / 600 Balance 432 / 432 144 / 144 -662 / -662 -360 / -360 - Physical Exam Oriented: Normal Eyes: Normal Ear: Normal Nose: Normal Throat: Normal Respiratory: Generalized, Wheezes, Rhonchi Cardiovascular: Irregular (AFIB). negative: S3, S4, Murmur : Normal Auscultation: Bowel Sounds: Normal Tenderness: Normal Skin: Normal Musculoskeletal: Normal Psychiatric: Normal Mood Description: Calm, Labile Affect: Normal Speech Pattern: Clear, Appropriate - Laboratory and Diagnostics Result Diagrams: 03/18/18 04:35 03/18/18 04:35 Labs: 03/06/18 19:48 Blood Blood Culture - Final 03/06/18 19:44 Blood Blood Culture - Final Laboratory WBC 7.6 X10^3/uL (3.6-10.0) 03/18/18 04:35 RBC 3.40 X10^6/uL (3.5-5.4) L 03/18/18 04:35 Hgb 9.0 g/dL (12.0-16.0) L 03/18/18 04:35 Hct 28.4 % (36.0-47.0) L 03/18/18 04:35 MCV 83.4 fL (80.0-100.0) 03/18/18 04:35 MCH 26.5 pg (27.0-34.0) L 03/18/18 04:35 MCHC 31.8 g/dL (33.0-35.0) L 03/18/18 04:35 RDW 17.4 % (11.6-16.5) H 03/18/18 04:35 Plt Count 183 X10^3/uL (150.0-450.0) 03/18/18 04:35 Plt Count Comment Adequate (ADEQUATE) 03/17/18 05:31 MPV 9.2 fL (7.4-11.0) 03/18/18 04:35 Neut % (Auto) 82.0 % (42.0-75.0) H 03/18/18 04:35 Lymph % (Auto) 10.2 % (21.0-51.0) L 03/18/18 04:35 [place] % (Auto) 7.2 % (0.0-13.0) 03/18/18 04:35 Eos % (Auto) 0.2 % (0.9-2.9) L 03/18/18 04:35 Baso % (Auto) 0.4 % (0.2-1.0) 03/18/18 04:35 Neut # (Auto) 6.2 x10^3/uL (2.2-4.8) H 03/18/18 04:35 Lymph # (Auto) 0.8 X10^3/uL (1.3-2.9) L 03/18/18 04:35 [place] # (Auto) 0.5 x10^3/uL (0.3-0.8) 03/18/18 04:35 Eos # (Auto) 0.0 x10^3/uL (0.0-0.2) 03/18/18 04:35 Baso # (Auto) 0.0 X10^3/uL (0.0-0.1) 03/18/18 04:35 Absolute Nucleated RBC 0.1 /100WBC 03/18/18 04:35 Total Counted 100 03/17/18 05:31 Neutrophils % (Manual) 95 % (39-76) H 03/17/18 05:31 Band Neutrophils % 2 % (0-10) 03/16/18 05:08 Lymphocytes % (Manual) 3 % (13-43) L 03/17/18 05:31 Monocytes % (Manual) 2 % (4-9) L 03/17/18 05:31 Plt Morphology Comment Normal (NORMAL) 03/17/18 05:31 RBC Morphology Normal (NORMAL) 03/17/18 05:31 D-Dimer 1190 ng/mL (0-400) H* 03/06/18 17:28 Sample Site Rbra 03/18/18 04:33 ABG pH 7.380 (7.35-7.45) 03/18/18 04:33 ABG pCO2 73.0 mmHg (35.0-45.0) H* 03/18/18 04:33 ABG pO2 67.0 mmHg (80.0-100.0) L 03/18/18 04:33 ABG HCO3 43.2 mmol/L (22-26) H* 03/18/18 04:33 ABG O2 Saturation 93.0 % (90-100) 03/18/18 04:33 ABG Base Excess 14.8 mmol/L (-2.0-2.0) H 03/18/18 04:33 Twan Test Na 03/18/18 04:33 A-a Gradient 91.0 mmHg 03/18/18 04:33 FiO2 35.000 03/18/18 04:33 Blood Gas Comments Praneeth abg well-mtf 03/18/18 04:33 Sodium 146 mmol/L (136-145) H 03/18/18 04:35 Corrected Sodium 147 mmol/L (136-145) H 03/18/18 04:35 Potassium 4.6 mmol/L (3.5-5.1) 03/18/18 04:35 Chloride 103 mmol/L (98-107) 03/18/18 04:35 Carbon Dioxide 36.3 mmol/L (21-32) H 03/18/18 04:35 BUN 58 mg/dL (7-18) H 03/18/18 04:35 Creatinine 1.91 mg/dL (0.55-1.02) H 03/18/18 04:35 Est GFR (MDRD) Af Amer 33 (>60) L 03/18/18 04:35 Est GFR (MDRD) Non-Af 27 (>60) L 03/18/18 04:35 Glucose 146 mg/dL (65-99) H 03/18/18 04:35 POC Glucose (mg/dL) 149 mg/dL (65-99) H 03/18/18 16:11 Calcium 9.2 mg/dL (8.5-10.1) 03/18/18 04:35 Corrected Calcium TNP 03/18/18 04:35 Total Bilirubin 0.70 mg/dL (0.2-1.0) 03/18/18 04:35 AST 14 Units/L (15-37) L 03/18/18 04:35 ALT 13 Units/L (12-78) 03/18/18 04:35 Alkaline Phosphatase 38 Units/L (46-116) L 03/18/18 04:35 Creatine Kinase 16 Units/L (26-192) L 03/13/18 00:06 CK-MB (CK-2) < 1.0 ng/mL (0-4.0) 03/13/18 00:06 CK/CKMB % Calc 6.3 % (<4) 03/13/18 00:06 Troponin I 0.06 ng/mL (0-1.5) 03/13/18 00:06 Total Protein 6.9 g/dL (6.4-8.2) 03/18/18 04:35 Albumin 3.7 g/dL (3.4-5.0) 03/18/18 04:35 Globulin 3.2 g/dL (2.5-4.5) 03/18/18 04:35 Albumin/Globulin Ratio 1.2 Ratio (1.1-2.1) 03/18/18 04:35 Specimen Type Catherized urine 03/12/18 11:55 Urine Color Yellow (YELLOW) 03/12/18 11:55 Urine Appearance Hazy (CLEAR) 03/12/18 11:55 Urine pH 5.0 (5.0 - 8.0) 03/12/18 11:55 Ur Specific [place] 1.020 (1.000-1.030) 03/12/18 11:55 Urine Protein 2+ (NEGATIVE) 03/12/18 11:55 Urine Glucose (UA) Negative (NEGATIVE) 03/12/18 11:55 Urine Ketones Negative (NEGATIVE) 03/12/18 11:55 Urine Occult Blood Negative (NEGATIVE) 03/12/18 11:55 Urine Nitrite Negative (NEGATIVE) 03/12/18 11:55 Urine Bilirubin Negative (NEGATIVE) 03/12/18 11:55 Urine Urobilinogen Normal (NORMAL) 03/12/18 11:55 Ur Leukocyte Esterase Negative (NEGATIVE) 03/12/18 11:55 Urine RBC 0-2 /HPF (NONE SEEN) 03/12/18 11:55 Urine WBC 0-2 /HPF (NONE SEEN) 03/12/18 11:55 Ur Squamous Epith Cells Moderate /HPF (NEGATIVE) 03/12/18 11:55 Amorphous Sediment 2+ /HPF (NEGATIVE) 03/12/18 11:55 Urine Bacteria Trace /HPF (NEGATIVE) 03/12/18 11:55 Urine Mucus Few /HPF (NEGATIVE) 03/12/18 11:55 Ur Culture Indicated? No/not indicated 03/12/18 11:55 - Plan (1) RML pneumonia Status: Acute Qualifiers: Pneumonia type: due to unspecified organism Qualified Code(s): J18.1 - Lobar pneumonia, unspecified organism Plan: admit, iv antibiotics, respiratory treatments, supplemental oxygen, lasix 20mg iv bid, continue to monitor (2) CHF (congestive heart failure) Status: Chronic Qualifiers: Heart failure type: unspecified Heart failure chronicity: acute on chronic Qualified Code(s): I50.9 - Heart failure, unspecified Plan: FLUID RESTRICTION, LASIX 40MG IV Q12H, SOLU-MEDROL 20MG IV Q8H, SALINE LOCK IV FLUIDS, CONTINUE HOME MEDICATIONS, JESSE-DUR 200MG PO BID (3) Respiratory failure with hypercapnia Status: Acute Qualifiers: Chronicity: acute on chronic Qualified Code(s): J96.22 - Acute and chronic respiratory failure with hypercapnia Plan: JESSE-DUR 200MG PO BID, bipap, respiratory treatments, supplemental oxygen , iv lasix, iv solu-medrol, continue to monitor (4) Atrial fibrillation Status: Chronic Qualifiers: Atrial fibrillation type: chronic Qualified Code(s): I48.2 - Chronic atrial fibrillation Plan: CONTINUE ELIQUIS, CONTINUE TO MONITOR (5) Hyperlipidemia Status: Acute Qualifiers: Hyperlipidemia type: pure hypercholesterolemia Qualified Code(s): E78.00 - Pure hypercholesterolemia, unspecified; E78.0 - Pure hypercholesterolemia Plan: CONTINUE LIPITOR, CONTINUE TO MONITOR (6) Type I diabetes mellitus Status: Chronic Qualifiers: Diabetes mellitus complication status: with unspecified complications Qualified Code(s): E10.8 - Type 1 diabetes mellitus with unspecified complications Plan: MONITOR BS, CONTINUE GLUCOTROL, CONTINUE LANTUS, CONTINUE HUMULIN R
[2018-03-18] MEDS: COLACE CAP 100 MG PO SCH (21:32)
[2018-03-18] MEDS: SNACK - Diabetic Appropriate PO SCH (21:32)
[2018-03-18] MEDS: LIPITOR TAB 40 MG PO SCH (21:34)
[2018-03-18] MEDS: LANTUS SC SCH (21:35)
[2018-03-18] MEDS: ULTRAM PO PRN (21:36)
--- NOTE | 2018-03-19 00:43 | PCM.PROG ---
Progress Note - Progress Note for Day of Date of Exam: 03/18/18 - Subjective Subjective: IS BEING TREATED FOR RIGHT MIDDLE LOBE PNEUMONIA AND CHF EXACERBATION. TODAY, SHE IS ALERT AND ORIENTED, SITTING UP IN CHAIR ON MORNING ROUNDS. SHE CONTINUES WITH COMPLAINTS OF A NON-PRODUCTIVE COUGH AND INCREASED SHORTNESS OF BREATH, BUT REPORTS SLIGHT IMPROVEMENT TODAY. SHE IS NOT WEARING HER BIPAP AT THIS TIME. ON EXAMINATION, SHE CONTINUES TO BE IN ATRIAL FIBRILLATION WITH HR IN THE 90S. BILATERAL LUNGS CONTINUE WITH SCATTERED WHEEZING AND RHONCHI THROUGHOUT. ABDOMEN IS ROUND, SOFT, AND NON-TENDER WITH NORMAL BOWEL SOUNDS NOTED IN ALL QUADRANTS. HER VITALS TODAY ARE 97.7-99-21-91%- 154/73. LABS WERE OBTAINED. ABNORMAL LAB VALUES INCLUDE THE FOLLOWING: RBC 3.40 , HGB 9.0, HCT 28.4, SODIUM 146, CARBON DIOXICE 36.3, BUN 58, CREATININE 1.91, GLUCOSE 146, AST 14, ALK PHOS 38. TODAYS CHEST XRAY CONTINUES TO REVEAL: Continued cardiac enlargement with pulmonary vascular distention and diffuse density in both bases consistent with atelectasis or perivascular edema. Pleural fluid may be present. No complicating pneumothorax is seen. TODAY, WE WILL CONTINUE WITH RESPIRATORY TREATMENTS, BIPAP, IV STEROIDS, AND CURRENT PLAN OF CARE. WE WILL CONTINUE TO HOLD LASIX DUE TO ELEVATED CREATININE. OTHERWISE, WE PLAN TO FOLLOW UP WITH AM LABS AND CHEST XRAY AND WILL CONTINUE TO MONITOR PATIENT. - Past Medical Family Social History Past Med/Fam/Surg Hx: No changes since H&P Allergies: Allergies lisinopril [From Zestril] Allergy (Verified 03/06/18 17:05) meperidine [From Demerol] Adverse Reaction (Verified 03/06/18 17:05) zinc Adverse Reaction (Verified 03/06/18 17:05) - Review of Systems ROS: No change since H&P - Vital Signs and I&O's Vital Signs: Temperature 97.3 F Pulse Rate [Apical] 87 Pulse Rate [Right Brachial] 68 Pulse Rate [Left Brachial] 79 Pulse Rate 84 Respiratory Rate 14 Blood Pressure [Left Radial 145/63 Artery] Blood Pressure [Right Radial 178/102 Artery] Blood Pressure [Right Arm] 124/64 Blood Pressure [Left Arm] 121/58 Blood Pressure 137/95 O2 Sat by Pulse Oximetry 99 Intake and Output: Intake & Output 03/16/18 03/17/18 03/18/18 03/19/18 11:59 11:59 11:59 11:59 Intake Total 1382 / 1382 1194 / 1194 638 / 638 504 / 504 Output Total 950 / 950 1050 / 1050 1300 / 1300 700 / 700 Balance 432 / 432 144 / 144 -662 / -662 -196 / -196 - Physical Exam Oriented: Normal Eyes: Normal Ear: Normal Nose: Normal Throat: Normal Respiratory: Generalized, Wheezes, Rhonchi Cardiovascular: Irregular (AFIB). negative: S3, S4, Murmur : Normal Auscultation: Bowel Sounds: Normal Tenderness: Normal Skin: Normal Musculoskeletal: Normal Psychiatric: Normal Mood Description: Calm, Labile Affect: Normal Speech Pattern: Clear, Appropriate - Laboratory and Diagnostics Result Diagrams: 03/18/18 04:35 03/18/18 04:35 Labs: 03/06/18 19:48 Blood Blood Culture - Final 03/06/18 19:44 Blood Blood Culture - Final Laboratory WBC 7.6 X10^3/uL (3.6-10.0) 03/18/18 04:35 RBC 3.40 X10^6/uL (3.5-5.4) L 03/18/18 04:35 Hgb 9.0 g/dL (12.0-16.0) L 03/18/18 04:35 Hct 28.4 % (36.0-47.0) L 03/18/18 04:35 MCV 83.4 fL (80.0-100.0) 03/18/18 04:35 MCH 26.5 pg (27.0-34.0) L 03/18/18 04:35 MCHC 31.8 g/dL (33.0-35.0) L 03/18/18 04:35 RDW 17.4 % (11.6-16.5) H 03/18/18 04:35 Plt Count 183 X10^3/uL (150.0-450.0) 03/18/18 04:35 Plt Count Comment Adequate (ADEQUATE) 03/17/18 05:31 MPV 9.2 fL (7.4-11.0) 03/18/18 04:35 Neut % (Auto) 82.0 % (42.0-75.0) H 03/18/18 04:35 Lymph % (Auto) 10.2 % (21.0-51.0) L 03/18/18 04:35 [place] % (Auto) 7.2 % (0.0-13.0) 03/18/18 04:35 Eos % (Auto) 0.2 % (0.9-2.9) L 03/18/18 04:35 Baso % (Auto) 0.4 % (0.2-1.0) 03/18/18 04:35 Neut # (Auto) 6.2 x10^3/uL (2.2-4.8) H 03/18/18 04:35 Lymph # (Auto) 0.8 X10^3/uL (1.3-2.9) L 03/18/18 04:35 [place] # (Auto) 0.5 x10^3/uL (0.3-0.8) 03/18/18 04:35 Eos # (Auto) 0.0 x10^3/uL (0.0-0.2) 03/18/18 04:35 Baso # (Auto) 0.0 X10^3/uL (0.0-0.1) 03/18/18 04:35 Absolute Nucleated RBC 0.1 /100WBC 03/18/18 04:35 Total Counted 100 03/17/18 05:31 Neutrophils % (Manual) 95 % (39-76) H 03/17/18 05:31 Band Neutrophils % 2 % (0-10) 03/16/18 05:08 Lymphocytes % (Manual) 3 % (13-43) L 03/17/18 05:31 Monocytes % (Manual) 2 % (4-9) L 03/17/18 05:31 Plt Morphology Comment Normal (NORMAL) 03/17/18 05:31 RBC Morphology Normal (NORMAL) 03/17/18 05:31 D-Dimer 1190 ng/mL (0-400) H* 03/06/18 17:28 Sample Site [facility] 03/18/18 04:33 ABG pH 7.380 (7.35-7.45) 03/18/18 04:33 ABG pCO2 73.0 mmHg (35.0-45.0) H* 03/18/18 04:33 ABG pO2 67.0 mmHg (80.0-100.0) L 03/18/18 04:33 ABG HCO3 43.2 mmol/L (22-26) H* 03/18/18 04:33 ABG O2 Saturation 93.0 % (90-100) 03/18/18 04:33 ABG Base Excess 14.8 mmol/L (-2.0-2.0) H 03/18/18 04:33 Twan Test Na 03/18/18 04:33 A-a Gradient 91.0 mmHg 03/18/18 04:33 FiO2 35.000 03/18/18 04:33 Blood Gas Comments Praneeth abg well-mtf 03/18/18 04:33 Sodium 146 mmol/L (136-145) H 03/18/18 04:35 Corrected Sodium 147 mmol/L (136-145) H 03/18/18 04:35 Potassium 4.6 mmol/L (3.5-5.1) 03/18/18 04:35 Chloride 103 mmol/L (98-107) 03/18/18 04:35 Carbon Dioxide 36.3 mmol/L (21-32) H 03/18/18 04:35 BUN 58 mg/dL (7-18) H 03/18/18 04:35 Creatinine 1.91 mg/dL (0.55-1.02) H 03/18/18 04:35 Est GFR (MDRD) Af Amer 33 (>60) L 03/18/18 04:35 Est GFR (MDRD) Non-Af 27 (>60) L 03/18/18 04:35 Glucose 146 mg/dL (65-99) H 03/18/18 04:35 POC Glucose (mg/dL) 163 mg/dL (65-99) H 03/18/18 20:20 Calcium 9.2 mg/dL (8.5-10.1) 03/18/18 04:35 Corrected Calcium TNP 03/18/18 04:35 Total Bilirubin 0.70 mg/dL (0.2-1.0) 03/18/18 04:35 AST 14 Units/L (15-37) L 03/18/18 04:35 ALT 13 Units/L (12-78) 03/18/18 04:35 Alkaline Phosphatase 38 Units/L (46-116) L 03/18/18 04:35 Creatine Kinase 16 Units/L (26-192) L 03/13/18 00:06 CK-MB (CK-2) < 1.0 ng/mL (0-4.0) 03/13/18 00:06 CK/CKMB % Calc 6.3 % (<4) 03/13/18 00:06 Troponin I 0.06 ng/mL (0-1.5) 03/13/18 00:06 Total Protein 6.9 g/dL (6.4-8.2) 03/18/18 04:35 Albumin 3.7 g/dL (3.4-5.0) 03/18/18 04:35 Globulin 3.2 g/dL (2.5-4.5) 03/18/18 04:35 Albumin/Globulin Ratio 1.2 Ratio (1.1-2.1) 03/18/18 04:35 Specimen Type Catherized urine 03/12/18 11:55 Urine Color Yellow (YELLOW) 03/12/18 11:55 Urine Appearance Hazy (CLEAR) 03/12/18 11:55 Urine pH 5.0 (5.0 - 8.0) 03/12/18 11:55 Ur Specific [place] 1.020 (1.000-1.030) 03/12/18 11:55 Urine Protein 2+ (NEGATIVE) 03/12/18 11:55 Urine Glucose (UA) Negative (NEGATIVE) 03/12/18 11:55 Urine Ketones Negative (NEGATIVE) 03/12/18 11:55 Urine Occult Blood Negative (NEGATIVE) 03/12/18 11:55 Urine Nitrite Negative (NEGATIVE) 03/12/18 11:55 Urine Bilirubin Negative (NEGATIVE) 03/12/18 11:55 Urine Urobilinogen Normal (NORMAL) 03/12/18 11:55 Ur Leukocyte Esterase Negative (NEGATIVE) 03/12/18 11:55 Urine RBC 0-2 /HPF (NONE SEEN) 03/12/18 11:55 Urine WBC 0-2 /HPF (NONE SEEN) 03/12/18 11:55 Ur Squamous Epith Cells Moderate /HPF (NEGATIVE) 03/12/18 11:55 Amorphous Sediment 2+ /HPF (NEGATIVE) 03/12/18 11:55 Urine Bacteria Trace /HPF (NEGATIVE) 03/12/18 11:55 Urine Mucus Few /HPF (NEGATIVE) 03/12/18 11:55 Ur Culture Indicated? No/not indicated 03/12/18 11:55 - Plan (1) RML pneumonia Status: Acute Qualifiers: Pneumonia type: due to unspecified organism Qualified Code(s): J18.1 - Lobar pneumonia, unspecified organism Plan: admit, iv antibiotics, respiratory treatments, supplemental oxygen, lasix 20mg iv bid, continue to monitor (2) CHF (congestive heart failure) Status: Chronic Qualifiers: Heart failure type: unspecified Heart failure chronicity: acute on chronic Qualified Code(s): I50.9 - Heart failure, unspecified Plan: FLUID RESTRICTION, LASIX 40MG IV Q12H, SOLU-MEDROL 20MG IV Q8H, SALINE LOCK IV FLUIDS, CONTINUE HOME MEDICATIONS, JESSE-DUR 200MG PO BID (3) Respiratory failure with hypercapnia Status: Acute Qualifiers: Chronicity: acute on chronic Qualified Code(s): J96.22 - Acute and chronic respiratory failure with hypercapnia Plan: JESSE-DUR 200MG PO BID, bipap, respiratory treatments, supplemental oxygen , iv lasix, iv solu-medrol, continue to monitor (4) Atrial fibrillation Status: Chronic Qualifiers: Atrial fibrillation type: chronic Qualified Code(s): I48.2 - Chronic atrial fibrillation Plan: CONTINUE ELIQUIS, CONTINUE TO MONITOR (5) Hyperlipidemia Status: Acute Qualifiers: Hyperlipidemia type: pure hypercholesterolemia Qualified Code(s): E78.00 - Pure hypercholesterolemia, unspecified; E78.0 - Pure hypercholesterolemia Plan: CONTINUE LIPITOR, CONTINUE TO MONITOR (6) Type I diabetes mellitus Status: Chronic Qualifiers: Diabetes mellitus complication status: with unspecified complications Qualified Code(s): E10.8 - Type 1 diabetes mellitus with unspecified complications Plan: MONITOR BS, CONTINUE GLUCOTROL, CONTINUE LANTUS, CONTINUE HUMULIN R
[2018-03-19] MEDS: MORPHINE SULFATE INJ 2 MG INJ IVP SCH ×3 (02:56→18:12)
[2018-03-19] MEDS: ULTRAM PO PRN ×2 (04:14→21:06)
[2018-03-19] MEDS: ZOSYN VIAL 4.5 GRAMS 4.5 G in NS 100 ML IV + SPIKE MINIBAG* 100 ML IV SCH ×3 (06:21→21:04)
[2018-03-19 06:22] LABS: BASOPHILS # (AUTO) 0.1 X10^3/uL (0.0-0.1); BASOPHILS % (AUTO) 0.7 % (0.2-1.0); EOSINOPHILS # (AUTO) 0.3 x10^3/uL (0.0-0.2); EOSINOPHILS % (AUTO) 2.9 % (0.9-2.9); HEMATOCRIT 30.8 % (36.0-47.0); HEMOGLOBIN 9.9 g/dL (12.0-16.0); LYMPHOCYTES # (AUTO) 2.1 X10^3/uL (1.3-2.9); LYMPHOCYTES % (AUTO) 18.7 % (21.0-51.0); MEAN CORPUSCULAR HEMOGLOBIN 26.9 pg (27.0-34.0); MEAN CORPUSCULAR VOLUME 84.2 fL (80.0-100.0); MEAN PLATELET VOLUME 9.5 fL (7.4-11.0); MONOCYTES # (AUTO) 0.7 x10^3/uL (0.3-0.8); NEUTROPHILS # (AUTO) 7.9 x10^3/uL (2.2-4.8); NEUTROPHILS % (AUTO) 71.7 % (42.0-75.0); PLATELET COUNT 209 X10^3/uL (150.0-450.0); RED BLOOD COUNT 3.66 X10^6/uL (3.5-5.4); RED CELL DISTRIBUTION WIDTH 17.7 % (11.6-16.5)
--- NOTE | 2018-03-19 06:33 | RAD ---
Examination: Portable AP chest History: Pneumonia, SOB Comparison reference 03/18/2018 Findings: Stable cardiomegaly with central pulmonary vascular congestion and ill defined basal densit ies consistent with atelectasis or inflammatory process. No large pleural effusion or pneumothorax id entified on this portable examination. Impression: No significant change since 1 day earlier. Reported By:
[2018-03-19 07:19] LABS: ALANINE AMINOTRANSFERASE 19 Units/L (12-78); ALBUMIN 3.9 g/dL (3.4-5.0); ALKALINE PHOSPHATASE 46 Units/L (46-116); ASPARTATE AMINO TRANSFERASE 25 Units/L (15-37); BLOOD UREA NITROGEN 59 mg/dL (7-18); CALCIUM 9.3 mg/dL (8.5-10.1); CARBON DIOXIDE 32.1 mmol/L (21-32); CHLORIDE 104 mmol/L (98-107); COR NA(FOR HYPERGLY) 146 mmol/L (136-145); CREATININE 1.92 mg/dL (0.55-1.02); SODIUM 145 mmol/L (136-145); TOTAL PROTEIN 7.2 g/dL (6.4-8.2); eGFR NON BLACK RACES 27 (>60)
[2018-03-19] MEDS: ALBUMIN HUMAN 25%- 100 ML 100 ML IV SCH (08:00)
[2018-03-19] MEDS: MAG-OX TAB PO SCH (08:00)
[2018-03-19] MEDS: MICRO K EXTEN CAP 10 MEQ PO SCH (08:00)
[2018-03-19] MEDS: GLUCOTROL PO SCH ×2 (08:00→16:11)
[2018-03-19] MEDS: ELIQUIS PO SCH ×2 (08:00→21:07)
[2018-03-19] MEDS: MILK OF MAGNESIA PO SCH ×3 (08:00→22:01)
[2018-03-19] MEDS: ASPIRIN EC 81 MG PO SCH (08:00)
[2018-03-19] MEDS: ZYLOPRIM PO SCH (08:00)
[2018-03-19] MEDS: COZAAR PO SCH (08:00)
[2018-03-19] MEDS: XOPENEX 1.25 MG/3 ML NEBULE NEB SCH ×4 (08:54→21:00)
[2018-03-19] MEDS: OXYBUTYNIN CHLORIDE ER PO SCH (10:29)
[2018-03-19] MEDS: ROBITUSSIN DM PO SCH ×4 (10:29→22:02)
[2018-03-19] MEDS: HumuLIN R SUBCUT PRN ×3 (11:13→21:08)
--- NOTE | 2018-03-19 13:31 | CT ---
HISTORY: Hypoxia obstructive airway Study: CT paranasal sinuses without contrast Comparison: None Technique: Multiple axial images of the paranasal sinuses were obtained without the administration of IV contrast. Coronal and sagittal reformats were performed and reviewed. Findings: The maxillary sinuses, anterior and posterior ethmoid air cells, sphenoid sinuses, and frontal sinuse s demonstrate no evidence for mucosal inflammatory disease. The nasal septum is deviated to the righ t. The ostiomeatal unit on the right and left are widely patent without inflammatory change. The le ft and right frontal recesses are unremarkable in their appearance. Visualized portions of the poste rior fossa and intracranial structures are unremarkable as well. IMPRESSION: 1. Unremarkable CT of the paranasal sinuses. Reported By:
--- NOTE | 2018-03-19 13:37 | CT ---
HISTORY: Obstructive airway, hypoxia Study: CT soft tissue neck without contrast Comparison: None Technique: Multiple axial images of the soft tissue neck were obtained from skull base to the aortic arch without the administration of IV contrast. Sagittal and coronal reformats were performed and re viewed. Findings: The visualized portions of the posterior fossa and orbits are unremarkable in appearance. The paroti d glands, submandibular glands, and thyroid gland are unremarkable in their noncontrast appearance. The carotid space on the right and left is unremarkable. No mass or significant lymphadenopathy can be identified. The prevertebral and paraspinous regions are unremarkable. The nasopharynx, orophar ynx, hypopharynx are unremarkable. The larynx appears symmetric. The vascular structures are unrema rkable in their appearance. The aortic arch is unremarkable. The visualized portions of the mediast inum are unremarkable as well. The bony structures appear intact. The lung apices demonstrate by la teral upper lobe airspace ground-glass opacities probably due pneumonia with layering effusions. IMPRESSION: Bilateral upper lobe airspace disease with layering effusions probably due to pneumonia. The neck is unremarkable in its noncontrast appearance. Reported By:
--- NOTE | 2018-03-19 17:20 | PCM.PROG ---
Progress Note - Progress Note for Day of Date of Exam: 03/19/18 - Subjective Subjective: IS BEING TREATED FOR RIGHT MIDDLE LOBE PNEUMONIA AND CHF EXACERBATION. TODAY, SHE IS ALERT AND ORIENTED, SITTING UP IN CHAIR ON MORNING ROUNDS. SHE CONTINUES WITH COMPLAINTS OF A NON-PRODUCTIVE COUGH AND SHORTNESS OF BREATH, BUT REPORTS SLIGHT IMPROVEMENT TODAY. SHE IS NOT WEARING HER BIPAP AT THIS TIME. STAFF REPORTS THAT OXYGEN SATURATIONS SOMETIMES FALLS INTO THE 60S ON THE BIPAP WHILE PATIENT IS ASLEEP. ON EXAMINATION, SHE CONTINUES TO BE IN ATRIAL FIBRILLATION WITH HR NOTED TO BE 106. BILATERAL LUNGS CONTINUE WITH SCATTERED WHEEZING AND RHONCHI THROUGHOUT. ABDOMEN IS ROUND, SOFT, AND NON- TENDER WITH NORMAL BOWEL SOUNDS NOTED IN ALL QUADRANTS. HER VITALS TODAY ARE 98.3-106-34-98%-159/70. LABS WERE OBTAINED. ABNORMAL LAB VALUES INCLUDE THE FOLLOWING: WBC 11.0, HGB 9.9, HCT 30.8, CARBON DIOXIDE 32.1, BUN 59, CREATININE 1.92, GLUCOSE 158. TODAYS CHEST XRAY CONTINUES TO REVEAL: Continued cardiac enlargement with pulmonary vascular distention and diffuse density in both bases consistent with atelectasis or perivascular edema. Pleural fluid may be present. No complicating pneumothorax is seen. TODAY, WE WILL CONTINUE WITH RESPIRATORY TREATMENTS, BIPAP, IV STEROIDS, AND CURRENT PLAN OF CARE. WE WILL OBTAIN A SINUS CT AND A NECK CT TO RULE OUT OBSTRUCTION. OTHERWISE, WE PLAN TO FOLLOW UP WITH AM LABS AND CHEST XRAY AND WILL CONTINUE TO MONITOR PATIENT. - Past Medical Family Social History Past Med/Fam/Surg Hx: No changes since H&P Allergies: Allergies lisinopril [From Zestril] Allergy (Verified 03/06/18 17:05) meperidine [From Demerol] Adverse Reaction (Verified 03/06/18 17:05) zinc Adverse Reaction (Verified 03/06/18 17:05) - Review of Systems ROS: No change since H&P - Vital Signs and I&O's Vital Signs: Temperature 97.8 F Pulse Rate [Apical] 87 Pulse Rate [Right Brachial] 68 Pulse Rate [Left Brachial] 78 Pulse Rate 98 Respiratory Rate 18 Blood Pressure [Left Radial 145/63 Artery] Blood Pressure [Right Radial 178/102 Artery] Blood Pressure [Right Arm] 124/64 Blood Pressure [Left Arm] 123/64 Blood Pressure 137/95 O2 Sat by Pulse Oximetry 100 Intake and Output: Intake & Output 03/17/18 03/18/18 03/19/18 03/20/18 11:59 11:59 11:59 11:59 Intake Total 1194 / 1194 638 / 638 568 / 568 750 / 750 Output Total 1050 / 1050 1300 / 1300 900 / 900 Balance 144 / 144 -662 / -662 -332 / -332 750 / 750 - Physical Exam Oriented: Normal Eyes: Normal Ear: Normal Nose: Normal Throat: Normal Respiratory: Generalized, Wheezes, Rhonchi Cardiovascular: Tachycardia, Irregular (AFIB). negative: S3, S4, Murmur : Normal Auscultation: Bowel Sounds: Normal Palpation: Normal Tenderness: Normal Skin: Normal Musculoskeletal: Normal Psychiatric: Normal Mood Description: Calm, Labile Affect: Normal Speech Pattern: Clear, Appropriate - Laboratory and Diagnostics Result Diagrams: 03/19/18 05:28 03/19/18 05:28 Labs: 03/06/18 19:48 Blood Blood Culture - Final 03/06/18 19:44 Blood Blood Culture - Final Laboratory WBC 11.0 X10^3/uL (3.6-10.0) H 03/19/18 05:28 RBC 3.66 X10^6/uL (3.5-5.4) 03/19/18 05:28 Hgb 9.9 g/dL (12.0-16.0) L 03/19/18 05:28 Hct 30.8 % (36.0-47.0) L 03/19/18 05:28 MCV 84.2 fL (80.0-100.0) 03/19/18 05:28 MCH 26.9 pg (27.0-34.0) L 03/19/18 05:28 MCHC 32.0 g/dL (33.0-35.0) L 03/19/18 05:28 RDW 17.7 % (11.6-16.5) H 03/19/18 05:28 Plt Count 209 X10^3/uL (150.0-450.0) 03/19/18 05:28 Plt Count Comment Adequate (ADEQUATE) 03/17/18 05:31 MPV 9.5 fL (7.4-11.0) 03/19/18 05:28 Neut % (Auto) 71.7 % (42.0-75.0) 03/19/18 05:28 Lymph % (Auto) 18.7 % (21.0-51.0) L 03/19/18 05:28 [place] % (Auto) 6.0 % (0.0-13.0) 03/19/18 05:28 Eos % (Auto) 2.9 % (0.9-2.9) 03/19/18 05:28 Baso % (Auto) 0.7 % (0.2-1.0) 03/19/18 05:28 Neut # (Auto) 7.9 x10^3/uL (2.2-4.8) H 03/19/18 05:28 Lymph # (Auto) 2.1 X10^3/uL (1.3-2.9) 03/19/18 05:28 [place] # (Auto) 0.7 x10^3/uL (0.3-0.8) 03/19/18 05:28 Eos # (Auto) 0.3 x10^3/uL (0.0-0.2) H 03/19/18 05:28 Baso # (Auto) 0.1 X10^3/uL (0.0-0.1) 03/19/18 05:28 Absolute Nucleated RBC 0.1 /100WBC 03/19/18 05:28 Total Counted 100 03/17/18 05:31 Neutrophils % (Manual) 95 % (39-76) H 03/17/18 05:31 Band Neutrophils % 2 % (0-10) 03/16/18 05:08 Lymphocytes % (Manual) 3 % (13-43) L 03/17/18 05:31 Monocytes % (Manual) 2 % (4-9) L 03/17/18 05:31 Plt Morphology Comment Normal (NORMAL) 03/17/18 05:31 RBC Morphology Normal (NORMAL) 03/17/18 05:31 D-Dimer 1190 ng/mL (0-400) H* 03/06/18 17:28 Sample Site [facility] 03/18/18 04:33 ABG pH 7.380 (7.35-7.45) 03/18/18 04:33 ABG pCO2 73.0 mmHg (35.0-45.0) H* 03/18/18 04:33 ABG pO2 67.0 mmHg (80.0-100.0) L 03/18/18 04:33 ABG HCO3 43.2 mmol/L (22-26) H* 03/18/18 04:33 ABG O2 Saturation 93.0 % (90-100) 03/18/18 04:33 ABG Base Excess 14.8 mmol/L (-2.0-2.0) H 03/18/18 04:33 Twan Test Na 03/18/18 04:33 A-a Gradient 91.0 mmHg 03/18/18 04:33 FiO2 35.000 03/18/18 04:33 Blood Gas Comments Praneeth abg well-mtf 03/18/18 04:33 Sodium 145 mmol/L (136-145) 03/19/18 05:28 Corrected Sodium 146 mmol/L (136-145) H 03/19/18 05:28 Potassium 4.2 mmol/L (3.5-5.1) 03/19/18 05:28 Chloride 104 mmol/L (98-107) 03/19/18 05:28 Carbon Dioxide 32.1 mmol/L (21-32) H 03/19/18 05:28 BUN 59 mg/dL (7-18) H 03/19/18 05:28 Creatinine 1.92 mg/dL (0.55-1.02) H 03/19/18 05:28 Est GFR (MDRD) Af Amer 33 (>60) L 03/19/18 05:28 Est GFR (MDRD) Non-Af 27 (>60) L 03/19/18 05:28 Glucose 158 mg/dL (65-99) H 03/19/18 05:28 POC Glucose (mg/dL) 206 mg/dL (65-99) H 03/19/18 16:01 Calcium 9.3 mg/dL (8.5-10.1) 03/19/18 05:28 Corrected Calcium TNP 03/19/18 05:28 Total Bilirubin 0.70 mg/dL (0.2-1.0) 03/19/18 05:28 AST 25 Units/L (15-37) 03/19/18 05:28 ALT 19 Units/L (12-78) 03/19/18 05:28 Alkaline Phosphatase 46 Units/L (46-116) 03/19/18 05:28 Creatine Kinase 16 Units/L (26-192) L 03/13/18 00:06 CK-MB (CK-2) < 1.0 ng/mL (0-4.0) 03/13/18 00:06 CK/CKMB % Calc 6.3 % (<4) 03/13/18 00:06 Troponin I 0.06 ng/mL (0-1.5) 03/13/18 00:06 Total Protein 7.2 g/dL (6.4-8.2) 03/19/18 05:28 Albumin 3.9 g/dL (3.4-5.0) 03/19/18 05:28 Globulin 3.3 g/dL (2.5-4.5) 03/19/18 05:28 Albumin/Globulin Ratio 1.2 Ratio (1.1-2.1) 03/19/18 05:28 Specimen Type Catherized urine 03/12/18 11:55 Urine Color Yellow (YELLOW) 03/12/18 11:55 Urine Appearance Hazy (CLEAR) 03/12/18 11:55 Urine pH 5.0 (5.0 - 8.0) 03/12/18 11:55 Ur Specific [place] 1.020 (1.000-1.030) 03/12/18 11:55 Urine Protein 2+ (NEGATIVE) 03/12/18 11:55 Urine Glucose (UA) Negative (NEGATIVE) 03/12/18 11:55 Urine Ketones Negative (NEGATIVE) 03/12/18 11:55 Urine Occult Blood Negative (NEGATIVE) 03/12/18 11:55 Urine Nitrite Negative (NEGATIVE) 03/12/18 11:55 Urine Bilirubin Negative (NEGATIVE) 03/12/18 11:55 Urine Urobilinogen Normal (NORMAL) 03/12/18 11:55 Ur Leukocyte Esterase Negative (NEGATIVE) 03/12/18 11:55 Urine RBC 0-2 /HPF (NONE SEEN) 03/12/18 11:55 Urine WBC 0-2 /HPF (NONE SEEN) 03/12/18 11:55 Ur Squamous Epith Cells Moderate /HPF (NEGATIVE) 03/12/18 11:55 Amorphous Sediment 2+ /HPF (NEGATIVE) 03/12/18 11:55 Urine Bacteria Trace /HPF (NEGATIVE) 03/12/18 11:55 Urine Mucus Few /HPF (NEGATIVE) 03/12/18 11:55 Ur Culture Indicated? No/not indicated 03/12/18 11:55 Theophylline < 2.0 ug/mL (10-20) L 03/19/18 05:28 - Plan (1) RML pneumonia Status: Acute Qualifiers: Pneumonia type: due to unspecified organism Qualified Code(s): J18.1 - Lobar pneumonia, unspecified organism Plan: iv antibiotics, respiratory treatments, supplemental oxygen, continue to monitor (2) CHF (congestive heart failure) Status: Chronic Qualifiers: Heart failure type: unspecified Heart failure chronicity: acute on chronic Qualified Code(s): I50.9 - Heart failure, unspecified Plan: FLUID RESTRICTION, SOLU-MEDROL 20MG IV Q8H, SALINE LOCK IV FLUIDS, CONTINUE HOME MEDICATIONS, JESSE-DUR 200MG PO BID (3) Respiratory failure with hypercapnia Status: Acute Qualifiers: Chronicity: acute on chronic Qualified Code(s): J96.22 - Acute and chronic respiratory failure with hypercapnia Plan: JESSE-DUR 200MG PO BID, bipap, respiratory treatments, supplemental oxygen , iv solu-medrol, continue to monitor (4) Atrial fibrillation Status: Chronic Qualifiers: Atrial fibrillation type: chronic Qualified Code(s): I48.2 - Chronic atrial fibrillation Plan: CONTINUE ELIQUIS, CONTINUE TO MONITOR (5) Hyperlipidemia Status: Acute Qualifiers: Hyperlipidemia type: pure hypercholesterolemia Qualified Code(s): E78.00 - Pure hypercholesterolemia, unspecified; E78.0 - Pure hypercholesterolemia Plan: CONTINUE LIPITOR, CONTINUE TO MONITOR (6) Type I diabetes mellitus Status: Chronic Qualifiers: Diabetes mellitus complication status: with unspecified complications Qualified Code(s): E10.8 - Type 1 diabetes mellitus with unspecified complications Plan: MONITOR BS, CONTINUE GLUCOTROL, CONTINUE LANTUS, CONTINUE HUMULIN R
[2018-03-19] MEDS: SNACK - Diabetic Appropriate PO SCH (20:58)
[2018-03-19] MEDS: LIPITOR TAB 40 MG PO SCH (21:05)
[2018-03-19] MEDS: COLACE CAP 100 MG PO SCH (21:05)
[2018-03-19] MEDS: LANTUS SC SCH (21:07)
[2018-03-20] MEDS: MORPHINE SULFATE INJ 2 MG INJ IVP SCH ×2 (02:17→11:23)
[2018-03-20 05:30] LABS: BASOPHILS % (AUTO) 0.4 % (0.2-1.0); EOSINOPHILS # (AUTO) 0.3 x10^3/uL (0.0-0.2); EOSINOPHILS % (AUTO) 4.4 % (0.9-2.9); HEMATOCRIT 27.5 % (36.0-47.0); HEMOGLOBIN 8.9 g/dL (12.0-16.0); LYMPHOCYTES # (AUTO) 0.7 X10^3/uL (1.3-2.9); LYMPHOCYTES % (AUTO) 10.8 % (21.0-51.0); MEAN CORPUSCULAR HGB CONC 32.2 g/dL (33.0-35.0); MEAN CORPUSCULAR VOLUME 83.8 fL (80.0-100.0); MEAN PLATELET VOLUME 9.3 fL (7.4-11.0); MONOCYTES # (AUTO) 0.4 x10^3/uL (0.3-0.8); MONOCYTES % (AUTO) 5.1 % (0.0-13.0); NEUTROPHILS # (AUTO) 5.5 x10^3/uL (2.2-4.8); NEUTROPHILS % (AUTO) 79.3 % (42.0-75.0); PLATELET COUNT 165 X10^3/uL (150.0-450.0); RED BLOOD COUNT 3.28 X10^6/uL (3.5-5.4); RED CELL DISTRIBUTION WIDTH 17.5 % (11.6-16.5); WHITE BLOOD COUNT 6.9 X10^3/uL (3.6-10.0)
[2018-03-20 05:33] LABS: ABG BASE EXCESS 14.3 mmol/L (-2.0-2.0)
[2018-03-20 05:35] LABS: ABG HCO3 42.6 mmol/L (22-26)
[2018-03-20] MEDS: ZOSYN VIAL 4.5 GRAMS 4.5 G in NS 100 ML IV + SPIKE MINIBAG* 100 ML IV SCH ×3 (05:35→20:30)
[2018-03-20 05:52] LABS: ALANINE AMINOTRANSFERASE 15 Units/L (12-78); ALBUMIN 3.7 g/dL (3.4-5.0); ALKALINE PHOSPHATASE 38 Units/L (46-116); ASPARTATE AMINO TRANSFERASE 16 Units/L (15-37); BLOOD UREA NITROGEN 55 mg/dL (7-18); CALCIUM 9.2 mg/dL (8.5-10.1); CARBON DIOXIDE 34.6 mmol/L (21-32); CHLORIDE 105 mmol/L (98-107); COR NA(FOR HYPERGLY) 145 mmol/L (136-145); CREATININE 1.75 mg/dL (0.55-1.02); SODIUM 145 mmol/L (136-145); THEOPHYLLINE < 2.0 ug/mL (10-20); TOTAL PROTEIN 6.8 g/dL (6.4-8.2); eGFR NON BLACK RACES 30 (>60)
--- NOTE | 2018-03-20 07:36 | RAD ---
HISTORY: Shortness of breath Study: Chest AP portable Comparison: 03/19/2018 Findings: The heart remains enlarged. No definite congestive heart failure is noted. The upper lung [place] in clear. Hazy increased density in the lower lung field may indicate infiltrate or effusion. This fi nding is unchanged when compared with the prior examination. Upright PA and lateral chest examination would be of further diagnostic value. IMPRESSION: Moderate cardiomegaly without congestive heart failure Stable haziness at both lung bases which could indicate infiltrate or E fusion. Upright PA and latera l chest examination would be of further diagnostic value. Reported By:
[2018-03-20] MEDS: ZYLOPRIM PO SCH (08:50)
[2018-03-20] MEDS: ALBUMIN HUMAN 25%- 100 ML 100 ML IV SCH (08:52)
[2018-03-20] MEDS: OXYBUTYNIN CHLORIDE ER PO SCH (08:54)
[2018-03-20] MEDS: COZAAR PO SCH (08:54)
[2018-03-20] MEDS: GLUCOTROL PO SCH (08:55)
[2018-03-20] MEDS: MILK OF MAGNESIA PO SCH (08:55)
[2018-03-20] MEDS: MICRO K EXTEN CAP 10 MEQ PO SCH (08:55)
[2018-03-20] MEDS: ROBITUSSIN DM PO SCH ×3 (08:55→20:58)
[2018-03-20] MEDS: MAG-OX TAB PO SCH (08:55)
[2018-03-20] MEDS: ELIQUIS PO SCH ×2 (08:56→21:00)
[2018-03-20] MEDS: ASPIRIN EC 81 MG PO SCH (08:56)
[2018-03-20] MEDS: XOPENEX 1.25 MG/3 ML NEBULE NEB SCH ×4 (09:00→21:49)
--- NOTE | 2018-03-20 10:22 | PCM.PROG ---
Progress Note - Progress Note for Day of Date of Exam: 03/20/18 - Subjective Subjective: IS BEING TREATED FOR RIGHT MIDDLE LOBE PNEUMONIA AND CHF EXACERBATION. TODAY, SHE IS ALERT AND ORIENTED, LYING IN BED ON MORNING ROUNDS. SHE CONTINUES WITH COMPLAINTS OF SHORTNESS OF BREATH AND AN INCREASED COUGH. COUGH IS NON-PRODUCTIVE. SHE ALSO REPORTS INCREASED WEAKENSS. SHE CONTINUES TO UTILIZED THE BIPAP THROUGHOUT THE DAY. ON EXAMINATION, HEART IS REGULAR IN RATE AND RHYTHM. BILATERAL LUNGS CONTINUE WITH SCATTERED WHEEZING AND RHONCHI THROUGHOUT. ABDOMEN IS ROUND, SOFT, AND NON-TENDER WITH NORMAL BOWEL SOUNDS NOTED IN ALL QUADRANTS. HER VITALS TODAY ARE 98.2-79-20-93%[place]-138/65. LABS WERE OBTAINED. ABNORMAL LAB VALUES INCLUDE THE FOLLOWING: RBC 3.28, HGB 8.9, HCT 27.5 , CARBON DIOXIDE 34.6, BUN 55, CREATININE 1.76, GLUCOSE 119, ALK PHOS 38. TODAY S CHEST XRAY WAS OBTAINED TODAY AND REVEALED: Moderate cardiomegaly without congestive heart failure. Stable haziness at both lung bases which could indicate infiltrate or Effusion. PHYSICAL THERAPY CONTINUES TO WORK WITH PATIENT. SHE REQUIRES MODERATE ASSISTANCE WHEN AMBULATING DUE TO UNSTEADY GAIT AND INCREASED SHORTNESS OF BREATH. SHE REQUIRES THE USE OF A ROLLING WALKER. WE WILL CONTINUE WITH RESPIRATORY TREATMENTS, BIPAP, IV STEROIDS, AND CURRENT PLAN OF CARE.. OTHERWISE, WE PLAN TO FOLLOW UP WITH AM LABS AND CHEST XRAY AND WILL CONTINUE TO MONITOR PATIENT. - Past Medical Family Social History Past Med/Fam/Surg Hx: No changes since H&P Allergies: Allergies lisinopril [From Zestril] Allergy (Verified 03/06/18 17:05) meperidine [From Demerol] Adverse Reaction (Verified 03/06/18 17:05) zinc Adverse Reaction (Verified 03/06/18 17:05) - Review of Systems ROS: No change since H&P - Vital Signs and I&O's Vital Signs: Temperature 98.2 F Pulse Rate [Apical] 87 Pulse Rate [Right Brachial] 68 Pulse Rate [Left Brachial] 81 Pulse Rate 92 Respiratory Rate 24 Blood Pressure [Left Radial 145/63 Artery] Blood Pressure [Right Radial 178/102 Artery] Blood Pressure [Right Arm] 124/64 Blood Pressure [Left Arm] 138/65 Blood Pressure 137/95 O2 Sat by Pulse Oximetry 96 Intake and Output: Intake & Output 07/13/18 07/14/18 07/15/18 07/16/18 11:59 11:59 11:59 11:59 Intake Total 1194 / 1194 638 / 638 568 / 568 1194 / 1194 Output Total 1050 / 1050 1300 / 1300 900 / 900 Balance 144 / 144 -662 / -662 -332 / -332 1194 / 1194 - Physical Exam Oriented: Normal Eyes: Normal Ear: Normal Nose: Normal Throat: Normal Respiratory: Generalized, Wheezes, Rhonchi Cardiovascular: Normal. negative: S3, S4, Murmur : Normal Auscultation: Bowel Sounds: Normal Palpation: Normal Tenderness: Normal Skin: Normal Musculoskeletal: Normal Psychiatric: Normal Mood Description: Calm, Labile Affect: Normal Speech Pattern: Clear, Appropriate - Laboratory and Diagnostics Result Diagrams: 03/30/18 05:26 03/30/18 05:26 Labs: 03/06/18 19:48 Blood Blood Culture - Final 03/06/18 19:44 Blood Blood Culture - Final Laboratory WBC 6.9 X10^3/uL (3.6-10.0) 03/20/18 05:05 RBC 3.28 X10^6/uL (3.5-5.4) L 03/20/18 05:05 Hgb 8.9 g/dL (12.0-16.0) L 03/20/18 05:05 Hct 27.5 % (36.0-47.0) L 03/20/18 05:05 MCV 83.8 fL (80.0-100.0) 03/20/18 05:05 MCH 27.0 pg (27.0-34.0) 03/20/18 05:05 MCHC 32.2 g/dL (33.0-35.0) L 03/20/18 05:05 RDW 17.5 % (11.6-16.5) H 03/20/18 05:05 Plt Count 165 X10^3/uL (150.0-450.0) 03/20/18 05:05 Plt Count Comment Adequate (ADEQUATE) 03/17/18 05:31 MPV 9.3 fL (7.4-11.0) 03/20/18 05:05 Neut % (Auto) 79.3 % (42.0-75.0) H 03/20/18 05:05 Lymph % (Auto) 10.8 % (21.0-51.0) L 03/20/18 05:05 [place] % (Auto) 5.1 % (0.0-13.0) 03/20/18 05:05 Eos % (Auto) 4.4 % (0.9-2.9) H 03/20/18 05:05 Baso % (Auto) 0.4 % (0.2-1.0) 03/20/18 05:05 Neut # (Auto) 5.5 x10^3/uL (2.2-4.8) H 03/20/18 05:05 Lymph # (Auto) 0.7 X10^3/uL (1.3-2.9) L 03/20/18 05:05 [place] # (Auto) 0.4 x10^3/uL (0.3-0.8) 03/20/18 05:05 Eos # (Auto) 0.3 x10^3/uL (0.0-0.2) H 03/20/18 05:05 Baso # (Auto) 0.0 X10^3/uL (0.0-0.1) 03/20/18 05:05 Absolute Nucleated RBC 0.0 /100WBC 03/20/18 05:05 Total Counted 100 03/17/18 05:31 Neutrophils % (Manual) 95 % (39-76) H 03/17/18 05:31 Band Neutrophils % 2 % (0-10) 03/16/18 05:08 Lymphocytes % (Manual) 3 % (13-43) L 03/17/18 05:31 Monocytes % (Manual) 2 % (4-9) L 03/17/18 05:31 Plt Morphology Comment Normal (NORMAL) 03/17/18 05:31 RBC Morphology Normal (NORMAL) 03/17/18 05:31 D-Dimer 1190 ng/mL (0-400) H* 03/06/18 17:28 Sample Site Lb 03/20/18 05:24 ABG pH 7.380 (7.35-7.45) 03/20/18 05:24 ABG pCO2 72.0 mmHg (35.0-45.0) H* 03/20/18 05:24 ABG pO2 65.0 mmHg (80.0-100.0) L 03/20/18 05:24 ABG HCO3 42.6 mmol/L (22-26) H* 03/20/18 05:24 ABG O2 Saturation 92.0 % (90-100) 03/20/18 05:24 ABG Base Excess 14.3 mmol/L (-2.0-2.0) H 03/20/18 05:24 Twan Test Na 03/20/18 05:24 A-a Gradient 95.0 mmHg 03/20/18 05:24 FiO2 35.000 03/20/18 05:24 Blood Gas Comments Praneeth abg well-mtf 03/20/18 05:24 Sodium 145 mmol/L (136-145) 03/20/18 05:05 Corrected Sodium 145 mmol/L (136-145) 03/20/18 05:05 Potassium 4.1 mmol/L (3.5-5.1) 03/20/18 05:05 Chloride 105 mmol/L (98-107) 03/20/18 05:05 Carbon Dioxide 34.6 mmol/L (21-32) H 03/20/18 05:05 BUN 55 mg/dL (7-18) H 03/20/18 05:05 Creatinine 1.75 mg/dL (0.55-1.02) H 03/20/18 05:05 Est GFR (MDRD) Af Amer 36 (>60) L 03/20/18 05:05 Est GFR (MDRD) Non-Af 30 (>60) L 03/20/18 05:05 Glucose 119 mg/dL (65-99) H 03/20/18 05:05 POC Glucose (mg/dL) 110 mg/dL (65-99) H 03/20/18 05:39 Calcium 9.2 mg/dL (8.5-10.1) 03/20/18 05:05 Corrected Calcium TNP 03/20/18 05:05 Total Bilirubin 0.90 mg/dL (0.2-1.0) 03/20/18 05:05 AST 16 Units/L (15-37) 03/20/18 05:05 ALT 15 Units/L (12-78) 03/20/18 05:05 Alkaline Phosphatase 38 Units/L (46-116) L 03/20/18 05:05 Creatine Kinase 16 Units/L (26-192) L 03/13/18 00:06 CK-MB (CK-2) < 1.0 ng/mL (0-4.0) 03/13/18 00:06 CK/CKMB % Calc 6.3 % (<4) 03/13/18 00:06 Troponin I 0.06 ng/mL (0-1.5) 03/13/18 00:06 Total Protein 6.8 g/dL (6.4-8.2) 03/20/18 05:05 Albumin 3.7 g/dL (3.4-5.0) 03/20/18 05:05 Globulin 3.1 g/dL (2.5-4.5) 03/20/18 05:05 Albumin/Globulin Ratio 1.2 Ratio (1.1-2.1) 03/20/18 05:05 Specimen Type Catherized urine 03/12/18 11:55 Urine Color Yellow (YELLOW) 03/12/18 11:55 Urine Appearance Hazy (CLEAR) 03/12/18 11:55 Urine pH 5.0 (5.0 - 8.0) 03/12/18 11:55 Ur Specific [place] 1.020 (1.000-1.030) 03/12/18 11:55 Urine Protein 2+ (NEGATIVE) 03/12/18 11:55 Urine Glucose (UA) Negative (NEGATIVE) 03/12/18 11:55 Urine Ketones Negative (NEGATIVE) 03/12/18 11:55 Urine Occult Blood Negative (NEGATIVE) 03/12/18 11:55 Urine Nitrite Negative (NEGATIVE) 03/12/18 11:55 Urine Bilirubin Negative (NEGATIVE) 03/12/18 11:55 Urine Urobilinogen Normal (NORMAL) 03/12/18 11:55 Ur Leukocyte Esterase Negative (NEGATIVE) 03/12/18 11:55 Urine RBC 0-2 /HPF (NONE SEEN) 03/12/18 11:55 Urine WBC 0-2 /HPF (NONE SEEN) 03/12/18 11:55 Ur Squamous Epith Cells Moderate /HPF (NEGATIVE) 03/12/18 11:55 Amorphous Sediment 2+ /HPF (NEGATIVE) 03/12/18 11:55 Urine Bacteria Trace /HPF (NEGATIVE) 03/12/18 11:55 Urine Mucus Few /HPF (NEGATIVE) 03/12/18 11:55 Ur Culture Indicated? No/not indicated 03/12/18 11:55 Theophylline < 2.0 ug/mL (10-20) L 03/20/18 05:05 - Plan (1) RML pneumonia Status: Acute Qualifiers: Pneumonia type: due to unspecified organism Qualified Code(s): J18.1 - Lobar pneumonia, unspecified organism Plan: iv antibiotics, respiratory treatments, supplemental oxygen, continue to monitor (2) CHF (congestive heart failure) Status: Chronic Qualifiers: Heart failure type: unspecified Heart failure chronicity: acute on chronic Qualified Code(s): I50.9 - Heart failure, unspecified Plan: FLUID RESTRICTION, SOLU-MEDROL 20MG IV Q8H, SALINE LOCK IV FLUIDS, CONTINUE HOME MEDICATIONS, JESSE-DUR 200MG PO BID (3) Respiratory failure with hypercapnia Status: Acute Qualifiers: Chronicity: acute on chronic Qualified Code(s): J96.22 - Acute and chronic respiratory failure with hypercapnia Plan: JESSE-DUR 200MG PO BID, bipap, respiratory treatments, supplemental oxygen , iv solu-medrol, continue to monitor (4) Atrial fibrillation Status: Chronic Qualifiers: Atrial fibrillation type: chronic Qualified Code(s): I48.2 - Chronic atrial fibrillation Plan: CONTINUE ELIQUIS, CONTINUE TO MONITOR (5) Hyperlipidemia Status: Acute Qualifiers: Hyperlipidemia type: pure hypercholesterolemia Qualified Code(s): E78.00 - Pure hypercholesterolemia, unspecified; E78.0 - Pure hypercholesterolemia Plan: CONTINUE LIPITOR, CONTINUE TO MONITOR (6) Type I diabetes mellitus Status: Chronic Qualifiers: Diabetes mellitus complication status: with unspecified complications Qualified Code(s): E10.8 - Type 1 diabetes mellitus with unspecified complications Plan: MONITOR BS, CONTINUE GLUCOTROL, CONTINUE LANTUS, CONTINUE HUMULIN R
[2018-03-20] MEDS ORDERED: BUTT CREAM (COMPOUND) ONE (10:59)
[2018-03-20] MEDS: SNACK - Diabetic Appropriate PO SCH (21:00)
[2018-03-20] MEDS: COLACE CAP 100 MG PO SCH (21:00)
[2018-03-20] MEDS: LANTUS SC SCH (21:01)
[2018-03-20] MEDS: LIPITOR TAB 40 MG PO SCH (21:02)
[2018-03-20] MEDS: HumuLIN R SUBCUT PRN (21:03)
[2018-03-20] MEDS: TUSSIONEX PENNKINETIC SUSP PO PRN (22:25)
[2018-03-21] MEDS: MILK OF MAGNESIA PO SCH ×5 (02:43→22:15)
[2018-03-21 06:13] LABS: BASOPHILS % (AUTO) 0.4 % (0.2-1.0); EOSINOPHILS # (AUTO) 0.3 x10^3/uL (0.0-0.2); HEMATOCRIT 27.7 % (36.0-47.0); LYMPHOCYTES # (AUTO) 0.8 X10^3/uL (1.3-2.9); LYMPHOCYTES % (AUTO) 10.4 % (21.0-51.0); MEAN CORPUSCULAR HEMOGLOBIN 27.2 pg (27.0-34.0); MEAN CORPUSCULAR HGB CONC 32.4 g/dL (33.0-35.0); MEAN CORPUSCULAR VOLUME 84.2 fL (80.0-100.0); MEAN PLATELET VOLUME 9.6 fL (7.4-11.0); MONOCYTES # (AUTO) 0.4 x10^3/uL (0.3-0.8); MONOCYTES % (AUTO) 5.3 % (0.0-13.0); NEUTROPHILS # (AUTO) 5.8 x10^3/uL (2.2-4.8); NEUTROPHILS % (AUTO) 79.9 % (42.0-75.0); PLATELET COUNT 157 X10^3/uL (150.0-450.0); RED BLOOD COUNT 3.29 X10^6/uL (3.5-5.4); RED CELL DISTRIBUTION WIDTH 17.8 % (11.6-16.5); WHITE BLOOD COUNT 7.3 X10^3/uL (3.6-10.0)
[2018-03-21] MEDS: MORPHINE SULFATE INJ 2 MG INJ IVP SCH ×4 (06:40→18:23)
[2018-03-21] MEDS: GLUCOTROL PO SCH ×3 (06:40→18:23)
[2018-03-21] MEDS: ZOSYN VIAL 4.5 GRAMS 4.5 G in NS 100 ML IV + SPIKE MINIBAG* 100 ML IV SCH ×3 (06:41→22:10)
[2018-03-21 06:48] LABS: ALANINE AMINOTRANSFERASE 16 Units/L (12-78); ALBUMIN 3.8 g/dL (3.4-5.0); ALKALINE PHOSPHATASE 45 Units/L (46-116); ASPARTATE AMINO TRANSFERASE 17 Units/L (15-37); BLOOD UREA NITROGEN 53 mg/dL (7-18); CALCIUM 9.3 mg/dL (8.5-10.1); CARBON DIOXIDE 37.8 mmol/L (21-32); CHLORIDE 103 mmol/L (98-107); COR NA(FOR HYPERGLY) 145 mmol/L (136-145); CREATININE 1.61 mg/dL (0.55-1.02); SODIUM 144 mmol/L (136-145); THEOPHYLLINE < 2.0 ug/mL (10-20); eGFR NON BLACK RACES 33 (>60)
--- NOTE | 2018-03-21 06:52 | RAD ---
HISTORY: Shortness of breath Study: Chest AP portable Comparison: 03/20/2018 Findings: The heart remains enlarged. No definite congestive heart failure is noted. Hazy increased densities i s again demonstrated throughout the right lower lung field suggestive of infiltrate. Pleural effusion may also be present. This finding is stable when compared with the prior examination. Haziness is al so present in the left lung base which could be due to infiltrate and/or pleural effusion. These find ings are stable when compared with the prior examination. Upright PA and lateral chest examination ma y be of further diagnostic value. IMPRESSION: No significant change from the prior examination Reported By:
[2018-03-21] MEDS: ASPIRIN EC 81 MG PO SCH (08:38)
[2018-03-21] MEDS: MAG-OX TAB PO SCH (08:39)
[2018-03-21] MEDS: ROBITUSSIN DM PO SCH ×5 (08:39→22:12)
[2018-03-21] MEDS: XOPENEX 1.25 MG/3 ML NEBULE NEB SCH ×4 (08:40→21:25)
[2018-03-21] MEDS: ELIQUIS PO SCH ×2 (08:41→22:11)
[2018-03-21] MEDS: OXYBUTYNIN CHLORIDE ER PO SCH (08:41)
[2018-03-21] MEDS: ALBUMIN HUMAN 25%- 100 ML 100 ML IV SCH (08:42)
[2018-03-21] MEDS: ZYLOPRIM PO SCH (08:42)
[2018-03-21] MEDS: MICRO K EXTEN CAP 10 MEQ PO SCH (08:45)
[2018-03-21] MEDS: COZAAR PO SCH (09:20)
[2018-03-21] MEDS: HumuLIN R SUBCUT PRN (11:24)
[2018-03-21] MEDS: SNACK - Diabetic Appropriate PO SCH (20:00)
[2018-03-21] MEDS: LANTUS SC SCH (22:00)
[2018-03-21] MEDS ORDERED: NS 500 ML IV 500 ML IV ONE (22:08)
[2018-03-21] MEDS: LIPITOR TAB 40 MG PO SCH (22:10)
[2018-03-21] MEDS: COLACE CAP 100 MG PO SCH (22:11)
[2018-03-22] MEDS: MORPHINE SULFATE INJ 2 MG INJ IVP SCH ×3 (02:54→17:12)
[2018-03-22 06:00] LABS: ABG BASE EXCESS 14.3 mmol/L (-2.0-2.0)
[2018-03-22 06:02] LABS: ABG HCO3 41.8 mmol/L (22-26)
[2018-03-22 06:49] LABS: BASOPHILS % (AUTO) 0.6 % (0.2-1.0); EOSINOPHILS # (AUTO) 0.3 x10^3/uL (0.0-0.2); EOSINOPHILS % (AUTO) 3.9 % (0.9-2.9); HEMATOCRIT 25.5 % (36.0-47.0); HEMOGLOBIN 8.4 g/dL (12.0-16.0); LYMPHOCYTES # (AUTO) 0.7 X10^3/uL (1.3-2.9); LYMPHOCYTES % (AUTO) 9.8 % (21.0-51.0); MEAN CORPUSCULAR HEMOGLOBIN 27.8 pg (27.0-34.0); MEAN CORPUSCULAR VOLUME 84.4 fL (80.0-100.0); MEAN PLATELET VOLUME 9.7 fL (7.4-11.0); MONOCYTES # (AUTO) 0.3 x10^3/uL (0.3-0.8); MONOCYTES % (AUTO) 4.7 % (0.0-13.0); PLATELET COUNT 148 X10^3/uL (150.0-450.0); RED BLOOD COUNT 3.02 X10^6/uL (3.5-5.4); RED CELL DISTRIBUTION WIDTH 17.5 % (11.6-16.5); WHITE BLOOD COUNT 7.4 X10^3/uL (3.6-10.0)
[2018-03-22] MEDS: ZOSYN VIAL 4.5 GRAMS 4.5 G in NS 100 ML IV + SPIKE MINIBAG* 100 ML IV SCH ×3 (07:06→21:16)
[2018-03-22 07:11] LABS: ALANINE AMINOTRANSFERASE 17 Units/L (12-78); ALBUMIN 3.7 g/dL (3.4-5.0); ALKALINE PHOSPHATASE 45 Units/L (46-116); ASPARTATE AMINO TRANSFERASE 15 Units/L (15-37); BLOOD UREA NITROGEN 46 mg/dL (7-18); CALCIUM 9.2 mg/dL (8.5-10.1); CARBON DIOXIDE 34.6 mmol/L (21-32); CHLORIDE 103 mmol/L (98-107); COR NA(FOR HYPERGLY) 144 mmol/L (136-145); CREATININE 1.48 mg/dL (0.55-1.02); SODIUM 143 mmol/L (136-145); THEOPHYLLINE < 2.0 ug/mL (10-20); TOTAL PROTEIN 6.8 g/dL (6.4-8.2); eGFR NON BLACK RACES 36 (>60)
[2018-03-22] MEDS: GLUCOTROL PO SCH ×2 (07:46→17:12)
[2018-03-22] MEDS: XOPENEX 1.25 MG/3 ML NEBULE NEB SCH ×4 (09:02→21:02)
[2018-03-22] MEDS: ALBUMIN HUMAN 25%- 100 ML 100 ML IV SCH (09:31)
[2018-03-22] MEDS: MAG-OX TAB PO SCH (09:33)
[2018-03-22] MEDS: OXYBUTYNIN CHLORIDE ER PO SCH (09:33)
[2018-03-22] MEDS: MILK OF MAGNESIA PO SCH ×2 (09:33→20:55)
[2018-03-22] MEDS: MICRO K EXTEN CAP 10 MEQ PO SCH (09:33)
[2018-03-22] MEDS: ROBITUSSIN DM PO SCH ×4 (09:33→20:56)
[2018-03-22] MEDS: ASPIRIN EC 81 MG PO SCH (09:33)
[2018-03-22] MEDS: COZAAR PO SCH (09:33)
[2018-03-22] MEDS: ZYLOPRIM PO SCH (09:34)
[2018-03-22] MEDS: ELIQUIS PO SCH ×2 (09:34→20:54)
--- NOTE | 2018-03-22 20:05 | PCM.PROG ---
Progress Note - Progress Note for Day of Date of Exam: 03/21/18 - Subjective Subjective: IS BEING TREATED FOR RIGHT MIDDLE LOBE PNEUMONIA AND CHF EXACERBATION. TODAY, SHE IS ALERT AND ORIENTED, LYING IN BED ON MORNING ROUNDS. SHE CONTINUES WITH COMPLAINTS OF SHORTNESS OF BREATH AND AN INCREASED COUGH. COUGH IS NON-PRODUCTIVE. SHE CONTINUES WITH INCREASED WEAKNESS. SHE CONTINUES TO UTILIZE THE BIPAP THROUGHOUT THE DAY, HOWEVER, HAS REMOVED IT MORE FREQUENTLY DUE TO INCREASED AGITATION. ON EXAMINATION, HEART IS REGULAR IN RATE AND RHYTHM. BILATERAL LUNGS CONTINUE WITH SCATTERED WHEEZING AND RHONCHI THROUGHOUT. ABDOMEN IS ROUND, SOFT, AND NON-TENDER WITH NORMAL BOWEL SOUNDS NOTED IN ALL QUADRANTS. HER VITALS TODAY ARE. 98.2-81-22-94%-111/50 LABS WERE OBTAINED. ABNORMAL LAB VALUES INCLUDE THE FOLLOWING: RBC 3.29, HGB 9.0, HCT 27.7 , CARBON DIOXIDE 37.8, BUN 53, CREATININE 1.61, GLUCOSE 130, ALK PHOS 45. TODAY S CHEST XRAY WAS OBTAINED TODAY AND REVEALED: The heart remains enlarged. No definite congestive heart failure is noted. Hazy increased densities is again demonstrated throughout the right lower lung field suggestive of infiltrate. Pleural effusion may also be present. This finding is stable when compared with the prior examination. Haziness is also present in the left lung base which could be due to infiltrate and/or pleural effusion. These findings are stable when compared with the prior examination. SHE CONTINUES TO REQUIRE MODERATE ASSISTANCE WHEN AMBULATING DUE TO UNSTEADY GAIT AND INCREASED SHORTNESS OF BREATH. WE WILL CONTINUE WITH RESPIRATORY TREATMENTS, BIPAP, IV STEROIDS, AND CURRENT PLAN OF CARE. OTHERWISE, WE PLAN TO FOLLOW UP WITH AM LABS AND CHEST XRAY AND WILL CONTINUE TO MONITOR PATIENT. - Past Medical Family Social History Past Med/Fam/Surg Hx: No changes since H&P Allergies: Allergies lisinopril [From Zestril] Allergy (Verified 03/06/18 17:05) meperidine [From Demerol] Adverse Reaction (Verified 03/06/18 17:05) zinc Adverse Reaction (Verified 03/06/18 17:05) - Review of Systems ROS: No change since H&P - Vital Signs and I&O's Vital Signs: Temperature 98.1 F Pulse Rate [Apical] 87 Pulse Rate [Right Brachial] 82 Pulse Rate [Left Brachial] 66 Pulse Rate 82 Respiratory Rate 22 Blood Pressure [Left Radial 145/63 Artery] Blood Pressure [Right Radial 178/102 Artery] Blood Pressure [Right Arm] 163/90 Blood Pressure [Left Arm] 120/58 Blood Pressure 137/95 O2 Sat by Pulse Oximetry 98 Intake and Output: Intake & Output 03/20/18 03/21/18 03/22/18 03/23/18 11:59 11:59 11:59 11:59 Intake Total 1913 870 / 870 1140 / 1140 899 / 899 Output Total 2 / 2 Balance 1913 868 / 868 1140 / 1140 899 / 899 - Physical Exam Oriented: Normal Eyes: Normal Ear: Normal Nose: Normal Throat: Normal Respiratory: Generalized, Wheezes, Rhonchi Cardiovascular: Normal. negative: S3, S4, Murmur : Normal Auscultation: Bowel Sounds: Normal Palpation: Normal Tenderness: Normal Skin: Normal Musculoskeletal: Normal Psychiatric: Normal Mood Description: Calm, Labile Affect: Normal Speech Pattern: Clear, Appropriate - Laboratory and Diagnostics Result Diagrams: 03/22/18 05:40 03/22/18 05:40 Labs: 03/06/18 19:48 Blood Blood Culture - Final 03/06/18 19:44 Blood Blood Culture - Final Laboratory WBC 7.4 X10^3/uL (3.6-10.0) 03/22/18 05:40 RBC 3.02 X10^6/uL (3.5-5.4) L 03/22/18 05:40 Hgb 8.4 g/dL (12.0-16.0) L 03/22/18 05:40 Hct 25.5 % (36.0-47.0) L 03/22/18 05:40 MCV 84.4 fL (80.0-100.0) 03/22/18 05:40 MCH 27.8 pg (27.0-34.0) 03/22/18 05:40 MCHC 33.0 g/dL (33.0-35.0) 03/22/18 05:40 RDW 17.5 % (11.6-16.5) H 03/22/18 05:40 Plt Count 148 X10^3/uL (150.0-450.0) L 03/22/18 05:40 Plt Count Comment Adequate (ADEQUATE) 03/17/18 05:31 MPV 9.7 fL (7.4-11.0) 03/22/18 05:40 Neut % (Auto) 81.0 % (42.0-75.0) H 03/22/18 05:40 Lymph % (Auto) 9.8 % (21.0-51.0) L 03/22/18 05:40 [place] % (Auto) 4.7 % (0.0-13.0) 03/22/18 05:40 Eos % (Auto) 3.9 % (0.9-2.9) H 03/22/18 05:40 Baso % (Auto) 0.6 % (0.2-1.0) 03/22/18 05:40 Neut # (Auto) 6.0 x10^3/uL (2.2-4.8) H 03/22/18 05:40 Lymph # (Auto) 0.7 X10^3/uL (1.3-2.9) L 03/22/18 05:40 [place] # (Auto) 0.3 x10^3/uL (0.3-0.8) 03/22/18 05:40 Eos # (Auto) 0.3 x10^3/uL (0.0-0.2) H 03/22/18 05:40 Baso # (Auto) 0.0 X10^3/uL (0.0-0.1) 03/22/18 05:40 Absolute Nucleated RBC 0.0 /100WBC 03/22/18 05:40 Total Counted 100 03/17/18 05:31 Neutrophils % (Manual) 95 % (39-76) H 03/17/18 05:31 Band Neutrophils % 2 % (0-10) 03/16/18 05:08 Lymphocytes % (Manual) 3 % (13-43) L 03/17/18 05:31 Monocytes % (Manual) 2 % (4-9) L 03/17/18 05:31 Plt Morphology Comment Normal (NORMAL) 03/17/18 05:31 RBC Morphology Normal (NORMAL) 03/17/18 05:31 D-Dimer 1190 ng/mL (0-400) H* 03/06/18 17:28 Sample Site Rbra 03/22/18 05:51 ABG pH 7.410 (7.35-7.45) 03/22/18 05:51 ABG pCO2 66.0 mmHg (35.0-45.0) H* 03/22/18 05:51 ABG pO2 94.0 mmHg (80.0-100.0) 03/22/18 05:51 ABG HCO3 41.8 mmol/L (22-26) H* 03/22/18 05:51 ABG O2 Saturation 97.0 % (90-100) 03/22/18 05:51 ABG Base Excess 14.3 mmol/L (-2.0-2.0) H 03/22/18 05:51 Twan Test Na 03/22/18 05:51 A-a Gradient 73.0 mmHg 03/22/18 05:51 FiO2 35.000 03/22/18 05:51 Blood Gas Comments Praneeth abg well-mtf 03/22/18 05:51 Sodium 143 mmol/L (136-145) 03/22/18 05:40 Corrected Sodium 144 mmol/L (136-145) 03/22/18 05:40 Potassium 4.2 mmol/L (3.5-5.1) 03/22/18 05:40 Chloride 103 mmol/L (98-107) 03/22/18 05:40 Carbon Dioxide 34.6 mmol/L (21-32) H 03/22/18 05:40 BUN 46 mg/dL (7-18) H 03/22/18 05:40 Creatinine 1.48 mg/dL (0.55-1.02) H 03/22/18 05:40 Est GFR (MDRD) Af Amer 44 (>60) L 03/22/18 05:40 Est GFR (MDRD) Non-Af 36 (>60) L 03/22/18 05:40 Glucose 140 mg/dL (65-99) H 03/22/18 05:40 POC Glucose (mg/dL) 212 mg/dL (65-99) H 03/22/18 19:52 Calcium 9.2 mg/dL (8.5-10.1) 03/22/18 05:40 Corrected Calcium TNP 03/22/18 05:40 Total Bilirubin 1.00 mg/dL (0.2-1.0) 03/22/18 05:40 AST 15 Units/L (15-37) 03/22/18 05:40 ALT 17 Units/L (12-78) 03/22/18 05:40 Alkaline Phosphatase 45 Units/L (46-116) L 03/22/18 05:40 Creatine Kinase 16 Units/L (26-192) L 03/13/18 00:06 CK-MB (CK-2) < 1.0 ng/mL (0-4.0) 03/13/18 00:06 CK/CKMB % Calc 6.3 % (<4) 03/13/18 00:06 Troponin I 0.06 ng/mL (0-1.5) 03/13/18 00:06 Total Protein 6.8 g/dL (6.4-8.2) 03/22/18 05:40 Albumin 3.7 g/dL (3.4-5.0) 03/22/18 05:40 Globulin 3.1 g/dL (2.5-4.5) 03/22/18 05:40 Albumin/Globulin Ratio 1.2 Ratio (1.1-2.1) 03/22/18 05:40 Specimen Type Catherized urine 03/12/18 11:55 Urine Color Yellow (YELLOW) 03/12/18 11:55 Urine Appearance Hazy (CLEAR) 03/12/18 11:55 Urine pH 5.0 (5.0 - 8.0) 03/12/18 11:55 Ur Specific [place] 1.020 (1.000-1.030) 03/12/18 11:55 Urine Protein 2+ (NEGATIVE) 03/12/18 11:55 Urine Glucose (UA) Negative (NEGATIVE) 03/12/18 11:55 Urine Ketones Negative (NEGATIVE) 03/12/18 11:55 Urine Occult Blood Negative (NEGATIVE) 03/12/18 11:55 Urine Nitrite Negative (NEGATIVE) 03/12/18 11:55 Urine Bilirubin Negative (NEGATIVE) 03/12/18 11:55 Urine Urobilinogen Normal (NORMAL) 03/12/18 11:55 Ur Leukocyte Esterase Negative (NEGATIVE) 03/12/18 11:55 Urine RBC 0-2 /HPF (NONE SEEN) 03/12/18 11:55 Urine WBC 0-2 /HPF (NONE SEEN) 03/12/18 11:55 Ur Squamous Epith Cells Moderate /HPF (NEGATIVE) 03/12/18 11:55 Amorphous Sediment 2+ /HPF (NEGATIVE) 03/12/18 11:55 Urine Bacteria Trace /HPF (NEGATIVE) 03/12/18 11:55 Urine Mucus Few /HPF (NEGATIVE) 03/12/18 11:55 Ur Culture Indicated? No/not indicated 03/12/18 11:55 Theophylline < 2.0 ug/mL (10-20) L 03/22/18 05:40 - Plan (1) RML pneumonia Status: Acute Qualifiers: Pneumonia type: due to unspecified organism Qualified Code(s): J18.1 - Lobar pneumonia, unspecified organism Plan: iv antibiotics, respiratory treatments, supplemental oxygen, continue to monitor (2) CHF (congestive heart failure) Status: Chronic Qualifiers: Heart failure type: unspecified Heart failure chronicity: acute on chronic Qualified Code(s): I50.9 - Heart failure, unspecified Plan: FLUID RESTRICTION, SOLU-MEDROL 20MG IV Q8H, SALINE LOCK IV FLUIDS, CONTINUE HOME MEDICATIONS, JESSE-DUR 200MG PO BID (3) Respiratory failure with hypercapnia Status: Acute Qualifiers: Chronicity: acute on chronic Qualified Code(s): J96.22 - Acute and chronic respiratory failure with hypercapnia Plan: JESSE-DUR 200MG PO BID, bipap, respiratory treatments, supplemental oxygen , iv solu-medrol, continue to monitor (4) Atrial fibrillation Status: Chronic Qualifiers: Atrial fibrillation type: chronic Qualified Code(s): I48.2 - Chronic atrial fibrillation Plan: CONTINUE ELIQUIS, CONTINUE TO MONITOR (5) Hyperlipidemia Status: Acute Qualifiers: Hyperlipidemia type: pure hypercholesterolemia Qualified Code(s): E78.00 - Pure hypercholesterolemia, unspecified; E78.0 - Pure hypercholesterolemia Plan: CONTINUE LIPITOR, CONTINUE TO MONITOR (6) Type I diabetes mellitus Status: Chronic Qualifiers: Diabetes mellitus complication status: with unspecified complications Qualified Code(s): E10.8 - Type 1 diabetes mellitus with unspecified complications Plan: MONITOR BS, CONTINUE GLUCOTROL, CONTINUE LANTUS, CONTINUE HUMULIN R
[2018-03-22] MEDS: SNACK - Diabetic Appropriate PO SCH (20:53)
[2018-03-22] MEDS: LIPITOR TAB 40 MG PO SCH (20:54)
[2018-03-22] MEDS: COLACE CAP 100 MG PO SCH (20:54)
[2018-03-22] MEDS: LANTUS SC SCH (20:57)
[2018-03-22] MEDS: TUSSIONEX PENNKINETIC SUSP PO PRN (21:04)
[2018-03-22] MEDS: ULTRAM PO PRN (21:04)
[2018-03-23 01:14] LABS: ABG BASE EXCESS 11.8 mmol/L (-2.0-2.0)
[2018-03-23 01:19] LABS: ABG ALLEN TEST POS; ABG HCO3 39.3 mmol/L (22-26)
[2018-03-23] MEDS: MORPHINE SULFATE INJ 2 MG INJ IVP SCH ×3 (03:28→17:56)
[2018-03-23] MEDS: NS 500 ML IV 500 ML IV SCH (05:07)
[2018-03-23] MEDS: ZOSYN VIAL 4.5 GRAMS 4.5 G in NS 100 ML IV + SPIKE MINIBAG* 100 ML IV SCH ×3 (05:07→22:04)
[2018-03-23 05:19] LABS: BASOPHILS % (AUTO) 0.5 % (0.2-1.0); EOSINOPHILS # (AUTO) 0.2 x10^3/uL (0.0-0.2); EOSINOPHILS % (AUTO) 3.2 % (0.9-2.9); HEMATOCRIT 25.4 % (36.0-47.0); HEMOGLOBIN 8.3 g/dL (12.0-16.0); LYMPHOCYTES # (AUTO) 0.5 X10^3/uL (1.3-2.9); LYMPHOCYTES % (AUTO) 6.9 % (21.0-51.0); MEAN CORPUSCULAR HEMOGLOBIN 27.6 pg (27.0-34.0); MEAN CORPUSCULAR HGB CONC 32.5 g/dL (33.0-35.0); MEAN CORPUSCULAR VOLUME 84.8 fL (80.0-100.0); MEAN PLATELET VOLUME 9.8 fL (7.4-11.0); MONOCYTES # (AUTO) 0.4 x10^3/uL (0.3-0.8); MONOCYTES % (AUTO) 5.4 % (0.0-13.0); NEUTROPHILS # (AUTO) 6.1 x10^3/uL (2.2-4.8); PLATELET COUNT 148 X10^3/uL (150.0-450.0); RED CELL DISTRIBUTION WIDTH 17.8 % (11.6-16.5); WHITE BLOOD COUNT 7.3 X10^3/uL (3.6-10.0)
[2018-03-23 05:26] LABS: ALBUMIN 3.8 g/dL (3.4-5.0); ALKALINE PHOSPHATASE 41 Units/L (46-116); ASPARTATE AMINO TRANSFERASE 15 Units/L (15-37); BLOOD UREA NITROGEN 39 mg/dL (7-18); CALCIUM 9.1 mg/dL (8.5-10.1); CHLORIDE 104 mmol/L (98-107); COR NA(FOR HYPERGLY) 146 mmol/L (136-145); CREATININE 1.48 mg/dL (0.55-1.02); SODIUM 145 mmol/L (136-145); THEOPHYLLINE < 2.0 ug/mL (10-20); eGFR NON BLACK RACES 36 (>60)
[2018-03-23 05:38] LABS: ALANINE AMINOTRANSFERASE 16 Units/L (12-78)
[2018-03-23] MEDS: GLUCOTROL PO SCH ×2 (06:07→17:56)
--- NOTE | 2018-03-23 07:03 | RAD ---
HISTORY: Shortness of breath Study: Chest AP portable Comparison: 03/21/2018 Findings: The heart remains enlarged. No definite congestive heart failure is noted. There is better aeration o f the right lower lung with resolution of the right basilar lung infiltrate and some residual subsegm ental atelectasis present. Abnormal density is unchanged in the left lung base which could be due to infiltrate, atelectasis, effusion or combination. The bony thorax is unremarkable. IMPRESSION: Moderate cardiomegaly without congestive heart failure, unchanged Improved aeration of the right lung base with infiltrate resolution and some residual subsegmental at electasis Stable persistent increased density retrocardiac area left lower lobe Reported By:
[2018-03-23] MEDS: XOPENEX 1.25 MG/3 ML NEBULE NEB SCH ×4 (09:01→21:45)
[2018-03-23] MEDS: OXYBUTYNIN CHLORIDE ER PO SCH (09:18)
[2018-03-23] MEDS: MICRO K EXTEN CAP 10 MEQ PO SCH (09:18)
[2018-03-23] MEDS: ROBITUSSIN DM PO SCH ×5 (09:19→20:42)
[2018-03-23] MEDS: COZAAR PO SCH (09:19)
[2018-03-23] MEDS: MAG-OX TAB PO SCH (09:19)
[2018-03-23] MEDS: ASPIRIN EC 81 MG PO SCH (09:19)
[2018-03-23] MEDS: ELIQUIS PO SCH ×2 (09:19→20:39)
[2018-03-23] MEDS: ZYLOPRIM PO SCH (09:19)
[2018-03-23] MEDS: MILK OF MAGNESIA PO SCH ×3 (09:20→20:41)
[2018-03-23] MEDS: ALBUMIN HUMAN 25%- 100 ML 100 ML IV SCH (09:20)
[2018-03-23] MEDS: HumuLIN R SUBCUT PRN ×2 (11:59→16:45)
[2018-03-23] MEDS: SNACK - Diabetic Appropriate PO SCH (20:39)
[2018-03-23] MEDS: LIPITOR TAB 40 MG PO SCH (20:39)
[2018-03-23] MEDS: COLACE CAP 100 MG PO SCH (20:39)
[2018-03-23] MEDS: ULTRAM PO PRN (20:40)
[2018-03-23] MEDS: TUSSIONEX PENNKINETIC SUSP PO PRN (20:40)
[2018-03-23] MEDS: LANTUS SC SCH (20:41)
--- NOTE | 2018-03-23 21:07 | PCM.PROG ---
Progress Note - Progress Note for Day of Date of Exam: 03/22/18 - Subjective Subjective: IS BEING TREATED FOR RIGHT MIDDLE LOBE PNEUMONIA AND CHF EXACERBATION. TODAY, SHE IS ALERT AND ORIENTED, LYING IN BED ON MORNING ROUNDS. SHE CONTINUES WITH COMPLAINTS OF SHORTNESS OF BREATH AND A NON-PRODUCTIVE COUGH. SHE IS CURRENTLY ON NASAL CANNULA AND MAINTAINING OXYGEN SATURATIONS IN THE HIGH 90S. SHE DOES CONTINUE TO REQUIRE THE BIPAP WHILE ASLEEP. ON EXAMINATION, HEART IS REGULAR IN RATE AND RHYTHM. BILATERAL LUNGS CONTINUE WITH SCATTERED WHEEZING AND RHONCHI THROUGHOUT. ABDOMEN IS ROUND, SOFT, AND NON- TENDER WITH NORMAL BOWEL SOUNDS NOTED IN ALL QUADRANTS. HER VITALS TODAY ARE. 98.1-82-24-95%-119/73. LABS WERE OBTAINED. ABNORMAL LAB VALUES INCLUDE THE FOLLOWING: RBC 3.02, HGB 8.4, HCT 25.5, CARBON DIOXIDE 34.6, BUN 46, CREATININE 1.48, GLUCOSE 140, ALK PHOS 45. ABG REVEALS PH 7.410, PC02 66.0, P02 94.0, HC03 41.8, 02 SATURATION 97.0, BASE EXCESS 14.3. STAFF REPORTS THAT PATIENTS OXYGEN SATURATIONS CONTINUE TO FALL WHEN SHE IS ASLEEP AND ON HER HOME BIPAP MACHINE. RESPIRATORY IS WORKING ON MAKING ADJUSTMENTS TO HER MACHINE. SHE CONTINUES TO REQUIRE MODERATE ASSISTANCE WHEN AMBULATING DUE TO UNSTEADY GAIT AND INCREASED SHORTNESS OF BREATH. WE WILL CONTINUE WITH RESPIRATORY TREATMENTS, BIPAP, IV STEROIDS, AND CURRENT PLAN OF CARE. OTHERWISE, WE PLAN TO FOLLOW UP WITH AM LABS AND CHEST XRAY AND WILL CONTINUE TO MONITOR PATIENT. - Past Medical Family Social History Past Med/Fam/Surg Hx: No changes since H&P Allergies: Allergies lisinopril [From Zestril] Allergy (Verified 03/06/18 17:05) meperidine [From Demerol] Adverse Reaction (Verified 03/06/18 17:05) zinc Adverse Reaction (Verified 03/06/18 17:05) - Review of Systems ROS: No change since H&P - Vital Signs and I&O's Vital Signs: Temperature 98 F Pulse Rate [Apical] 87 Pulse Rate [Right Brachial] 82 Pulse Rate [Left Brachial] 101 Pulse Rate 64 Respiratory Rate 20 Blood Pressure [Left Radial 145/63 Artery] Blood Pressure [Right Radial 178/102 Artery] Blood Pressure [Right Arm] 163/90 Blood Pressure [Left Arm] 139/66 Blood Pressure 137/95 O2 Sat by Pulse Oximetry 93 Intake and Output: Intake & Output 03/21/18 03/22/18 03/23/18 03/24/18 11:59 11:59 11:59 11:59 Intake Total 870 / 870 1140 / 1140 1599 / 1599 520 / 520 Output Total 2 / 2 Balance 868 / 868 1140 / 1140 1599 / 1599 520 / 520 - Physical Exam Oriented: Normal Eyes: Normal Ear: Normal Nose: Normal Throat: Normal Respiratory: Generalized, Wheezes, Rhonchi Cardiovascular: Normal. negative: S3, S4, Murmur : Normal Auscultation: Bowel Sounds: Normal Tenderness: Normal Skin: Normal Musculoskeletal: Normal Psychiatric: Normal Mood Description: Calm, Labile Affect: Normal Speech Pattern: Clear, Appropriate - Laboratory and Diagnostics Result Diagrams: 03/23/18 04:48 03/23/18 04:48 Labs: 03/06/18 19:48 Blood Blood Culture - Final 03/06/18 19:44 Blood Blood Culture - Final Laboratory WBC 7.3 X10^3/uL (3.6-10.0) 03/23/18 04:48 RBC 3.00 X10^6/uL (3.5-5.4) L 03/23/18 04:48 Hgb 8.3 g/dL (12.0-16.0) L 03/23/18 04:48 Hct 25.4 % (36.0-47.0) L 03/23/18 04:48 MCV 84.8 fL (80.0-100.0) 03/23/18 04:48 MCH 27.6 pg (27.0-34.0) 03/23/18 04:48 MCHC 32.5 g/dL (33.0-35.0) L 03/23/18 04:48 RDW 17.8 % (11.6-16.5) H 03/23/18 04:48 Plt Count 148 X10^3/uL (150.0-450.0) L 03/23/18 04:48 Plt Count Comment Adequate (ADEQUATE) 03/17/18 05:31 MPV 9.8 fL (7.4-11.0) 03/23/18 04:48 Neut % (Auto) 84.0 % (42.0-75.0) H 03/23/18 04:48 Lymph % (Auto) 6.9 % (21.0-51.0) L 03/23/18 04:48 [place] % (Auto) 5.4 % (0.0-13.0) 03/23/18 04:48 Eos % (Auto) 3.2 % (0.9-2.9) H 03/23/18 04:48 Baso % (Auto) 0.5 % (0.2-1.0) 03/23/18 04:48 Neut # (Auto) 6.1 x10^3/uL (2.2-4.8) H 03/23/18 04:48 Lymph # (Auto) 0.5 X10^3/uL (1.3-2.9) L 03/23/18 04:48 [place] # (Auto) 0.4 x10^3/uL (0.3-0.8) 03/23/18 04:48 Eos # (Auto) 0.2 x10^3/uL (0.0-0.2) 03/23/18 04:48 Baso # (Auto) 0.0 X10^3/uL (0.0-0.1) 03/23/18 04:48 Absolute Nucleated RBC 0.1 /100WBC 03/23/18 04:48 Total Counted 100 03/17/18 05:31 Neutrophils % (Manual) 95 % (39-76) H 03/17/18 05:31 Band Neutrophils % 2 % (0-10) 03/16/18 05:08 Lymphocytes % (Manual) 3 % (13-43) L 03/17/18 05:31 Monocytes % (Manual) 2 % (4-9) L 03/17/18 05:31 Plt Morphology Comment Normal (NORMAL) 03/17/18 05:31 RBC Morphology Normal (NORMAL) 03/17/18 05:31 D-Dimer 1190 ng/mL (0-400) H* 03/06/18 17:28 Sample Site Rrad 03/23/18 01:03 ABG pH 7.390 (7.35-7.45) 03/23/18 01:03 ABG pCO2 65.0 mmHg (35.0-45.0) H* 03/23/18 01:03 ABG pO2 93.0 mmHg (80.0-100.0) 03/23/18 01:03 ABG HCO3 39.3 mmol/L (22-26) H* 03/23/18 01:03 ABG O2 Saturation 97.0 % (90-100) 03/23/18 01:03 ABG Base Excess 11.8 mmol/L (-2.0-2.0) H 03/23/18 01:03 Twan Test Pos 03/23/18 01:03 A-a Gradient 75.0 mmHg 03/23/18 01:03 FiO2 35.000 03/23/18 01:03 Blood Gas Comments Praneeth abg well-mtf 03/23/18 01:03 Sodium 145 mmol/L (136-145) 03/23/18 04:48 Corrected Sodium 146 mmol/L (136-145) H 03/23/18 04:48 Potassium 4.3 mmol/L (3.5-5.1) 03/23/18 04:48 Chloride 104 mmol/L (98-107) 03/23/18 04:48 Carbon Dioxide 39.0 mmol/L (21-32) H 03/23/18 04:48 BUN 39 mg/dL (7-18) H 03/23/18 04:48 Creatinine 1.48 mg/dL (0.55-1.02) H 03/23/18 04:48 Est GFR (MDRD) Af Amer 44 (>60) L 03/23/18 04:48 Est GFR (MDRD) Non-Af 36 (>60) L 03/23/18 04:48 Glucose 147 mg/dL (65-99) H 03/23/18 04:48 POC Glucose (mg/dL) 211 mg/dL (65-99) H 03/23/18 20:21 Calcium 9.1 mg/dL (8.5-10.1) 03/23/18 04:48 Corrected Calcium TNP 03/23/18 04:48 Total Bilirubin 1.10 mg/dL (0.2-1.0) H 03/23/18 04:48 AST 15 Units/L (15-37) 03/23/18 04:48 ALT 16 Units/L (12-78) 03/23/18 04:48 Alkaline Phosphatase 41 Units/L (46-116) L 03/23/18 04:48 Creatine Kinase 16 Units/L (26-192) L 03/13/18 00:06 CK-MB (CK-2) < 1.0 ng/mL (0-4.0) 03/13/18 00:06 CK/CKMB % Calc 6.3 % (<4) 03/13/18 00:06 Troponin I 0.06 ng/mL (0-1.5) 03/13/18 00:06 Total Protein 7.0 g/dL (6.4-8.2) 03/23/18 04:48 Albumin 3.8 g/dL (3.4-5.0) 03/23/18 04:48 Globulin 3.2 g/dL (2.5-4.5) 03/23/18 04:48 Albumin/Globulin Ratio 1.2 Ratio (1.1-2.1) 03/23/18 04:48 Specimen Type Catherized urine 03/12/18 11:55 Urine Color Yellow (YELLOW) 03/12/18 11:55 Urine Appearance Hazy (CLEAR) 03/12/18 11:55 Urine pH 5.0 (5.0 - 8.0) 03/12/18 11:55 Ur Specific [place] 1.020 (1.000-1.030) 03/12/18 11:55 Urine Protein 2+ (NEGATIVE) 03/12/18 11:55 Urine Glucose (UA) Negative (NEGATIVE) 03/12/18 11:55 Urine Ketones Negative (NEGATIVE) 03/12/18 11:55 Urine Occult Blood Negative (NEGATIVE) 03/12/18 11:55 Urine Nitrite Negative (NEGATIVE) 03/12/18 11:55 Urine Bilirubin Negative (NEGATIVE) 03/12/18 11:55 Urine Urobilinogen Normal (NORMAL) 03/12/18 11:55 Ur Leukocyte Esterase Negative (NEGATIVE) 03/12/18 11:55 Urine RBC 0-2 /HPF (NONE SEEN) 03/12/18 11:55 Urine WBC 0-2 /HPF (NONE SEEN) 03/12/18 11:55 Ur Squamous Epith Cells Moderate /HPF (NEGATIVE) 03/12/18 11:55 Amorphous Sediment 2+ /HPF (NEGATIVE) 03/12/18 11:55 Urine Bacteria Trace /HPF (NEGATIVE) 03/12/18 11:55 Urine Mucus Few /HPF (NEGATIVE) 03/12/18 11:55 Ur Culture Indicated? No/not indicated 03/12/18 11:55 Theophylline < 2.0 ug/mL (10-20) L 03/23/18 04:48 - Plan (1) RML pneumonia Status: Acute Qualifiers: Pneumonia type: due to unspecified organism Qualified Code(s): J18.1 - Lobar pneumonia, unspecified organism Plan: iv antibiotics, respiratory treatments, supplemental oxygen, continue to monitor (2) CHF (congestive heart failure) Status: Chronic Qualifiers: Heart failure type: unspecified Heart failure chronicity: acute on chronic Qualified Code(s): I50.9 - Heart failure, unspecified Plan: FLUID RESTRICTION, SOLU-MEDROL 20MG IV Q8H, SALINE LOCK IV FLUIDS, CONTINUE HOME MEDICATIONS, JESSE-DUR 200MG PO BID (3) Respiratory failure with hypercapnia Status: Acute Qualifiers: Chronicity: acute on chronic Qualified Code(s): J96.22 - Acute and chronic respiratory failure with hypercapnia Plan: JESSE-DUR 200MG PO BID, bipap, respiratory treatments, supplemental oxygen , iv solu-medrol, continue to monitor (4) Atrial fibrillation Status: Chronic Qualifiers: Atrial fibrillation type: chronic Qualified Code(s): I48.2 - Chronic atrial fibrillation Plan: CONTINUE ELIQUIS, CONTINUE TO MONITOR (5) Hyperlipidemia Status: Acute Qualifiers: Hyperlipidemia type: pure hypercholesterolemia Qualified Code(s): E78.00 - Pure hypercholesterolemia, unspecified; E78.0 - Pure hypercholesterolemia Plan: CONTINUE LIPITOR, CONTINUE TO MONITOR (6) Type I diabetes mellitus Status: Chronic Qualifiers: Diabetes mellitus complication status: with unspecified complications Qualified Code(s): E10.8 - Type 1 diabetes mellitus with unspecified complications Plan: MONITOR BS, CONTINUE GLUCOTROL, CONTINUE LANTUS, CONTINUE HUMULIN R
[2018-03-24] MEDS: MORPHINE SULFATE INJ 2 MG INJ IVP SCH ×3 (02:40→18:13)
[2018-03-24] MEDS: NS 500 ML IV 500 ML IV SCH (05:15)
[2018-03-24] MEDS: ZOSYN VIAL 4.5 GRAMS 4.5 G in NS 100 ML IV + SPIKE MINIBAG* 100 ML IV SCH ×3 (05:16→21:15)
[2018-03-24 05:39] LABS: BASOPHILS % (AUTO) 0.5 % (0.2-1.0); EOSINOPHILS # (AUTO) 0.2 x10^3/uL (0.0-0.2); EOSINOPHILS % (AUTO) 3.7 % (0.9-2.9); HEMATOCRIT 24.8 % (36.0-47.0); HEMOGLOBIN 7.9 g/dL (12.0-16.0); LYMPHOCYTES # (AUTO) 0.6 X10^3/uL (1.3-2.9); LYMPHOCYTES % (AUTO) 8.9 % (21.0-51.0); MEAN CORPUSCULAR HEMOGLOBIN 27.5 pg (27.0-34.0); MEAN CORPUSCULAR VOLUME 85.9 fL (80.0-100.0); MEAN PLATELET VOLUME 9.8 fL (7.4-11.0); MONOCYTES # (AUTO) 0.4 x10^3/uL (0.3-0.8); MONOCYTES % (AUTO) 6.5 % (0.0-13.0); NEUTROPHILS # (AUTO) 5.2 x10^3/uL (2.2-4.8); NEUTROPHILS % (AUTO) 80.4 % (42.0-75.0); PLATELET COUNT 148 X10^3/uL (150.0-450.0); RED BLOOD COUNT 2.89 X10^6/uL (3.5-5.4); RED CELL DISTRIBUTION WIDTH 17.9 % (11.6-16.5); WHITE BLOOD COUNT 6.5 X10^3/uL (3.6-10.0)
[2018-03-24 05:45] LABS: ALANINE AMINOTRANSFERASE 15 Units/L (12-78); ALBUMIN 3.6 g/dL (3.4-5.0); ALKALINE PHOSPHATASE 39 Units/L (46-116); ASPARTATE AMINO TRANSFERASE 13 Units/L (15-37); BLOOD UREA NITROGEN 40 mg/dL (7-18); CALCIUM 9.2 mg/dL (8.5-10.1); CHLORIDE 105 mmol/L (98-107); COR NA(FOR HYPERGLY) 146 mmol/L (136-145); CREATININE 1.55 mg/dL (0.55-1.02); SODIUM 145 mmol/L (136-145); TOTAL PROTEIN 6.7 g/dL (6.4-8.2); eGFR NON BLACK RACES 35 (>60)
[2018-03-24 06:06] LABS: HYPOCHROMASIA 1+; OVALOCYTES PRESENT; PLATELET MORPHOLOGY COMMENT NORMAL (NORMAL)
[2018-03-24] MEDS: GLUCOTROL PO SCH ×2 (06:13→16:55)
[2018-03-24] MEDS: XOPENEX 1.25 MG/3 ML NEBULE NEB SCH ×4 (08:40→21:54)
[2018-03-24] MEDS: ELIQUIS PO SCH ×2 (09:40→20:19)
[2018-03-24] MEDS: ASPIRIN EC 81 MG PO SCH (09:41)
[2018-03-24] MEDS: COZAAR PO SCH (09:41)
[2018-03-24] MEDS: ALBUMIN HUMAN 25%- 100 ML 100 ML IV SCH (09:42)
[2018-03-24] MEDS: MICRO K EXTEN CAP 10 MEQ PO SCH (09:42)
[2018-03-24] MEDS: MAG-OX TAB PO SCH (09:42)
[2018-03-24] MEDS: ZYLOPRIM PO SCH (09:43)
[2018-03-24] MEDS: OXYBUTYNIN CHLORIDE ER PO SCH (09:43)
[2018-03-24] MEDS: ROBITUSSIN DM PO SCH ×4 (09:54→20:23)
[2018-03-24] MEDS: MILK OF MAGNESIA PO SCH ×2 (09:54→20:20)
[2018-03-24 12:18] LABS: ABG BASE EXCESS 10.3 mmol/L (-2.0-2.0)
[2018-03-24 12:20] LABS: ABG HCO3 38.8 mmol/L (22-26)
[2018-03-24] MEDS ORDERED: MORPHINE SULFATE INJ 2 MG INJ IVP PRN (18:14)
[2018-03-24] MEDS: SNACK - Diabetic Appropriate PO SCH (20:18)
[2018-03-24] MEDS: COLACE CAP 100 MG PO SCH (20:18)
[2018-03-24] MEDS: LIPITOR TAB 40 MG PO SCH (20:18)
[2018-03-24] MEDS: LANTUS SC SCH (20:22)
[2018-03-24] MEDS: ULTRAM PO PRN (20:23)
[2018-03-25] MEDS: ZOSYN VIAL 4.5 GRAMS 4.5 G in NS 100 ML IV + SPIKE MINIBAG* 100 ML IV SCH ×3 (05:04→21:31)
[2018-03-25] MEDS: NS 500 ML IV 500 ML IV SCH (05:04)
[2018-03-25 05:27] LABS: BASOPHILS # (AUTO) 0.1 X10^3/uL (0.0-0.1); BASOPHILS % (AUTO) 0.8 % (0.2-1.0); EOSINOPHILS # (AUTO) 0.2 x10^3/uL (0.0-0.2); EOSINOPHILS % (AUTO) 2.8 % (0.9-2.9); HEMATOCRIT 25.4 % (36.0-47.0); HEMOGLOBIN 8.1 g/dL (12.0-16.0); LYMPHOCYTES # (AUTO) 0.6 X10^3/uL (1.3-2.9); LYMPHOCYTES % (AUTO) 8.3 % (21.0-51.0); MEAN CORPUSCULAR HEMOGLOBIN 27.6 pg (27.0-34.0); MEAN CORPUSCULAR HGB CONC 31.8 g/dL (33.0-35.0); MEAN CORPUSCULAR VOLUME 86.8 fL (80.0-100.0); MEAN PLATELET VOLUME 9.9 fL (7.4-11.0); MONOCYTES # (AUTO) 0.4 x10^3/uL (0.3-0.8); MONOCYTES % (AUTO) 5.8 % (0.0-13.0); NEUTROPHILS # (AUTO) 5.8 x10^3/uL (2.2-4.8); NEUTROPHILS % (AUTO) 82.3 % (42.0-75.0); PLATELET COUNT 156 X10^3/uL (150.0-450.0); RED BLOOD COUNT 2.93 X10^6/uL (3.5-5.4); RED CELL DISTRIBUTION WIDTH 18.4 % (11.6-16.5); WHITE BLOOD COUNT 7.1 X10^3/uL (3.6-10.0)
[2018-03-25 05:39] LABS: ALANINE AMINOTRANSFERASE 14 Units/L (12-78); ALBUMIN 3.7 g/dL (3.4-5.0); ALKALINE PHOSPHATASE 47 Units/L (46-116); ASPARTATE AMINO TRANSFERASE 12 Units/L (15-37); BLOOD UREA NITROGEN 41 mg/dL (7-18); CALCIUM 9.2 mg/dL (8.5-10.1); CARBON DIOXIDE 34.5 mmol/L (21-32); CHLORIDE 104 mmol/L (98-107); COR NA(FOR HYPERGLY) 144 mmol/L (136-145); SODIUM 143 mmol/L (136-145); TOTAL PROTEIN 6.9 g/dL (6.4-8.2); eGFR NON BLACK RACES 31 (>60)
--- NOTE | 2018-03-25 05:56 | RAD ---
AP chest Indication: Shortness breath Comparison: 03/24/2018 Findings: Heart size remains enlarged. Slight increased pulmonary vascular congestion, interstitial e jeannette and suspected small bilateral pleural effusions. No pneumothorax. No acute osseous abnormality. Trachea is midline. Impression: Cardiomegaly with increasing pulmonary vascular congestion and interstitial edema with morfin spected small bilateral pleural effusions. Reported By:
[2018-03-25] MEDS: GLUCOTROL PO SCH ×2 (06:01→17:11)
[2018-03-25] MEDS: XOPENEX 1.25 MG/3 ML NEBULE NEB SCH ×4 (09:06→21:50)
[2018-03-25] MEDS: ASPIRIN EC 81 MG PO SCH (09:24)
[2018-03-25] MEDS: ALBUMIN HUMAN 25%- 100 ML 100 ML IV SCH (09:24)
[2018-03-25] MEDS: MAG-OX TAB PO SCH (09:25)
[2018-03-25] MEDS: COZAAR PO SCH (09:25)
[2018-03-25] MEDS: ZYLOPRIM PO SCH (09:25)
[2018-03-25] MEDS: MICRO K EXTEN CAP 10 MEQ PO SCH (09:25)
[2018-03-25] MEDS: OXYBUTYNIN CHLORIDE ER PO SCH (09:25)
[2018-03-25] MEDS: ELIQUIS PO SCH ×2 (09:25→21:29)
[2018-03-25] MEDS: MILK OF MAGNESIA PO SCH ×2 (09:38→21:29)
[2018-03-25] MEDS: ROBITUSSIN DM PO SCH ×5 (09:38→21:29)
[2018-03-25] MEDS: LIPITOR TAB 40 MG PO SCH (21:29)
[2018-03-25] MEDS: COLACE CAP 100 MG PO SCH (21:30)
[2018-03-25] MEDS: LANTUS SC SCH (21:30)
[2018-03-25] MEDS: SNACK - Diabetic Appropriate PO SCH (21:30)
[2018-03-26] MEDS: NS 500 ML IV 500 ML IV SCH (05:46)
[2018-03-26 05:57] LABS: BASOPHILS # (AUTO) 0.1 X10^3/uL (0.0-0.1); BASOPHILS % (AUTO) 0.7 % (0.2-1.0); EOSINOPHILS # (AUTO) 0.2 x10^3/uL (0.0-0.2); EOSINOPHILS % (AUTO) 2.2 % (0.9-2.9); HEMATOCRIT 25.4 % (36.0-47.0); HEMOGLOBIN 8.1 g/dL (12.0-16.0); LYMPHOCYTES # (AUTO) 0.5 X10^3/uL (1.3-2.9); LYMPHOCYTES % (AUTO) 6.2 % (21.0-51.0); MEAN CORPUSCULAR HEMOGLOBIN 27.7 pg (27.0-34.0); MEAN CORPUSCULAR HGB CONC 31.9 g/dL (33.0-35.0); MEAN CORPUSCULAR VOLUME 86.8 fL (80.0-100.0); MEAN PLATELET VOLUME 9.7 fL (7.4-11.0); MONOCYTES # (AUTO) 0.5 x10^3/uL (0.3-0.8); MONOCYTES % (AUTO) 5.9 % (0.0-13.0); PLATELET COUNT 162 X10^3/uL (150.0-450.0); RED BLOOD COUNT 2.92 X10^6/uL (3.5-5.4); RED CELL DISTRIBUTION WIDTH 17.8 % (11.6-16.5); WHITE BLOOD COUNT 8.2 X10^3/uL (3.6-10.0)
[2018-03-26 06:12] LABS: ALANINE AMINOTRANSFERASE 14 Units/L (12-78); ALBUMIN 3.8 g/dL (3.4-5.0); ALKALINE PHOSPHATASE 53 Units/L (46-116); ASPARTATE AMINO TRANSFERASE 13 Units/L (15-37); BLOOD UREA NITROGEN 43 mg/dL (7-18); CALCIUM 9.4 mg/dL (8.5-10.1); CARBON DIOXIDE 33.4 mmol/L (21-32); CHLORIDE 104 mmol/L (98-107); COR NA(FOR HYPERGLY) 144 mmol/L (136-145); SODIUM 143 mmol/L (136-145); TOTAL PROTEIN 7.1 g/dL (6.4-8.2); eGFR NON BLACK RACES 27 (>60)
[2018-03-26] MEDS: ZOSYN VIAL 4.5 GRAMS 4.5 G in NS 100 ML IV + SPIKE MINIBAG* 100 ML IV SCH ×3 (06:30→21:02)
[2018-03-26] MEDS ORDERED: MILK OF MAGNESIA PO PRN (07:48)
[2018-03-26] MEDS: XOPENEX 1.25 MG/3 ML NEBULE NEB SCH ×4 (08:44→20:23)
[2018-03-26] MEDS: GLUCOTROL PO SCH ×2 (09:31→17:50)
[2018-03-26] MEDS: ALBUMIN HUMAN 25%- 100 ML 100 ML IV SCH (09:32)
[2018-03-26] MEDS: COZAAR PO SCH (09:32)
[2018-03-26] MEDS: ASPIRIN EC 81 MG PO SCH (09:32)
[2018-03-26] MEDS: ELIQUIS PO SCH ×2 (09:32→21:01)
[2018-03-26] MEDS: MAG-OX TAB PO SCH (09:32)
[2018-03-26] MEDS: MICRO K EXTEN CAP 10 MEQ PO SCH (09:33)
[2018-03-26] MEDS: OXYBUTYNIN CHLORIDE ER PO SCH (09:33)
[2018-03-26] MEDS: ZYLOPRIM PO SCH (09:33)
[2018-03-26 15:48] LABS: ABG BASE EXCESS 9.9 mmol/L (-2.0-2.0)
[2018-03-26 15:51] LABS: ABG HCO3 38.5 mmol/L (22-26)
[2018-03-26 17:41] LABS: BLOOD UREA NITROGEN 46 mg/dL (7-18); CALCIUM 9.2 mg/dL (8.5-10.1); CARBON DIOXIDE 35.4 mmol/L (21-32); CHLORIDE 103 mmol/L (98-107); CREATININE 1.96 mg/dL (0.55-1.02); SODIUM 144 mmol/L (136-145); eGFR NON BLACK RACES 26 (>60)
[2018-03-26] MEDS: SNACK - Diabetic Appropriate PO SCH (19:37)
[2018-03-26 20:02] LABS: FRACTIONATED INSPIRED OXYGEN 60
[2018-03-26] MEDS: LIPITOR TAB 40 MG PO SCH (21:01)
[2018-03-26] MEDS: COLACE CAP 100 MG PO SCH (21:02)
[2018-03-26] MEDS: LANTUS SC SCH (22:25)
[2018-03-27 04:36] LABS: ABG BASE EXCESS 10.4 mmol/L (-2.0-2.0)
[2018-03-27 04:38] LABS: ABG ALLEN TEST POS; ABG HCO3 38.4 mmol/L (22-26)
[2018-03-27 05:21] LABS: BASOPHILS % (AUTO) 0.4 % (0.2-1.0); EOSINOPHILS # (AUTO) 0.2 x10^3/uL (0.0-0.2); EOSINOPHILS % (AUTO) 3.1 % (0.9-2.9); HEMATOCRIT 23.5 % (36.0-47.0); HEMOGLOBIN 7.7 g/dL (12.0-16.0); LYMPHOCYTES # (AUTO) 0.4 X10^3/uL (1.3-2.9); LYMPHOCYTES % (AUTO) 5.7 % (21.0-51.0); MEAN CORPUSCULAR HEMOGLOBIN 28.1 pg (27.0-34.0); MEAN CORPUSCULAR HGB CONC 32.7 g/dL (33.0-35.0); MEAN CORPUSCULAR VOLUME 86.1 fL (80.0-100.0); MEAN PLATELET VOLUME 9.6 fL (7.4-11.0); MONOCYTES # (AUTO) 0.3 x10^3/uL (0.3-0.8); MONOCYTES % (AUTO) 4.2 % (0.0-13.0); NEUTROPHILS # (AUTO) 6.5 x10^3/uL (2.2-4.8); NEUTROPHILS % (AUTO) 86.6 % (42.0-75.0); PLATELET COUNT 153 X10^3/uL (150.0-450.0); RED BLOOD COUNT 2.73 X10^6/uL (3.5-5.4); RED CELL DISTRIBUTION WIDTH 18.1 % (11.6-16.5); WHITE BLOOD COUNT 7.5 X10^3/uL (3.6-10.0)
[2018-03-27 05:22] LABS: ALANINE AMINOTRANSFERASE 13 Units/L (12-78); ALBUMIN 3.6 g/dL (3.4-5.0); ALKALINE PHOSPHATASE 51 Units/L (46-116); ASPARTATE AMINO TRANSFERASE 16 Units/L (15-37); BLOOD UREA NITROGEN 45 mg/dL (7-18); CALCIUM 9.5 mg/dL (8.5-10.1); CARBON DIOXIDE 36.3 mmol/L (21-32); CHLORIDE 104 mmol/L (98-107); SODIUM 144 mmol/L (136-145); TOTAL PROTEIN 6.7 g/dL (6.4-8.2); eGFR NON BLACK RACES 27 (>60)
[2018-03-27] MEDS: ZOSYN VIAL 4.5 GRAMS 4.5 G in NS 100 ML IV + SPIKE MINIBAG* 100 ML IV SCH (05:27)
[2018-03-27] MEDS: NS 500 ML IV 500 ML IV SCH (05:32)
[2018-03-27 05:34] LABS: ANISOCYTOSIS SLIGHT; HYPOCHROMASIA 1+; OVALOCYTES PRESENT; PLATELET MORPHOLOGY COMMENT NORMAL (NORMAL)
--- NOTE | 2018-03-27 09:00 | RAD ---
History: Shortness of breath and followup of right lower lobe pneumonia Study: Upright portable AP chest Comparison: March 25 Findings: There is unchanged cardiomegaly. The costophrenic angles remain indistinct. There is near r esolution of vascular congestion. There is decreasing pulmonary edema. Impression: Unchanged cardiomegaly but improving findings of congestive heart failure Reported By:
[2018-03-27] MEDS: XOPENEX 1.25 MG/3 ML NEBULE NEB SCH ×4 (09:09→20:04)
[2018-03-27] MEDS: ALBUMIN HUMAN 25%- 100 ML 100 ML IV SCH (09:28)
[2018-03-27] MEDS: ELIQUIS PO SCH ×2 (09:29→20:46)
[2018-03-27] MEDS: ASPIRIN EC 81 MG PO SCH (09:30)
[2018-03-27] MEDS: OXYBUTYNIN CHLORIDE ER PO SCH (09:30)
[2018-03-27] MEDS: COZAAR PO SCH (09:30)
[2018-03-27] MEDS: MAG-OX TAB PO SCH (09:30)
[2018-03-27] MEDS: ZYLOPRIM PO SCH (09:31)
[2018-03-27] MEDS: GLUCOTROL PO SCH ×2 (09:32→18:26)
[2018-03-27] MEDS: LASIX IVP SCH ×2 (11:14→20:48)
[2018-03-27] MEDS: ZOSYN VIAL 3.375 GRAMS 3.375 G in NS 100 ML IV + SPIKE MINIBAG* 100 ML IV SCH ×2 (15:45→21:32)
[2018-03-27] MEDS: COLACE CAP 100 MG PO SCH (20:46)
[2018-03-27] MEDS: SNACK - Diabetic Appropriate PO SCH (20:46)
[2018-03-27] MEDS: LIPITOR TAB 40 MG PO SCH (20:46)
[2018-03-27] MEDS: LANTUS SC SCH (20:47)
[2018-03-28 05:32] LABS: EOSINOPHILS # (AUTO) 0.2 x10^3/uL (0.0-0.2); HEMOGLOBIN 7.4 g/dL (12.0-16.0); LYMPHOCYTES # (AUTO) 0.4 X10^3/uL (1.3-2.9); MONOCYTES # (AUTO) 0.4 x10^3/uL (0.3-0.8)
[2018-03-28] MEDS: ZOSYN VIAL 3.375 GRAMS 3.375 G in NS 100 ML IV + SPIKE MINIBAG* 100 ML IV SCH ×3 (05:37→21:55)
[2018-03-28 05:39] LABS: BASOPHILS % (AUTO) 0.6 % (0.2-1.0); EOSINOPHILS % (AUTO) 2.7 % (0.9-2.9); HEMATOCRIT 22.2 % (36.0-47.0); MEAN CORPUSCULAR VOLUME 84.6 fL (80.0-100.0); MEAN PLATELET VOLUME 9.2 fL (7.4-11.0); MONOCYTES % (AUTO) 5.4 % (0.0-13.0); NEUTROPHILS % (AUTO) 85.3 % (42.0-75.0); PLATELET COUNT 154 X10^3/uL (150.0-450.0); RED BLOOD COUNT 2.63 X10^6/uL (3.5-5.4); RED CELL DISTRIBUTION WIDTH 18.5 % (11.6-16.5)
[2018-03-28 05:50] LABS: ANISOCYTOSIS 1+; HYPOCHROMASIA 1+; OVALOCYTES PRESENT; PLATELET MORPHOLOGY COMMENT NORMAL (NORMAL)
[2018-03-28 05:58] LABS: ALANINE AMINOTRANSFERASE 12 Units/L (12-78); ALBUMIN 3.4 g/dL (3.4-5.0); ALKALINE PHOSPHATASE 46 Units/L (46-116); ASPARTATE AMINO TRANSFERASE 15 Units/L (15-37); BLOOD UREA NITROGEN 43 mg/dL (7-18); CALCIUM 9.2 mg/dL (8.5-10.1); CARBON DIOXIDE 33.6 mmol/L (21-32); CHLORIDE 105 mmol/L (98-107); COR NA(FOR HYPERGLY) 144 mmol/L (136-145); CREATININE 1.93 mg/dL (0.55-1.02); SODIUM 144 mmol/L (136-145); TOTAL PROTEIN 6.5 g/dL (6.4-8.2); eGFR NON BLACK RACES 27 (>60)
[2018-03-28] MEDS: GLUCOTROL PO SCH ×2 (06:17→17:43)
--- NOTE | 2018-03-28 06:41 | RAD ---
History: Shortness of breath Study: Portable AP chest Comparison: Yesterday Findings: There is unchanged cardiomegaly and persistent vascular congestion. The costophrenic angles are obscured. Impression: No significant change of findings compatible with congestive heart failure Reported By:
[2018-03-28] MEDS: OXYBUTYNIN CHLORIDE ER PO SCH (08:33)
[2018-03-28] MEDS: ELIQUIS PO SCH ×2 (08:33→20:25)
[2018-03-28] MEDS: ASPIRIN EC 81 MG PO SCH (08:33)
[2018-03-28] MEDS: COZAAR PO SCH (08:33)
[2018-03-28] MEDS: MAG-OX TAB PO SCH (08:33)
[2018-03-28] MEDS: ZYLOPRIM PO SCH (08:35)
[2018-03-28] MEDS: XOPENEX 1.25 MG/3 ML NEBULE NEB SCH ×4 (09:09→21:57)
[2018-03-28 11:03] LABS: ABG BASE EXCESS 12.1 mmol/L (-2.0-2.0)
[2018-03-28 11:04] LABS: ABG HCO3 38.9 mmol/L (22-26)
[2018-03-28] MEDS: LIPITOR TAB 40 MG PO SCH (20:24)
[2018-03-28] MEDS: SNACK - Diabetic Appropriate PO SCH (20:25)
[2018-03-28] MEDS: COLACE CAP 100 MG PO SCH (20:25)
[2018-03-28] MEDS: LANTUS SC SCH (20:26)
[2018-03-29] MEDS ORDERED: NS 500 ML IV 500 ML IV ONE (05:13)
[2018-03-29] MEDS: ZOSYN VIAL 3.375 GRAMS 3.375 G in NS 100 ML IV + SPIKE MINIBAG* 100 ML IV SCH ×3 (05:25→21:32)
[2018-03-29 05:41] LABS: ABG BASE EXCESS 11.3 mmol/L (-2.0-2.0)
[2018-03-29 05:46] LABS: ABG HCO3 38.7 mmol/L (22-26)
[2018-03-29] MEDS: GLUCOTROL PO SCH ×2 (06:01→16:34)
[2018-03-29 06:30] LABS: BASOPHILS % (AUTO) 0.6 % (0.2-1.0); EOSINOPHILS # (AUTO) 0.2 x10^3/uL (0.0-0.2); EOSINOPHILS % (AUTO) 2.8 % (0.9-2.9); HEMATOCRIT 24.8 % (36.0-47.0); HEMOGLOBIN 8.1 g/dL (12.0-16.0); LYMPHOCYTES # (AUTO) 0.4 X10^3/uL (1.3-2.9); LYMPHOCYTES % (AUTO) 5.6 % (21.0-51.0); MEAN CORPUSCULAR HGB CONC 32.6 g/dL (33.0-35.0); MEAN CORPUSCULAR VOLUME 85.9 fL (80.0-100.0); MEAN PLATELET VOLUME 9.3 fL (7.4-11.0); MONOCYTES # (AUTO) 0.3 x10^3/uL (0.3-0.8); MONOCYTES % (AUTO) 4.7 % (0.0-13.0); NEUTROPHILS # (AUTO) 6.1 x10^3/uL (2.2-4.8); NEUTROPHILS % (AUTO) 86.3 % (42.0-75.0); PLATELET COUNT 191 X10^3/uL (150.0-450.0); RED BLOOD COUNT 2.89 X10^6/uL (3.5-5.4); RED CELL DISTRIBUTION WIDTH 18.5 % (11.6-16.5); WHITE BLOOD COUNT 7.1 X10^3/uL (3.6-10.0)
[2018-03-29 06:41] LABS: ALANINE AMINOTRANSFERASE 12 Units/L (12-78); ALBUMIN 3.5 g/dL (3.4-5.0); ALKALINE PHOSPHATASE 51 Units/L (46-116); ASPARTATE AMINO TRANSFERASE 18 Units/L (15-37); BLOOD UREA NITROGEN 40 mg/dL (7-18); CALCIUM 9.7 mg/dL (8.5-10.1); CARBON DIOXIDE 35.2 mmol/L (21-32); CHLORIDE 105 mmol/L (98-107); COR NA(FOR HYPERGLY) 147 mmol/L (136-145); CREATININE 1.73 mg/dL (0.55-1.02); SODIUM 145 mmol/L (136-145); TOTAL PROTEIN 7.3 g/dL (6.4-8.2); eGFR NON BLACK RACES 30 (>60)
--- NOTE | 2018-03-29 06:45 | RAD ---
History: Follow-up of pneumonia. Shortness of breath. Study: Portable AP chest Comparison: Yesterday Findings: There is unchanged mild cardiomegaly. There is persistent vascular congestion. Bilateral pl eural effusions are suggested. Impression: Unchanged findings most compatible with congestive heart failure. Reported By:
[2018-03-29] MEDS: MAG-OX TAB PO SCH (08:56)
[2018-03-29] MEDS: COZAAR PO SCH (08:56)
[2018-03-29] MEDS: OXYBUTYNIN CHLORIDE ER PO SCH (08:56)
[2018-03-29] MEDS: ASPIRIN EC 81 MG PO SCH (08:56)
[2018-03-29] MEDS: ELIQUIS PO SCH ×2 (08:56→20:00)
[2018-03-29] MEDS: XOPENEX 1.25 MG/3 ML NEBULE NEB SCH ×4 (09:32→21:51)
[2018-03-29] MEDS: ZYLOPRIM PO SCH (09:49)
[2018-03-29] MEDS: LIPITOR TAB 40 MG PO SCH (20:00)
[2018-03-29] MEDS: SNACK - Diabetic Appropriate PO SCH (20:01)
[2018-03-29] MEDS: COLACE CAP 100 MG PO SCH (20:01)
[2018-03-29] MEDS: LANTUS SC SCH (20:01)
[2018-03-30] MEDS: ZOSYN VIAL 3.375 GRAMS 3.375 G in NS 100 ML IV + SPIKE MINIBAG* 100 ML IV SCH ×3 (05:07→21:40)
[2018-03-30 06:14] LABS: BASOPHILS # (AUTO) 0.1 X10^3/uL (0.0-0.1); BASOPHILS % (AUTO) 0.9 % (0.2-1.0); EOSINOPHILS # (AUTO) 0.2 x10^3/uL (0.0-0.2); EOSINOPHILS % (AUTO) 2.6 % (0.9-2.9); HEMATOCRIT 24.2 % (36.0-47.0); HEMOGLOBIN 7.9 g/dL (12.0-16.0); LYMPHOCYTES # (AUTO) 0.4 X10^3/uL (1.3-2.9); LYMPHOCYTES % (AUTO) 6.7 % (21.0-51.0); MEAN CORPUSCULAR HEMOGLOBIN 28.1 pg (27.0-34.0); MEAN CORPUSCULAR HGB CONC 32.7 g/dL (33.0-35.0); MEAN CORPUSCULAR VOLUME 85.8 fL (80.0-100.0); MONOCYTES # (AUTO) 0.3 x10^3/uL (0.3-0.8); MONOCYTES % (AUTO) 4.6 % (0.0-13.0); NEUTROPHILS % (AUTO) 85.2 % (42.0-75.0); PLATELET COUNT 171 X10^3/uL (150.0-450.0); RED BLOOD COUNT 2.82 X10^6/uL (3.5-5.4); RED CELL DISTRIBUTION WIDTH 18.7 % (11.6-16.5); WHITE BLOOD COUNT 5.9 X10^3/uL (3.6-10.0)
[2018-03-30] MEDS: GLUCOTROL PO SCH ×2 (06:16→16:51)
[2018-03-30 06:35] LABS: ALBUMIN 3.2 g/dL (3.4-5.0); CALCIUM 9.6 mg/dL (8.5-10.1); CARBON DIOXIDE 37.6 mmol/L (21-32); COR CA(FOR HYPOALB) 10.2 mg/dL (8.5-10.1); CREATININE 1.54 mg/dL (0.55-1.02); TOTAL PROTEIN 6.9 g/dL (6.4-8.2)
--- NOTE | 2018-03-30 06:46 | RAD ---
History: Shortness of breath Study: Portable AP chest Comparison: Yesterday The findings: There is persistent cardiomegaly. There is slightly improved vascular congestion. The c ostophrenic angles are indistinct. There is subsegmental atelectasis in the right middle lobe. There is persistent increased retrocardiac density at the left lung base. Impression: 1. Persistent cardiomegaly with slightly improved vascular congestion. Probable small effusions. 2. Subsegmental atelectasis in the right middle lobe 3. Questionable left lower lobe consolidation Reported By:
[2018-03-30 06:48] LABS: ANISOCYTOSIS SLIGHT; HYPOCHROMASIA SLIGHT; PLATELET MORPHOLOGY COMMENT NORMAL (NORMAL)
[2018-03-30] MEDS: XOPENEX 1.25 MG/3 ML NEBULE NEB SCH ×4 (08:45→21:39)
[2018-03-30] MEDS: COZAAR PO SCH (09:04)
[2018-03-30] MEDS: ELIQUIS PO SCH ×2 (09:04→21:39)
[2018-03-30] MEDS: MAG-OX TAB PO SCH (09:04)
[2018-03-30] MEDS: OXYBUTYNIN CHLORIDE ER PO SCH (09:04)
[2018-03-30] MEDS: ZYLOPRIM PO SCH (09:05)
[2018-03-30] MEDS: ASPIRIN EC 81 MG PO SCH (09:05)
--- NOTE | 2018-03-30 12:46 | PCM.PROG ---
Progress Note - Progress Note for Day of Date of Exam: 03/23/18 - Subjective Subjective: IS BEING TREATED FOR RIGHT MIDDLE LOBE PNEUMONIA AND CHF EXACERBATION. TODAY, SHE IS ALERT AND ORIENTED, SITTING UP IN CHAIR ON MORNING ROUNDS. SHE CONTINUES WITH COMPLAINTS OF SHORTNESS OF BREATH, FATIGUE, AND A NON -PRODUCTIVE COUGH. HER OXYGEN SATURATIONS FELL INTO THE 70S DURING THE NIGHT. RESPIRATORY THERAPY REPORTS. PT S/U ON HOME BIPAP MACHINE. TRIED USING MACHINE WITH ONLY R/A. PT'S SATS DROPPED TO 78%; ADDED 3LITERS O2 TO HOME BIPAP. PT'S SATS 92% AT THIS TIME. SHE WAS PLACED ON THE VISION BIPAP DUE TO SATURATIONS REMAINING LOW WITH THE OTHER BIPAP. PATIENT REQUIRES USE OF THE BIPAP AT ALL TIMES, EXCEPT DURING MEALS AND WHILE AMBULATING TO THE BATHROOM IN ORDER TO SUSTAIN HER OXYGEN SATURATIONS. ON EXAMINATION THIS MORNING, HEART IS REGULAR IN RATE AND RHYTHM. BILATERAL LUNGS CONTINUE WITH SCATTERED WHEEZING AND RHONCHI THROUGHOUT. SHE CONTINUES TO UTILIZE THE BIPAP. ABDOMEN IS ROUND, SOFT, AND NON-TENDER WITH NORMAL BOWEL SOUNDS NOTED IN ALL QUADRANTS. HER VITALS TODAY ARE. 97.7-75-22-100%BIPAP, 133/60. LABS WERE OBTAINED. ABNORMAL LAB VALUES INCLUDE THE FOLLOWING: RBC 3.00, HGB 8.3, HCT 25.4, PLT COUNT 148, CARBON DIOXIDE 39.0, BU 39, CREATININE 1.48, GLUOCSE 147, TOTAL BILI 1.10, ALK PHOS 41. WE CONTINUE TO HOLD HER LASIX DUE TO AN INCREASE IN BUN/CREATININE. SHE CONTINUES TO REQUIRE MODERATE ASSISTANCE WHEN AMBULATING DUE TO UNSTEADY GAIT AND INCREASED SHORTNESS OF BREATH. WE WILL CONTINUE WITH RESPIRATORY TREATMENTS, BIPAP, IV STEROIDS, AND CURRENT PLAN OF CARE. OTHERWISE, WE PLAN TO FOLLOW UP WITH AM LABS AND CHEST XRAY AND WILL CONTINUE TO MONITOR PATIENT. - Past Medical Family Social History Past Med/Fam/Surg Hx: No changes since H&P Allergies: Allergies lisinopril [From Zestril] Allergy (Verified 03/06/18 17:05) meperidine [From Demerol] Adverse Reaction (Verified 03/06/18 17:05) zinc Adverse Reaction (Verified 03/06/18 17:05) - Review of Systems ROS: No change since H&P - Vital Signs and I&O's Vital Signs: Temperature 98.1 F Pulse Rate [Apical] 87 Pulse Rate [Right Brachial] 91 Pulse Rate [Left Brachial] 91 Pulse Rate 111 Respiratory Rate 22 Blood Pressure [Left Radial 145/63 Artery] Blood Pressure [Right Radial 178/102 Artery] Blood Pressure [Right Arm] 156/63 Blood Pressure [Left Arm] 140/69 Blood Pressure 137/95 O2 Sat by Pulse Oximetry 96 Intake and Output: Intake & Output 03/28/18 03/29/18 03/30/18 03/31/18 11:59 11:59 11:59 11:59 Intake Total 550 / 550 1661 / 1661 1141 / 1141 Output Total 125 / 125 Balance 550 / 550 1661 / 1661 1016 / 1016 - Physical Exam Oriented: Normal Eyes: Normal Ear: Normal Nose: Normal Throat: Normal Respiratory: Generalized, Wheezes, Rhonchi Cardiovascular: Normal. negative: S3, S4, Murmur : Normal Auscultation: Bowel Sounds: Normal Palpation: Normal Tenderness: Normal Skin: Normal Musculoskeletal: Normal Psychiatric: Normal Mood Description: Calm, Labile Affect: Normal Speech Pattern: Clear, Appropriate - Laboratory and Diagnostics Result Diagrams: 03/30/18 05:26 03/30/18 05:26 Labs: 03/06/18 19:48 Blood Blood Culture - Final 03/06/18 19:44 Blood Blood Culture - Final Laboratory WBC 5.9 X10^3/uL (3.6-10.0) 03/30/18 05:26 RBC 2.82 X10^6/uL (3.5-5.4) L 03/30/18 05:26 Hgb 7.9 g/dL (12.0-16.0) L 03/30/18 05:26 Hct 24.2 % (36.0-47.0) L 03/30/18 05:26 MCV 85.8 fL (80.0-100.0) 03/30/18 05:26 MCH 28.1 pg (27.0-34.0) 03/30/18 05:26 MCHC 32.7 g/dL (33.0-35.0) L 03/30/18 05:26 RDW 18.7 % (11.6-16.5) H 03/30/18 05:26 Plt Count 171 X10^3/uL (150.0-450.0) 03/30/18 05:26 Plt Count Comment Adequate (ADEQUATE) 03/30/18 05:26 MPV 9.0 fL (7.4-11.0) 03/30/18 05:26 Neut % (Auto) 85.2 % (42.0-75.0) H 03/30/18 05:26 Lymph % (Auto) 6.7 % (21.0-51.0) L 03/30/18 05:26 [place] % (Auto) 4.6 % (0.0-13.0) 03/30/18 05:26 Eos % (Auto) 2.6 % (0.9-2.9) 03/30/18 05:26 Baso % (Auto) 0.9 % (0.2-1.0) 03/30/18 05:26 Neut # (Auto) 5.0 x10^3/uL (2.2-4.8) H 03/30/18 05:26 Lymph # (Auto) 0.4 X10^3/uL (1.3-2.9) L 03/30/18 05:26 [place]linger # (Auto) 0.3 x10^3/uL (0.3-0.8) 03/30/18 05:26 Eos # (Auto) 0.2 x10^3/uL (0.0-0.2) 03/30/18 05:26 Baso # (Auto) 0.1 X10^3/uL (0.0-0.1) 03/30/18 05:26 Absolute Nucleated RBC 0.2 /100WBC 03/30/18 05:26 Total Counted 100 03/17/18 05:31 Neutrophils % (Manual) 95 % (39-76) H 03/17/18 05:31 Band Neutrophils % 2 % (0-10) 03/16/18 05:08 Lymphocytes % (Manual) 3 % (13-43) L 03/17/18 05:31 Monocytes % (Manual) 2 % (4-9) L 03/17/18 05:31 Plt Morphology Comment Normal (NORMAL) 03/30/18 05:26 RBC Morphology Abnormal (NORMAL) A 03/30/18 05:26 Hypochromasia Slight A 07/26/18 05:26 Anisocytosis Slight A 03/30/18 05:26 Ovalocytes Present 03/28/18 04:45 D-Dimer 1190 ng/mL (0-400) H* 03/06/18 17:28 Sample Site Lbra 03/29/18 05:31 ABG pH 7.390 (7.35-7.45) 03/29/18 05:31 ABG pCO2 64.0 mmHg (35.0-45.0) H* 03/29/18 05:31 ABG pO2 105.0 mmHg (80.0-100.0) H 03/29/18 05:31 ABG HCO3 38.7 mmol/L (22-26) H* 03/29/18 05:31 ABG O2 Saturation 98.0 % (90-100) 03/29/18 05:31 ABG Base Excess 11.3 mmol/L (-2.0-2.0) H 03/29/18 05:31 [place] Test Na 03/29/18 05:31 A-a Gradient 243.0 mmHg 03/29/18 05:31 FiO2 60.000 03/29/18 05:31 Blood Gas Comments Praneeth abg well-mtf 03/29/18 05:31 Sodium 146 mmol/L (136-145) H 03/30/18 05:26 Corrected Sodium 147 mmol/L (136-145) H 03/30/18 05:26 Potassium 4.7 mmol/L (3.5-5.1) 03/30/18 05:26 Chloride 107 mmol/L (98-107) 03/30/18 05:26 Carbon Dioxide 37.6 mmol/L (21-32) H 03/30/18 05:26 BUN 38 mg/dL (7-18) H 03/30/18 05:26 Creatinine 1.54 mg/dL (0.55-1.02) H 03/30/18 05:26 Est GFR (MDRD) Af Amer 42 (>60) L 03/30/18 05:26 Est GFR (MDRD) Non-Af 35 (>60) L 03/30/18 05:26 Glucose 158 mg/dL (65-99) H 03/30/18 05:26 POC Glucose (mg/dL) 135 mg/dL (65-99) H 03/30/18 11:05 Calcium 9.6 mg/dL (8.5-10.1) 03/30/18 05:26 Corrected Calcium 10.2 mg/dL (8.5-10.1) H 03/30/18 05:26 Total Bilirubin 1.00 mg/dL (0.2-1.0) 03/30/18 05:26 AST 18 Units/L (15-37) 03/30/18 05:26 ALT 14 Units/L (12-78) 03/30/18 05:26 Alkaline Phosphatase 51 Units/L (46-116) 03/30/18 05:26 Creatine Kinase 16 Units/L (26-192) L 03/13/18 00:06 CK-MB (CK-2) < 1.0 ng/mL (0-4.0) 03/13/18 00:06 CK/CKMB % Calc 6.3 % (<4) 03/13/18 00:06 Troponin I 0.06 ng/mL (0-1.5) 03/13/18 00:06 Total Protein 6.9 g/dL (6.4-8.2) 03/30/18 05:26 Albumin 3.2 g/dL (3.4-5.0) L 03/30/18 05:26 Globulin 3.7 g/dL (2.5-4.5) 03/30/18 05:26 Albumin/Globulin Ratio 0.9 Ratio (1.1-2.1) L 03/30/18 05:26 Specimen Type Catherized urine 03/12/18 11:55 Urine Color Yellow (YELLOW) 03/12/18 11:55 Urine Appearance Hazy (CLEAR) 03/12/18 11:55 Urine pH 5.0 (5.0 - 8.0) 03/12/18 11:55 Ur Specific [place] 1.020 (1.000-1.030) 03/12/18 11:55 Urine Protein 2+ (NEGATIVE) 03/12/18 11:55 Urine Glucose (UA) Negative (NEGATIVE) 03/12/18 11:55 Urine Ketones Negative (NEGATIVE) 03/12/18 11:55 Urine Occult Blood Negative (NEGATIVE) 03/12/18 11:55 Urine Nitrite Negative (NEGATIVE) 03/12/18 11:55 Urine Bilirubin Negative (NEGATIVE) 03/12/18 11:55 Urine Urobilinogen Normal (NORMAL) 03/12/18 11:55 Ur Leukocyte Esterase Negative (NEGATIVE) 03/12/18 11:55 Urine RBC 0-2 /HPF (NONE SEEN) 03/12/18 11:55 Urine WBC 0-2 /HPF (NONE SEEN) 03/12/18 11:55 Ur Squamous Epith Cells Moderate /HPF (NEGATIVE) 03/12/18 11:55 Amorphous Sediment 2+ /HPF (NEGATIVE) 03/12/18 11:55 Urine Bacteria Trace /HPF (NEGATIVE) 03/12/18 11:55 Urine Mucus Few /HPF (NEGATIVE) 03/12/18 11:55 Ur Culture Indicated? No/not indicated 03/12/18 11:55 Theophylline < 2.0 ug/mL (10-20) L 03/23/18 04:48 - Plan (1) RML pneumonia Status: Acute Qualifiers: Pneumonia type: due to unspecified organism Qualified Code(s): J18.1 - Lobar pneumonia, unspecified organism Plan: iv antibiotics, respiratory treatments, supplemental oxygen, continue to monitor (2) CHF (congestive heart failure) Status: Chronic Qualifiers: Heart failure type: unspecified Heart failure chronicity: acute on chronic Qualified Code(s): I50.9 - Heart failure, unspecified Plan: FLUID RESTRICTION, SOLU-MEDROL 20MG IV Q8H, SALINE LOCK IV FLUIDS, CONTINUE HOME MEDICATIONS, JESSE-DUR 200MG PO BID, BIPAP (3) Respiratory failure with hypercapnia Status: Acute Qualifiers: Chronicity: acute on chronic Qualified Code(s): J96.22 - Acute and chronic respiratory failure with hypercapnia Plan: JESSE-DUR 200MG PO BID, bipap, respiratory treatments, supplemental oxygen , iv solu-medrol, continue to monitor (4) Atrial fibrillation Status: Chronic Qualifiers: Atrial fibrillation type: chronic Qualified Code(s): I48.2 - Chronic atrial fibrillation Plan: CONTINUE ELIQUIS, CONTINUE TO MONITOR (5) Hyperlipidemia Status: Acute Qualifiers: Hyperlipidemia type: pure hypercholesterolemia Qualified Code(s): E78.00 - Pure hypercholesterolemia, unspecified; E78.0 - Pure hypercholesterolemia Plan: CONTINUE LIPITOR, CONTINUE TO MONITOR (6) Type I diabetes mellitus Status: Chronic Qualifiers: Diabetes mellitus complication status: with unspecified complications Qualified Code(s): E10.8 - Type 1 diabetes mellitus with unspecified complications Plan: MONITOR BS, CONTINUE GLUCOTROL, CONTINUE LANTUS, CONTINUE HUMULIN R
--- NOTE | 2018-03-30 15:09 | PCM.PROG ---
Progress Note - Progress Note for Day of Date of Exam: 03/24/18 - Subjective Subjective: IS BEING TREATED FOR RIGHT MIDDLE LOBE PNEUMONIA AND CHF EXACERBATION. TODAY, SHE IS LYING IN BED WITH EYES CLOSED ON MORNING ROUNDS. SHE EASILY AWAKENS TO VERBAL STIMULI. SHE CONTINUES WITH COMPLAINTS OF SHORTNESS OF BREATH, FATIGUE, AND A NON-PRODUCTIVE COUGH. SHE CONTINUES TO UTILIZED THE BIPAP. RESPIRATORY THERAPY EVALUATED PATIENT ON BIPAP TODAY AND REPORTS, PT PLACED ON HER HOME BIPAP WITH PT IN BED WITH HOB ELEVATED, PT BIPAP SETTINGS AT 16/10, FIO2 ADDED VIA OUR WALL FLOWMETER SET A 10 LPM, PT ON CONTINUOUS POX, RT STAYED AT BS WHILE PT FELL ASLEEP, BEGINNING POX AT 87% AND WENT DOWN TO 82-83%, PT CHANGED TO THE [facility] BIPAP WITH FIO2 STILL ON WALL AT 10LPM, PT SAT DID NOT CHANGE, REMAINED 83-84%, PT'S O2 THEN SWITCHED TO THE [facility] 10LPM CONCENTRATOR AND REMAINED ON THE [facility] BIPAP, POX DECREASED TO 80-83%, PT WITH NO SIGNS OF DISTRESS, HR REMAINED 84-90, PT CONTINUED TO BE WATCHED, NURSE NOTIFIED AND CASE MANAGEMENT NOTIFIED. RT TO PERFORM AN ABG ON THIS SET UP. PATIENT CONTINUES TO REQUIRE THE USE OF THE BIPAP AT ALL TIMES, EXCEPT DURING MEALS AND WHILE AMBULATING TO THE BATHROOM IN ORDER TO SUSTAIN HER OXYGEN SATURATIONS. ON EXAMINATION THIS MORNING, HEART IS REGULAR IN RATE AND RHYTHM. BILATERAL LUNGS CONTINUE WITH SCATTERED WHEEZING. ABDOMEN IS ROUND, SOFT, AND NON-TENDER WITH NORMAL BOWEL SOUNDS NOTED IN ALL QUADRANTS. HER VITALS TODAY ARE. 98.1-81-22-96%-108/62. LABS WERE OBTAINED. ABNORMAL LAB VALUES INCLUDE THE FOLLOWING: BC 2.89, HGB 7.9, HCT 24.8, CARBON DIOXIDE 38, BUN 40, CREATININE 1.55, GLUCOSE 153, AST 13, ALK PHOS 39. ABG REVEALED PH 7.340, PC02 72.0, P02 52.0, HC03 38.8, 02 SATURATION 84.0, BASE EXCESS 9.9. TODAYS CHEST XRAY REVEALS CARDIOMEMGALY WITH VASCULAR CONGESTION AND BILATERAL PLEURAL EFFUSIONS. WE CONTINUE TO HOLD HER LASIX DUE TO AN INCREASE IN BUN/CREATININE. SHE CONTINUES TO REQUIRE MODERATE ASSISTANCE WHEN AMBULATING DUE TO UNSTEADY GAIT AND INCREASED SHORTNESS OF BREATH. WE WILL CONTINUE WITH RESPIRATORY TREATMENTS, BIPAP, IV STEROIDS, AND CURRENT PLAN OF CARE. OTHERWISE, WE PLAN TO FOLLOW UP WITH AM LABS AND CHEST XRAY AND WILL CONTINUE TO MONITOR PATIENT. - Past Medical Family Social History Past Med/Fam/Surg Hx: No changes since H&P Allergies: Allergies lisinopril [From Zestril] Allergy (Verified 03/06/18 17:05) meperidine [From Demerol] Adverse Reaction (Verified 03/06/18 17:05) zinc Adverse Reaction (Verified 03/06/18 17:05) - Review of Systems ROS: No change since H&P - Vital Signs and I&O's Vital Signs: Temperature 98.3 F Pulse Rate [Apical] 87 Pulse Rate [Right Brachial] 92 Pulse Rate [Left Brachial] 91 Pulse Rate 111 Respiratory Rate 22 Blood Pressure [Left Radial 145/63 Artery] Blood Pressure [Right Radial 178/102 Artery] Blood Pressure [Right Arm] 136/77 Blood Pressure [Left Arm] 140/69 Blood Pressure 137/95 O2 Sat by Pulse Oximetry 96 Intake and Output: Intake & Output 03/28/18 03/29/18 03/30/18 03/31/18 11:59 11:59 11:59 11:59 Intake Total 550 / 550 1661 / 1661 1141 / 1141 Output Total 125 / 125 Balance 550 / 550 1661 / 1661 1016 / 1016 - Physical Exam Oriented: Normal Eyes: Normal Ear: Normal Nose: Normal Throat: Normal Respiratory: Generalized, Wheezes Cardiovascular: Normal. negative: S3, S4, Murmur : Normal Auscultation: Bowel Sounds: Normal Palpation: Normal Tenderness: Normal Skin: Normal Musculoskeletal: Normal Psychiatric: Normal Mood Description: Calm, Labile Affect: Normal Speech Pattern: Clear, Appropriate - Laboratory and Diagnostics Result Diagrams: 03/30/18 05:26 03/30/18 05:26 Labs: 03/06/18 19:48 Blood Blood Culture - Final 03/06/18 19:44 Blood Blood Culture - Final Laboratory WBC 5.9 X10^3/uL (3.6-10.0) 03/30/18 05:26 RBC 2.82 X10^6/uL (3.5-5.4) L 03/30/18 05:26 Hgb 7.9 g/dL (12.0-16.0) L 03/30/18 05:26 Hct 24.2 % (36.0-47.0) L 03/30/18 05:26 MCV 85.8 fL (80.0-100.0) 03/30/18 05:26 MCH 28.1 pg (27.0-34.0) 03/30/18 05:26 MCHC 32.7 g/dL (33.0-35.0) L 03/30/18 05:26 RDW 18.7 % (11.6-16.5) H 03/30/18 05:26 Plt Count 171 X10^3/uL (150.0-450.0) 03/30/18 05:26 Plt Count Comment Adequate (ADEQUATE) 03/30/18 05: MPV 9.0 fL (7.4-11.0) 03/30/18 05:26 Neut % (Auto) 85.2 % (42.0-75.0) H 03/30/18 05:26 Lymph % (Auto) 6.7 % (21.0-51.0) L 03/30/18 05:26 [place] % (Auto) 4.6 % (0.0-13.0) 03/30/18 05:26 Eos % (Auto) 2.6 % (0.9-2.9) 03/30/18 05: Baso % (Auto) 0.9 % (0.2-1.0) 03/30/18 05:26 Neut # (Auto) 5.0 x10^3/uL (2.2-4.8) H 03/30/18 05:26 Lymph # (Auto) 0.4 X10^3/uL (1.3-2.9) L 03/30/18 05:26 [place] # (Auto) 0.3 x10^3/uL (0.3-0.8) 03/30/18 05:26 Eos # (Auto) 0.2 x10^3/uL (0.0-0.2) 03/30/18 05:26 Baso # (Auto) 0.1 X10^3/uL (0.0-0.1) 03/30/18 05:26 Absolute Nucleated RBC 0.2 /100WBC 03/30/18 05:26 Total Counted 100 03/17/18 05:31 Neutrophils % (Manual) 95 % (39-76) H 03/17/18 05:31 Band Neutrophils % 2 % (0-10) 03/16/18 05:08 Lymphocytes % (Manual) 3 % (13-43) L 03/17/18 05:31 Monocytes % (Manual) 2 % (4-9) L 03/17/18 05:31 Plt Morphology Comment Normal (NORMAL) 03/30/18 05:26 RBC Morphology Abnormal (NORMAL) A 03/30/18 05:26 Hypochromasia Slight A 03/30/18 05:26 Anisocytosis Slight A 03/30/18 05:26 Ovalocytes Present 03/28/18 04:45 D-Dimer 1190 ng/mL (0-400) H* 03/06/18 17:28 Sample Site Lbra 03/29/18 05:31 ABG pH 7.390 (7.35-7.45) 03/29/18 05:31 ABG pCO2 64.0 mmHg (35.0-45.0) H* 03/29/18 05:31 ABG pO2 105.0 mmHg (80.0-100.0) H 03/29/18 05:31 ABG HCO3 38.7 mmol/L (22-26) H* 03/29/18 05:31 ABG O2 Saturation 98.0 % (90-100) 03/29/18 05:31 ABG Base Excess 11.3 mmol/L (-2.0-2.0) H 03/29/18 05:31 [place] Test Na 03/29/18 05:31 A-a Gradient 243.0 mmHg 03/29/18 05:31 FiO2 60.000 03/29/18 05:31 Blood Gas Comments Praneeth abg well-mtf 03/29/18 05:31 Sodium 146 mmol/L (136-145) H 03/30/18 05:26 Corrected Sodium 147 mmol/L (136-145) H 03/30/18 05:26 Potassium 4.7 mmol/L (3.5-5.1) 03/30/18 05:26 Chloride 107 mmol/L (98-107) 03/30/18 05:26 Carbon Dioxide 37.6 mmol/L (21-32) H 03/30/18 05:26 BUN 38 mg/dL (7-18) H 03/30/18 05:26 Creatinine 1.54 mg/dL (0.55-1.02) H 03/30/18 05:26 Est GFR (MDRD) Af Amer 42 (>60) L 03/30/18 05:26 Est GFR (MDRD) Non-Af 35 (>60) L 03/30/18 05:26 Glucose 158 mg/dL (65-99) H 03/30/18 05:26 POC Glucose (mg/dL) 135 mg/dL (65-99) H 03/30/18 11:05 Calcium 9.6 mg/dL (8.5-10.1) 03/30/18 05:26 Corrected Calcium 10.2 mg/dL (8.5-10.1) H 03/30/18 05:26 Total Bilirubin 1.00 mg/dL (0.2-1.0) 03/30/18 05:26 AST 18 Units/L (15-37) 03/30/18 05:26 ALT 14 Units/L (12-78) 03/30/18 05:26 Alkaline Phosphatase 51 Units/L (46-116) 03/30/18 05:26 Creatine Kinase 16 Units/L (26-192) L 03/13/18 00:06 CK-MB (CK-2) < 1.0 ng/mL (0-4.0) 03/13/18 00:06 CK/CKMB % Calc 6.3 % (<4) 03/13/18 00:06 Troponin I 0.06 ng/mL (0-1.5) 03/13/18 00:06 Total Protein 6.9 g/dL (6.4-8.2) 03/30/18 05:26 Albumin 3.2 g/dL (3.4-5.0) L 03/30/18 05:26 Globulin 3.7 g/dL (2.5-4.5) 03/30/18 05:26 Albumin/Globulin Ratio 0.9 Ratio (1.1-2.1) L 03/30/18 05:26 Specimen Type Catherized urine 03/12/18 11:55 Urine Color Yellow (YELLOW) 03/12/18 11:55 Urine Appearance Hazy (CLEAR) 03/12/18 11:55 Urine pH 5.0 (5.0 - 8.0) 03/12/18 11:55 Ur Specific [place] 1.020 (1.000-1.030) 03/12/18 11:55 Urine Protein 2+ (NEGATIVE) 03/12/18 11:55 Urine Glucose (UA) Negative (NEGATIVE) 03/12/18 11:55 Urine Ketones Negative (NEGATIVE) 03/12/18 11:55 Urine Occult Blood Negative (NEGATIVE) 03/12/18 11:55 Urine Nitrite Negative (NEGATIVE) 03/12/18 11:55 Urine Bilirubin Negative (NEGATIVE) 03/12/18 11:55 Urine Urobilinogen Normal (NORMAL) 03/12/18 11:55 Ur Leukocyte Esterase Negative (NEGATIVE) 03/12/18 11:55 Urine RBC 0-2 /HPF (NONE SEEN) 03/12/18 11:55 Urine WBC 0-2 /HPF (NONE SEEN) 03/12/18 11:55 Ur Squamous Epith Cells Moderate /HPF (NEGATIVE) 03/12/18 11:55 Amorphous Sediment 2+ /HPF (NEGATIVE) 03/12/18 11:55 Urine Bacteria Trace /HPF (NEGATIVE) 03/12/18 11:55 Urine Mucus Few /HPF (NEGATIVE) 03/12/18 11:55 Ur Culture Indicated? No/not indicated 03/12/18 11:55 Theophylline < 2.0 ug/mL (10-20) L 03/23/18 04:48 - Plan (1) RML pneumonia Status: Acute Qualifiers: Pneumonia type: due to unspecified organism Qualified Code(s): J18.1 - Lobar pneumonia, unspecified organism Plan: iv antibiotics, respiratory treatments, supplemental oxygen, continue to monitor (2) CHF (congestive heart failure) Status: Chronic Qualifiers: Heart failure type: unspecified Heart failure chronicity: acute on chronic Qualified Code(s): I50.9 - Heart failure, unspecified Plan: FLUID RESTRICTION, SOLU-MEDROL 20MG IV Q8H, SALINE LOCK IV FLUIDS, CONTINUE HOME MEDICATIONS, JESSE-DUR 200MG PO BID (3) Respiratory failure with hypercapnia Status: Acute Qualifiers: Chronicity: acute on chronic Qualified Code(s): J96.22 - Acute and chronic respiratory failure with hypercapnia Plan: JESSE-DUR 200MG PO BID, bipap, respiratory treatments, supplemental oxygen , iv solu-medrol, continue to monitor (4) Atrial fibrillation Status: Chronic Qualifiers: Atrial fibrillation type: chronic Qualified Code(s): I48.2 - Chronic atrial fibrillation Plan: CONTINUE ELIQUIS, CONTINUE TO MONITOR (5) Hyperlipidemia Status: Acute Qualifiers: Hyperlipidemia type: pure hypercholesterolemia Qualified Code(s): E78.00 - Pure hypercholesterolemia, unspecified; E78.0 - Pure hypercholesterolemia Plan: CONTINUE LIPITOR, CONTINUE TO MONITOR (6) Type I diabetes mellitus Status: Chronic Qualifiers: Diabetes mellitus complication status: with unspecified complications Qualified Code(s): E10.8 - Type 1 diabetes mellitus with unspecified complications Plan: MONITOR BS, CONTINUE GLUCOTROL, CONTINUE LANTUS, CONTINUE HUMULIN R
--- NOTE | 2018-03-30 15:19 | PCM.PROG ---
Progress Note - Progress Note for Day of Date of Exam: 03/28/18 - Subjective Subjective: IS BEING TREATED FOR RIGHT MIDDLE LOBE PNEUMONIA AND CHF EXACERBATION. TODAY, SHE IS LYING IN BED WITH EYES CLOSED ON MORNING ROUNDS. SHE EASILY AWAKENS TO VERBAL STIMULI. SHE CONTINUES WITH COMPLAINTS OF SHORTNESS OF BREATH AND A NON-PRODUCTIVE COUGH, HOWEVER, SHE REPORTS THAT SYMPTOMS HAVE SLIGHTLY IMPROVED SINCE YESTERDAY. SHE CONTINUES TO REQUIRE THE BIPAP AT ALL TIMES WITH THE EXCEPTION OF EATING AND AMBULATING TO THE BATHROOM. SHE IS CURRENTLY ON HER HOME MACHINE WITH CONCENTRATOR CONNECTED AT 10LPM. ON EXAMINATION THIS MORNING, HEART IS REGULAR IN RATE AND RHYTHM. BILATERAL LUNGS CONTINUE WITH DIMINISHED LUNG SOUNDS THROUGHOUT. ABDOMEN IS ROUND, SOFT, AND NON -TENDER WITH NORMAL BOWEL SOUNDS NOTED IN ALL QUADRANTS. HER VITALS TODAY ARE 98.5-91-24-100%bi-pap, 123/61. LABS WERE OBTAINED. ABNORMAL LAB VALUES INCLUDE THE FOLLOWING: RBC 2.63, HGB 7.4, HCT 22.2, CARBON DIOXIDE 33.6, BUN 43, CREATININE 1.93, GLUCOSE 117, TOTAL BILI 1.30. ABG REVEALED PH 7.420. PC02 60, P02 81.0, HC03 38.9, O2 SATURATION 96.0, BASE EXCESS 12.1. TODAYS CHEST XRAY REVEALS UNCHANGED CARDIOMEGALY AND PERSISTENT VASCULAR CONGESTION. CONTINUES TO REQUIRE ASSISTANCE WHEN AMBULATING DUE TO UNSTEADY GAIT AND INCREASED SHORTNESS OF BREATH. WE WILL CONTINUE WITH RESPIRATORY TREATMENTS, BIPAP, IV STEROIDS, AND CURRENT PLAN OF CARE. OTHERWISE, WE PLAN TO FOLLOW UP WITH AM LABS AND CHEST XRAY AND WILL CONTINUE TO MONITOR PATIENT. - Past Medical Family Social History Past Med/Fam/Surg Hx: No changes since H&P Allergies: Allergies lisinopril [From Zestril] Allergy (Verified 03/06/18 17:05) meperidine [From Demerol] Adverse Reaction (Verified 03/06/18 17:05) zinc Adverse Reaction (Verified 03/06/18 17:05) - Review of Systems ROS: No change since H&P - Vital Signs and I&O's Vital Signs: Temperature 98.3 F Pulse Rate [Apical] 87 Pulse Rate [Right Brachial] 92 Pulse Rate [Left Brachial] 91 Pulse Rate 111 Respiratory Rate 22 Blood Pressure [Left Radial 145/63 Artery] Blood Pressure [Right Radial 178/102 Artery] Blood Pressure [Right Arm] 136/77 Blood Pressure [Left Arm] 140/69 Blood Pressure 137/95 O2 Sat by Pulse Oximetry 96 Intake and Output: Intake & Output 03/28/18 03/29/18 03/30/18 03/31/18 11:59 11:59 11:59 11:59 Intake Total 550 / 550 1661 / 1661 1141 / 1141 Output Total 125 / 125 Balance 550 / 550 1661 / 1661 1016 / 1016 - Physical Exam Oriented: Normal Eyes: Normal Ear: Normal Nose: Normal Throat: Normal Respiratory: Generalized, Diminished Cardiovascular: Normal. negative: S3, S4, Murmur : Normal Auscultation: Bowel Sounds: Normal Palpation: Normal Tenderness: Normal Skin: Normal Musculoskeletal: Normal Psychiatric: Normal Mood Description: Calm, Labile Affect: Normal Speech Pattern: Clear, Appropriate - Laboratory and Diagnostics Result Diagrams: 03/30/18 05:26 03/30/18 05:26 Labs: 03/06/18 19:48 Blood Blood Culture - Final 03/06/18 19:44 Blood Blood Culture - Final Laboratory WBC 5.9 X10^3/uL (3.6-10.0) 03/30/18 05:26 RBC 2.82 X10^6/uL (3.5-5.4) L 03/30/18 05:26 Hgb 7.9 g/dL (12.0-16.0) L 03/30/18 05:26 Hct 24.2 % (36.0-47.0) L 03/30/18 05:26 MCV 85.8 fL (80.0-100.0) 03/30/18 05:26 MCH 28.1 pg (27.0-34.0) 03/30/18 05:26 MCHC 32.7 g/dL (33.0-35.0) L 03/30/18 05:26 RDW 18.7 % (11.6-16.5) H 03/30/18 05:26 Plt Count 171 X10^3/uL (150.0-450.0) 03/30/18 05:26 Plt Count Comment Adequate (ADEQUATE) 03/30/18 05:26 MPV 9.0 fL (7.4-11.0) 03/30/18 05:26 Neut % (Auto) 85.2 % (42.0-75.0) H 03/30/18 05:26 Lymph % (Auto) 6.7 % (21.0-51.0) L 03/30/18 05:26 [place] % (Auto) 4.6 % (0.0-13.0) 03/30/18 05:26 Eos % (Auto) 2.6 % (0.9-2.9) 03/30/18 05:26 Baso % (Auto) 0.9 % (0.2-1.0) 03/30/18 05:26 Neut # (Auto) 5.0 x10^3/uL (2.2-4.8) H 03/30/18 05:26 Lymph # (Auto) 0.4 X10^3/uL (1.3-2.9) L 03/30/18 05:26 [place] # (Auto) 0.3 x10^3/uL (0.3-0.8) 03/30/18 05:26 Eos # (Auto) 0.2 x10^3/uL (0.0-0.2) 03/30/18 05:26 Baso # (Auto) 0.1 X10^3/uL (0.0-0.1) 03/30/18 05:26 Absolute Nucleated RBC 0.2 /100WBC 03/30/18 05:26 Total Counted 100 03/17/18 05:31 Neutrophils % (Manual) 95 % (39-76) H 03/17/18 05:31 Band Neutrophils % 2 % (0-10) 03/16/18 05:08 Lymphocytes % (Manual) 3 % (13-43) L 03/17/18 05:31 Monocytes % (Manual) 2 % (4-9) L 03/17/18 05:31 Plt Morphology Comment Normal (NORMAL) 03/30/18 05:26 RBC Morphology Abnormal (NORMAL) A 03/30/18 05:26 Hypochromasia Slight A 03/30/18 05:26 Anisocytosis Slight A 03/30/18 05:26 Ovalocytes Present 03/28/18 04:45 D-Dimer 1190 ng/mL (0-400) H* 03/06/18 17:28 Sample Site Lbra 03/29/18 05:31 ABG pH 7.390 (7.35-7.45) 03/29/18 05:31 ABG pCO2 64.0 mmHg (35.0-45.0) H* 03/29/18 05:31 ABG pO2 105.0 mmHg (80.0-100.0) H 03/29/18 05:31 ABG HCO3 38.7 mmol/L (22-26) H* 03/29/18 05:31 ABG O2 Saturation 98.0 % (90-100) 03/29/18 05:31 ABG Base Excess 11.3 mmol/L (-2.0-2.0) H 03/29/18 05:31 Twan Test Na 03/29/18 05:31 A-a Gradient 243.0 mmHg 03/29/18 05:31 FiO2 60.000 03/29/18 05:31 Blood Gas Comments Praneeth abg well-mtf 03/29/18 05:31 Sodium 146 mmol/L (136-145) H 03/30/18 05:26 Corrected Sodium 147 mmol/L (136-145) H 03/30/18 05:26 Potassium 4.7 mmol/L (3.5-5.1) 03/30/18 05:26 Chloride 107 mmol/L (98-107) 03/30/18 05:26 Carbon Dioxide 37.6 mmol/L (21-32) H 03/30/18 05:26 BUN 38 mg/dL (7-18) H 03/30/18 05:26 Creatinine 1.54 mg/dL (0.55-1.02) H 03/30/18 05:26 Est GFR (MDRD) Af Amer 42 (>60) L 03/30/18 05:26 Est GFR (MDRD) Non-Af 35 (>60) L 03/30/18 05:26 Glucose 158 mg/dL (65-99) H 03/30/18 05:26 POC Glucose (mg/dL) 135 mg/dL (65-99) H 03/30/18 11:05 Calcium 9.6 mg/dL (8.5-10.1) 03/30/18 05:26 Corrected Calcium 10.2 mg/dL (8.5-10.1) H 03/30/18 05:26 Total Bilirubin 1.00 mg/dL (0.2-1.0) 03/30/18 05:26 AST 18 Units/L (15-37) 03/30/18 05:26 ALT 14 Units/L (12-78) 03/30/18 05:26 Alkaline Phosphatase 51 Units/L (46-116) 03/30/18 05:26 Creatine Kinase 16 Units/L (26-192) L 03/13/18 00:06 CK-MB (CK-2) < 1.0 ng/mL (0-4.0) 03/13/18 00:06 CK/CKMB % Calc 6.3 % (<4) 03/13/18 00:06 Troponin I 0.06 ng/mL (0-1.5) 03/13/18 00:06 Total Protein 6.9 g/dL (6.4-8.2) 03/30/18 05:26 Albumin 3.2 g/dL (3.4-5.0) L 03/30/18 05:26 Globulin 3.7 g/dL (2.5-4.5) 03/30/18 05:26 Albumin/Globulin Ratio 0.9 Ratio (1.1-2.1) L 03/30/18 05:26 Specimen Type Catherized urine 03/12/18 11:55 Urine Color Yellow (YELLOW) 03/12/18 11:55 Urine Appearance Hazy (CLEAR) 03/12/18 11:55 Urine pH 5.0 (5.0 - 8.0) 03/12/18 11:55 Ur Specific [place] 1.020 (1.000-1.030) 03/12/18 11:55 Urine Protein 2+ (NEGATIVE) 03/12/18 11:55 Urine Glucose (UA) Negative (NEGATIVE) 03/12/18 11:55 Urine Ketones Negative (NEGATIVE) 03/12/18 11:55 Urine Occult Blood Negative (NEGATIVE) 03/12/18 11:55 Urine Nitrite Negative (NEGATIVE) 03/12/18 11:55 Urine Bilirubin Negative (NEGATIVE) 03/12/18 11:55 Urine Urobilinogen Normal (NORMAL) 03/12/18 11:55 Ur Leukocyte Esterase Negative (NEGATIVE) 03/12/18 11:55 Urine RBC 0-2 /HPF (NONE SEEN) 03/12/18 11:55 Urine WBC 0-2 /HPF (NONE SEEN) 03/12/18 11:55 Ur Squamous Epith Cells Moderate /HPF (NEGATIVE) 03/12/18 11:55 Amorphous Sediment 2+ /HPF (NEGATIVE) 03/12/18 11:55 Urine Bacteria Trace /HPF (NEGATIVE) 03/12/18 11:55 Urine Mucus Few /HPF (NEGATIVE) 03/12/18 11:55 Ur Culture Indicated? No/not indicated 03/12/18 11:55 Theophylline < 2.0 ug/mL (10-20) L 03/23/18 04:48 - Plan (1) RML pneumonia Status: Acute Qualifiers: Pneumonia type: due to unspecified organism Qualified Code(s): J18.1 - Lobar pneumonia, unspecified organism Plan: iv antibiotics, respiratory treatments, supplemental oxygen, continue to monitor (2) CHF (congestive heart failure) Status: Chronic Qualifiers: Heart failure type: unspecified Heart failure chronicity: acute on chronic Qualified Code(s): I50.9 - Heart failure, unspecified Plan: FLUID RESTRICTION, SOLU-MEDROL 20MG IV Q8H, SALINE LOCK IV FLUIDS, CONTINUE HOME MEDICATIONS, JESSE-DUR 200MG PO BID (3) Respiratory failure with hypercapnia Status: Acute Qualifiers: Chronicity: acute on chronic Qualified Code(s): J96.22 - Acute and chronic respiratory failure with hypercapnia Plan: JESSE-DUR 200MG PO BID, bipap, respiratory treatments, supplemental oxygen , iv solu-medrol, continue to monitor (4) Atrial fibrillation Status: Chronic Qualifiers: Atrial fibrillation type: chronic Qualified Code(s): I48.2 - Chronic atrial fibrillation Plan: CONTINUE ELIQUIS, CONTINUE TO MONITOR (5) Hyperlipidemia Status: Acute Qualifiers: Hyperlipidemia type: pure hypercholesterolemia Qualified Code(s): E78.00 - Pure hypercholesterolemia, unspecified; E78.0 - Pure hypercholesterolemia Plan: CONTINUE LIPITOR, CONTINUE TO MONITOR (6) Type I diabetes mellitus Status: Chronic Qualifiers: Diabetes mellitus complication status: with unspecified complications Qualified Code(s): E10.8 - Type 1 diabetes mellitus with unspecified complications Plan: MONITOR BS, CONTINUE GLUCOTROL, CONTINUE LANTUS, CONTINUE HUMULIN R
--- NOTE | 2018-03-30 15:28 | PCM.PROG ---
Progress Note - Progress Note for Day of Date of Exam: 03/29/18 - Subjective Subjective: IS BEING TREATED FOR CHF EXACERBATION. TODAY, SHE IS ALERT AND ORIENTED, SITTING UP IN CHAIR ON MORNING ROUNDS. SHE CONTINUES TO REPORT A PERSISTENT COUGH AND SHORTNESS OF BREATH TODAY. STAFF REPORTS THAT WHILE AMBULATING TO THE BEDSIDE COMMODE WITHOUT OXYGEN THIS MORNING, HER OXYGEN SATURATIONS FELL INTO THE LOW 80S. SHE WAS PLACED BACK ON HER HOME BIPAP WITH O2 AT 8L/MIN. OXYGEN SATURATIONS WERE NOTED TO INCREASE TO 92%. SHE CONTINUES TO REQUIRE THE BIPAP AT ALL TIMES WITH THE EXCEPTION OF EATING AND AMBULATING TO THE BATHROOM IN ORDER TO SUSTAIN HER OXYGEN SATURATIONS. ON EXAMINATION THIS MORNING, HEART IS REGULAR IN RATE AND RHYTHM. BILATERAL LUNGS CONTINUE WITH DIMINISHED LUNG SOUNDS THROUGHOUT. ABDOMEN IS ROUND, SOFT, AND NON-TENDER WITH NORMAL BOWEL SOUNDS NOTED IN ALL QUADRANTS. HER VITALS TODAY ARE 98.5-91-24-95% bi-pap, 123/61. LABS WERE OBTAINED. ABNORMAL LAB VALUES INCLUDE THE FOLLOWING: RBC 2.89, HGB 8.1, HCT 24.8, CARBON DIOXIDE 35.2, BUN 40, CREATININE 1.73, GLUCOSE 168, TOTAL BILI 1.30. ABG REVEALED PH 7.390, PC02 64.0, P02 105.0, HC03 38.7, 02 SATURATION 98.0, BASE EXCESS 11.3. TODAYS CHEST XRAY REVEALS UNCHANGED CARDIOMEGALY, PERSISTENT VASCULAR CONGESTION, AND BILATERAL PLEURAL EFFUSIONS. SHE CONTINUES TO REQUIRE ASSISTANCE WHEN AMBULATING DUE TO UNSTEADY GAIT AND INCREASED SHORTNESS OF BREATH. WE WILL CONTINUE WITH RESPIRATORY TREATMENTS, BIPAP, IV ANTIBIOTICS, AND CURRENT PLAN OF CARE. OTHERWISE, WE PLAN TO FOLLOW UP WITH AM LABS AND CHEST XRAY AND WILL CONTINUE TO MONITOR PATIENT. - Past Medical Family Social History Past Med/Fam/Surg Hx: No changes since H&P Allergies: Allergies lisinopril [From Zestril] Allergy (Verified 03/06/18 17:05) meperidine [From Demerol] Adverse Reaction (Verified 03/06/18 17:05) zinc Adverse Reaction (Verified 03/06/18 17:05) - Review of Systems ROS: No change since H&P - Vital Signs and I&O's Vital Signs: Temperature 98.3 F Pulse Rate [Apical] 87 Pulse Rate [Right Brachial] 92 Pulse Rate [Left Brachial] 91 Pulse Rate 111 Respiratory Rate 22 Blood Pressure [Left Radial 145/63 Artery] Blood Pressure [Right Radial 178/102 Artery] Blood Pressure [Right Arm] 136/77 Blood Pressure [Left Arm] 140/69 Blood Pressure 137/95 O2 Sat by Pulse Oximetry 96 Intake and Output: Intake & Output 03/28/18 03/29/18 03/30/18 03/31/18 11:59 11:59 11:59 11:59 Intake Total 550 / 550 1661 / 1661 1141 / 1141 100 / 100 Output Total 125 / 125 200 / 200 Balance 550 / 550 1661 / 1661 1016 / 1016 -100 / -100 - Physical Exam Oriented: Normal Eyes: Normal Ear: Normal Nose: Normal Throat: Normal Respiratory: Generalized, Diminished Cardiovascular: Normal. negative: S3, S4, Murmur : Normal Auscultation: Bowel Sounds: Normal Palpation: Normal Tenderness: Normal Skin: Normal Musculoskeletal: Normal Psychiatric: Normal Mood Description: Calm, Labile Affect: Normal Speech Pattern: Clear, Appropriate - Laboratory and Diagnostics Result Diagrams: 03/30/18 05:26 03/30/18 05:26 Labs: 03/06/18 19:48 Blood Blood Culture - Final 03/06/18 19:44 Blood Blood Culture - Final Laboratory WBC 5.9 X10^3/uL (3.6-10.0) 03/30/18 05:26 RBC 2.82 X10^6/uL (3.5-5.4) L 03/30/18 05:26 Hgb 7.9 g/dL (12.0-16.0) L 03/30/18 05:26 Hct 24.2 % (36.0-47.0) L 03/30/18 05:26 MCV 85.8 fL (80.0-100.0) 03/30/18 05:26 MCH 28.1 pg (27.0-34.0) 03/30/18 05:26 MCHC 32.7 g/dL (33.0-35.0) L 03/30/18 05:26 RDW 18.7 % (11.6-16.5) H 03/30/18 05:26 Plt Count 171 X10^3/uL (150.0-450.0) 03/30/18 05:26 Plt Count Comment Adequate (ADEQUATE) 03/30/18 05:26 MPV 9.0 fL (7.4-11.0) 03/30/18 05:26 Neut % (Auto) 85.2 % (42.0-75.0) H 03/30/18 05:26 Lymph % (Auto) 6.7 % (21.0-51.0) L 03/30/18 05:26 [place] % (Auto) 4.6 % (0.0-13.0) 03/30/18 05:26 Eos % (Auto) 2.6 % (0.9-2.9) 03/30/18 05:26 Baso % (Auto) 0.9 % (0.2-1.0) 03/30/18 05:26 Neut # (Auto) 5.0 x10^3/uL (2.2-4.8) H 03/30/18 05:26 Lymph # (Auto) 0.4 X10^3/uL (1.3-2.9) L 03/30/18 05:26 [place] # (Auto) 0.3 x10^3/uL (0.3-0.8) 03/30/18 05:26 Eos # (Auto) 0.2 x10^3/uL (0.0-0.2) 03/30/18 05:26 Baso # (Auto) 0.1 X10^3/uL (0.0-0.1) 03/30/18 05:26 Absolute Nucleated RBC 0.2 /100WBC 03/30/18 05:26 Total Counted 100 03/17/18 05:31 Neutrophils % (Manual) 95 % (39-76) H 03/17/18 05:31 Band Neutrophils % 2 % (0-10) 03/16/18 05:08 Lymphocytes % (Manual) 3 % (13-43) L 03/17/18 05:31 Monocytes % (Manual) 2 % (4-9) L 03/17/18 05:31 Plt Morphology Comment Normal (NORMAL) 03/30/18 05:26 RBC Morphology Abnormal (NORMAL) A 03/30/18 05:26 Hypochromasia Slight A 03/30/18 05:26 Anisocytosis Slight A 03/30/18 05:26 Ovalocytes Present 03/28/18 04:45 D-Dimer 1190 ng/mL (0-400) H* 03/06/18 17:28 Sample Site Lbra 03/29/18 05:31 ABG pH 7.390 (7.35-7.45) 03/29/18 05:31 ABG pCO2 64.0 mmHg (35.0-45.0) H* 03/29/18 05:31 ABG pO2 105.0 mmHg (80.0-100.0) H 03/29/18 05:31 ABG HCO3 38.7 mmol/L (22-26) H* 03/29/18 05:31 ABG O2 Saturation 98.0 % (90-100) 03/29/18 05:31 ABG Base Excess 11.3 mmol/L (-2.0-2.0) H 03/29/18 05:31 Twan Test Na 03/29/18 05:31 A-a Gradient 243.0 mmHg 03/29/18 05:31 FiO2 60.000 03/29/18 05:31 Blood Gas Comments Praneeth abg well-mtf 03/29/18 05:31 Sodium 146 mmol/L (136-145) H 03/30/18 05:26 Corrected Sodium 147 mmol/L (136-145) H 03/30/18 05:26 Potassium 4.7 mmol/L (3.5-5.1) 03/30/18 05:26 Chloride 107 mmol/L (98-107) 03/30/18 05:26 Carbon Dioxide 37.6 mmol/L (21-32) H 03/30/18 05:26 BUN 38 mg/dL (7-18) H 03/30/18 05:26 Creatinine 1.54 mg/dL (0.55-1.02) H 03/30/18 05:26 Est GFR (MDRD) Af Amer 42 (>60) L 03/30/18 05:26 Est GFR (MDRD) Non-Af 35 (>60) L 03/30/18 05:26 Glucose 158 mg/dL (65-99) H 03/30/18 05:26 POC Glucose (mg/dL) 135 mg/dL (65-99) H 03/30/18 11:05 Calcium 9.6 mg/dL (8.5-10.1) 03/30/18 05:26 Corrected Calcium 10.2 mg/dL (8.5-10.1) H 03/30/18 05:26 Total Bilirubin 1.00 mg/dL (0.2-1.0) 03/30/18 05:26 AST 18 Units/L (15-37) 03/30/18 05:26 ALT 14 Units/L (12-78) 03/30/18 05:26 Alkaline Phosphatase 51 Units/L (46-116) 03/30/18 05:26 Creatine Kinase 16 Units/L (26-192) L 03/13/18 00:06 CK-MB (CK-2) < 1.0 ng/mL (0-4.0) 03/13/18 00:06 CK/CKMB % Calc 6.3 % (<4) 03/13/18 00:06 Troponin I 0.06 ng/mL (0-1.5) 03/13/18 00:06 Total Protein 6.9 g/dL (6.4-8.2) 03/30/18 05:26 Albumin 3.2 g/dL (3.4-5.0) L 03/30/18 05:26 Globulin 3.7 g/dL (2.5-4.5) 03/30/18 05:26 Albumin/Globulin Ratio 0.9 Ratio (1.1-2.1) L 03/30/18 05:26 Specimen Type Catherized urine 03/12/18 11:55 Urine Color Yellow (YELLOW) 03/12/18 11:55 Urine Appearance Hazy (CLEAR) 03/12/18 11:55 Urine pH 5.0 (5.0 - 8.0) 03/12/18 11:55 Ur Specific [place] 1.020 (1.000-1.030) 03/12/18 11:55 Urine Protein 2+ (NEGATIVE) 03/12/18 11:55 Urine Glucose (UA) Negative (NEGATIVE) 03/12/18 11:55 Urine Ketones Negative (NEGATIVE) 03/12/18 11:55 Urine Occult Blood Negative (NEGATIVE) 03/12/18 11:55 Urine Nitrite Negative (NEGATIVE) 03/12/18 11:55 Urine Bilirubin Negative (NEGATIVE) 03/12/18 11:55 Urine Urobilinogen Normal (NORMAL) 03/12/18 11:55 Ur Leukocyte Esterase Negative (NEGATIVE) 03/12/18 11:55 Urine RBC 0-2 /HPF (NONE SEEN) 03/12/18 11:55 Urine WBC 0-2 /HPF (NONE SEEN) 03/12/18 11:55 Ur Squamous Epith Cells Moderate /HPF (NEGATIVE) 03/12/18 11:55 Amorphous Sediment 2+ /HPF (NEGATIVE) 03/12/18 11:55 Urine Bacteria Trace /HPF (NEGATIVE) 03/12/18 11:55 Urine Mucus Few /HPF (NEGATIVE) 03/12/18 11:55 Ur Culture Indicated? No/not indicated 03/12/18 11:55 Theophylline < 2.0 ug/mL (10-20) L 03/23/18 04:48 - Plan (1) RML pneumonia Status: Acute Qualifiers: Pneumonia type: due to unspecified organism Qualified Code(s): J18.1 - Lobar pneumonia, unspecified organism Plan: iv antibiotics, respiratory treatments, supplemental oxygen, continue to monitor (2) CHF (congestive heart failure) Status: Chronic Qualifiers: Heart failure type: unspecified Heart failure chronicity: acute on chronic Qualified Code(s): I50.9 - Heart failure, unspecified Plan: FLUID RESTRICTION, SALINE LOCK IV FLUIDS, CONTINUE HOME MEDICATIONS, JESSE -DUR 200MG PO BID (3) Respiratory failure with hypercapnia Status: Acute Qualifiers: Chronicity: acute on chronic Qualified Code(s): J96.22 - Acute and chronic respiratory failure with hypercapnia Plan: JESSE-DUR 200MG PO BID, bipap, respiratory treatments, supplemental oxygen , continue to monitor (4) Atrial fibrillation Status: Chronic Qualifiers: Atrial fibrillation type: chronic Qualified Code(s): I48.2 - Chronic atrial fibrillation Plan: CONTINUE ELIQUIS, CONTINUE TO MONITOR (5) Hyperlipidemia Status: Acute Qualifiers: Hyperlipidemia type: pure hypercholesterolemia Qualified Code(s): E78.00 - Pure hypercholesterolemia, unspecified; E78.0 - Pure hypercholesterolemia Plan: CONTINUE LIPITOR, CONTINUE TO MONITOR (6) Type I diabetes mellitus Status: Chronic Qualifiers: Diabetes mellitus complication status: with unspecified complications Qualified Code(s): E10.8 - Type 1 diabetes mellitus with unspecified complications Plan: MONITOR BS, CONTINUE GLUCOTROL, CONTINUE LANTUS, CONTINUE HUMULIN R
--- NOTE | 2018-03-30 15:36 | PCM.PROG ---
Progress Note - Progress Note for Day of Date of Exam: 03/30/18 - Subjective Subjective: IS BEING TREATED FOR CHF EXACERBATION. TODAY, SHE IS ALERT AND ORIENTED, SITTING UP IN CHAIR ON MORNING ROUNDS. SHE IS CURRENTLY UTILIZING THE BIPAP. SHE CONTINUES TO REPORT A PERSISTENT COUGH AND SHORTNESS OF BREATH TODAY. SHE REPORTS THAT HER SYMPTOMS ARE THE SAME YESTERDAY WITH NO IMPROVEMENT NOTED. STAFF REPORTS THAT OXYGEN SATURATIONS CONTINUE TO FALL WHEN SHE IS PLACED ON ROOM AIR FOR AMBULATION OR WHILE EATING. SHE CONTINUES TO REQUIRE THE BIPAP AT ALL TIMES WITH THE EXCEPTION OF EATING AND AMBULATING TO THE BATHROOM IN ORDER TO SUSTAIN HER OXYGEN SATURATIONS. ON EXAMINATION THIS MORNING, HEART IS REGULAR IN RATE AND RHYTHM. BILATERAL LUNGS CONTINUE WITH DIMINISHED LUNG SOUNDS THROUGHOUT. ABDOMEN IS ROUND, SOFT, AND NON-TENDER WITH NORMAL BOWEL SOUNDS NOTED IN ALL QUADRANTS. HER VITALS TODAY ARE 98.1-91-22-100% -156/63. LABS WERE OBTAINED. ABNORMAL LAB VALUES INCLUDE THE FOLLOWING: RBC 2.82 , HGB 7.9, HCT 24.2, SODIUM 146, CARBON DIOXIDE 37.6, BUN 38, CREATININE 1.54, GLUCOSE 158, ALBUMIN 3.2. TODAYS CHEST XRAY REVEALS Persistent cardiomegaly with slightly improved vascular congestion. Probable small effusions. Subsegmental atelectasis in the right middle lobe. Questionable left lower lobe consolidation. SHE CONTINUES TO REQUIRE ASSISTANCE WHEN AMBULATING DUE TO UNSTEADY GAIT AND INCREASED SHORTNESS OF BREATH. SHE COMPLAINS OF DIFFICULTY SWALLOWING. TODAY, WE WILL CONTINUE WITH IV ANTIBIOTICS, RESPIRATORY TREATMENTS , BIPAP, AND CURRENT PLAN OF CARE. OTHERWISE, WE PLAN TO FOLLOW UP WITH AM LABS AND CHEST XRAY AND WILL CONTINUE TO MONITOR PATIENT. - Past Medical Family Social History Past Med/Fam/Surg Hx: No changes since H&P Allergies: Allergies lisinopril [From Zestril] Allergy (Verified 03/06/18 17:05) meperidine [From Demerol] Adverse Reaction (Verified 03/06/18 17:05) zinc Adverse Reaction (Verified 03/06/18 17:05) - Review of Systems ROS: No change since H&P - Vital Signs and I&O's Vital Signs: Temperature 98.3 F Pulse Rate [Apical] 87 Pulse Rate [Right Brachial] 92 Pulse Rate [Left Brachial] 91 Pulse Rate 111 Respiratory Rate 22 Blood Pressure [Left Radial 145/63 Artery] Blood Pressure [Right Radial 178/102 Artery] Blood Pressure [Right Arm] 136/77 Blood Pressure [Left Arm] 140/69 Blood Pressure 137/95 O2 Sat by Pulse Oximetry 96 Intake and Output: Intake & Output 03/28/18 03/29/18 03/30/18 03/31/18 11:59 11:59 11:59 11:59 Intake Total 550 / 550 1661 / 1661 1141 / 1141 100 / 100 Output Total 125 / 125 200 / 200 Balance 550 / 550 1661 / 1661 1016 / 1016 -100 / -100 - Physical Exam Oriented: Normal Eyes: Normal Ear: Normal Nose: Normal Throat: Normal Respiratory: Generalized, Diminished Cardiovascular: Normal. negative: S3, S4, Murmur : Normal Auscultation: Bowel Sounds: Normal Palpation: Normal Tenderness: Normal Skin: Normal Musculoskeletal: Normal Psychiatric: Normal Mood Description: Calm, Labile Affect: Normal Speech Pattern: Clear, Appropriate - Laboratory and Diagnostics Result Diagrams: 03/30/18 05:26 03/30/18 05:26 Labs: 03/06/18 19:48 Blood Blood Culture - Final 03/06/18 19:44 Blood Blood Culture - Final Laboratory WBC 5.9 X10^3/uL (3.6-10.0) 03/30/18 05:26 RBC 2.82 X10^6/uL (3.5-5.4) L 03/30/18 05:26 Hgb 7.9 g/dL (12.0-16.0) L 03/30/18 05:26 Hct 24.2 % (36.0-47.0) L 03/30/18 05:26 MCV 85.8 fL (80.0-100.0) 03/30/18 05:26 MCH 28.1 pg (27.0-34.0) 03/30/18 05:26 MCHC 32.7 g/dL (33.0-35.0) L 03/30/18 05:26 RDW 18.7 % (11.6-16.5) H 03/30/18 05:26 Plt Count 171 X10^3/uL (150.0-450.0) 03/30/18 05:26 Plt Count Comment Adequate (ADEQUATE) 03/30/18 05:26 MPV 9.0 fL (7.4-11.0) 03/30/18 05:26 Neut % (Auto) 85.2 % (42.0-75.0) H 03/30/18 05:26 Lymph % (Auto) 6.7 % (21.0-51.0) L 03/30/18 05:26 [place] % (Auto) 4.6 % (0.0-13.0) 03/30/18 05:26 Eos % (Auto) 2.6 % (0.9-2.9) 03/30/18 05:26 Baso % (Auto) 0.9 % (0.2-1.0) 03/30/18 05:26 Neut # (Auto) 5.0 x10^3/uL (2.2-4.8) H 03/30/18 05:26 Lymph # (Auto) 0.4 X10^3/uL (1.3-2.9) L 03/30/18 05:26 [place] # (Auto) 0.3 x10^3/uL (0.3-0.8) 03/30/18 05:26 Eos # (Auto) 0.2 x10^3/uL (0.0-0.2) 03/30/18 05:26 Baso # (Auto) 0.1 X10^3/uL (0.0-0.1) 03/30/18 05:26 Absolute Nucleated RBC 0.2 /100WBC 03/30/18 05:26 Total Counted 100 03/17/18 05:31 Neutrophils % (Manual) 95 % (39-76) H 03/17/18 05:31 Band Neutrophils % 2 % (0-10) 03/16/18 05:08 Lymphocytes % (Manual) 3 % (13-43) L 03/17/18 05:31 Monocytes % (Manual) 2 % (4-9) L 03/17/18 05:31 Plt Morphology Comment Normal (NORMAL) 03/30/18 05:26 RBC Morphology Abnormal (NORMAL) A 03/30/18 05:26 Hypochromasia Slight A 03/30/18 05:26 Anisocytosis Slight A 03/30/18 05:26 Ovalocytes Present 03/28/18 04:45 D-Dimer 1190 ng/mL (0-400) H* 03/06/18 17:28 Sample Site Lbra 03/29/18 05:31 ABG pH 7.390 (7.35-7.45) 03/29/18 05:31 ABG pCO2 64.0 mmHg (35.0-45.0) H* 03/29/18 05:31 ABG pO2 105.0 mmHg (80.0-100.0) H 03/29/18 05:31 ABG HCO3 38.7 mmol/L (22-26) H* 03/29/18 05:31 ABG O2 Saturation 98.0 % (90-100) 03/29/18 05:31 ABG Base Excess 11.3 mmol/L (-2.0-2.0) H 03/29/18 05:31 Twan Test Na 03/29/18 05:31 A-a Gradient 243.0 mmHg 03/29/18 05:31 FiO2 60.000 03/29/18 05:31 Blood Gas Comments Praneeth abg well-mtf 03/29/18 05:31 Sodium 146 mmol/L (136-145) H 03/30/18 05:26 Corrected Sodium 147 mmol/L (136-145) H 03/30/18 05:26 Potassium 4.7 mmol/L (3.5-5.1) 03/30/18 05:26 Chloride 107 mmol/L (98-107) 03/30/18 05:26 Carbon Dioxide 37.6 mmol/L (21-32) H 03/30/18 05:26 BUN 38 mg/dL (7-18) H 03/30/18 05:26 Creatinine 1.54 mg/dL (0.55-1.02) H 03/30/18 05:26 Est GFR (MDRD) Af Amer 42 (>60) L 03/30/18 05:26 Est GFR (MDRD) Non-Af 35 (>60) L 03/30/18 05:26 Glucose 158 mg/dL (65-99) H 03/30/18 05:26 POC Glucose (mg/dL) 135 mg/dL (65-99) H 03/30/18 11:05 Calcium 9.6 mg/dL (8.5-10.1) 03/30/18 05:26 Corrected Calcium 10.2 mg/dL (8.5-10.1) H 03/30/18 05:26 Total Bilirubin 1.00 mg/dL (0.2-1.0) 03/30/18 05:26 AST 18 Units/L (15-37) 03/30/18 05:26 ALT 14 Units/L (12-78) 03/30/18 05:26 Alkaline Phosphatase 51 Units/L (46-116) 03/30/18 05:26 Creatine Kinase 16 Units/L (26-192) L 03/13/18 00:06 CK-MB (CK-2) < 1.0 ng/mL (0-4.0) 03/13/18 00:06 CK/CKMB % Calc 6.3 % (<4) 03/13/18 00:06 Troponin I 0.06 ng/mL (0-1.5) 03/13/18 00:06 Total Protein 6.9 g/dL (6.4-8.2) 03/30/18 05:26 Albumin 3.2 g/dL (3.4-5.0) L 03/30/18 05:26 Globulin 3.7 g/dL (2.5-4.5) 03/30/18 05:26 Albumin/Globulin Ratio 0.9 Ratio (1.1-2.1) L 03/30/18 05:26 Specimen Type Catherized urine 03/12/18 11:55 Urine Color Yellow (YELLOW) 03/12/18 11:55 Urine Appearance Hazy (CLEAR) 03/12/18 11:55 Urine pH 5.0 (5.0 - 8.0) 03/12/18 11:55 Ur Specific [place] 1.020 (1.000-1.030) 03/12/18 11:55 Urine Protein 2+ (NEGATIVE) 03/12/18 11:55 Urine Glucose (UA) Negative (NEGATIVE) 03/12/18 11:55 Urine Ketones Negative (NEGATIVE) 03/12/18 11:55 Urine Occult Blood Negative (NEGATIVE) 03/12/18 11:55 Urine Nitrite Negative (NEGATIVE) 03/12/18 11:55 Urine Bilirubin Negative (NEGATIVE) 03/12/18 11:55 Urine Urobilinogen Normal (NORMAL) 03/12/18 11:55 Ur Leukocyte Esterase Negative (NEGATIVE) 03/12/18 11:55 Urine RBC 0-2 /HPF (NONE SEEN) 03/12/18 11:55 Urine WBC 0-2 /HPF (NONE SEEN) 03/12/18 11:55 Ur Squamous Epith Cells Moderate /HPF (NEGATIVE) 03/12/18 11:55 Amorphous Sediment 2+ /HPF (NEGATIVE) 03/12/18 11:55 Urine Bacteria Trace /HPF (NEGATIVE) 03/12/18 11:55 Urine Mucus Few /HPF (NEGATIVE) 03/12/18 11:55 Ur Culture Indicated? No/not indicated 03/12/18 11:55 Theophylline < 2.0 ug/mL (10-20) L 03/23/18 04:48 - Plan (1) RML pneumonia Status: Acute Qualifiers: Pneumonia type: due to unspecified organism Qualified Code(s): J18.1 - Lobar pneumonia, unspecified organism Plan: iv antibiotics, respiratory treatments, supplemental oxygen, continue to monitor (2) CHF (congestive heart failure) Status: Chronic Qualifiers: Heart failure type: unspecified Heart failure chronicity: acute on chronic Qualified Code(s): I50.9 - Heart failure, unspecified Plan: FLUID RESTRICTION, SALINE LOCK IV FLUIDS, CONTINUE HOME MEDICATIONS, JESSE -DUR 200MG PO BID (3) Respiratory failure with hypercapnia Status: Acute Qualifiers: Chronicity: acute on chronic Qualified Code(s): J96.22 - Acute and chronic respiratory failure with hypercapnia Plan: JESSE-DUR 200MG PO BID, bipap, respiratory treatments, supplemental oxygen , continue to monitor (4) Atrial fibrillation Status: Chronic Qualifiers: Atrial fibrillation type: chronic Qualified Code(s): I48.2 - Chronic atrial fibrillation Plan: CONTINUE ELIQUIS, CONTINUE TO MONITOR (5) Hyperlipidemia Status: Acute Qualifiers: Hyperlipidemia type: pure hypercholesterolemia Qualified Code(s): E78.00 - Pure hypercholesterolemia, unspecified; E78.0 - Pure hypercholesterolemia Plan: CONTINUE LIPITOR, CONTINUE TO MONITOR (6) Type I diabetes mellitus Status: Chronic Qualifiers: Diabetes mellitus complication status: with unspecified complications Qualified Code(s): E10.8 - Type 1 diabetes mellitus with unspecified complications Plan: MONITOR BS, CONTINUE GLUCOTROL, CONTINUE LANTUS, CONTINUE HUMULIN R
[2018-03-30] MEDS: SNACK - Diabetic Appropriate PO SCH (20:30)
[2018-03-30] MEDS: LANTUS SC SCH (21:00)
[2018-03-30] MEDS: COLACE CAP 100 MG PO SCH (21:39)
[2018-03-30] MEDS: LIPITOR TAB 40 MG PO SCH (21:40)
[2018-03-31 05:29] LABS: BASOPHILS # (AUTO) 0.1 X10^3/uL (0.0-0.1); BASOPHILS % (AUTO) 1.2 % (0.2-1.0); EOSINOPHILS # (AUTO) 0.4 x10^3/uL (0.0-0.2); HEMATOCRIT 23.9 % (36.0-47.0); HEMOGLOBIN 7.7 g/dL (12.0-16.0); LYMPHOCYTES # (AUTO) 0.6 X10^3/uL (1.3-2.9); LYMPHOCYTES % (AUTO) 9.5 % (21.0-51.0); MEAN CORPUSCULAR HEMOGLOBIN 27.8 pg (27.0-34.0); MEAN CORPUSCULAR HGB CONC 32.2 g/dL (33.0-35.0); MEAN CORPUSCULAR VOLUME 86.2 fL (80.0-100.0); MEAN PLATELET VOLUME 9.3 fL (7.4-11.0); MONOCYTES # (AUTO) 0.3 x10^3/uL (0.3-0.8); MONOCYTES % (AUTO) 5.4 % (0.0-13.0); NEUTROPHILS # (AUTO) 4.8 x10^3/uL (2.2-4.8); NEUTROPHILS % (AUTO) 77.9 % (42.0-75.0); PLATELET COUNT 164 X10^3/uL (150.0-450.0); RED BLOOD COUNT 2.77 X10^6/uL (3.5-5.4); RED CELL DISTRIBUTION WIDTH 19.2 % (11.6-16.5); WHITE BLOOD COUNT 6.1 X10^3/uL (3.6-10.0)
[2018-03-31 05:48] LABS: CALCIUM 9.3 mg/dL (8.5-10.1); CARBON DIOXIDE 34.5 mmol/L (21-32); COR CA(FOR HYPOALB) 10.1 mg/dL (8.5-10.1); CREATININE 1.46 mg/dL (0.55-1.02); TOTAL PROTEIN 6.7 g/dL (6.4-8.2)
[2018-03-31 05:51] LABS: ANISOCYTOSIS 1+; HYPOCHROMASIA 1+; MICROCYTOSIS 2+; OVALOCYTES SLIGHT; PLATELET MORPHOLOGY COMMENT NORMAL (NORMAL)
[2018-03-31] MEDS: ZOSYN VIAL 3.375 GRAMS 3.375 G in NS 100 ML IV + SPIKE MINIBAG* 100 ML IV SCH (06:20)
[2018-03-31 08:10] VITALS: BP 128/58
[2018-03-31] MEDS: XOPENEX 1.25 MG/3 ML NEBULE NEB SCH (08:41)
[2018-03-31] MEDS: ZYLOPRIM PO SCH (09:10)
[2018-03-31] MEDS: ASPIRIN EC 81 MG PO SCH (09:10)
[2018-03-31] MEDS: COZAAR PO SCH (09:11)
[2018-03-31] MEDS: ELIQUIS PO SCH (09:11)
[2018-03-31] MEDS: MAG-OX TAB PO SCH (09:11)
[2018-03-31] MEDS: OXYBUTYNIN CHLORIDE ER PO SCH (09:11)
--- NOTE | 2018-04-11 22:30 | DR.CARTERD ---
- Discharge Summary for: Discharge Summary for Date of:: 03/31/18 - Admission Date Date of Admission: 03/06/18 - Admission Diagnoses Admission Diagnosis: (1) RML pneumonia (2) Shortness of breath - Discharge Date Discharge Date: 03/31/18 - Discharge Diagnoses Discharge Diagnosis: (1) Respiratory failure with hypercapnia (2) RML pneumonia (3) CHF (congestive heart failure) (4) Atrial fibrillation (5) Hyperlipidemia (6) Type I diabetes mellitus - Hospital Course Hospital Course: 03/06/18: is a 77 year old patient of ours who presented to the emergency room with complaints of increased shortness of breath and being light headed. She reported that symptoms began one week prior and had progressively worsened. She reported that symptoms were worse on exertion. Patient had a history significant for: Cataracts, CAD, CHF, MD, Hyperlipidemia, Hypertension, Pneumonia, COPD, Sleep Apnea, Gerd, Gastric Ulcer, Partial Hysterectomy, Muscle Weakness, Arthritis, DM type II, Anemia, Skin CA. On arrival, vitals were 98.0, 100, 18, 93% RA, 137/95. Labs were obtained. Abnormal lab values included the following: Hgb 11.0, Hct 34.9, MCH 26.3, MCHC 31.6, RDW 17.5, D-Dimer 1190, Carbon Dioxide 33.5, Creatinine 1.23, GFR af 55, GFR non 45, Glucose 102, Corrected Calcium 10.2, Albumin 2.9, A/G Ratio 0.7. Blood Cultures x2 obtained. ABG: pCO2 54.0, HCO3 36.7, Base Excess 10.7. Chest X-Ray revealed: Cardiomegaly with mild pulmonary interstitial edema and right greater than left pleural effusions. Findings are compatible with CHF/volume overload. Chest CTA obtained and revealed: No evidence of a pulmonary embolus. Right sided aortic arch and atherosclerotic plaque throughout with no aneurysm or dissection which is unchanged. Mild to moderate right pleural effusion which has slightly increased in size with increasing right basilar atelectasis and/or infiltrate extending into the right middle lobe and is more prominent. Tiny left pleural effusion which is less prominent with minimal left basilar atelectasis which is unchanged. 3 mm nodule left upper lobe which is unchanged and may be partially calcified, suggest follow-up. She was given Lasix 40mg IV x 1, Rocephin 1gm IV x 1, and started on IV fluids. She was admitted for further evaluation and treatment. 03/09/18: Patient noted with continued shortness of breath and non-productive cough. On auscultation of lung [place] patient noted with coarse wheezing and rhonchi with diminished breath sounds throughout. Patient remained on supplemental oxygen at 2L/min via nasal cannula. Chest x-ray obtained revealed a new increased density in the right lower lobe which may indicate developing infiltrate and no change in pleural effusion and pulmonary venous congestion. Breathing treatments changed from Duonebs every four hours to Xopenex four times a day. IV Lasix increased from 20mg IV twice daily to 40mg IV twice daily. Patient noted with pitting edema to bilateral lower extremities. Abnormal Labs: Hgb 9.4, Hct 29.5, MCH 26.7, MCHC 31.7, RDW 17.0, Lymph% 15.4, Eos% 3.0, Lymph# 0.8, Carbon Dioxide 38.2, Creatinine 1.19, GFR af 57, GFR non 47, Glucose 132, AST 14, A/G Ratio 0.9. We continued IV fluids, IV antibiotics, and aggressive neb treatments. 03/10/18: Patient noted with continued shortness of breath. On auscultation of lung [place] patient noted with coarse wheezing and diminished breath sounds throughout. Patient remained on supplemental oxygen at 2L/min with noted desaturations in the low 90s. IV antibiotics changed from Rocephin to Zosyn due to new infiltrate noted on prior chest x-ray. Chest x-ray revealed marked cardiomegaly without congestive heart failure, abnormal parenchymal density right lower lobe suggestive of infiltrate, unchanged and small right pleural effusion, unchanged. Patient noted with continued pitting edema to bilateral lower extremities and we continued Lasix IV twice daily. Abnormal Labs: Hgb 9.9 , Hct 30.9, MCHC 31.8, RDW 17.1, Carbon dioxide 37.5, BUN 21, Creatinine 1.32, GFR af 50, GFR non 42, Glucose 205, A/G Ratio 0.9. We continued on IV antibiotics and aggressive neb treatments. 03/12/18: Patient noted with continued shortness of breath. Patient reportedly had an episode of confusion earlier this day where she was found in the bathroom alert and oriented but unaware of how she got there. Patient assisted back to bed and noted with an oxygen saturation of 50% with reports of chest pain. Patient placed on supplemental oxygen and saturation slowly increased to low 90s. Patient moved to ICU and placed on continuous pvc monitor, NIBP, and pulse oximetry. Serial cardiac enzymes and EKGs obtained to rule out an acute MD. ABG revealed an elevated pCO2 of 89.0 and HCO3 of 41.8 and a decreased pH of 7.280, pO2 of 56.0 and saturation 85.0 on 28% FiO2. Chest x- ray obtained which revealed pulmonary venous congestion persists with basilar atelectasis and/or infiltrate. Abnormal Labs: Hgb 9.9, Hct 31.4, MCH 26.9, MCHC 31.6, RDW 17.0, Neut% 80.8, Lymph% 9.8, Eos% 3.1, Neut# 5.9, Lymph# 0.7, Carbon Dioxide 33.0, BUN 30, Creatinine 1.97, GFR af 32, GFR non 26, Glucose 149, Creatine Kinase 25, 19, A/G ratio 0.9. ABG: @1538 pH 7.280, pCO2 89.0, pO2 56.0 , HCO3 41.8, O2 Sat 85.0, Base Excess 11.5. ABG: @2149 pH 7.310, pCO2 83.0, pO2 62.0, HCO3 41.8, O2 Sat 89.0, Base Excess 12.2. Urinalysis: Catherized, Hazy, pH 5.0, Specific [place] 1.020, Protein 2+, RBC 0-2, WBC 0-2, Sediment 2+ , Bacteria Trace, Mucus Few. EKG: @1129 Atrial Fibrillation, ksbx=039; @1521 Atrial Fibrillation, rate=93. Upon being transferred to stepdown unit patient placed on Bi-pap at 14/7 with 30% FiO2. We continued IV antibiotics and aggressive neb treatments. 03/14/18: Patient had been moved to the intensive care unit for close monitoring due to decreased oxygen saturations and increased heart rate. Oxygen saturation was noted to have dropped into the low 80s and was placed on Bipap therapy. Respirations were noted to be in the 30s at that time. Patient was lying in bed moaning. library monitor showed atrial fibrillation. Heart rate was noted to be in the 90s. Upon auscultation of lung [place] bilateral scattered wheezing and rhonchi were noted throughout. Patient was noted to be on nasal cannula upon rounds. Chest xray showed continued cardiac enlargement with pulmonary vascular congestion. Suspect mild bibasal infiltrates or atelectasis. Detail is limited by patient habitus. Abnormal Labs: RBC 3.32, Hgb 8.9, Hct 28.1, MCH 26.9, MCHC 31.8, RDW 17.0, Carbon Dioxide 37.1, BUN 28, Creatinine 1.54, GFR(AA) 42, GFR(non) 35, Glucose 134, AST 13, Albumin 3.2, A/G Ratio 0.9. Patient started on Solumedrol and ordered to wear the Bipap throughout the day and at night. We continued with the treatment and monitored. 03/16/18: Patient noted with continued complaints of a non-productive cough and increased shortness of breath. On auscultation of lung [place] patient noted with continued scattered wheezing and rhonchi throughout. Patient continued on Bi-pap at 22/06/20 with FiO2 of 35%. Abnormal Labs: Hgb 9.5, Hct 30.1, MCH 26.7 , MCHC 31.7, RDW 16.9, Corrected Sodium 146, Carbon Dioxide 35.5, BUN 40, Creatinine 1.54, GFR af 42, GFR non 35, Glucose 219, AST 13, A/G Ratio 1.0. ABG : pCO2 71.0, pO2 68.0, HCO3 41.0, Base Excess 12.8. Chest x-ray continued to reveal unchanged pulmonary venous congestion. Labs obtained revealed a low hemoglobin of 9.5 and elevated sodium of 146, BUN of 46 and glucose remains elevated. Patient was started on Tacho-Dur 200mg twice daily. We continued with respiratory treatments, Bi-pap, IV steroids, IV Lasix. 03/18/18: Patient continued treatment for right middle lobe pneumonia and exacerbation of CHF. She was alert and oriented, sitting up in chair on morning rounds. Patient continued with complaints of a non-productive cough and increased shortness of breath, but reported slight improvement. Patient had been weaned from Bi-pap during the day and was only wearing it at night. Patient on nasal cannula at 2L/min during rounds. On examination, she continued to be in atrial fibrillation with heart rate in the 90s. On auscultation of lung [place] patient noted with continued scattered wheezing and rhonchi throughout. Abnormal Labs: RBC 3.40, Hgb 9.0, Hct 28.4, MCH 26.5, MCHC 31.8, RDW 17.4, Sodium 146, Corrected Sodium 147, Carbon Dioxide 36.3, BUN 58, Creatinine 1.91, GFR af 33, GFR non 27, Glucose 146, AST 14, Alk Phos 38. ABG: pCO2 73.0, pO2 67.0, HCO3 43.2, Base Excess 14.8. Chest x-ray obtained noted with continued cardiac enlargement with pulmonary vascular distention and diffuse density in both bases consistent with atelectasis or perivascular edema. We continued with respiratory treatments, Bi-pap, and IV steroids. We continued to hold Lasix due to elevated creatinine. 03/20/18: Patient continued with complaints of shortness of breath and an increased cough. Patient stated cough was non-productive. Patient reported increased weakness. Patient remained on supplemental oxygen at 2L/min via nasal cannula during the day and on Bi-pap at night. On auscultation of lung [place] patient noted with continued scattered wheezing and rhonchi throughout. Abnormal Labs: RBC 3.28, Hgb 8.9, Hct 27.5, MCHC 32.2, Carbon Dioxide 34.6, BUN 55, Creatinine 1.75, GFR af 36, GFR non 30, Glucose 119, Alk Phos 38, Theophylline <2.0. ABG: pCO2 72.0, pO2 65.0, HCO3 42.6, Base Excess 14.3. Chest x-ray revealed stable haziness at both lung bases which could indicate infiltrate or effusion. A soft tissue CT of the neck was obtained to rule out airway obstruction due to hypoxia which revealed bilateral upper lobe airspace disease with layering effusions probably due to pneumonia. Physical therapy continued to work with patient and she required moderate assistance when ambulating due to unsteady gait and increased shortness of breath. Patient required the use of a rolling walker. We continued with respiratory treatments , Bi-pap, IV steroids. 03/22/18: Patient noted with continued cough and shortness of breath. On auscultation of lung [place] patient noted with diminished breath sounds throughout. Patient noted with continued shortness of breath on exertion and difficulty clearing secretions. Patient remained on supplemental oxygen at 2L/ min via nasal cannula during the day and on Bi-pap at night. Abnormal Labs: RBC 3.02, Hgb 8.4, Hct 25.5, RDW 17.5, Plt Count 148, Carbon Dioxide 34.6, BUN 46, Creatinine 1.48, GFR af 44, GFR non 36, Glucose 140, Alk Phos 45, Theophylline <2.0. ABG: pCO2 66.0, HCO3 41.8, Base Excess 14.3. Chest x-ray revealed no significant changed from prior exam. Bilateral lower extremities noted with 2+ pitting edema. We continued with treatment and planned for discharge to correction for further therapy when patient stable for discharge. 03/24/18: Patient noted with continued shortness of breath. Patient remained on the Bi-pap at night, during neb treatments and while sleeping. Patient placed on her home Bi-pap with while in bed with head of bed elevated. Bi-pap set at 16/10, FiO2 added via wall flowmeter set a 10L/min. Patient fell asleep and pulse oximetry noted to drop to 87% and noted as low as 82%. Patient changed to correction Bi-Pap with FiO2 still on wall at 10L/min. Oxygen saturation remained at 83-84%. Patients oxygen then switched to the correction 10L/min concentrator and remained on the correction Bi-Pap with pulse oximetry decreased to 80-83%. On auscultation of lung [place] patient noted with diminished breath sounds throughout. Abnormal Labs: RBC 2.89, Hgb 7.9, Hct 24.8, MCHC 32.0, RDW 17.9, Plt Count 148, Sodium 146, Carbon dioxide 38.0, BUN 40, Creatinine 1.55, GFR af 42, GFR non 35, Glucose 153, AST 13, Alk Phos 39. ABG: pH 7.340, pCO2 72.0, HCO3 52.0, HCO3 38.8, O2 Sat 84.0, Base Excess 10.3. Chest X-Ray: Cardiomegaly with vascular congestion and bilateral pleural effusions. We continued with treatment. 03/26/18: Patient noted with continued shortness of breath. Patient on home Bi- Pap with wall o2 at 7 liters. Patient switched to o2 concentrator from correction at 10 liters due to sat reading 91% with the concentrator at 10 liters. On auscultation of lung [place] patient noted with diminished breath sounds. Patients labs noted with an increase in BUN and creatinine from 41 and 1.70 to 43 and 1.90 and therefore fluids increased to 75ml/hr. Abnormal Labs: RBC 2.92 , Hgb 8.1, Hct 25.4, MCHC 31.9, RDW 17.8, Potassium 5.3, Carbon Dioxide 33.4, 35.4, BUN 43, 46, Creatinine 1.90, 1.96, GFR af 33, 32, GFR non 27, 26, Glucose 124, 106, Total Bilirubin 1.10, AST 13. ABG: pH 7.330, pCO2 73.0, pO2 60.0, HCO3 38.5, O2 Sat 89.0, Base Excess 9.9. We continued treatments and planned for discharge to LTAC when [facility] approved. 03/28/18: Patient noted with continued shortness of breath. On auscultation of lung [place] patient noted with rhonchi throughout. Chest x-ray revealed no significant changes compatible with congestive heart failure. Patient received two doses of IV Lasix 40mg the day prior. Patient remained on Bi-Pap at while asleep and during neb treatments and was otherwise on 4L/min via nasal cannula. Abnormal Labs: RBC 2.63, Hgb 7.4, 7.9, Hct 22.2, RDW 18.5, Carbon Dioxide 33.6 , BUN 43, Creatinine 1.93, GFR af 32, GFR non 27, Glucose 117, Total Bilirubin 1.30. ABG: FiO2 @60% - pCO2 60.0, HCO3 38.9, Base Excess 12.1. We added Zosyn 3.375gm IV TID for additional antibiotic coverage. 03/31/18: Patient continued with shortness of breath. On auscultation of lung [place] patient noted with rhonchi throughout. Patient remained on Bi-Pap at while asleep and during neb treatments and was otherwise on 4L/min via nasal cannula. [facility] approved LTAC facility for patient. We planned for transfer. Patient was transferred to [facility] in [place], [place] in stable condition with EMS. - Discharge Medications Discharge Medications: Home Medication List allopurinol 300 mg PO DAILY 03/06/18 [History] apixaban [Eliquis] 2.5 mg PO BID 03/06/18 [History] aspirin [Aspir-Low] 81 mg PO DAILY 03/06/18 [History] atorvastatin [Lipitor] 80 mg PO HS 03/06/18 [History] benzonatate 200 mg PO TID PRN 03/06/18 [History] cholecalciferol (vitamin D3) [Vitamin D3] 1,000 unit PO DAILY 03/06/18 [History] docusate sodium [Colace] 1 cap PO HS 03/06/18 [History] furosemide [Lasix] 20 mg PO BID 03/06/18 [History] glipizide 10 mg PO BID 03/06/18 [History] insulin glargine [Lantus U-100 Insulin] 20 unit SUB-Q HS 03/06/18 [History] losartan 50 mg PO DAILY 03/06/18 [History] magnesium oxide [MagOx] 400 mg PO DAILY 03/06/18 [History] ondansetron HCl [Zofran] 8 mg PO TID PRN 03/06/18 [History] oxybutynin chloride 10 mg PO DAILY 03/06/18 [History] potassium chloride 10 meq PO DAILY 03/06/18 [History] saxagliptin-metformin [Kombiglyze XR] 1 tab PO BID 03/06/18 [History] amoxicillin-pot clavulanate [Augmentin] 1 tab PO BID #20 tab 03/24/18 [Rx] furosemide [Lasix] 20 mg PO QAM #30 tab 03/24/18 [Rx] levalbuterol HCl 1.25 mg NEB TID #50 ml 03/24/18 [Rx] tramadol 50 mg PO QID PRN #120 tab 03/24/18 [Rx] Prescriptions: amoxicillin-pot clavulanate [Augmentin] Joaquin Garcia furosemide [Lasix] Joaquin Garcia levalbuterol HCl Joaquin Garcia tramadol Joaquin Garcia - Discharge Disposition Discharge Disposition: We will follow up with patient upon discharge from [facility].
--- NOTE | 2018-05-17 21:53 | PCM.PROG ---
Progress Note - Progress Note for Day of Date of Exam: 03/27/18 - Subjective Subjective: IS BEING TREATED FOR RIGHT MIDDLE LOBE PNEUMONIA AND CHF EXACERBATION. TODAY, SHE IS ALERT AND ORIENTED, SITTING IN CHAIR ON MORNING ROUNDS. SHE CONTINUES WITH COMPLAINTS OF SHORTNESS OF BREATH, FATIGUE, AND A NON -PRODUCTIVE COUGH. SHE CONTINUES TO UTILIZE THE BIPAP. PATIENT CONTINUES TO REQUIRE THE USE OF THE BIPAP AT ALL TIMES, EXCEPT DURING MEALS AND WHILE AMBULATING TO THE BATHROOM IN ORDER TO SUSTAIN HER OXYGEN SATURATIONS. ON EXAMINATION THIS MORNING, HEART IS REGULAR IN RATE AND RHYTHM. BILATERAL LUNGS CONTINUE WITH SCATTERED WHEEZING. ABDOMEN IS ROUND, SOFT, AND NON-TENDER WITH NORMAL BOWEL SOUNDS NOTED IN ALL QUADRANTS. HER VITALS TODAY ARE. 98.8-93-20-90% BIPAP-132/57. LABS WERE OBTAINED. ABNORMAL LAB VALUES INCLUDE THE FOLLOWING: RBC 2.63, HGB 7.4, HCT 22.2, CARBON DIOXIDE 36.3, BUN 45, CREATININE 1.90, TOTAL BILI 1.30. ABG REVEALED: PC02 68.0, P02 43.0, HC03 38.4, 02 SATURATION 76.0, BASE EXCESS 10.4. TODAYS CHEST XRAY REVEALS There is unchanged cardiomegaly. The costophrenic angles remain indistinct. There is near resolution of vascular congestion. There is decreasing pulmonary edema. SHE CONTINUES TO REQUIRE MODERATE ASSISTANCE WHEN AMBULATING DUE TO UNSTEADY GAIT AND INCREASED SHORTNESS OF BREATH. TODAY, WE WILL ADMINISTER LASIX 40MG IV BID. OTHERWISE, WE WILL CONTINUE WITH RESPIRATORY TREATMENTS, BIPAP, IV STEROIDS, AND CURRENT PLAN OF CARE. WE PLAN TO FOLLOW UP WITH AM LABS AND CHEST XRAY AND WILL CONTINUE TO MONITOR PATIENT. - Past Medical Family Social History Past Med/Fam/Surg Hx: No changes since H&P Allergies: Allergies lisinopril [From Zestril] Allergy (Verified 03/06/18 17:05) meperidine [From Demerol] Adverse Reaction (Verified 03/06/18 17:05) zinc Adverse Reaction (Verified 03/06/18 17:05) - Review of Systems ROS: No change since H&P - Vital Signs and I&O's Vital Signs: Temperature 97.6 F Pulse Rate [Apical] 87 Pulse Rate [Right Brachial] 90 Pulse Rate [Left Brachial] 91 Pulse Rate 90 Respiratory Rate 22 Blood Pressure [Left Radial 145/63 Artery] Blood Pressure [Right Radial 178/102 Artery] Blood Pressure [Right Arm] 128/58 Blood Pressure [Left Arm] 140/69 Blood Pressure 137/95 O2 Sat by Pulse Oximetry 99 - Physical Exam Oriented: Normal Eyes: Normal Ear: Normal Nose: Normal Throat: Normal Respiratory: Generalized, Diminished Cardiovascular: Normal. negative: S3, S4, Murmur : Normal Auscultation: Bowel Sounds: Normal Palpation: Normal Tenderness: Normal Skin: Normal Musculoskeletal: Normal Psychiatric: Normal Mood Description: Calm, Labile Affect: Normal Speech Pattern: Clear, Appropriate - Laboratory and Diagnostics Result Diagrams: 03/31/18 05:01 03/31/18 05:01 Labs: 03/06/18 19:48 Blood Blood Culture - Final 03/06/18 19:44 Blood Blood Culture - Final Laboratory WBC 6.1 X10^3/uL (3.6-10.0) 03/31/18 05:01 RBC 2.77 X10^6/uL (3.5-5.4) L 03/31/18 05:01 Hgb 7.7 g/dL (12.0-16.0) L 03/31/18 05:01 Hct 23.9 % (36.0-47.0) L 03/31/18 05:01 MCV 86.2 fL (80.0-100.0) 03/31/18 05:01 MCH 27.8 pg (27.0-34.0) 03/31/18 05:01 MCHC 32.2 g/dL (33.0-35.0) L 03/31/18 05:01 RDW 19.2 % (11.6-16.5) H 03/31/18 05:01 Plt Count 164 X10^3/uL (150.0-450.0) 03/31/18 05:01 Plt Count Comment Adequate (ADEQUATE) 03/31/18 05:01 MPV 9.3 fL (7.4-11.0) 03/31/18 05:01 Neut % (Auto) 77.9 % (42.0-75.0) H 03/31/18 05:01 Lymph % (Auto) 9.5 % (21.0-51.0) L 03/31/18 05:01 Coleman % (Auto) 5.4 % (0.0-13.0) 03/31/18 05:01 Eos % (Auto) 6.0 % (0.9-2.9) H 03/31/18 05:01 Baso % (Auto) 1.2 % (0.2-1.0) H 03/31/18 05:01 Neut # (Auto) 4.8 x10^3/uL (2.2-4.8) 03/31/18 05:01 Lymph # (Auto) 0.6 X10^3/uL (1.3-2.9) L 03/31/18 05:01 Coleman # (Auto) 0.3 x10^3/uL (0.3-0.8) 03/31/18 05:01 Eos # (Auto) 0.4 x10^3/uL (0.0-0.2) H 03/31/18 05:01 Baso # (Auto) 0.1 X10^3/uL (0.0-0.1) 03/31/18 05:01 Absolute Nucleated RBC 0.1 /100WBC 03/31/18 05:01 Total Counted 100 03/17/18 05:31 Neutrophils % (Manual) 95 % (39-76) H 03/17/18 05:31 Band Neutrophils % 2 % (0-10) 03/16/18 05:08 Lymphocytes % (Manual) 3 % (13-43) L 03/17/18 05:31 Monocytes % (Manual) 2 % (4-9) L 03/17/18 05:31 Plt Morphology Comment Normal (NORMAL) 03/31/18 05:01 RBC Morphology Abnormal (NORMAL) A 03/31/18 05:01 Hypochromasia 1+ A 03/31/18 05:01 Anisocytosis 1+ A 03/31/18 05:01 Microcytosis 2+ A 03/31/18 05:01 Ovalocytes Slight A 03/31/18 05:01 D-Dimer 1190 ng/mL (0-400) H* 03/06/18 17:28 Sample Site Lbra 03/29/18 05:31 ABG pH 7.390 (7.35-7.45) 03/29/18 05:31 ABG pCO2 64.0 mmHg (35.0-45.0) H* 03/29/18 05:31 ABG pO2 105.0 mmHg (80.0-100.0) H 03/29/18 05:31 ABG HCO3 38.7 mmol/L (22-26) H* 03/29/18 05:31 ABG O2 Saturation 98.0 % (90-100) 03/29/18 05:31 ABG Base Excess 11.3 mmol/L (-2.0-2.0) H 03/29/18 05:31 Twan Test Na 03/29/18 05:31 A-a Gradient 243.0 mmHg 03/29/18 05:31 FiO2 60.000 03/29/18 05:31 Blood Gas Comments Praneeth abg well-mtf 03/29/18 05:31 Sodium 145 mmol/L (136-145) 03/31/18 05:01 Corrected Sodium 146 mmol/L (136-145) H 03/31/18 05:01 Potassium 4.5 mmol/L (3.5-5.1) 03/31/18 05:01 Chloride 106 mmol/L (98-107) 03/31/18 05:01 Carbon Dioxide 34.5 mmol/L (21-32) H 03/31/18 05:01 BUN 31 mg/dL (7-18) H 03/31/18 05:01 Creatinine 1.46 mg/dL (0.55-1.02) H 03/31/18 05:01 Est GFR (MDRD) Af Amer 45 (>60) L 03/31/18 05:01 Est GFR (MDRD) Non-Af 37 (>60) L 03/31/18 05:01 Glucose 137 mg/dL (65-99) H 03/31/18 05:01 POC Glucose (mg/dL) 125 mg/dL (65-99) H 03/31/18 11:19 Calcium 9.3 mg/dL (8.5-10.1) 03/31/18 05:01 Corrected Calcium 10.1 mg/dL (8.5-10.1) 03/31/18 05:01 Total Bilirubin 1.00 mg/dL (0.2-1.0) 03/31/18 05:01 AST 26 Units/L (15-37) 03/31/18 05:01 ALT 13 Units/L (12-78) 03/31/18 05:01 Alkaline Phosphatase 50 Units/L (46-116) 03/31/18 05:01 Creatine Kinase 16 Units/L (26-192) L 03/13/18 00:06 CK-MB (CK-2) < 1.0 ng/mL (0-4.0) 03/13/18 00:06 CK/CKMB % Calc 6.3 % (<4) 03/13/18 00:06 Troponin I 0.06 ng/mL (0-1.5) 03/13/18 00:06 Total Protein 6.7 g/dL (6.4-8.2) 03/31/18 05:01 Albumin 3.0 g/dL (3.4-5.0) L 03/31/18 05:01 Globulin 3.7 g/dL (2.5-4.5) 03/31/18 05:01 Albumin/Globulin Ratio 0.8 Ratio (1.1-2.1) L 03/31/18 05:01 Specimen Type Catherized urine 03/12/18 11:55 Urine Color Yellow (YELLOW) 03/12/18 11:55 Urine Appearance Hazy (CLEAR) 03/12/18 11:55 Urine pH 5.0 (5.0 - 8.0) 03/12/18 11:55 Ur Specific [place] 1.020 (1.000-1.030) 03/12/18 11:55 Urine Protein 2+ (NEGATIVE) 03/12/18 11:55 Urine Glucose (UA) Negative (NEGATIVE) 03/12/18 11:55 Urine Ketones Negative (NEGATIVE) 03/12/18 11:55 Urine Occult Blood Negative (NEGATIVE) 03/12/18 11:55 Urine Nitrite Negative (NEGATIVE) 03/12/18 11:55 Urine Bilirubin Negative (NEGATIVE) 03/12/18 11:55 Urine Urobilinogen Normal (NORMAL) 03/12/18 11:55 Ur Leukocyte Esterase Negative (NEGATIVE) 03/12/18 11:55 Urine RBC 0-2 /HPF (NONE SEEN) 03/12/18 11:55 Urine WBC 0-2 /HPF (NONE SEEN) 03/12/18 11:55 Ur Squamous Epith Cells Moderate /HPF (NEGATIVE) 03/12/18 11:55 Amorphous Sediment 2+ /HPF (NEGATIVE) 03/12/18 11:55 Urine Bacteria Trace /HPF (NEGATIVE) 03/12/18 11:55 Urine Mucus Few /HPF (NEGATIVE) 03/12/18 11:55 Ur Culture Indicated? No/not indicated 03/12/18 11:55 Theophylline < 2.0 ug/mL (10-20) L 03/23/18 04:48 - Plan (1) RML pneumonia Status: Acute Qualifiers: Pneumonia type: due to unspecified organism Qualified Code(s): J18.1 - Lobar pneumonia, unspecified organism Plan: iv antibiotics, respiratory treatments, supplemental oxygen, continue to monitor (2) CHF (congestive heart failure) Status: Chronic Qualifiers: Heart failure type: unspecified Heart failure chronicity: acute on chronic Qualified Code(s): I50.9 - Heart failure, unspecified Plan: LASIX 40MG IV BID, CONTINUE HOME MEDICATIONS, JESSE-DUR 200MG PO BID (3) Respiratory failure with hypercapnia Status: Acute Qualifiers: Chronicity: acute on chronic Qualified Code(s): J96.22 - Acute and chronic respiratory failure with hypercapnia Plan: JESSE-DUR 200MG PO BID, bipap, respiratory treatments, supplemental oxygen , continue to monitor (4) Atrial fibrillation Status: Chronic Qualifiers: Atrial fibrillation type: chronic Qualified Code(s): I48.2 - Chronic atrial fibrillation Plan: CONTINUE ELIQUIS, CONTINUE TO MONITOR (5) Hyperlipidemia Status: Acute Qualifiers: Hyperlipidemia type: pure hypercholesterolemia Qualified Code(s): E78.00 - Pure hypercholesterolemia, unspecified; E78.0 - Pure hypercholesterolemia Plan: CONTINUE LIPITOR, CONTINUE TO MONITOR (6) Type I diabetes mellitus Status: Chronic Qualifiers: Diabetes mellitus complication status: with unspecified complications Qualified Code(s): E10.8 - Type 1 diabetes mellitus with unspecified complications Plan: MONITOR BS, CONTINUE GLUCOTROL, CONTINUE LANTUS, CONTINUE HUMULIN R
== END 2018-03-31 12:00 | DRG 193 ==
LOC: MED/SURG 17:00 → ER 17:00 → MED/SURG 22:58 → ICU 03-12 16:51 → MED/SURG 03-21 15:39
PROVIDERS: ADMIT Internal Medicine; ATTEND Internal Medicine
DX: J96.22 Acute and chronic respiratory failure with hypercapnia; E10.65 Type 1 diabetes mellitus with hyperglycemia; N17.8 Other acute kidney failure; Z99.81 Dependence on supplemental oxygen; I48.2 Chronic atrial fibrillation; R06.02 Shortness of breath; J90 Pleural effusion, not elsewhere classified; J44.9 Chronic obstructive pulmonary disease, unspecified; K21.9 Gastro-esophageal reflux disease without esophagitis; J18.0 Bronchopneumonia, unspecified organism; N18.9 Chronic kidney disease, unspecified; I50.9 Heart failure, unspecified; R13.11 Dysphagia, oral phase; E78.00 Pure hypercholesterolemia, unspecified; D64.89 Other specified anemias; I51.7 Cardiomegaly; R26.89 Other abnormalities of gait and mobility; I12.9 Hypertensive chronic kidney disease with stage 1 through stage 4 chronic kidney disease, or unspecified chronic kidney disease
CPT/HCPCS: 36415; 36600; 70486; 70490; 71010; 71045; 71275; 80048; 80053; 80198; 81001; 82550; 82553; 82803; 84484; 85018; 85025; 85378; 87040; 92526; 92610; 93005; 93010; 94640; 94660; 94669; 94760; 96365; 96367; 96374; 96375; 97110; 97116; 97162; 97163; 97165; 97166; 97530; 97535; 99231; 99284; A4217; A4222; A4618; A7030; P9047; G0378; J0696; J1815; J1940; J2270; J2543; J2920; J3490; J7040; J7050; J7620